=== PATIENT | female | born 1995 | race Hispanic/Latino ===

== ENCOUNTER 2019-02-11 21:27 | Emergency (ER) | payer MEDICARE, OTHER ==
[~2019-02-11] VITALS: Ht 160 cm; Wt 89.8 kg
--- OUTSIDE RECORDS SUMMARY | 2019-02-11 21:29 | XMS REPORT | Clinical Summary ---
Author Author [facility] Address Unknown Phone Unavailable Care Team Providers Care Piece Maker Name Role Phone Asked, No Pcp PCP Unavailable Allergies No Known Allergies Medications Not on file Active Problems Not on file Social History Date Tobacco Use Types Packs/Day Years Used Current Every Day Smoker Drinks/Week oz/Week Comments Alcohol Use No Sex Assigned at Date Recorded Not on file Industry Job Start Date Occupation Not on file Not on file Not on file Travel End Travel History Travel Start No recent travel history available. 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
--- OUTSIDE RECORDS SUMMARY | 2019-02-11 21:30 | XMS REPORT | Clinical Summary ---
Author Author [facility] Address Unknown Phone Unavailable Care Team Providers Care Photographer Aerial Name Role Phone PCP Unavailable Allergies No Known Allergies Medications End Date Status Medication Sig Dispensed Refills Start Date Active hydrALAZINE (APRESOLINE) Take 25 mg by 0 25 MG tablet mouth 3 (three) times daily. Active zolpidem (AMBIEN) 5 MG Take 5 mg by 0 tablet mouth every night as needed for Insomnia. Active ARIPiprazole (ABILIFY) 2 Take 2 mg by 0 MG tablet mouth daily. Active sertraline (ZOLOFT) 100 Take 100 mg 0 MG tablet by mouth daily. 07/27/2018 traMADol (ULTRAM) 50 mg Take 1 tablet 30 tablet 0 tablet (50 mg total) 9 by mouth every 6 (six) hours as needed for Pain for up to 10 days. Max Daily Amount: 200 mg Active Problems Not on file Encounters Care Team Description Date Type Specialty Gypsy Rios MD 07/17/2018 Anesthesia Event Stanislav Nava MD LAPAROSCOPY,CHOLECYSTECTOMY 07/17/2018 Surgery Stanislav Nava MD Gallstones (Primary Dx) 07/17/2018 Hospital Encounter after 02/10/2018 Social History Date Tobacco Use Types Packs/Day Years Used Never Smoker Smokeless Tobacco: Never Used Alcohol Use Drinks/Week oz/Week Comments No Alcohol Habits Answer Date Recorded How often do you have a drink containing alcohol? Never 07/08/2018 How many drinks containing alcohol do you have on Not asked a typical day when you are drinking? How often do you have six or more drinks on one Not asked occasion? Sex Assigned at Date Recorded Not on file Industry Job Start Date Occupation Not on file Not on file Not on file Travel End Travel History Travel Start No recent travel history available. Last Filed Vital Signs Time Taken Vital Sign Reading 07/17/2018 11:08 AM PRIVATE DUTY NURSE Blood Pressure 97/52 07/17/2018 11:08 AM PRIVATE DUTY NURSE Pulse 67 07/17/2018 11:08 AM PRIVATE DUTY NURSE Temperature 37 C (98.6 F) 07/17/2018 11:08 AM PRIVATE DUTY NURSE Respiratory Rate 25 07/17/2018 11:08 AM PRIVATE DUTY NURSE Oxygen Saturation 93% - Inhaled Oxygen - Concentration 07/17/2018 7:55 AM PRIVATE DUTY NURSE Weight 84.4 kg (186 lb) 07/17/2018 7:55 AM PRIVATE DUTY NURSE Height 160 cm (5' 3") 07/17/2018 7:55 AM PRIVATE DUTY NURSE Body Mass Index 32.95 Plan of Treatment Not on file Procedures Comments Procedure Name Priority Date/Time Associated Diagnosis TISSUE EXAM AP Routine 07/17/2018 10:15 AM PRIVATE DUTY NURSE LAPAROSCOPY,CHOLECYSTECTO 07/17/2018 Calculus of gallbladder MY 9:00 AM PRIVATE DUTY NURSE without cholecystitis without obstruction Special Needs DR. NAVA PA TO ASST CBC W/PLT COUNT & AUTO Routine 07/17/2018 DIFFERENTIAL 8:02 AM PRIVATE DUTY NURSE CBC W/PLT COUNT & AUTO Routine 07/17/2018 DIFFERENTIAL 8:02 AM PRIVATE DUTY NURSE SCREEN, URINE Routine 07/17/2018 7:43 AM PRIVATE DUTY NURSE after 02/10/2018 Results * Tissue Exam (07/17/2018 10:15 AM PRIVATE DUTY NURSE) Case Report Surgical Pathology [facility] LABORATORY Case: [id number] Authorizing Provider:Stanislav Nava,Collected: 07/17/2018 1015 Ordering Location: [facility] Received: 07/17/2018 1037 SERVICES Pathologist: Azeb Goodrich MD Specimen:Gallbladder, gallbladder DIAGNOSIS GALLBLADDER, CHOLECYSTECTOMY: [facility]RON[facility] LAB[facility]ATORY CHOLECYSTITIS WITH FOCAL INTESTINAL METAPLASIA - NO DYSPLASIA OR MALIGNANCY IS IDENTIFIED - CHOLELITHIASIS - ONE REACTIVE LYMPH NODE MG/pl Signing Pathologist Direct Phone Line: [phone] CPT Code(s) 20088 [place] [facility] CLINICAL HISTORY Cholelithiasis [facility] SPECIMEN SOURCE Gallbladder [facility] GROSS DESCRIPTION The specimen is received in [place] fixative and designated as LABORATORY "gallbladder" and consists of a pink-waggoner cholecystectomy specimen (7.0 x 3.5 x 3.0 cm). The gallbladder is filled with green viscous fluid and contains multiple yellow gallstones ranging in size from 0.5 to 0.7 cm in greatest dimension. The gallbladder mucosa is waggoner and velvety with no discrete lesions identified. Wire Bender sections of the gallbladder mucosa and cystic duct are submitted into A1. MG/pl MICROSCOPIC DESCRIPTION Performed [facility] Gross assessment was . [place] [facility] performed at [facility], Department of LABORATORY Pathology, [address] [place] [id number], Technical component was [facility] performed at [facility] Department of LABORATORY Pathology, [address] [place] [id number], Professional component . [place] [facility] was performed at [facility] Department of LABORATORY Pathology, [address] [place] [address], Specimen Tissue Narrative Performed At Performing Organization Address City/State/Zipcode Phone Number [facility] [address] [place] [phone] * CBC with platelet count + automated diff (07/17/2018 8:02 AM PRIVATE DUTY NURSE) WBC 9.4 4.0 - 10.0 K/L [facility] RBC 4.83 4.00 - 5.00 M/L [facility] Hemoglobin 14.2 12.0 - 15.5 GM/DL [facility] Hematocrit 43.4 36.0 - 46.0 % [facility] MCV 89.9 82.0 - 99.0 fL [facility] MCH 29.4 27.0 - 33.0 pg [facility] MCHC 32.7 32.0 - 36.0 GM/DL [facility] RDW 12.7 12.0 - 15.0 % [facility] Platelets 307 150 - 430 K/CU MM [facility] MPV 10.3 6.0 - 11.5 fL [facility] nRBC 0 0 - 0 /100 WBC [facility] % Neutros 61 % [facility] % Lymphs 31 % [facility] % Monos 6 % [facility] % Eos 2 % [facility] % Baso 0 % [facility] # Neutros 5.69 1.80 - 8.00 K/L [facility] # Lymphs 2.95 1.48 - 4.50 K/L [facility] # Monos 0.53 0.00 - 1.30 K/L [facility] # Eos 0.17 0.00 - 0.50 K/L [facility] # Baso 0.03 0.00 - 0.20 K/L [facility] Immature 1 (H) 0 - 0 % [facility] Granulocytes-Relative [facility]ORATORY Specimen Blood Performing Organization Address City/[facility]/Zipcode Phone Number [facility] [address], [place] [phone] * Screen, urine (07/17/2018 7:43 AM PRIVATE DUTY NURSE) Preg Test, Ur Negative [facility] Specimen Urine Performing Organization Address City/[facility] Phone Number [facility] [address] [place] [address] after 02/10/2018 Insurance Payer Benefit Subscriber ID Type Phone Address Plan / Group MEDICAID - MEDICAID [facility] xxxxxxxxx Medicaid CARE COMM STAR Contracted PLAN [id number] [place] [address] (Home) [place] [address]
--- OUTSIDE RECORDS SUMMARY | 2019-02-11 21:30 | XMS REPORT | Continuity of Care Document ---
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 Name Role Phone [employer] Information [employer] Unavailable Unavailable Problems Problem Status Onset Date Classification Date Reported Comments Source N/A Active 02/06/2019 [facility] G47.33 Active 01/01/2019 [facility] Discharge Diagnosis: Acute vaginitis 02/25/2016 02/28/2016 [facility] Discharge Diagnosis: Acute cervicitis 02/25/2016 02/28/2016 [facility] VAGINAL DISCHARGE Active 02/25/2016 [facility] Discharge Diagnosis: Headache 06/09/2015 06/12/2015 [facility] Discharge Diagnosis: Dizziness 06/09/2015 06/12/2015 [facility] DIZZYNESS/NAUSEA Active 06/08/2015 [facility] Discharge Diagnosis: Acute UTI 10/01/2014 10/04/2014 [facility] Discharge Diagnosis: Candidal vaginitis 10/01/2014 10/04/2014 [facility] VAGINAL ISSUES Active 09/30/2014 [facility] OBSTRUCTIVE SLEEP APNEA (ADULT) (PEDIATR Active [facility] Medications Medication Details Route Status Patient Instructions Ordering Provider Order Date Source Azithromycin 1,000 mg, Route: PO, Drug form: TAB, ONCE, Dosing Weight 63.807, kg, Start date: 02/25/16 22:04:00 CDT, Stop date: 02/25/16 22:04:00 CDT Inactive 02/26/2016 [facility] fluconazole 150 mg oral tablet 150 mg=1 tab, PO, ONCE, # 1 tab, 0 Refill(s) Active 02/26/2016 [facility] Metronidazole 500 MG Oral Tablet [Flagyl] 500 mg=1 tab, PO, Q8H, X 7 day, # 21 tab, 0 Refill(s) Active 02/26/2016 [facility] Azithromycin 1,000 mg, 1 pkt, Route: PO, Drug form: PCKT, ONCE, Dosing Weight 63.807, kg, Start date: 02/25/16 20:52:00 CDT, Stop date: 02/25/16 20:52:00 CDTNotes: (Same As: Zithromax) Take 1 hour before or 2 hours after meal Inactive 02/26/2016 Khadra Butcher Rocephin 250 mg, Route: IM, Drug form: PDR/INJ, ONCE, Dosing Weight 63.807, kg, Priority: STAT, Start date: 02/25/16 20:52:00 CDT, Stop date: 02/25/16 20:52:00 CDTNotes: (Same As: Rocephin) Inactive 02/26/2016 [facility] meclizine 25 mg oral tablet 25 mg=1 tab, PO, TID, PRN for dizziness, X 7 day, # 21 tab, 0 Refill(s) Active 06/09/2015 [facility] Benadryl 12.5 mg, Route: IVP, ONCE, Dosing Weight 55.773, kg, Priority: STAT, Start date: 06/09/15 0:13:00, Stop date: 06/09/15 0:13:00 Inactive 06/09/2015 [facility] Reglan 10 mg, Route: IVP, Drug form: INJ, ONCE, Dosing Weight 55.773, kg, Priority: STAT, Start date: 06/09/15 0:12:00, Stop date: 06/09/15 0:12:00 Inactive 06/09/2015 [facility] Meclizine 25 mg, Route: PO, Drug form: TAB, ONCE, Dosing Weight 55.773, kg, Priority: STAT, Start date: 06/09/15 0:12:00, Stop date: 06/09/15 0:12:00 Inactive 06/09/2015 [facility] Sodium Chloride 0.154 MEQ/ML Injectable Solution 1,000 mL, 1,000 ml/hr, Infuse Over: 1 hr, Route: IV, ONCE, Priority: STAT, Dosing Weight 55.773 kg, Start date: 06/09/15 0:12:00, Duration: 1 doses or times, Stop date: 06/09/15 0:12:00 Inactive 06/09/2015 [facility] Miconazole Nitrate 200 MG Vaginal Suppository [Monistat] 200 mg=1 supp, VAG, Bedtime, X 3 day, # 3 ea, 0 Refill(s), Pharmacy: [facility] [id number] Active 10/01/2014 [facility] Nitrofurantoin 100 MG Oral Capsule [Macrobid] 100 mg=1 cap, PO, BID, X 7 day, # 14 cap, 0 Refill(s), Pharmacy: [facility] [id number] Active 10/01/2014 [facility] Allergies, Adverse Reactions, Alerts Substance Category Reaction Severity Reaction type Status Date Reported Comments Source No Known Medication Allergies Assertion Drug allergy [facility] Immunizations No Data Provided for This Section Results Order Name Results Value Reference Range Date Interpretation Comments Source URINE AND STOOL UA Ketones Negative mg/dL Negative mg/dL 02/26/2016 [facility] URINE AND STOOL UA Glucose Negative mg/dL Negative mg/dL 02/26/2016 [facility] URINE AND STOOL UA pH 5.0 5.0 - 8.0 02/26/2016 [facility] URINE AND STOOL UA Protein Negative mg/dL Negative mg/dL 02/26/2016 [facility] URINE AND STOOL UA Bili Negative *NA* (02/25/16 8:40 PM) Negative 02/26/2016 [facility] URINE AND STOOL UA Blood Negative (02/25/16 8:40 PM) Negative 02/26/2016 [facility] URINE AND STOOL UA Color Yellow *NA* (02/25/16 8:40 PM) Yellow 02/26/2016 [facility] URINE AND STOOL UA Turbidity Slight *ABN* (02/25/16 8:40 PM) Clear 02/26/2016 [facility] URINE AND STOOL UA Spec Grav 1.027 <=1.030 02/26/2016 [facility] URINE AND STOOL UA Leuk Est Small *ABN* (02/25/16 8:40 PM) Negative 02/26/2016 [facility] URINE AND STOOL UA Sq Epi Many /LPF Few /LPF 02/26/2016 [facility] URINE AND STOOL UA Mucus Many /LPF None Seen /LPF 02/26/2016 [facility] URINE AND STOOL UA RBC 1 0 - 2 02/26/2016 [facility] URINE AND STOOL UA Bacteria Occasional /HPF None Seen /HPF 02/26/2016 [facility] URINE AND STOOL UA WBC 6 0 - 5 02/26/2016 [facility] URINE AND STOOL UA Urobilinogen 2.0 0.1 - 1.0 02/26/2016 [facility] URINE AND STOOL UA Nitrite Negative (02/25/16 8:40 PM) Negative 02/26/2016 [facility] URINE CHEM U Preg Negative (02/25/16 8:40 PM) Negative 02/26/2016 [facility] MOLECULAR DIAGNOSTIC N gonorrhea by Amp Det (APTIMA) Negative *NA* (06/09/15 12:37 AM) Negative 06/09/2015 [facility] MOLECULAR DIAGNOSTIC C trachomatis by Amp Det (APTIMA) Negative *NA* (06/09/15 12:37 AM) Negative 06/09/2015 [facility] MOLECULAR DIAGNOSTIC Source APTIMA Urine *NA* (06/09/15 12:37 AM) 06/09/2015 [facility] CHEM PANEL eGFR 127 06/09/2015 Result Comment: The eGFR is calculated using the CKD-EPI formula. In most young, healthy individuals the eGFR will be >90 mL/min/1.73m2. The eGFR declines with age. An eGFR of 60-89 may be normal in some populations, particularly the elderly, for whom the CKD-EPI formula has not been extensively validated. Use of the eGFR is not recommended in the following populations:

Individuals with unstable creatinine concentrations, including patients and those with serious co-morbid conditions.

Patients with extremes in muscle mass or diet.

The data above are obtained from the National Kidney Disease Education Program (NKDEP) which additionally recommends that when the eGFR is used in patients with extremes of body mass index for purposes of drug dosing, the eGFR should be multiplied by the estimated BMI. [facility] CHEM PANEL Bili Total 0.5 0.2 - 1.3 06/09/2015 [facility] CHEM PANEL AST 26 0 - 37 06/09/2015 [facility] CHEM PANEL Alk Phos 83 39 - 136 06/09/2015 [facility] CHEM PANEL Creatinine Lvl 0.66 0.50 - 1.40 06/09/2015 [facility] CHEM PANEL Sodium Lvl 141 135 - 145 06/09/2015 [facility] CHEM PANEL Glucose Lvl 87 70 - 99 06/09/2015 [facility] CHEM PANEL BUN 13 7 - 22 06/09/2015 [facility] CHEM PANEL Albumin Lvl 3.8 3.5 - 5.0 06/09/2015 [facility] CHEM PANEL Total Protein 7.3 6.4 - 8.4 06/09/2015 [facility] CHEM PANEL ALT 38 0 - 65 06/09/2015 [facility] CHEM PANEL Chloride Lvl 107 95 - 109 06/09/2015 [facility] CHEM PANEL CO2 26 24 - 32 06/09/2015 [facility] CHEM PANEL Calcium Lvl 8.6 8.5 - 10.5 06/09/2015 [facility] CHEM PANEL Potassium Lvl 3.5 3.5 - 5.1 06/09/2015 [facility] CHEM PANEL Globulin 3.5 2.0 - 4.0 06/09/2015 [facility] CHEM PANEL A/G Ratio 1.1 0.7 - 1.6 06/09/2015 [facility] CHEM PANEL AGAP 11.5 10.0 - 20.0 06/09/2015 [facility] CHEM PANEL B/C Ratio 20 6 - 25 06/09/2015 [facility] ENDOCRINOLOGY S Preg Negative *NA* (06/09/15 12:23 AM) Negative 06/09/2015 [facility] HEMATOLOGY Monocytes # 0.5 0.0 - 0.8 06/09/2015 [facility] HEMATOLOGY Eosinophils # 0.1 0.0 - 0.5 06/09/2015 [facility] HEMATOLOGY Basophils # 0.0 0.0 - 0.2 06/09/2015 [facility] HEMATOLOGY Segs 50.1 45.0 - 75.0 06/09/2015 [facility] HEMATOLOGY Lymphocytes 40.2 20.0 - 40.0 06/09/2015 [facility] HEMATOLOGY Monocytes 7.6 2.0 - 12.0 06/09/2015 [facility] HEMATOLOGY Eosinophils 1.6 0.0 - 4.0 06/09/2015 [facility] HEMATOLOGY Basophils 0.5 0.0 - 1.0 06/09/2015 [facility] HEMATOLOGY Segs-Bands # 3.4 1.5 - 8.1 06/09/2015 [facility] HEMATOLOGY Lymphocytes # 2.7 1.0 - 5.5 06/09/2015 [facility] HEMATOLOGY WBC 6.7 3.7 - 10.4 06/09/2015 [facility] HEMATOLOGY RBC 4.08 4.20 - 5.40 06/09/2015 [facility] HEMATOLOGY Hct 36.7 36.0 - 48.0 06/09/2015 [facility] HEMATOLOGY Hgb 12.6 12.0 - 16.0 06/09/2015 [facility] HEMATOLOGY MCV 89.9 80.0 - 98.0 06/09/2015 [facility] HEMATOLOGY MCHC 34.3 32.0 - 36.0 06/09/2015 [facility] HEMATOLOGY MCH 30.8 27.0 - 31.0 06/09/2015 [facility] HEMATOLOGY Platelet 251 133 - 450 06/09/2015 [facility] HEMATOLOGY RDW 12.7 11.5 - 14.5 06/09/2015 [facility] HEMATOLOGY MPV 9.0 7.4 - 10.4 06/09/2015 [facility] URINE AND STOOL UA Mucus Few /LPF None Seen /LPF 06/09/2015 [facility] URINE AND STOOL UA RBC 0-2 /HPF 0 - 2 06/09/2015 [facility] URINE AND STOOL UA Bacteria Few /HPF None Seen /HPF 06/09/2015 [facility] URINE AND STOOL UA Leuk Est Negative (06/09/15 12:23 AM) Negative 06/09/2015 [facility] URINE AND STOOL UA Sq Epi Moderate /LPF Few /LPF 06/09/2015 [facility] URINE AND STOOL UA WBC 3-5 /HPF None Seen /HPF 06/09/2015 [facility] URINE AND STOOL UA Glucose Negative (06/09/15 12:23 AM) Negative 06/09/2015 [facility] URINE AND STOOL UA pH 6.5 5.0 - 8.0 06/09/2015 [facility] URINE AND STOOL UA Protein Negative (06/09/15 12:23 AM) Negative 06/09/2015 [facility] URINE AND STOOL UA Ketones Negative *NA* (06/09/15 12:23 AM) Negative 06/09/2015 [facility] URINE AND STOOL UA Bili Negative *NA* (06/09/15 12:23 AM) Negative 06/09/2015 [facility] URINE AND STOOL UA Blood Small *ABN* (06/09/15 12:23 AM) Negative 06/09/2015 [facility] URINE AND STOOL UA Urobilinogen 1.0 0.1 - 1.0 06/09/2015 [facility] URINE AND STOOL UA Nitrite Negative (06/09/15 12:23 AM) Negative 06/09/2015 [facility] URINE AND STOOL UA Color Yellow *NA* (06/09/15 12:23 AM) Yellow 06/09/2015 [facility] URINE AND STOOL UA Turbidity Slight Cloudy (06/09/15 12:23 AM) Clear 06/09/2015 [facility] URINE AND STOOL UA Spec Grav 1.025 <=1.030 06/09/2015 [facility] IMMUNOLOGY [facility] HIV 4th GEN Negative (10/01/14 12:34 AM) Negative 10/01/2014 [facility] MOLECULAR DIAGNOSTIC N gonorrhea by Amp Det (APTIMA) Negative 1 *NA* (10/01/14 12:34 AM) Negative 10/01/2014 <sup>1</sup>Interpretive Data: The APTIMA assay is a target amplification nucleic acid probe test utilizing target capture for the qualitative detection and differentiation of ribosomal RNA from Neisseria gonorrhoeae to aid in the diagnosis of disease from symptomatic and asymptomatic individuals using the PANTHER System.
This assay utilizes FDA cleared IVD reagents. Performance characteristics have been verified by the [facility] within [facility]. The Molecular Diagnostic Laboratory is authorized under the Clinical Laboratory Improvement Amendments of 1988 (CLIA-88) to perform high complexity testing. [facility] MOLECULAR DIAGNOSTIC Source APTIMA Endocervix *NA* (10/01/14 12:34 AM) 10/01/2014 [facility] MOLECULAR DIAGNOSTIC C trachomatis by Amp Det (APTIMA) Positive 2, 3, 4 *ABN* (10/01/14 12:34 AM) Negative 10/01/2014 <sup>2</sup>Interpretive Data: The APTIMA assay is a target amplification nucleic acid probe test utilizing target capture for the qualitative detection and differentiation of ribosomal RNA from Chlamydia trachomatis to aid in the diagnosis of disease from symptomatic and asymptomatic individuals using the PANTHER System.
This assay utilizes FDA cleared IVD reagents. Performance characteristics have been verified by the [facility] within [facility]. The Molecular Diagnostic Laboratory is authorized under the Clinical Laboratory Improvement Amendments of 1988 (CLIA-88) to perform high complexity testing.
<sup>3</sup>Result Comment: "Significant Findings called to CHRIS_at _10/02/2014 10:59__by CYTHOMAS___.Read Back OK.&quot ;
<sup>4</sup>Interpretive Data: The APTIMA assay is a target amplification nucleic acid probe test utilizing target capture for the qualitative detection and differentiation of ribosomal RNA from Chlamydia trachomatis to aid in the diagnosis of disease from symptomatic and asymptomatic individuals using the [employer] System.
This assay utilizes FDA cleared IVD reagents. Performance characteristics have been verified by the [facility] within [facility]. The Molecular Diagnostic Laboratory is authorized under the Clinical Laboratory Improvement Amendments of 1988 (CLIA-88) to perform high complexity testing. [facility] URINE AND STOOL UA Spec Grav 1.020 <=1.030 10/01/2014 [facility] URINE AND STOOL UA Turbidity Cloudy *ABN* (10/01/14 12:34 AM) Clear 10/01/2014 [facility] URINE AND STOOL UA pH 7.0 5.0 - 8.0 10/01/2014 [facility] URINE AND STOOL UA Protein Negative (10/01/14 12:34 AM) Negative 10/01/2014 [facility] URINE AND STOOL UA Ketones Negative *NA* (10/01/14 12:34 AM) Negative 10/01/2014 [facility] URINE AND STOOL UA Glucose Negative (10/01/14 12:34 AM) Negative 10/01/2014 [facility] URINE AND STOOL UA Bacteria Few /HPF None Seen /HPF 10/01/2014 [facility] URINE AND STOOL UA Nitrite Negative (10/01/14 12:34 AM) Negative 10/01/2014 [facility] URINE AND STOOL UA WBC 11-20 /HPF None Seen /HPF 10/01/2014 [facility] URINE AND STOOL UA Leuk Est Small *ABN* (10/01/14 12:34 AM) Negative 10/01/2014 [facility] URINE AND STOOL UA Sq Epi Moderate /LPF Few /LPF 10/01/2014 [facility] URINE AND STOOL UA RBC 0-2 /HPF 0 - 2 10/01/2014 [facility] URINE AND STOOL UA Color Yellow *NA* (10/01/14 12:34 AM) Yellow 10/01/2014 [facility] URINE AND STOOL UA Urobilinogen 1.0 0.1 - 1.0 10/01/2014 [facility] URINE AND STOOL UA Blood Negative (10/01/14 12:34 AM) Negative 10/01/2014 [facility] URINE AND STOOL UA Bili Negative *NA* (10/01/14 12:34 AM) Negative 10/01/2014 [facility] URINE CHEM U Preg Negative (10/01/14 12:34 AM) Negative 10/01/2014 [facility] Pathology Reports No Data Provided for This Section Diagnostic Reports No Data Provided for This Section Consultation Notes No Data Provided for This Section Discharge Summaries No Data Provided for This Section History and Physicals No Data Provided for This Section Vital Signs Vital Sign Value Date Comments Source Systolic (mm Hg) 116 02/26/2016 [facility] Diastolic (mm Hg) 64 02/26/2016 [facility] Respitory Rate 16 02/26/2016 [facility] Heart Rate 71 02/26/2016 [facility] Temperature Oral (F) 98 F 02/26/2016 [facility] Respitory Rate 16 02/26/2016 [facility] Heart Rate 73 02/26/2016 [facility] Systolic (mm Hg) 116 02/26/2016 [facility] Diastolic (mm Hg) 72 02/26/2016 [facility] Temperature Oral (F) 98.6 F 02/26/2016 [facility] Weight 63.807 02/26/2016 [facility] Systolic (mm Hg) 100 06/09/2015 [facility] Diastolic (mm Hg) 66 06/09/2015 [facility] Heart Rate 75 06/09/2015 [facility] Respitory Rate 19 06/09/2015 [facility] Temperature Oral (F) 98.2 F 06/09/2015 [facility] Weight 55.773 06/09/2015 [facility] Heart Rate 70 06/09/2015 [facility] Systolic (mm Hg) 128 06/09/2015 [facility] Diastolic (mm Hg) 80 06/09/2015 [facility] Respitory Rate 18 06/09/2015 [facility] Temperature Oral (F) 97.8 F 06/09/2015 [facility] Systolic (mm Hg) 110 10/01/2014 [facility] Diastolic (mm Hg) 84 10/01/2014 [facility] Heart Rate 79 10/01/2014 [facility] Respitory Rate 18 10/01/2014 [facility] Temperature Oral (F) 98.2 F 10/01/2014 [facility] Weight 57.5 10/01/2014 [facility] Respitory Rate 18 10/01/2014 [facility] Heart Rate 87 10/01/2014 [facility] Temperature Oral (F) 98.5 F 10/01/2014 [facility] Systolic (mm Hg) 125 10/01/2014 [facility] Diastolic (mm Hg) 80 10/01/2014 [facility] Encounters Location Location Details Encounter Type Encounter Number Reason For Visit Attending Provider ADM Date DC Date Status Source [facility] [id number] Sabino Ruiz 10/01/2014 10/01/2014 [facility] [id number] Eric Weaver 06/09/2015 06/09/2015 [facility] [id number] Cricket Grubbs 02/26/2016 02/26/2016 [facility] [id number] Kelle Johanny 01/13/2019 01/13/2019 [facility] Procedures No Data Provided for This Section Assessment and Plan No Data Provided for This Section Plan of Care No Data Provided for This Section Social History Social History Date Source Social History TypeResponse Smoking Status Never smoker; Type: Cigarettes; Previous treatment: None; Ready to change: No; Concerns about tobacco use in household: No; Exposure to Tobacco Smoke None; Cigarette Smoking Last 365 Days No; Reg Smoking Cessation Counseling No 02/26/2016 [facility] Social History TypeResponse Smoking Status Never smoker; Type: Cigarettes; Previous treatment: None; Ready to change: No; Concerns about tobacco use in household: No; Exposure to Tobacco Smoke None; Cigarette Smoking Last 365 Days No; Reg Smoking Cessation Counseling No entered on: 02/25/16 02/26/2016 [facility] Family History No Data Provided for This Section Advance Directives No Data Provided for This Section Functional Status No Data Provided for This Section
--- OUTSIDE RECORDS SUMMARY | 2019-02-11 21:31 | XMS REPORT | Summary of Care ---
Author Organization Unknown Address Unknown Phone Unavailable Encounter EFRAÍN Murillo([facility]) [id number] Date(s): 09/30/14 - 10/01/14 [facility] [address] [place] [address]- Discharge Diagnosis: Acute UTI Discharge Diagnosis: Candidal vaginitis Discharge Disposition: Home Physician Attending: Sabino Ruiz DO Vital Signs Most recent to 1 2 oldest [Reference Range]: Temperature Oral 98.2 DegF 98.5 DegF [96.4-99.1 DegF] (10/01/14 1:08 AM) (09/30/14 11:51 PM) Blood Pressure 110/84 mmHg 125/80 mmHg [90-140/60-90 mmHg] (10/01/14 1:08 AM) (09/30/14 11:51 PM) Respiratory Rate 18 BRMIN 18 BRMIN [14-20 BRMIN] (10/01/14 1:08 AM) (09/30/14 11:51 PM) Peripheral Pulse 79 bpm 87 bpm Rate [60-100 bpm] (10/01/14 1:08 AM) (09/30/14 11:51 PM) Weight 57.5 kg (09/30/14 11:51 PM) Problem List No data available for this section Allergies, Adverse Reactions, Alerts Substance Reaction Severity Status NKDA Active Medications Macrobid 100 mg oral capsule 100 mg=1 cap, PO, BID, X 7 day, # 14 cap, 0 Refill(s), Pharmacy: [facility] [id number] Start Date: 10/01/14 Stop Date: 10/08/14 Status: Ordered Monistat 3 vaginal suppository 200 mg=1 supp, VAG, Bedtime, X 3 day, # 3 ea, 0 Refill(s), Pharmacy: [facility] [id number] Start Date: 10/01/14 Stop Date: 10/04/14 Status: Ordered Results URINE CHEM Most recent to 1 oldest [Reference Range]: U Preg [Negative] Negative (10/01/14 12:34 AM) URINE AND STOOL Most recent to 1 oldest [Reference Range]: UA Turbidity [Clear] Cloudy *ABN* (10/01/14 12:34 AM) UA Color [Yellow] Yellow *NA* (10/01/14 12:34 AM) UA pH [5.0-8.0] 7.0 (10/01/14 12:34 AM) UA Spec Grav 1.020 [<=1.030] (10/01/14 12:34 AM) UA Glucose Negative [Negative] (10/01/14 12:34 AM) UA Blood [Negative] Negative (10/01/14 12:34 AM) UA Ketones Negative [Negative] *NA* (10/01/14 12:34 AM) UA Protein Negative [Negative] (10/01/14 12:34 AM) UA Urobilinogen 1.0 EU/dL [0.1-1.0 EU/dL] (10/01/14 12:34 AM) UA Bili [Negative] Negative *NA* (10/01/14 12:34 AM) UA Leuk Est Small [Negative] *ABN* (10/01/14 12:34 AM) UA Nitrite Negative [Negative] (10/01/14 12:34 AM) UA WBC [None Seen 11-20 /HPF /HPF] *ABN* (10/01/14 12:34 AM) UA RBC [0-2 /HPF] 0-2 /HPF (10/01/14 12:34 AM) UA Bacteria [None Few /HPF Seen /HPF] (10/01/14 12:34 AM) UA Sq Epi [Few /LPF] Moderate /LPF *ABN* (10/01/14 12:34 AM) IMMUNOLOGY Most recent to 1 oldest [Reference Range]: CDC HIV 4th GEN Negative [Negative] (10/01/14 12:34 AM) MOLECULAR DIAGNOSTIC Most recent to 1 oldest [Reference Range]: Source APTIMA Endocervix *NA* (10/01/14 12:34 AM) N gonorrhea by Amp Negative 1 Det (APTIMA) *NA* [Negative] (10/01/14 12:34 AM) C trachomatis by Amp Positive 2, 3, 4 Det (APTIMA) *ABN* [Negative] (10/01/14 12:34 AM) 1Interpretive Data: The APTIMA assay is a target amplification nucleic acid probe test utilizing target capture for the qualitative detection and differentiation of ribosomal RNA from Neisseria gonorrhoeae to aid in the diagnosis of disease from symptomatic and asymptomatic individuals using the PANTHER System. This assay utilizes FDA cleared IVD reagents. Performance characteristics have b een verified by the [facility] within [facility]. The Molecular Diagnostic Laboratory is authorized under the Clinical Laboratory Imp rovement Amendments of 1988 (CLIA-88) to perform high complexity testing. 2Interpretive Data: The APTIMA assay is a target amplification nucleic acid probe test utilizing target capture for the qualitative detection and differentiation of ribosomal RNA from Chlamydia trachomatis to aid in the diagnosis of disease from symptomatic and asymptomatic individuals using the PANTHER System. This assay utilizes FDA cleared IVD reagents. Performance characteristics have b een verified by the [facility] within [facility]. The Molecular Diagnostic Laboratory is authorized under the Clinical Laboratory Imp rovement Amendments of 1988 (CLIA-88) to perform high complexity testing. 3Result Comment: "Significant Findings called to CHRIS_at _10/02/2014 10:59__by CYTHARRISON___.Read Back OK." 4Interpretive Data: The APTIMA assay is a target amplification nucleic acid probe test utilizing target capture for the qualitative detection and differentiation of ribosomal RNA from Chlamydia trachomatis to aid in the diagnosis of disease from symptomatic and asymptomatic individuals using the PANTHER System. This assay utilizes FDA cleared IVD reagents. Performance characteristics have b een verified by the [facility] within [facility]. The Molecular Diagnostic Laboratory is authorized under the Clinical Laboratory Imp rovement Amendments of 1988 (CLIA-88) to perform high complexity testing. Immunizations No data available for this section Procedures No data available for this section Social History Social History Type Response Smoking Status Never smoker; Exposure to Tobacco Smoke None; Cigarette Smoking Last 365 Days No; Reg Smoking Cessation Counseling No Assessment and Plan No data available for this section
--- OUTSIDE RECORDS SUMMARY | 2019-02-11 21:31 | XMS REPORT | Summary of Care ---
Author Author [facility] Organization [facility] Address Unknown Phone Unavailable Encounter EFRAÍN Murillo([facility]) [id number] Date(s): 06/08/15 - 06/09/15 [facility] [address] [place] [address]- Discharge Diagnosis: Headache Discharge Diagnosis: Dizziness Discharge Disposition: Home Attending Physician: Eric Weaver MD Vital Signs Most recent to 1 2 oldest [Reference Range]: Temperature Oral 98.2 DegF 97.8 DegF [96.4-99.1 DegF] (06/09/15 2:38 AM) (06/08/15 11:18 PM) Blood Pressure 100/66 mmHg 128/80 mmHg [90-140/60-90 mmHg] (06/09/15 2:38 AM) (06/08/15 11:18 PM) Respiratory Rate 19 BRMIN 18 BRMIN [14-20 BRMIN] (06/09/15 2:38 AM) (06/08/15 11:18 PM) Peripheral Pulse 75 bpm 70 bpm Rate [60-100 bpm] (06/09/15 2:38 AM) (06/08/15 11:18 PM) Weight 55.773 kg (06/08/15 11:18 PM) Problem List No data available for this section Allergies, Adverse Reactions, Alerts Substance Reaction Severity Status NKDA Active Medications Benadryl 12.5 mg, Route: IVP, ONCE, Dosing Weight 55.773, kg, Priority: STAT, Start date: 06/09/15 0:13:00, Stop date: 06/09/15 0:13:00 Start Date: 06/09/15 Stop Date: 06/09/15 Status: Completed meclizine 25 mg, Route: PO, Drug form: TAB, ONCE, Dosing Weight 55.773, kg, Priority: STAT , Start date: 06/09/15 0:12:00, Stop date: 06/09/15 0:12:00 Start Date: 06/09/15 Stop Date: 06/09/15 Status: Completed meclizine 25 mg oral tablet 25 mg=1 tab, PO, TID, PRN for dizziness, X 7 day, # 21 tab, 0 Refill(s) Start Date: 06/09/15 Stop Date: 06/16/15 Status: Ordered NS (Bolus) IV 1,000 mL, 1,000 ml/hr, Infuse Over: 1 hr, Route: IV, ONCE, Priority: STAT, Dosin g Weight 55.773 kg, Start date: 06/09/15 0:12:00, Duration: 1 doses or times, St op date: 06/09/15 0:12:00 Start Date: 06/09/15 Stop Date: 06/09/15 Status: Completed Reglan 10 mg, Route: IVP, Drug form: INJ, ONCE, Dosing Weight 55.773, kg, Priority: STA T, Start date: 06/09/15 0:12:00, Stop date: 06/09/15 0:12:00 Start Date: 06/09/15 Stop Date: 06/09/15 Status: Completed Results ELECTROLYTES Most recent to 1 oldest [Reference Range]: Sodium Lvl [135-145 141 mEq/L mEq/L] (06/09/15 12:23 AM) Potassium Lvl 3.5 mEq/L [3.5-5.1 mEq/L] (06/09/15 12:23 AM) Chloride Lvl [95-109 107 mEq/L mEq/L] (06/09/15 12:23 AM) CO2 [24-32 mEq/L] 26 mEq/L (06/09/15 12:23 AM) AGAP [10.0-20.0 11.5 mEq/L mEq/L] (06/09/15 12:23 AM) CHEM PANEL Most recent to 1 oldest [Reference Range]: Creatinine Lvl 0.66 mg/dL [0.50-1.40 mg/dL] (06/09/15 12:23 AM) eGFR 127 mL/min/1.73m2 1 *NA* (06/09/15 12:23 AM) BUN [7-22 mg/dL] 13 mg/dL (06/09/15 12:23 AM) B/C Ratio [6-25] 20 (06/09/15 12:23 AM) Glucose Lvl [70-99 87 mg/dL mg/dL] (06/09/15 12:23 AM) Total Protein 7.3 g/dL [6.4-8.4 g/dL] (06/09/15 12:23 AM) Albumin Lvl [3.5-5.0 3.8 g/dL g/dL] (06/09/15 12:23 AM) Globulin [2.0-4.0 3.5 g/dL g/dL] (06/09/15 12:23 AM) A/G Ratio [0.7-1.6] 1.1 (06/09/15 12:23 AM) Calcium Lvl 8.6 mg/dL [8.5-10.5 mg/dL] (06/09/15 12:23 AM) ALT [0-65 unit/L] 38 unit/L (06/09/15 12:23 AM) AST [0-37 unit/L] 26 unit/L (06/09/15 12:23 AM) Alk Phos [39-136 83 unit/L unit/L] (06/09/15 12:23 AM) Bili Total [0.2-1.3 0.5 mg/dL mg/dL] (06/09/15 12:23 AM) 1Result Comment: The eGFR is calculated using the [...] from the National Kid[employer] Disease Education Program ( NKDEP) which additionally recommends that when the eGFR is used in patients with extremes of body mass index for purposes of drug dosing, the eGFR should be mul tiplied by the estimated BMI. ENDOCRINOLOGY Most recent to 1 oldest [Reference Range]: S Preg [Negative] Negative *NA* (06/09/15 12:23 AM) URINE AND STOOL Most recent to 1 oldest [Reference Range]: UA Turbidity [Clear] Slight Cloudy (06/09/15 12:23 AM) UA Color [Yellow] Yellow *NA* (06/09/15 12:23 AM) UA pH [5.0-8.0] 6.5 (06/09/15 12:23 AM) UA Spec Grav 1.025 [<=1.030] (06/09/15 12:23 AM) UA Glucose Negative [Negative] (06/09/15 12:23 AM) UA Blood [Negative] Small *ABN* (06/09/15 12:23 AM) UA Ketones Negative [Negative] *NA* (06/09/15 12:23 AM) UA Protein Negative [Negative] (06/09/15 12:23 AM) UA Urobilinogen 1.0 EU/dL [0.1-1.0 EU/dL] (06/09/15 12:23 AM) UA Bili [Negative] Negative *NA* (06/09/15 12:23 AM) UA Leuk Est Negative [Negative] (06/09/15 12:23 AM) UA Nitrite Negative [Negative] (06/09/15 12:23 AM) UA WBC [None Seen 3-5 /HPF /HPF] (06/09/15 12:23 AM) UA RBC [0-2 /HPF] 0-2 /HPF (06/09/15 12:23 AM) UA Bacteria [None Few /HPF Seen /HPF] (06/09/15 12:23 AM) UA Sq Epi [Few /LPF] Moderate /LPF *ABN* (06/09/15 12:23 AM) UA Mucus [None Seen Few /LPF /LPF] (06/09/15 12:23 AM) HEMATOLOGY Most recent to 1 oldest [Reference Range]: WBC [3.7-10.4 K/CMM] 6.7 K/CMM (06/09/15 12:23 AM) RBC [4.20-5.40 4.08 M/CMM M/CMM] *LOW* (06/09/15 12:23 AM) Hgb [12.0-16.0 g/dL] 12.6 g/dL (06/09/15 12:23 AM) Hct [36.0-48.0 %] 36.7 % (06/09/15 AM) MCV [80.0-98.0 fL] 89.9 fL (06/09/15:23 AM) MCH [27.0-31.0 pg] 30.8 pg (06/09/15 AM) MCHC [32.0-36.0 34.3 g/dL g/dL] (06/09/15:23 AM) RDW [11.5-14.5 %] 12.7 % (06/09/15:23 AM) Platelet [133-450 251 K/CMM K/CMM] (06/09/15:23 AM) MPV [7.4-10.4 fL] 9.0 fL (06/09/15:23 AM) Segs [45.0-75.0 %] 50.1 % (06/09/15:23 AM) Lymphocytes 40.2 % [20.0-40.0 %] *HI* (06/09/15:23 AM) Monocytes [2.0-12.0 7.6 % %] (06/09/15 12:23 AM) Eosinophils [0.0-4.0 1.6 % %] (06/09/15 12:23 AM) Basophils [0.0-1.0 0.5 % %] (06/09/15 12:23 AM) Segs-Bands # 3.4 K/CMM [1.5-8.1 K/CMM] (06/09/15 12:23 AM) Lymphocytes # 2.7 K/CMM [1.0-5.5 K/CMM] (06/09/15 12:23 AM) Monocytes # [0.0-0.8 0.5 K/CMM K/CMM] (06/09/15 12:23 AM) Eosinophils # 0.1 K/CMM [0.0-0.5 K/CMM] (06/09/15 12:23 AM) Basophils # [0.0-0.2 0.0 K/CMM K/CMM] (06/09/15 12:23 AM) MOLECULAR DIAGNOSTIC Most recent to 1 oldest [Reference Range]: Source APTIMA Urine *NA* (06/09/15 12:37 AM) N gonorrhea by Amp Negative Det (APTIMA) *NA* [Negative] (06/09/15 12:37 AM) C trachomatis by Amp Negative Det (APTIMA) *NA* [Negative] (06/09/15 12:37 AM) Immunizations No data available for this section Procedures No data available for this section Social History Social History Type Response Smoking Status Never smoker; Exposure to Tobacco Smoke None; Cigarette Smoking Last 365 Days No; Reg Smoking Cessation Counseling No Assessment and Plan No data available for this section
--- OUTSIDE RECORDS SUMMARY | 2019-02-11 21:31 | XMS REPORT | Summary of Care ---
Author Author [facility] Organization [facility] Address Unknown Phone Unavailable Encounter [facility] Catherine_murali([facility]) [id number] Date(s): 01/12/19 - 01/12/[address] [address]- Discharge Disposition: Home or Self Care Attending Physician: Kelle Orlando MD Referring Physician: Kelle Orlando MD Vital Signs No data available for this section Problem List No data available for this section Allergies, Adverse Reactions, Alerts No Known Medication Allergies Medications No data available for this section Results No data available for this section Immunizations No data available for this section Procedures No data available for this section Social History Social History Type Response Smoking Status Never smoker; Type: Cigarettes; Previous treatment: None; Ready to change: No; Concerns about tobacco use in household: No; Exposure to Tobacco Smoke None; Cigarette Smoking Last 365 Days No; Reg Smoking Cessation Counseling No entered on: 02/25/16 Assessment and Plan No data available for this section
--- OUTSIDE RECORDS SUMMARY | 2019-02-11 21:31 | XMS REPORT | Summary of Care ---
Author Author [facility] Organization [facility] Address Unknown Phone Unavailable Encounter EFRAÍN Murillo([facility]) [id number] Date(s): 02/25/16 - 02/25/16 [facility] [address] [place] [address]- Discharge Diagnosis: Acute vaginitis Discharge Diagnosis: Acute cervicitis Discharge Disposition: Home or Self Care Attending Physician: Cricket Grubbs MD Vital Signs Most recent to 1 2 oldest [Reference Range]: Temperature Oral 98 DegF 98.6 DegF [96.4-99.1 DegF] (02/25/16 9:38 PM) (02/25/16 8:09 PM) Blood Pressure 116/64 mmHg 116/72 mmHg [90-140/60-90 mmHg] (02/25/16 9:38 PM) (02/25/16 8:09 PM) Respiratory Rate 16 BRMIN 16 BRMIN [14-20 BRMIN] (02/25/16 9:38 PM) (02/25/16 8:09 PM) Peripheral Pulse 71 bpm 73 bpm Rate [60-100 bpm] (02/25/16 9:38 PM) (02/25/16 8:09 PM) Weight 63.807 kg (02/25/16 8:09 PM) Problem List No data available for this section Allergies, Adverse Reactions, Alerts Substance Reaction Severity Status NKDA Active Medications azithromycin 1,000 mg, Route: PO, Drug form: TAB, ONCE, Dosing Weight 63.807, kg, Start date: 02/25/16 22:04:00 CDT, Stop date: 02/25/16 22:04:00 CDT Start Date: 02/25/16 Stop Date: 02/25/16 Status: Completed azithromycin 1,000 mg, 1 pkt, Route: PO, Drug form: PCKT, ONCE, Dosing Weight 63.807, kg, Sta rt date: 02/25/16 20:52:00 CDT, Stop date: 02/25/16 20:52:00 CDT Notes: (Same As: Zithromax) Take 1 hour before or 2 hours after meal Start Date: 02/25/16 Stop Date: 02/25/16 Status: Completed Flagyl 500 mg oral tablet 500 mg=1 tab, PO, Q8H, X 7 day, # 21 tab, 0 Refill(s) Start Date: 02/25/16 Stop Date: 03/03/16 Status: Ordered fluconazole 150 mg oral tablet 150 mg=1 tab, PO, ONCE, # 1 tab, 0 Refill(s) Start Date: 02/25/16 Status: Ordered Rocephin 250 mg, Route: IM, Drug form: PDR/INJ, ONCE, Dosing Weight 63.807, kg, Priority: STAT, Start date: 02/25/16 20:52:00 CDT, Stop date: 02/25/16 20:52:00 CDT Notes: (Same As: Rocephin) Start Date: 02/25/16 Stop Date: 02/25/16 Status: Completed Results URINE CHEM Most recent to 1 oldest [Reference Range]: U Preg [Negative] Negative (02/25/16 8:40 PM) URINE AND STOOL Most recent to 1 oldest [Reference Range]: UA Turbidity [Clear] Slight *ABN* (02/25/16 8:40 PM) UA Color [Yellow] Yellow *NA* (02/25/16 8:40 PM) UA pH [5.0-8.0] 5.0 (02/25/16 8:40 PM) UA Spec Grav 1.027 [<=1.030] (02/25/16 8:40 PM) UA Glucose [Negative Negative mg/dL mg/dL] *NA* (02/25/16 8:40 PM) UA Blood [Negative] Negative (02/25/16 8:40 PM) UA Ketones [Negative Negative mg/dL mg/dL] *NA* (02/25/16 8:40 PM) UA Protein [Negative Negative mg/dL mg/dL] (02/25/16 8:40 PM) UA Urobilinogen 2.0 mg/dL [0.1-1.0 mg/dL] *HI* (02/25/16 8:40 PM) UA Bili [Negative] Negative *NA* (02/25/16 8:40 PM) UA Leuk Est Small [Negative] *ABN* (02/25/16 8:40 PM) UA Nitrite Negative [Negative] (02/25/16 8:40 PM) UA WBC [0-5 /HPF] 6 /HPF *HI* (02/25/16 8:40 PM) UA RBC [0-2 /HPF] 1 /HPF (02/25/16 8:40 PM) UA Bacteria [None Occasional /HPF Seen /HPF] *NA* (02/25/16 8:40 PM) UA Sq Epi [Few /LPF] Many /LPF *ABN* (02/25/16 8:40 PM) UA Mucus [None Seen Many /LPF /LPF] *ABN* (02/25/16 8:40 PM) Immunizations No data available for this section [...]
--- OUTSIDE RECORDS SUMMARY | 2019-02-11 21:32 | XMS REPORT ---
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 Name Role Phone LOLY, DR Sandra FOLEY Unavailable Unavailable ALDEN, DR TIFFANI LAGOS Unavailable Unavailable SINGER, DR SEE Unavailable Unavailable FRANCO, DR SONG Unavailable Unavailable BRANDY, LEONA FLANAGAN Unavailable Unavailable ROLLO, DR DAVIS Unavailable Unavailable SCHEMIDT, DR ERIC Unavailable Unavailable RINCON, DR CABRAL Unavailable Unavailable ESCALANTE, DR ROSA Unavailable Unavailable BA, DR ACOSTA Unavailable Unavailable SEBASTIAN, DR MCCRARY Unavailable Unavailable Loretta HARRIS Unavailable Unavailable CHINTAN, DR SORTO Unavailable Unavailable Aden GRIMES Unavailable Unavailable Hernandez GERMAN Unavailable Unavailable Payers Payer Name Policy Type Policy Number Effective Date Expiration Date Problems This patient has no known problems. Allergies, Adverse Reactions, Alerts Allergy Name Allergy Type Status Severity Reaction(s) Onset Date Inactive Date Treating Clinician Comments No Known Allergies DA Active U 2019-01-17 00:00:00 Medications This patient has no known medications. Encounters Start Date/Time End Date/Time Encounter Type Admission Type Attending Clinicians Care Facility Care Department Encounter ID 2019-02-11 11:13:56 Outpatient [facility] [id number] 2018-06-20 09:00:00 Inpatient OG SHEA [facility] [id number] 2019-01-12 19:30:00 2019-01-12 19:30:00 Outpatient [facility] [id number] 2018-11-15 22:52:00 2018-11-16 01:52:00 Emergency TIFFANI MORENO [facility] [id number] 2018-11-08 15:01:00 2018-11-08 23:59:00 Outpatient OG SHEA [facility] [id number] 2018-10-21 02:00:00 2018-10-21 02:30:00 Emergency E ESA SINGER [facility] E[facility] [id number] 2018-10-03 15:56:00 2018-10-03 17:22:00 Emergency E DUNCAN FRANCO [facility] [id number] 2018-06-30 17:20:00 2018-06-30 17:45:00 Emergency E SUSAN MICHAEL [facility] [id number] 2018-06-04 08:08:00 2018-06-04 23:59:00 Outpatient OG SHEA [facility] [id number] 2018-06-01 12:48:00 2018-06-01 13:30:00 Emergency E HERNESTO ARCHULETA [facility] [id number] 2018-05-03 14:41:00 2018-05-04 04:33:00 Emergency E SHEIKH WASLEONORA [facility] [id number] 2018-02-16 10:00:00 2018-02-16 10:40:00 Emergency E MISHA RINCON [facility] [id number] 2018-01-25 12:44:00 2018-01-25 13:35:00 Emergency E SHEIKH WASLEONORA [facility] [id number] 2017-12-14 11:36:00 2017-12-14 12:00:00 Emergency E SHEIKH WASLEONORA [facility] [id number] 2017-09-29 23:40:00 2017-09-30 04:51:00 Emergency E MOE ESCALANTE [facility] [id number] 2017-08-19 20:24:00 2017-08-19 21:50:00 Emergency E DAVE ROPER [facility] [id number] 2017-07-05 19:18:00 2017-07-05 21:00:00 Emergency E DUNCAN FRANCO [facility] [id number] 2017-06-17 10:18:00 2017-06-17 11:18:00 Emergency E HERMANN CORTES [facility] [id number] 2017-06-07 18:29:00 2017-06-07 20:06:00 Emergency E ESA SINGER [facility] [id number] 2017-04-22 16:31:00 2017-04-23 12:00:00 Emergency E VITALIY HARRIS [facility] [id number] 2017-01-26 22:01:00 2017-01-28 10:45:00 Outpatient E NOREEN WOODSON [facility] [id number] 2016-10-29 23:40:00 2016-10-30 19:02:00 Emergency E JOHN GRIMES [facility] [id number] 2016-09-20 20:42:00 2016-09-20 22:26:00 Emergency E ESA SINGER [facility] [id number] 2016-04-18 22:40:00 2016-04-19 00:41:00 Emergency E MOE ESCALANTE [facility] [id number] Results Test Description Test Time Test Comments Text Results Atomic Results Result Comments STREPTOCOCCUS PCR SCREEN 2019-01-18 15:42:00 STREPTOCOCCUS DYSGALACTIAE (test code=STREPGC) NEGATIVE FOR G/C NEGATIVE STREPA MOLECULAR (test code=STREPAMOL) NEGATIVE FOR GRP A NEGATIVE - CT NECK W/[id number] 01:59:00 Name: BECKIE TEJADA [facility] : 1995 Age/S: 23 / F [address] [facility] Unit #: [id number] Loc: [place] [address] Phys: Kvng Gold MD Acct: [id number] Dis Date: Status: REG ER PHONE #: [phone] Exam Date: 01/18/2019 0140 FAX #: [phone] Reason: difficulty breathing, throat pain EXAMS: CPT CODE: [id number] CT NECK W/CONTRAST [id number] Location: T 18 CT neck, 01/18/19 TECHNIQUE: CT examination of the neck was performed with intravenous contrast. Patient given 75 mL of isovue 300 for contrast. 2D Reformatted images acquired sagittally and coronally on the PAC system using MPR software by interpreting radiologist. Scanning conducted in the axial plane contiguously from skull base through thoracic inlet. The examination was performed on a updated helical CT scanner utilizing low- dose radiation technique. Automatic exposure control was utilized to reduce radiation dose CLINICAL HISTORY: Difficulty breathing, throat pain, sore throat x2 days. Emergency room presentation COMPARISON EXAM : None of the soft tissues of the neck FINDINGS: Do not see an abscess in this patient. There is mild adenoidal prominence along the tonsillar pillars without significant com promise of the airway. There is presence of what appears to be a Thornwald t cyst in the nasopharyngeal region. This is consistent retention cyst. No significant compromise of the airway.. No abnormal masses are seen or pathological nodes. No mucosal abnormality of concern identified in the nasopharynx, oropharynx, hypopharynx or larynx. No salivary gland mass is seen. Assessment of the skull base unremarkable. Thyroid gland is unrema rkable. Upper lung zones seen are unremarkable. IMPRESSION: Mild adenoidal prominence of the tonsillar region suggestive tonsillitis without significant compromise of the airway or abscess. 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 CC: Kvng Gold MD Technologist: RT GUERA CTDI: DLP: Trnscb Date/Time: 01/18 (0159) [email or web address] Orig Print D/T: S: 01/18/2019 (020 3) PAGE 2 Signed Report B-TYPE NATRIURETIC [id number] 01:04:00* Test Item Value Reference Range Comments B-TYPE NATRIURETIC PEPTIDE (test code=BNP) 27.57 pgram/mL 0-100 MONO [id number] 00:58:00* Test Item Value Reference Range Comments MONO SCREEN (test code=MONO) POSITIVE NEGATIVE BASIC METABOLIC [id number] 00:36:00* Test Item Value Reference Range Comments SODIUM (test code=NA) 141 mmol/L 136-145 POTASSIUM (test code=K) 3.6 mmol/L 3.5-5.1 CHLORIDE (test code=CL) 108.0 mmol/L 98-107 CARBON DIOXIDE (test code=CO2) 25.0 mmol/L 21-32 ANION GAP (test code=GAP) 11.6 10-20 GLUCOSE (test code=GLU) 95 mg/dL 74-106 BLOOD UREA NITROGEN (test code=BUN) 8 mg/dL 7-18 GLOMERULAR FILTRATION RATE (test code=GFR) > 60 mL/min >=60 Estimated GFR by using Modified MDRD formula.Chronic kidney disease is defined as either kidney damageor GFR <60 mL/min/1.73 m2 for >3 months. CREATININE (test code=CREAT) 0.70 mg/dL 0.55-1.02 Note change in reference range due to change in reagent. BUN/CREATININE RATIO (test code=BUN/CREA) 10.8 10-20 CALCIUM (test code=CA) 9.3 mg/dL 8.5-10.1 HCG SERUM [id number] 00:36:00* Test Item Value Reference Range Comments HCG SERUM QUAL (test code=HCGQL) NEGATIVE NEGATIVE This HCGQL test is NOT applicable for MALE patients.Check with nurse about probable order error.If Tumor Marker Test needed, nurse should order test "HCGTU"(Test #550.97470) [id number] 00:36:00* Test Item Value Reference Range Comments TROPONIN-I (test code=TROPI) <0.015 ng/mL 0-0.045 [id number] 00:35:00* Test Item Value Reference Range Comments D-DIMER (test code=DDIMER) 84.00 ng/mLFEU 0-500 Clinical Cut-off value for D- Dimer is 500 ng/mL FEU. Comment: The [employer] D-Dimer assay is intended for use asan aid in the diagnosis of venous thromboembolism (VTE)[deep vein thrombosis (DVT) or pulmonary embolism (PE)].The measurement of D-Dimer should not be used as an aid inthe diagnosis of VTE, in patient with: -Therapeutic dose anticoagulant therapy for >24 hours -Fibrinolytic therapy within previous 7 days -Trauma or surgery within previous 4 weeks -Disseminated malignancies - Aortic aneurysm -Sepsis, severe infections, pneumonia, severe skin infections -Liver cirrhosis - BASIC METABOLIC [id number] 00:33:00* Test Item Value Reference Range Comments SODIUM (test code=NA) 141 mmol/L 136-145 POTASSIUM (test code=K) 3.6 mmol/L 3.5-5.1 CHLORIDE (test code=CL) 108.0 mmol/L 98-107 CARBON DIOXIDE (test code=CO2) mmol/L 21-32 ANION GAP (test code=GAP) 10-20 GLUCOSE (test code=GLU) mg/dL 74-106 BLOOD UREA NITROGEN (test code=BUN) mg/dL 7-18 GLOMERULAR FILTRATION RATE (test code=GFR) mL/min >=60 CREATININE (test code=CREAT) mg/dL 0.55-1.02 BUN/CREATININE RATIO (test code=BUN/CREA) 10-20 CALCIUM (test code=CA) mg/dL 8.5-10.1 HCG SERUM [id number] 00:33:00* Test Item Value Reference Range Comments HCG SERUM QUAL (test code=HCGQL) NEGATIVE NEGATIVE This HCGQL test is NOT applicable for MALE patients.Check with nurse about probable order error.If Tumor Marker Test needed, nurse should order test "HCGTU"(Test #550.05763) [id number] 00:33:00* Test Item Value Reference Range Comments TROPONIN-I (test code=TROPI) ng/mL 0-0.045 BASIC METABOLIC [id number] 00:29:00* Test Item Value Reference Range Comments SODIUM (test code=NA) 141 mmol/L 136-145 POTASSIUM (test code=K) 3.6 mmol/L 3.5-5.1 CHLORIDE (test code=CL) 108.0 mmol/L 98-107 CARBON DIOXIDE (test code=CO2) mmol/L 21-32 ANION GAP (test code=GAP) 10-20 GLUCOSE (test code=GLU) mg/dL 74-106 BLOOD UREA NITROGEN (test code=BUN) mg/dL 7-18 GLOMERULAR FILTRATION RATE (test code=GFR) mL/min >=60 CREATININE (test code=CREAT) mg/dL 0.55-1.02 BUN/CREATININE RATIO (test code=BUN/CREA) 10-20 CALCIUM (test code=CA) mg/dL 8.5-10.1 HCG SERUM [id number] 00:29:00* Test Item Value Reference Range Comments HCG SERUM QUAL (test code=HCGQL) NEGATIVE [id number] 00:29:00* Test Item Value Reference Range Comments TROPONIN-I (test code=TROPI) ng/mL 0-0.045 CBC W/O [id number] 00:18:00* Test Item Value Reference Range Comments WHITE BLOOD CELL (test code=WBC) 9.1 K/mm3 4.5-12.5 RED BLOOD CELL (test code=RBC) 4.49 mill/mm3 3.7-5.2 HEMOGLOBIN (test code=HGB) 13.5 gram/dL 11.5-15.5 HEMATOCRIT (test code=HCT) 40.3 % 36.0-46.0 MEAN CELL VOLUME (test code=MCV) 89.8 fL 80-98 MEAN CELL HGB (test code=MCH) 30.1 picogram 27.0-33.0 MEAN CELL HGB CONCETRATION (test code=MCHC) 33.5 gram/dL 33.0-36.0 RED CELL DISTRIBUTION WIDTH (test code=RDW) 12.2 % 11.6-16.2 PLATELET COUNT (test code=PLT) 289 K/mm3 150-450 MEAN PLATELET VOLUME (test code=MPV) 10.4 fL 6.7-11.0 - XR CHEST 1 [id number] 23:26:00 FAX: Kvng Gold MD [phone] [place]: B St: PRE Name: BECKIE ABDALLA [facility] : [birth year] Age/S: 23/F [address] Unit #: [id number] Loc: [place] [address] Phys: Kvng Gold MD Acct: [id number] Dis Date: Status: PRE ER PHONE #: [phone] Exam Date: 01/17/20192311 FAX #: [phone] Reason: Shortness of Breath EXAMS: CPT CODE: [id number] XR CHEST 1 V 41351 EXAM: - XR CHEST 1 V HISTORY: Shortness of breath. COMPARISON: None available time of interpretation. FINDINGS: Single AP view of the [facility] st is provided. Heart size and vascularity are within normal limits. The lungs are clear of focal consolidation. No effusion, pneumothorax, or acute osseous abnormality. IMPRESSION: No rad iographic evidence of acute cardiopulmonary process. at 0236 Repor mirlande and signed by: Bobby Barber MD CC: Kvng Gold MD Technologist: Sean Brennan RT(R) Trnscrd Date/Time/By: 01/17/2019 (5822) : By: Avtar .[email or web address] Orig Print D/T: S: 01/17/2019 (5168) PAGE [address] ABDOMEN AND PELVIS W/O [id number] 00:30:26CT abdomen and pelvis without contrastLocation Code: [id number] HISTORY: [id number]: Right flank painCOMPARISON: NoneTechnique: Helical CT of the abdomen and pelvis was performed without IV ororal contrast. Thin section axial, sagittal and coronal images were obtained.Automatic exposure control was utilized. FINDIN GS:The lung bases are clear. The limited noncontrast appearance of the liver, ad renal glands, kidneys,pancreas, and spleen is unremarkable.The gallbladder is zapata rgically absentThe unopacified loops of bowel demonstrate no evidence of obstruc tion. Theappendix is visualized and is normal. Further evaluation of bowel is l imitedsecondary to absence of IV and oral contrast.A IUD is seen asymmetrically within the uterus with questionable penetration ofthe left lower uterine segment myometrium, recommend correlation withoutpatient/nonemergent sonography/gynecol ogy consultationThere is no free peritoneal air or fluid. No aggressive osseous lesions are seen. IMPRESSION:Findings are very limited in the absence of oral an d IV contrastNo definite evidence of an etiology for patient's acute symptomatol ogyAn IUD is seen asymmetrically within the uterus with questionable penetration of the left lower uterine segment myometrium, recommend correlation withoutpatie nt/nonemergent sonography/gynecology consultationAdditional findings detailed ab oveCOMPREHENSIVE METABOLIC [id number] 00:02:00* Test Item Value Reference Range Comments GLUCOSE (test code=06D) 86 mg/dL 75-100 SODIUM (test code=01A) 141 mmol/L 136-145 POTASSIUM (test code=01B) 3.5 mmol/L 3.6-5.1 CHLORIDE (test code=04A) 109 mmol/L 98-107 CO2 (test code=02A) 25 mmol/L 22-32 ANION GAP (test code=ANG) 10.5 mmol/L BUN (test code=05D) 8 mg/dL 7-18 CREATININE (test code=03E) 0.8 mg/dL 0.4-1.1 BUN/CREA (test code=BCR) 10 12-20 CALCIUM (test code=09D) 9.0 mg/dL 8.3-9.5 BILI TOTAL (test code=11A) 0.5 mg/dL 0.2-1.0 PROTEIN (test code=07D) 7.9 g/dL 6.4-8.2 ALBUMIN (test code=08D) 4.1 g/dL 3.5-4.8 GLOBULIN (test code=GLB) 3.8 g/dL 1.5-3.8 ALB/GLOB (test code=AGRR) 1.1 1.0-2.6 ALK PHOS (test code=35A) 103 IU/L 42-121 AST (test code=30A) 61 IU/L <=42 ALT (test code=31A) 111 IU/L <=78 [id number] 00:02:00* Test Item Value Reference Range Comments AMYLASE (test code=10A) 51 U/L 28-100 URINALYSIS WITH [id number] 23:58:00* Test Item Value Reference Range Comments COLOR (test code=COLU) YELLOW YELLOW CLARITY (test code=CLA) HAZY CLEAR GLUCOSE UR (test code=UA GLUCOSE) NEGATIVE NEGATIVE BILI UR (test code=BILE) NEGATIVE NEGATIVE KETONES UR (test code=MILLIE) NEGATIVE NEGATIVE SP GRAVITY (test code=SPGR) 1.024 1.005-1.030 PH UR (test code=PH) 6.0 4.5-8.0 PROTEIN UR (test code=PU) TRACE NEGATIVE UROBIL UR (test code=UROQ) 0.2 EU/dL 0.2-1.0 NITRITE UR (test code=NITRITE) NEGATIVE NEGATIVE BLOOD UR (test code=UA BLOOD) TRACE NEGATIVE LEUK ES UR (test code=LEUK) 1+ NEGATIVE WBC UR (test code=UWBC) 5 /HPF 0-5 RBC UR (test code=URBC) 2 /HPF 0-2 EPITH UR (test code=UEPC) FEW /LPF FEW BACTERIA UR (test code=UBACT) FEW /HPF NONE CAST UR (test code=CAST) /LPF NONE CRYSTAL UR (test code=CRYU) CALCIUM OXALATE MANY / LPF NONE MUCUS UR (test code=MUC) / HPF NONE AMORPH UR (test code=JAGJIT) / HPF NONE TRICH UR (test code=UTRICH) /HPF NONE YEAST UR (test code=UY) /HPF NONE SPERM UR (test code=USPERM) /HPF NONE LIPASE [id number] 23:56:00* Test Item Value Reference Range Comments LIPASE (test code=60A) 210 IU/L 73-393 URINE [id number] 23:50:00* Test Item Value Reference Range Comments PREG UR (test code=PGU) NEGATIVE NEGATIVE CBC (INCLUDES AUTOMATED DIFFERENTIAL)2018-11-15 23:47:00* Test Item Value Reference Range Comments WBC (test code=WBC) 9.6 10\\S\\3/uL 4.5-11.0 RBC (test code=RBC) 4.33 10\\S\\6/uL 4.30-5.70 HGB (test code=HBG) 13.3 g/dL 12.0-15.5 HCT (test code=HCT) 38.3 % 35.0-44.0 MCV (test code=MCV) 88.5 fL 81.0-99.0 MCH (test code=MCH) 30.7 pg 27.0-31.0 MCHC (test code=MCHC) 34.7 g/dL 32.0-36.0 RDW (test code=RDW) 12.4 % 11.5-14.5 PLT (test code=PLT) 301 10\\S\\3/uL 130-400 MPV (test code=MPV) 10.4 fL 9.4-12.4 NEUTROP # (test code=NE#) 5.6 10\\S\\3/uL 1.6-8.0 LYMPH # (test code=LY#) 3.1 10\\S\\3/uL 1.1-3.5 MONOCYTE # (test code=MO#) 0.6 10\\S\\3/uL 0.0-1.1 EOSINOPH # (test code=EO#) 0.1 10\\S\\3/uL 0.0-0.7 BASOPHIL # (test code=BA#) 0.0 10\\S\\3/uL 0.0-0.3 IG # (test code=IG#) 0.06 10\\S\\3/uL 0.00-0.06 NRBC # (test code=NRBC#) 0.00 10\\S\\3/uL 0.00-0.01 NEUTROPH % (test code=NE%) 58.5 % 35.0-73.0 LYMPH % (test code=LY%) 32.8 % 20.0-55.0 MONO % (test code=MO%) 6.3 % 2.5-10.0 EOSINOPH % (test code=EO%) 1.4 % 0.0-5.0 BASOPHIL % (test code=BA%) 0.4 % 0.0-2.0 IG % (test code=IG%) 0.6 % 0.0-0.8 NRBC% (test code=NRBC%) 0.0 % 0.0-0.2 MANDIFF (test code=MDIFF) NO NO RBC MORPH (test code=RBCMOR) NORMAL XR SPINE LUMBAR AP & [id number] 15:25:00Dictation location D4 Lumbar Spine 3 viewsHISTORY: Low back painCOMMENT: There are 5 nonrib-bearing lumbar vertebral bodies. There isnormal lumbar lordosis with preservation of normal vertebral body alignment,vertebral body height, and intervertebral disc space distance. Nospondylolysis, or spondylolisthesis is visualized. There is no evidence offracture or dislocation. IMPRESSION: Normal lumbar spine.CT STONE PROTOCOL STUDY*GP*2018-10-03 17:01:46Exam: Stone protocol CT abdomen and pelvis.Location: D4.History: [id number]: Right lower quadrant painTechnique: Unenhanced spiral slices were taken from the domes of the diaphragm,through the pubic symphysis utilizing a stone protocol. Coronal reformationswere performed. One or more of the following radiation dose reductiontechniques was used: automated exposure control, adjustment of mA and/or KVaccording to patient size, and/or utilization of iterative reconstructiontechnique.Findings:No calcifications are found in either kidney, along the course of either ureteror the bladder. The kidneys are unremarkable. No perinephric fluid collectionsor hydronephrosis is seen.The liver is diffusely of decreased attenuation consistent with fattyinfiltration. No mass is seen. The intra-and extrahepatic biliary tree isnormal. The gallbladder has been removed.The pancreas is normal. The pancreatic duct is normal in caliber. The spleenand adrenal glands are nor mal in size and shape.The large and small intestine are normal in caliber. The appendix is normal. No inflammatory change is seen.No lymphadenopathy or free fl uid is found in the abdomen or the pelvis.The pelvic structures are unremarkable . An IUD is in place.The lung bases are clear.No incidental abdominal findings a re seen.Impression:1. No acute abdominal findings.2. Fatty liver.3. Status post cholecystectomy.4. Otherwise unremarkable exam. URINE MONOCLONALGP 2018-10-03 16:57:00* Test Item Value Reference Range Comments PREG UR (test code=PGU) NEGATIVE NEGATIVE COMPREHENSIVE METABOLIC LITTLE *GP* [id number] 16:48:00* Test Item Value Reference Range Comments ALBUMIN (test code=GALB) 3.7 g/dL 3.5-5.5 ALK PHOS (test code=GALP) 81 U/L 42-141 ALT (test code=GALT) 87 U/L 10-47 AST (test code=JAQUI) 73 U/L 11-38 BUN (test code=GBUN) 9 mg/dL 7-22 CALCIUM (test code=GCL+) 9.2 mg/dL 8.0-10.3 CHLORIDE (test code=GCL-) 106 mmol/L 98-108 CREATININE (test code=GCRE) 0.5 mg/dL 0.6-1.2 GLUCOSE (test code=GGUL) 112 mg/dL 73-118 POTASSIUM (test code=GK+) 3.9 mmol/L 3.6-5.1 SODIUM (test code=GNA+) 136 mmol/L 128-145 BILI TOTAL (test code=GTBIL) 0.8 mg/dL 0.2-1.6 TCO2 (test code=GTC02) 28 mmol/L 18-33 PROTEIN (test code=GTP) 7.4 g/dL 6.4-8.1 URINALYSIS W/O [id number] 16:21:00* Test Item Value Reference Range Comments COLOR (test code=COLU) DK YELLOW YELLOW CLARITY (test code=CLA) CLOUDY CLEAR GLUCOSE UR (test code=UA GLUCOSE) Negative NEGATIVE BILI UR (test code=BILE) Negative NEGATIVE KETONES UR (test code=MILLIE) Trace NEGATIVE SP GRAVITY (test code=SPGR) >=1.030 1.005-1.030 PH UR (test code=PH) 6.0 4.5-8.0 PROTEIN UR (test code=PU) Negative NEGATIVE NITRITE UR (test code=NITRITE) Negative NEGATIVE UROBIL UR (test code=GUROQ) 0.2 E.U./dL UROBIL UR (test code=GUROQC) UROBILINOGEN REFERENCE RANGE 0.2 - 1.0 EU/dL BLOOD UR (test code=UA BLOOD) Trace-lysed NEGATIVE LEUK ES UR (test code=LEUK) Negative NEGATIVE CBC (INCLUDES AUTOMATED DIFFERENTIAL) *2018-10-03 16:20:00* Test Item Value Reference Range Comments WBC (test code=WBC) 8.2 10\\S\\3/uL 4.5-11.0 RBC (test code=RBC) 4.59 10\\S\\6/uL 4.30-5.70 HGB (test code=HBG) 13.7 g/dL 12.0-15.5 HCT (test code=HCT) 39.2 % 35.0-44.0 MCV (test code=MCV) 85.4 fL 81.0-99.0 MCH (test code=GMCH) 29.8 pg 27.0-31.0 MCHC (test code=MCHC) 34.8 g/dL 32.0-36.0 RDW (test code=RDW) 12.7 % 11.5-14.5 PLT (test code=PLT) 254 10\\S\\3/uL 130-400 NEUTROP # (test code=NE#) 5.5 10\\S\\3/uL 1.6-8.0 LYMPH # (test code=LY#) 2.2 10\\S\\3/uL 1.1-3.5 MID # (test code=GMID#) 0.5 10\\S\\3/uL 0.0-1.1 GRA % (test code=GRA%) 66.4 % 35.0-73.0 LYMPH % (test code=GLY%) 26.7 % 20.0-55.0 MID % (test code=GMID%) 6.9 % 0.0-10.0 TISSUE [id number] 16:33:00Surgical Pathology Report Case: [id number] Authorizing Provider: Stanislav Zarate, Collected: 07/17/2018 1015 Ordering Location: [facility] Received: 07/17/2018 1037 SERVICES Pathologist: Azeb Goodrich MD Specimen: Gallbladder, gallbladder GALLBLADDER, CHOLECYSTECTOMY: - MILD CHRONIC CHOLECYSTITIS WITH FOCAL INTESTINAL METAPLASIA - NO DYSPLASIA OR MALIGNANCY IS IDENTIFIED - CHOLELITHIASIS - ONE REACTIVE LYMPH NODEMG/pl Signing Pathologist Direct Phone Line: [phone] signed by Azeb Goodrich MD on 07/18/2018 at 4:33 [id number] Gallbladder The specimen is received in fixative and designated as "gallbladder" and consists of a pink-waggoner cholecystectomy specimen (7.0 x 3.5 x 3.0 cm). The gallbladder is filled with green viscous fluid and contains multiple yellow gallstones ranging in size from 0.5 to 0.7 cm in greatest dimension. The gallbladder mucosa is waggoner and velvety with no discrete lesions identified. Supervisor [employer] sections of the gallbladder mucosa and cystic duct are submitted into A1. MG/pl Performed [facility], Department of Pathology, [address] [place] [id number], [facility], Department of Pathology, [address] [place] [id number], [facility], [address] [place] [id number], WUB W/PLT COUNT & AUTO [id number] 08:16:00* Test Item Value Reference Range Comments WHITE BLOOD CELL COUNT (BEAKER) (test qels=771) 9.4 K/ L 4.0-10.0 RED BLOOD CELL COUNT (BEAKER) (test uumg=374) 4.83 M/ L 4.00-5.00 HEMOGLOBIN (BEAKER) (test sxhn=937) 14.2 GM/DL 12.0-15.5 HEMATOCRIT (BEAKER) (test hxch=400) 43.4 % 36.0-46.0 MEAN CORPUSCULAR VOLUME (BEAKER) (test kkmy=066) 89.9 fL 82.0-99.0 MEAN CORPUSCULAR HEMOGLOBIN (BEAKER) (test cbjw=687) 29.4 pg 27.0-33.0 MEAN CORPUSCULAR HEMOGLOBIN CONC (BEAKER) (test gjhh=109) 32.7 GM/DL 32.0-36.0 RED CELL DISTRIBUTION WIDTH (BEAKER) (test ocwb=748) 12.7 % 12.0-15.0 PLATELET COUNT (BEAKER) (test khju=679) 307 K/CU MM 150-430 MEAN PLATELET VOLUME (BEAKER) (test ajmq=517) 10.3 fL 6.0-11.5 NUCLEATED RED BLOOD CELLS (BEAKER) (test omms=843) 0 /100 WBC 0-0 NEUTROPHILS RELATIVE PERCENT (BEAKER) (test cxpp=574) 61 % LYMPHOCYTES RELATIVE PERCENT (BEAKER) (test mdct=750) 31 % MONOCYTES RELATIVE PERCENT (BEAKER) (test cgxf=778) 6 % EOSINOPHILS RELATIVE PERCENT (BEAKER) (test vtom=533) 2 % BASOPHILS RELATIVE PERCENT (BEAKER) (test vucs=287) 0 % NEUTROPHILS ABSOLUTE COUNT (BEAKER) (test qjlv=971) 5.69 K/ L 1.80-8.00 LYMPHOCYTES ABSOLUTE COUNT (BEAKER) (test lxyb=702) 2.95 K/ L 1.48-4.50 MONOCYTES ABSOLUTE COUNT (BEAKER) (test rzng=236) 0.53 K/ L 0.00-1.30 EOSINOPHILS ABSOLUTE COUNT (BEAKER) (test mhyy=144) 0.17 K/ L 0.00-0.50 BASOPHILS ABSOLUTE COUNT (BEAKER) (test dpbk=333) 0.03 K/ L 0.00-0.20 IMMATURE GRANULOCYTES-RELATIVE PERCENT (BEAKER) (test wsek=6132) 1 % 0-0 SCREEN, [id number] 07:57:00* Test Item Value Reference Range Comments TEST URINE (BEAKER) (test oply=253) Negative U/S [id number] 09:26:05EXAMINATION: U/S ABDOMEN.LOCATION: S17.HISTORY: Disease of liver, K76.89.COMPARISON: CT abdomen 07/05/17.TECHNIQUE: Examination of the liver, spleen, kidneys, pancreas, gallbladder,bile ducts, aorta and inferior vena cava was performed.FINDINGS:The visualized liver parenchyma demonstrates diffusely increased echogenicity.The main portal vein is patent. There is no intra or extrahepatic biliaryductal dilatation. The common duct measures 3 mm. The contracted appearinggallbladder demonstrates calculi. Nonvisualization of pancreas due to overlyingbowel gas. Spleen is unremarkable in size.The right and left kidney measure 10.1 cm and 10.8 cm respectively. There is nohydronephrosis.The visualized portions of abdominal aorta and IVC appear unremarkable.IMPRESSION:Cholelithiasis within contracted gallbladder.Hepatic steatosis.COMPREHENSIVE METABOLIC LITTLE *GP* [id number] 13:18:00* Test Item Value Reference Range Comments ALBUMIN (test code=GALB) 3.5 g/dL 3.5-5.5 ALK PHOS (test code=GALP) 99 U/L 42-141 ALT (test code=GALT) 80 U/L 10-47 AST (test code=JAQUI) 45 U/L 11-38 BUN (test code=GBUN) 8 mg/dL 7-22 CALCIUM (test code=GCL+) 9.1 mg/dL 8.0-10.3 CHLORIDE (test code=GCL-) 107 mmol/L 98-108 CREATININE (test code=GCRE) 0.8 mg/dL 0.6-1.2 GLUCOSE (test code=GGUL) 111 mg/dL 73-118 POTASSIUM (test code=GK+) 3.7 mmol/L 3.6-5.1 SODIUM (test code=GNA+) 141 mmol/L 128-145 BILI TOTAL (test code=GTBIL) 0.8 mg/dL 0.2-1.6 TCO2 (test code=GTC02) 25 mmol/L 18-33 PROTEIN (test code=GTP) 7.1 g/dL 6.4-8.1 URINALYSIS W/O MICROSCOPICGP2018-06-01 13:12:00* Test Item Value Reference Range Comments COLOR (test code=COLU) Armida YELLOW CLARITY (test code=CLA) SLT HAZY CLEAR GLUCOSE UR (test code=UA GLUCOSE) Negative NEGATIVE BILI UR (test code=BILE) 1+ NEGATIVE KETONES UR (test code=MILLIE) Negative NEGATIVE SP GRAVITY (test code=SPGR) >=1.030 1.005-1.030 PH UR (test code=PH) 6.0 4.5-8.0 PROTEIN UR (test code=PU) 1+ NEGATIVE NITRITE UR (test code=NITRITE) Negative NEGATIVE UROBIL UR (test code=GUROQ) 0.2 E.U./dL UROBIL UR (test code=GUROQC) UROBILINOGEN REFERENCE RANGE 0.2 - 1.0 EU/dL BLOOD UR (test code=UA BLOOD) 3+ NEGATIVE LEUK ES UR (test code=LEUK) Negative NEGATIVE URINE MONOCLONALGP2018-06-01 13:12:00* Test Item Value Reference Range Comments PREG UR (test code=PGU) NEGATIVE NEGATIVE CBC (INCLUDES AUTOMATED DIFFERENTIAL) *2018-06-01 13:11:00* Test Item Value Reference Range Comments WBC (test code=WBC) 8.6 10\\S\\3/uL 4.5-11.0 RBC (test code=RBC) 4.68 10\\S\\6/uL 4.30-5.70 HGB (test code=HBG) 13.9 g/dL 12.0-15.5 HCT (test code=HCT) 39.5 % 35.0-44.0 MCV (test code=MCV) 84.4 fL 81.0-99.0 MCH (test code=GMCH) 29.8 pg 27.0-31.0 MCHC (test code=MCHC) 35.3 g/dL 32.0-36.0 RDW (test code=RDW) 12.5 % 11.5-14.5 PLT (test code=PLT) 257 10\\S\\3/uL 130-400 NEUTROP # (test code=NE#) 5.7 10\\S\\3/uL 1.6-8.0 LYMPH # (test code=LY#) 2.3 10\\S\\3/uL 1.1-3.5 MID # (test code=GMID#) 0.6 10\\S\\3/uL 0.0-1.1 GRA % (test code=GRA%) 65.9 % 35.0-73.0 LYMPH % (test code=GLY%) 27.6 % 20.0-55.0 MID % (test code=GMID%) 6.5 % 0.0-10.0 [id number] 17:38:00* Test Item Value Reference Range Comments ACETAMINPH (test code=94M) <2.0 ug/mL 10.0-30.0 ALCOHOL BLOOD (ETOH)2018-05-03 17:29:00* Test Item Value Reference Range Comments ETOH (test code=HALC) ETHANOL The result is to be used only for medical purposes ALCOHOL (test code=56A) <10 mg/dL <=10 [id number] 17:27:00* Test Item Value Reference Range Comments SALICYLATE (test code=94B) <1.7 mg/dL 2.8-20.0 DRUGS OF ABUSE*GP*2018-05-03 17:09:00* Test Item Value Reference Range Comments DRUG SCRN (test code=HDOA) URINE DRUG SCREEN This is an unconfirmed screening result and should not be used for non-medical purposes AMPHETAMIN (test code=GAMP) Negative NEGATIVE BARBITURAT (test code=GBAR) Negative NEGATIVE BENZODIAZE (test code=GBZO) Negative NEGATIVE COCAINE (test code=GCOC) Negative NEGATIVE OPIATES (test code=PATTI) Negative NEGATIVE PHENCYCLID (test code=GPCP) Negative NEGATIVE THC (test code=GTHC) Negative NEGATIVE TCA (test code=GTCA) Negative NEGATIVE DOAH (test code=DOAH) URINE DRUG SCREEN CUT OFF VALUES Amphetamines 1000 ng/mL Barbituates 300 ng/mL Benzodiazepines 300 ng/mL Cocaine 300 ng/mL Opiates 300 ng/mL Phencyclidine 25 ng/mL THC 50 ng/mL Tricyclic Antidepressants 1000 ng/mL CARDIAC PANEL TRIAGE GP2018-05-03 16:20:00* Test Item Value Reference Range Comments TROPONIN I (test code=GTPI) <0.05 ng/mL <=0.05 LIVER PROFILE GP [id number] 16:14:00* Test Item Value Reference Range Comments ALBUMIN (test code=GALB) 3.7 g/dL 3.5-5.5 ALK PHOS (test code=GALP) 95 U/L 42-141 ALT (test code=GALT) 91 U/L 10-47 AMYLASE (test code=GAMY) 43 U/L 14-97 AST (test code=JAQUI) 72 U/L 11-38 GGT (test code=GGGT) 87 U/L 5-65 BILI TOTAL (test code=GTBIL) 0.9 mg/dL 0.2-1.6 PROTEIN (test code=GTP) 7.8 g/dL 6.4-8.1 MetyLy[employer] 8 Panel *GP* [id number] 16:13:00* Test Item Value Reference Range Comments BUN (test code=GBUN) 9 mg/dL 7-22 CK TOTAL (test code=GCK) 113 U/L 30-190 CHLORIDE (test code=GCL-) 105 mmol/L 98-108 CREATININE (test code=GCRE) 0.9 mg/dL 0.6-1.2 GLUCOSE (test code=GGUL) 113 mg/dL 73-118 POTASSIUM (test code=GK+) 3.5 mmol/L 3.6-5.1 SODIUM (test code=GNA+) 137 mmol/L 128-145 TCO2 (test code=GTC02) 24 mmol/L 18-33 URINALYSIS W/O MICROSCOPICGP2018-05-03 16:12:00* Test Item Value Reference Range Comments COLOR (test code=COLU) Yellow YELLOW CLARITY (test code=CLA) Clear CLEAR GLUCOSE UR (test code=UA GLUCOSE) Negative NEGATIVE BILI UR (test code=BILE) Negative NEGATIVE KETONES UR (test code=MILLIE) Negative NEGATIVE SP GRAVITY (test code=SPGR) 1.025 1.005-1.030 PH UR (test code=PH) 6.5 4.5-8.0 PROTEIN UR (test code=PU) Negative NEGATIVE NITRITE UR (test code=NITRITE) Negative NEGATIVE UROBIL UR (test code=GUROQ) 0.2 E.U./dL UROBIL UR (test code=GUROQC) UROBILINOGEN REFERENCE RANGE 0.2 - 1.0 EU/dL BLOOD UR (test code=UA BLOOD) 2+ NEGATIVE LEUK ES UR (test code=LEUK) Trace NEGATIVE URINE MONOCLONALGP2018-05-03 16:10:00* Test Item Value Reference Range Comments PREG UR (test code=PGU) NEGATIVE NEGATIVE CBC (INCLUDES AUTOMATED DIFFERENTIAL) *2018-05-03 16:03:00* Test Item Value Reference Range Comments WBC (test code=WBC) 9.6 10\\S\\3/uL 4.5-11.0 RBC (test code=RBC) 4.75 10\\S\\6/uL 4.30-5.70 HGB (test code=HBG) 14.3 g/dL 12.0-15.5 HCT (test code=HCT) 40.9 % 35.0-44.0 MCV (test code=MCV) 86.1 fL 81.0-99.0 MCH (test code=GMCH) 30.0 pg 27.0-31.0 MCHC (test code=MCHC) 34.8 g/dL 32.0-36.0 RDW (test code=RDW) 12.6 % 11.5-14.5 PLT (test code=PLT) 324 10\\S\\3/uL 130-400 NEUTROP # (test code=NE#) 6.0 10\\S\\3/uL 1.6-8.0 LYMPH # (test code=LY#) 2.9 10\\S\\3/uL 1.1-3.5 MID # (test code=GMID#) 0.7 10\\S\\3/uL 0.0-1.1 GRA % (test code=GRA%) 62.8 % 35.0-73.0 LYMPH % (test code=GLY%) 30.4 % 20.0-55.0 MID % (test code=GMID%) 6.8 % 0.0-10.0 DIRECT STREP GROUP AGP2018-02-16 10:57:00* Test Item Value Reference Range Comments STREP A AG (test code=STREP) POSITIVE NEGATIVE CT HEAD W/O CONTRAST*GP*2018-01-25 13:11:09CT brain without contrast.Location code: [id number] HISTORY: R51: HEADACHE COMPARISON: 06/07/2017TECHNIQUE: Routine unenhanced axial imaging of the brain was performed. Coronal and sagittal reformatted images were obtained, as well. Automaticexposure control was utilized. Total DLP: 890.97 mGycmFINDINGS: There is no acute intracranial hemorrhage or extra-axial collection.There is no hydrocephalus, midline shift, or space occupying mass. Saenz-whitematter differentiation is well preserved with no definite CT evidence of anacute infarct. The cranial vault and skull base are intact. The paranasal sinuses and mastoidair cells are pneumatized and well aerated. IMPRESSION: No acute intracranial abnormality.COMPREHENSIVE METABOLIC [id number] 02:01:00* Test Item Value Reference Range Comments GLUCOSE (test code=06D) 112 mg/dL 75-100 SODIUM (test code=01A) 136 mmol/L 136-145 POTASSIUM (test code=01B) 3.8 mmol/L 3.6-5.1 CHLORIDE (test code=04A) 105 mmol/L 98-107 CO2 (test code=02A) 22 mmol/L 22-32 ANION GAP (test code=ANG) 12.8 mmol/L BUN (test code=05D) 8 mg/dL 7-18 CREATININE (test code=03E) 0.9 mg/dL 0.4-1.1 BUN/CREA (test code=BCR) 9 12-20 CALCIUM (test code=09D) 9.0 mg/dL 8.3-9.5 BILI TOTAL (test code=11A) 0.8 mg/dL 0.2-1.0 PROTEIN (test code=07D) 8.0 g/dL 6.4-8.2 ALBUMIN (test code=08D) 4.0 g/dL 3.5-4.8 GLOBULIN (test code=GLB) 4.0 g/dL 1.5-3.8 ALB/GLOB (test code=AGRR) 1.0 1.0-2.6 ALK PHOS (test code=35A) 88 IU/L 42-121 AST (test code=30A) 72 IU/L <=42 ALT (test code=31A) 118 IU/L <=78 [id number] 02:00:00* Test Item Value Reference Range Comments ACETAMINPH (test code=94M) <2.0 ug/mL 10.0-30.0 ALCOHOL BLOOD (ETOH)2017-09-30 01:53:00* Test Item Value Reference Range Comments ETOH (test code=HALC) ETHANOL The result is to be used only for medical purposes ALCOHOL (test code=56A) <10 mg/dL <=10 [id number] 01:51:00* Test Item Value Reference Range Comments SALICYLATE (test code=94B) <1.7 mg/dL 2.8-20.0 URINALYSIS WITH [id number] 01:25:00* Test Item Value Reference Range Comments COLOR (test code=COLU) DK YELLOW YELLOW CLARITY (test code=CLA) CLOUDY CLEAR GLUCOSE UR (test code=UA GLUCOSE) NEGATIVE NEGATIVE BILI UR (test code=BILE) NEGATIVE NEGATIVE KETONES UR (test code=MILLIE) TRACE NEGATIVE SP GRAVITY (test code=SPGR) 1.025 1.005-1.030 PH UR (test code=PH) 6.0 4.5-8.0 PROTEIN UR (test code=PU) TRACE NEGATIVE UROBIL UR (test code=UROQ) 0.2 EU/dL 0.2-1.0 NITRITE UR (test code=NITRITE) NEGATIVE NEGATIVE BLOOD UR (test code=UA BLOOD) TRACE NEGATIVE LEUK ES UR (test code=LEUK) 1+ NEGATIVE WBC UR (test code=UWBC) 3 /HPF 0-5 RBC UR (test code=URBC) 4 /HPF 0-2 EPITH UR (test code=UEPC) FEW /LPF FEW BACTERIA UR (test code=UBACT) NONE /HPF NONE CAST UR (test code=CAST) /LPF NONE CRYSTAL UR (test code=CRYU) / LPF NONE MUCUS UR (test code=MUC) FEW / HPF NONE AMORPH UR (test code=JAGJIT) FEW / HPF NONE TRICH UR (test code=UTRICH) /HPF NONE YEAST UR (test code=UY) /HPF NONE SPERM UR (test code=USPERM) /HPF NONE DRUGS OF [id number] 01:18:00* Test Item Value Reference Range Comments DRUG SCRN (test code=HDOA) URINE DRUG SCREEN This is an unconfirmed screening result and should not be used for non-medical purposes CANNABINOD (test code=88C) Negative NEGATIVE AMPHETAMINE (test code=84A) Negative NEGATIVE BENZODIAZP (test code=86A) Negative NEGATIVE BARBITURAT (test code=85A) Negative NEGATIVE OPIATES (test code=92B) Negative NEGATIVE COCAINE (test code=87A) Negative NEGATIVE PHENCYCLID (test code=66A) Negative NEGATIVE METHADONE (test code=64A) Negative NEGATIVE DOAH (test code=DOAH) URINE DRUG SCREEN Cut-off values are as follows: Cannabinoids 50 ng/mL Cocaine 300 ng/mL Amphetamines 1000 ng/mL Phencyclidine 25 ng/mL Benzodiazepines 200 ng.mL Methadone 300 ng/mL Barbiturates 200 ng/mL Opiates 2000 ng/mL URINE [id number] 01:11:00* Test Item Value Reference Range Comments PREG UR (test code=PGU) NEGATIVE NEGATIVE CBC (INCLUDES AUTOMATED DIFFERENTIAL)2017-09-30 01:10:00* Test Item Value Reference Range Comments WBC (test code=WBC) 8.3 10\\S\\3/uL 4.5-11.0 RBC (test code=RBC) 4.61 10\\S\\6/uL 4.30-5.70 HGB (test code=HBG) 13.4 g/dL 12.0-15.5 HCT (test code=HCT) 39.6 % 35.0-44.0 MCV (test code=MCV) 85.9 fL 81.0-99.0 MCH (test code=MCH) 29.1 pg 27.0-31.0 MCHC (test code=MCHC) 33.8 g/dL 32.0-36.0 RDW (test code=RDW) 12.6 % 11.5-14.5 PLT (test code=PLT) 342 10\\S\\3/uL 130-400 MPV (test code=MPV) 10.9 fL 9.4-12.4 NEUTROP # (test code=NE#) 6.1 10\\S\\3/uL 1.6-8.0 LYMPH # (test code=LY#) 1.6 10\\S\\3/uL 1.1-3.5 MONOCYTE # (test code=MO#) 0.5 10\\S\\3/uL 0.0-1.1 EOSINOPH # (test code=EO#) 0.1 10\\S\\3/uL 0.0-0.7 BASOPHIL # (test code=BA#) 0.0 10\\S\\3/uL 0.0-0.3 IG # (test code=IG#) 0.04 10\\S\\3/uL 0.00-0.06 NRBC # (test code=NRBC#) 0.00 10\\S\\3/uL 0.00-0.01 NEUTROPH % (test code=NE%) 72.7 % 35.0-73.0 LYMPH % (test code=LY%) 19.2 % 20.0-55.0 MONO % (test code=MO%) 6.5 % 2.5-10.0 EOSINOPH % (test code=EO%) 0.6 % 0.0-5.0 BASOPHIL % (test code=BA%) 0.5 % 0.0-2.0 IG % (test code=IG%) 0.5 % 0.0-0.8 NRBC% (test code=NRBC%) 0.0 % 0.0-0.2 MANDIFF (test code=MDIFF) NO NO RBC MORPH (test code=RBCMOR) NORMAL URINE MONOCLONALGP2017-08-19 23:06:00* Test Item Value Reference Range Comments PREG UR (test code=PGU) NEGATIVE NEGATIVE COMPREHENSIVE METABOLIC LITTLE *GP* [id number] 23:04:00* Test Item Value Reference Range Comments ALBUMIN (test code=GALB) 3.7 g/dL 3.5-5.5 ALK PHOS (test code=GALP) 90 U/L 42-141 ALT (test code=GALT) 79 U/L 10-47 AST (test code=JAQUI) 68 U/L 11-38 BUN (test code=GBUN) 8 mg/dL 7-22 CALCIUM (test code=GCL+) 9.3 mg/dL 8.0-10.3 CHLORIDE (test code=GCL-) 105 mmol/L 98-108 CREATININE (test code=GCRE) 0.6 mg/dL 0.6-1.2 GLUCOSE (test code=GGUL) 94 mg/dL 73-118 POTASSIUM (test code=GK+) 3.8 mmol/L 3.6-5.1 SODIUM (test code=GNA+) 140 mmol/L 128-145 BILI TOTAL (test code=GTBIL) 0.7 mg/dL 0.2-1.6 TCO2 (test code=GTC02) 25 mmol/L 18-33 PROTEIN (test code=GTP) 7.4 g/dL 6.4-8.1 URINALYSIS W/O MICROSCOPICGP2017-08-19 22:57:00* Test Item Value Reference Range Comments COLOR (test code=COLU) Armida YELLOW CLARITY (test code=CLA) CLEAR CLEAR GLUCOSE UR (test code=UA GLUCOSE) Negative NEGATIVE BILI UR (test code=BILE) 1+ NEGATIVE KETONES UR (test code=MILLIE) Negative NEGATIVE SP GRAVITY (test code=SPGR) >=1.030 1.005-1.030 PH UR (test code=PH) 6.0 4.5-8.0 PROTEIN UR (test code=PU) 2+ NEGATIVE NITRITE UR (test code=NITRITE) Negative NEGATIVE UROBIL UR (test code=GUROQ) 0.2 E.U./dL UROBIL UR (test code=GUROQC) UROBILINOGEN REFERENCE RANGE 0.2 - 1.0 EU/dL BLOOD UR (test code=UA BLOOD) 3+ NEGATIVE LEUK ES UR (test code=LEUK) Trace NEGATIVE CBC (INCLUDES AUTOMATED DIFFERENTIAL) *2017-08-19 22:54:00* Test Item Value Reference Range Comments WBC (test code=WBC) 7.3 10\\S\\3/uL 4.5-11.0 RBC (test code=RBC) 4.38 10\\S\\6/uL 4.30-5.70 HGB (test code=HBG) 12.6 g/dL 12.0-15.5 HCT (test code=HCT) 37.3 % 35.0-44.0 MCV (test code=MCV) 85.2 fL 81.0-99.0 MCH (test code=GMCH) 28.9 pg 27.0-31.0 MCHC (test code=MCHC) 33.9 g/dL 32.0-36.0 RDW (test code=RDW) 13.0 % 11.5-14.5 PLT (test code=PLT) 259 10\\S\\3/uL 130-400 NEUTROP # (test code=NE#) 4.3 10\\S\\3/uL 1.6-8.0 LYMPH # (test code=LY#) 2.5 10\\S\\3/uL 1.1-3.5 MID # (test code=GMID#) 0.5 10\\S\\3/uL 0.0-1.1 GRA % (test code=GRA%) 58.8 % 35.0-73.0 LYMPH % (test code=GLY%) 34.1 % 20.0-55.0 MID % (test code=GMID%) 7.1 % 0.0-10.0 URINE MONOCLONALGP2017-07-05 21:37:00* Test Item Value Reference Range Comments PREG UR (test code=PGU) NEGATIVE NEGATIVE CBC (INCLUDES AUTOMATED DIFFERENTIAL) *2017-07-05 20:50:00* Test Item Value Reference Range Comments WBC (test code=WBC) 6.7 10\\S\\3/uL 4.5-11.0 RBC (test code=RBC) 4.41 10\\S\\6/uL 4.30-5.70 HGB (test code=HBG) 12.5 g/dL 12.0-15.5 HCT (test code=HCT) 37.4 % 35.0-44.0 MCV (test code=MCV) 84.7 fL 81.0-99.0 MCH (test code=GMCH) 28.4 pg 27.0-31.0 MCHC (test code=MCHC) 33.5 g/dL 32.0-36.0 RDW (test code=RDW) 13.5 % 11.5-14.5 PLT (test code=PLT) 216 10\\S\\3/uL 130-400 NEUTROP # (test code=NE#) 3.7 10\\S\\3/uL 1.6-8.0 LYMPH # (test code=LY#) 2.4 10\\S\\3/uL 1.1-3.5 MID # (test code=GMID#) 0.6 10\\S\\3/uL 0.0-1.1 GRA % (test code=GRA%) 55.5 % 35.0-73.0 LYMPH % (test code=GLY%) 36.7 % 20.0-55.0 MID % (test code=GMID%) 7.8 % 0.0-10.0 URINALYSIS W/O MICROSCOPICGP2017-07-05 20:49:00* Test Item Value Reference Range Comments COLOR (test code=COLU) YELLOW YELLOW CLARITY (test code=CLA) SLT HAZY CLEAR GLUCOSE UR (test code=UA GLUCOSE) Negative NEGATIVE BILI UR (test code=BILE) Negative NEGATIVE KETONES UR (test code=MILLIE) Negative NEGATIVE SP GRAVITY (test code=SPGR) >=1.030 1.005-1.030 PH UR (test code=PH) 6.0 4.5-8.0 PROTEIN UR (test code=PU) Negative NEGATIVE NITRITE UR (test code=NITRITE) Negative NEGATIVE UROBIL UR (test code=GUROQ) 0.2 E.U./dL UROBIL UR (test code=GUROQC) 0.2 - 1.0 EU/dL BLOOD UR (test code=UA BLOOD) 2+ NEGATIVE LEUK ES UR (test code=LEUK) Negative NEGATIVE COMPREHENSIVE METABOLIC LITTLE *GP* [id number] 20:48:00* Test Item Value Reference Range Comments ALBUMIN (test code=GALB) 3.7 g/dL 3.5-5.5 ALK PHOS (test code=GALP) 107 U/L 42-141 ALT (test code=GALT) 90 U/L 10-47 AST (test code=JAQUI) 73 U/L 11-38 BUN (test code=GBUN) 8 mg/dL 7-22 CALCIUM (test code=GCL+) 9.0 mg/dL 8.0-10.3 CHLORIDE (test code=GCL-) 108 mmol/L 98-108 CREATININE (test code=GCRE) 0.8 mg/dL 0.6-1.2 GLUCOSE (test code=GGUL) 98 mg/dL 73-118 POTASSIUM (test code=GK+) 4.1 mmol/L 3.6-5.1 SODIUM (test code=GNA+) 138 mmol/L 128-145 BILI TOTAL (test code=GTBIL) 0.7 mg/dL 0.2-1.6 TCO2 (test code=GTC02) 25 mmol/L 18-33 PROTEIN (test code=GTP) 7.5 g/dL 6.4-8.1 CT STONE PROTOCOL STUDY*GP*2017-07-05 20:40:35CT abdomen/pelvis without contrast:HISTORY: Abdominal pain.TECHNIQUE: A noncontrast CT scan of the abdomen and pelvis was performed fromthe domes of the diaphragm to the symphysis pubis. Coronal reformations wereperformed.One or more of the following dose reduction techniques were used: Automatedexposure control, adjustment of the mA and/or kV according to patient size,and/or utilization of iterative reconstruction technique. Total DLP: 837.45mGy-cm.Comparison is made with 01/26/17 CT examination.SITE: [id number]:No renal/ureteral stones are identified. No evidence of hydronephrosis.The lung bases are clear.There is diffusely decreased attenuation of the liver consistent with fattyinfiltration. The gallbladder is contracted, limiting evaluation, however thereis a 2 mm radiopaque density at the gallbladder fundus. The noncontrastappearance of the visualized spleen, ad renal glands, and pancreas areunremarkable.No bowel obstruction, free fluid, or free air. The appendix is normal.No abdominal/pelvic lymphadenopathy is identifi ed.The urinary bladder is under distended, limiting evaluation. There is aT-shap ed intrauterine contraceptive device. No aggressive osseous lesions are seen.IMP RESSION:1. No renal/ureteral calculus or hydronephrosis, bilaterally.2. Cholel ithiasis.3. Hepatic steatosis.DIRECT STREP GROUP [id number] 11:38:00* Test Item Value Reference Range Comments Culture Observations (test code=COB1) NO BETA HEMOLYTIC STREPTOCOCCUS ISOLATED Direct Exam (test code=DE3) NEGATIVE FOR STREP A ANTIGEN XR CHEST 2 [id number] 19:34:48EXAM: Chest x-ray, 2 viewsLocation: R16 COMPARISON: Chest x-ray on 12/3/2017INDICATION: cough, feverDISCUSSION:No consolidation or pleural effusion is seen. The cardiomediastinal silhouetteis within normal limits. No acute bony abnormalities are identified.IMPRESSION: No evidence of acute abnormality. URINE [id number] 19:29:00* Test Item Value Reference Range Comments PREG UR (test code=PGU) NEGATIVE NEGATIVE CT HEAD W/O [id number] 19:25:52EXAM: CT head without contrastLocation: [id number]: CT head without contrast on 04/18/2016INDICATION: Cough, fever, headacheTECHNIQUE: Axial images of the brain were performed with 5 mm slices. Imageswere reviewed in brain and bone windows.DISCUSSION:No intracranial mass, hemorrhage, hydrocephalus, midline shift, or herniationis seen. No abnormal attenuation is seen. No calvarial fracture or scalpcontusion is identified. Included portions of the orbits are unremarkable. The visualized paranasal sinuses are unremarkable.IMPRESSION:No acute intracranial abnormalities.One or more of the following dose reduction techniques were used: Automatedexposure control, adjustment of the mA and/or kV according to patient size,and/or utilization of iterative reconstruction technique.DLP: 821 mGy-cm CTDI 46 mGy GLUCOMETER GLUCOSE- LAB USE [id number] 10:06:00* Test Item Value Reference Range Comments GLUCOMETER (test code=GMG) 96 mg/dL 70-100 Meter ID: [id number]: [id number] [place] SALICYLATES WW2017-04-22 17:44:00* Test Item Value Reference Range Comments SALICYLATE (test code=94B) <1.7 mg/dL 2.8-20.0 ACETAMINOPHEN *WW*2017-04-22 17:37:00* Test Item Value Reference Range Comments ACETAMINPH (test code=94M) <2.0 ug/mL 10.0-30.0 GLUCOMETER GLUCOSE- LAB USE [id number] 17:34:00* Test Item Value Reference Range Comments GLUCOMETER (test code=GMG) 91 mg/dL 70-100 Meter ID: [id number]: [id number] MONOCLONAL *WW*2017-04-22 17:34:00* Test Item Value Reference Range Comments PREG SRM (test code=PGS) NEGATIVE NEGATIVE ALCOHOL BLOOD (ETOH) 2017-04-22 17:34:00* Test Item Value Reference Range Comments ETOH (test code=HALC) ETHANOL The result is to be used only for medical purposes ALCOHOL (test code=56A) <10 mg/dL <=10 COMPREHENSIVE METABOLIC LITTLE 2017-04-22 17:33:00* Test Item Value Reference Range Comments GLUCOSE (test code=06D) 83 mg/dL 75-100 SODIUM (test code=01A) 142 mmol/L 136-145 POTASSIUM (test code=01B) 3.3 mmol/L 3.6-5.1 CHLORIDE (test code=04A) 111 mmol/L 98-107 CO2 (test code=02A) 22 mmol/L 22-32 ANION GAP (test code=ANG) 12.3 mmol/L BUN (test code=05D) 8 mg/dL 7-18 CREATININE (test code=03E) 0.6 mg/dL 0.4-1.1 BUN/CREA (test code=BCR) 13 12-20 CALCIUM (test code=09D) 7.9 mg/dL 8.3-9.5 BILI TOTAL (test code=11A) 0.5 mg/dL 0.2-1.0 PROTEIN (test code=07D) 6.6 g/dL 6.4-8.2 ALBUMIN (test code=08D) 3.2 g/dL 3.5-4.8 GLOBULIN (test code=GLB) 3.4 g/dL 1.5-3.8 ALB/GLOB (test code=AGRR) 0.9 1.0-2.6 ALK PHOS (test code=35A) 89 IU/L 42-121 AST (test code=30A) 63 IU/L <=42 ALT (test code=31A) 90 IU/L <=78 CARDIAC PROFILE 2017-04-22 17:31:00* Test Item Value Reference Range Comments TROPONIN I (test code=A84) <0.015 ng/mL 0.000-0.045 CKMB (test code=A49) <1.0 ng/mL <=3.6 CPK (test code=32A) 106 IU/L 26-192 XR CHEST 1 VIEW PORTABLE 2017-04-22 17:29:13LOCATION CODE: A1.HISTORY: psychCOMPARISON: 06/08/13FINDINGS: The cardiomediastinal silhouette and pulmonary vasculature are normal. No evidence of consolidation, effusion, or pneumothorax is present.Osseous structures are unremarkable.IMPRESSION: 1. No active cardiopulmonary disease. DRUGS OF ABUSE 2017-04-22 17:27:00* Test Item Value Reference Range Comments DRUG SCRN (test code=HDOA) URINE DRUG SCREEN This is an unconfirmed screening result and should not be used for non-medical purposes CANNABINOD (test code=88C) Negative NEGATIVE AMPHETAMINE (test code=84A) Negative NEGATIVE BENZODIAZP (test code=86A) Negative NEGATIVE BARBITURAT (test code=85A) Negative NEGATIVE OPIATES (test code=92B) Negative NEGATIVE COCAINE (test code=87A) Negative NEGATIVE PHENCYCLID (test code=66A) Negative NEGATIVE METHADONE (test code=64A) Negative NEGATIVE DOAH (test code=DOAH) URINE DRUG SCREEN Cut-off values are as follows: Cannabinoids 50 ng/mL Cocaine 300 ng/mL Amphetamines 1000 ng/mL Phencyclidine 25 ng/mL Benzodiazepines 200 ng.mL Methadone 300 ng/mL Barbiturates 200 ng/mL Opiates 2000 ng/mL URINALYSIS WITH MICRO *WW*2017-04-22 17:22:00* Test Item Value Reference Range Comments COLOR (test code=COLU) YELLOW YELLOW CLARITY (test code=CLA) CLEAR CLEAR GLUCOSE UR (test code=UA GLUCOSE) NEGATIVE NEGATIVE BILI UR (test code=BILE) NEGATIVE NEGATIVE KETONES UR (test code=MILLIE) NEGATIVE NEGATIVE SP GRAVITY (test code=SPGR) 1.025 1.005-1.030 PH UR (test code=PH) 6.0 4.5-8.0 PROTEIN UR (test code=PU) NEGATIVE NEGATIVE UROBIL UR (test code=UROQ) 0.2 EU/dL 0.2-1.0 NITRITE UR (test code=NITRITE) NEGATIVE NEGATIVE BLOOD UR (test code=UA BLOOD) NEGATIVE NEGATIVE LEUK ES UR (test code=LEUK) TRACE NEGATIVE WBC UR (test code=UWBC) 3 /HPF 0-5 RBC UR (test code=URBC) 0 /HPF 0-2 EPITH UR (test code=UEPC) FEW /LPF FEW BACTERIA UR (test code=UBACT) MODERATE /HPF NONE CAST UR (test code=CAST) /LPF NONE CRYSTAL UR (test code=CRYU) / LPF NONE MUCUS UR (test code=MUC) / HPF NONE AMORPH UR (test code=JAGJIT) / HPF NONE TRICH UR (test code=UTRICH) /HPF NONE YEAST UR (test code=UY) /HPF NONE SPERM UR (test code=USPERM) /HPF NONE CBC (INCLUDES AUTOMATED DIFFERENTIAL)*[id number] 17:19:00* Test Item Value Reference Range Comments WBC (test code=WBC) 5.9 10\\S\\3/uL 4.5-11.0 RBC (test code=RBC) 4.15 10\\S\\6/uL 4.30-5.70 HGB (test code=HBG) 11.8 g/dL 12.0-15.5 HCT (test code=HCT) 35.7 % 35.0-44.0 MCV (test code=MCV) 86.0 fL 81.0-99.0 MCH (test code=MCH) 28.4 pg 27.0-31.0 MCHC (test code=MCHC) 33.1 g/dL 32.0-36.0 RDW (test code=RDW) 13.2 % 11.5-14.5 PLT (test code=PLT) 265 10\\S\\3/uL 130-400 MPV (test code=MPV) 10.6 fL 9.4-12.4 NEUTROP # (test code=NE#) 3.7 10\\S\\3/uL 1.6-8.0 LYMPH # (test code=LY#) 1.6 10\\S\\3/uL 1.1-3.5 MONOCYTE # (test code=MO#) 0.5 10\\S\\3/uL 0.0-1.1 EOSINOPH # (test code=EO#) 0.1 10\\S\\3/uL 0.0-0.7 BASOPHIL # (test code=BA#) 0.0 10\\S\\3/uL 0.0-0.3 IG # (test code=IG#) 0.02 10\\S\\3/uL 0.00-0.06 NRBC # (test code=NRBC#) 0.00 10\\S\\3/uL 0.00-0.01 NEUTROPH % (test code=NE%) 62.2 % 35.0-73.0 LYMPH % (test code=LY%) 26.8 % 20.0-55.0 MONO % (test code=MO%) 8.8 % 2.5-10.0 EOSINOPH % (test code=EO%) 1.4 % 0.0-5.0 BASOPHIL % (test code=BA%) 0.5 % 0.0-2.0 IG % (test code=IG%) 0.3 % 0.0-0.8 NRBC% (test code=NRBC%) 0.0 % 0.0-0.2 MANDIFF (test code=WMDIFF) NO NO RBC MORPH (test code=WRBCMOR) NORMAL LIVER [id number] 06:10:00* Test Item Value Reference Range Comments BILI TOTAL (test code=11A) 0.4 mg/dL 0.2-1.0 BILI DIRCT (test code=12A) 0.1 mg/dL 0.0-0.2 BILI INDIR (test code=BILII) 0.3 mg/dL <=0.8 PROTEIN (test code=07D) 6.5 g/dL 6.4-8.2 ALBUMIN (test code=08D) 3.2 g/dL 3.5-4.8 GLOBULIN (test code=GLB) 3.3 g/dL 1.5-3.8 ALB/GLOB (test code=AGRR) 1.0 1.0-2.6 ALK PHOS (test code=35A) 152 IU/L 42-121 AST (test code=30A) 99 IU/L <=42 ALT (test code=31A) 190 IU/L <=78 XR ABDOMEN 1 VIEW [id number] 16:18:43EXAM: ABDOMEN ONE VIEWINDICATION: IleusCOMPARISON: CT dated January 26, 2017TECHNIQUE: AP view of the abdomen.FINDINGS: The bowel gas pattern is normal. No pneumoperitoneum is identified. No abnormalcalcifications.The osseous structures are unremarkable.IMPRESSION: Normal bowel gas pattern.Location: R16C (INCLUDES AUTOMATED DIFFERENTIAL)2017-01-27 06:22:00* Test Item Value Reference Range Comments WBC (test code=WBC) 6.5 10\\S\\3/uL 4.5-11.0 RBC (test code=RBC) 4.08 10\\S\\6/uL 4.30-5.70 HGB (test code=HBG) 11.9 g/dL 12.0-15.5 HCT (test code=HCT) 35.1 % 35.0-44.0 MCV (test code=MCV) 86.0 fL 81.0-99.0 MCH (test code=MCH) 29.2 pg 27.0-31.0 MCHC (test code=MCHC) 33.9 g/dL 32.0-36.0 RDW (test code=RDW) 12.7 % 11.5-14.5 PLT (test code=PLT) 259 10\\S\\3/uL 130-400 MPV (test code=MPV) 10.3 fL 9.4-12.4 NEUTROP # (test code=NE#) 4.7 10\\S\\3/uL 1.6-8.0 LYMPH # (test code=LY#) 1.2 10\\S\\3/uL 1.1-3.5 MONOCYTE # (test code=MO#) 0.5 10\\S\\3/uL 0.0-1.1 EOSINOPH # (test code=EO#) 0.1 10\\S\\3/uL 0.0-0.7 BASOPHIL # (test code=BA#) 0.0 10\\S\\3/uL 0.0-0.3 IG # (test code=IG#) 0.04 10\\S\\3/uL 0.00-0.06 NRBC # (test code=NRBC#) 0.00 10\\S\\3/uL 0.00-0.01 NEUTROPH % (test code=NE%) 71.3 % 35.0-73.0 LYMPH % (test code=LY%) 18.7 % 20.0-55.0 MONO % (test code=MO%) 7.4 % 2.5-10.0 EOSINOPH % (test code=EO%) 1.5 % 0.0-5.0 BASOPHIL % (test code=BA%) 0.5 % 0.0-2.0 IG % (test code=IG%) 0.6 % 0.0-0.8 NRBC% (test code=NRBC%) 0.0 % 0.0-0.2 MANDIFF (test code=MDIFF) NO NO RBC MORPH (test code=RBCMOR) NORMAL BASIC METABOLIC [id number] 06:10:00* Test Item Value Reference Range Comments GLUCOSE (test code=06D) 101 mg/dL 75-100 SODIUM (test code=01A) 139 mmol/L 136-145 POTASSIUM (test code=01B) 3.9 mmol/L 3.6-5.1 CHLORIDE (test code=04A) 107 mmol/L 98-107 CO2 (test code=02A) 26 mmol/L 22-32 ANION GAP (test code=ANG) 9.9 mmol/L BUN (test code=05D) 12 mg/dL 7-18 CREATININE (test code=03E) 0.8 mg/dL 0.4-1.1 BUN/CREA (test code=BCR) 16 12-20 CALCIUM (test code=09D) 8.0 mg/dL 8.3-9.5 CT ABDOMEN AND PELVIS WITH [id number] 20:43:51LOCATION CODE: A1.HISTORY: Midepigastric pain, nausea and vomitingCOMPARISON: 07/03/16TECHNIQUE: Serial axial scans of the abdomen and pelvis were obtained fromabove the diaphragm to the inferior pubic rami after the administration of oralcontrast; pre- and post- intravenous contrast.100 cc of Omnipaque 300 were injected via right antecubital fossa catheter.FINDINGS: The cardiac silhouette and visualized portions of the pulmonaryparenchyma are normal.Visualized portions of the spleen, pancreas, kidneys and adrenals are normal insize, shape, and electron density without evidence of focal mass lesion.Fatty infiltration of the liver is present.No evidence of retroperitoneal adenopathy or free intra-abdominal fluid ispresent.Gallbladder and biliary tree are normal.Visualized osseous structures, surrounding soft tissues, and great vessels areunremarkable.Distended fluid-f illed loops of bowel in the upper abdomen are present inkeeping with a focal ile us. Pancreas shows no definite evidence of inflammatorychanges.Visualized loops of large bowel appear within normal limits without evidence ofbowel wall thicken ing or inflammatory changes. No evidence of acute appendicitis is identified. Th e appendix is not wellidentified.Visualized portions of the pelvis show osseous structures and bowel gas patternunremarkable.Visualized portions of the bladder and rectum are unremarkable.No evidence of pelvic mass lesion, adenopathy or genevieve e intra-abdominal fluid ispresent..IMPRESSION:1. Fatty infiltration liver.2. Pro minent fluid-filled loops of proximal small bowel suggestive of focalileus of un certain etiology.3. No evidence of acute intra-abdominal or pelvic pathology. URINALYSIS WITH [id number] 19:32:00* Test Item Value Reference Range Comments COLOR (test code=COLU) DK YELLOW YELLOW CLARITY (test code=CLA) HAZY CLEAR GLUCOSE UR (test code=UA GLUCOSE) NEGATIVE NEGATIVE BILI UR (test code=BILE) 1+ NEGATIVE KETONES UR (test code=MILLIE) NEGATIVE NEGATIVE SP GRAVITY (test code=SPGR) 1.019 1.005-1.030 PH UR (test code=PH) 7.0 4.5-8.0 PROTEIN UR (test code=PU) NEGATIVE NEGATIVE UROBIL UR (test code=UROQ) 0.2 EU/dL 0.2-1.0 NITRITE UR (test code=NITRITE) NEGATIVE NEGATIVE BLOOD UR (test code=UA BLOOD) NEGATIVE NEGATIVE LEUK ES UR (test code=LEUK) 1+ NEGATIVE WBC UR (test code=UWBC) 6 /HPF 0-5 RBC UR (test code=URBC) 1 /HPF 0-2 EPITH UR (test code=UEPC) MODERATE /LPF FEW BACTERIA UR (test code=UBACT) FEW /HPF NONE CAST UR (test code=CAST) /LPF NONE CRYSTAL UR (test code=CRYU) / LPF NONE MUCUS UR (test code=MUC) / HPF NONE AMORPH UR (test code=JAGJIT) MANY / HPF NONE TRICH UR (test code=UTRICH) /HPF NONE YEAST UR (test code=UY) /HPF NONE SPERM UR (test code=USPERM) /HPF NONE CBC (INCLUDES AUTOMATED DIFFERENTIAL)2017-01-26 19:24:00* Test Item Value Reference Range Comments WBC (test code=WBC) 4.9 10\\S\\3/uL 4.5-11.0 RBC (test code=RBC) 4.18 10\\S\\6/uL 4.30-5.70 HGB (test code=HBG) 12.0 g/dL 12.0-15.5 HCT (test code=HCT) 35.1 % 35.0-44.0 MCV (test code=MCV) 84.0 fL 81.0-99.0 MCH (test code=MCH) 28.7 pg 27.0-31.0 MCHC (test code=MCHC) 34.2 g/dL 32.0-36.0 RDW (test code=RDW) 12.7 % 11.5-14.5 PLT (test code=PLT) 282 10\\S\\3/uL 130-400 MPV (test code=MPV) 10.5 fL 9.4-12.4 NEUTROP # (test code=NE#) 3.1 10\\S\\3/uL 1.6-8.0 LYMPH # (test code=LY#) 1.4 10\\S\\3/uL 1.1-3.5 MONOCYTE # (test code=MO#) 0.4 10\\S\\3/uL 0.0-1.1 EOSINOPH # (test code=EO#) 0.1 10\\S\\3/uL 0.0-0.7 BASOPHIL # (test code=BA#) 0.0 10\\S\\3/uL 0.0-0.3 IG # (test code=IG#) 0.02 10\\S\\3/uL 0.00-0.06 NRBC # (test code=NRBC#) 0.00 10\\S\\3/uL 0.00-0.01 NEUTROPH % (test code=NE%) 62.4 % 35.0-73.0 LYMPH % (test code=LY%) 27.9 % 20.0-55.0 MONO % (test code=MO%) 7.9 % 2.5-10.0 EOSINOPH % (test code=EO%) 1.0 % 0.0-5.0 BASOPHIL % (test code=BA%) 0.4 % 0.0-2.0 IG % (test code=IG%) 0.4 % 0.0-0.8 NRBC% (test code=NRBC%) 0.0 % 0.0-0.2 MANDIFF (test code=MDIFF) NO NO RBC MORPH (test code=RBCMOR) NORMAL URINE [id number] 19:22:00* Test Item Value Reference Range Comments PREG UR (test code=PGU) NEGATIVE NEGATIVE [id number] 19:17:00* Test Item Value Reference Range Comments AMYLASE (test code=10A) 61 U/L 28-100 COMPREHENSIVE METABOLIC [id number] 19:17:00* Test Item Value Reference Range Comments GLUCOSE (test code=06D) 116 mg/dL 75-100 SODIUM (test code=01A) 136 mmol/L 136-145 POTASSIUM (test code=01B) 3.9 mmol/L 3.6-5.1 CHLORIDE (test code=04A) 104 mmol/L 98-107 CO2 (test code=02A) 25 mmol/L 22-32 ANION GAP (test code=ANG) 10.9 mmol/L BUN (test code=05D) 12 mg/dL 7-18 CREATININE (test code=03E) 0.7 mg/dL 0.4-1.1 BUN/CREA (test code=BCR) 16 12-20 CALCIUM (test code=09D) 8.7 mg/dL 8.3-9.5 BILI TOTAL (test code=11A) 1.4 mg/dL 0.2-1.0 PROTEIN (test code=07D) 7.4 g/dL 6.4-8.2 ALBUMIN (test code=08D) 3.6 g/dL 3.5-4.8 GLOBULIN (test code=GLB) 3.8 g/dL 1.5-3.8 ALB/GLOB (test code=AGRR) 0.9 1.0-2.6 ALK PHOS (test code=35A) 168 IU/L 42-121 AST (test code=30A) 351 IU/L <=42 ALT (test code=31A) 316 IU/L <=78 LIPASE [id number] 19:12:00* Test Item Value Reference Range Comments LIPASE (test code=60A) 201 IU/L 73-393 CT ABDOMEN AND PELVIS WITH [id number] 04:31:53Examination: Abdomen and pelvic CT with contrast After hours service provided on 10/30/2016 4:27 AM.Location code: [id number]: Abdomen and pelvic CT 07/03/16Technique:Axial postcontrast contiguous images were obtained through the abdomen andpelvis followed by coronal and sagittal reformations. One or more of thefollowing dose reduction techniques were used: Automated exposure control,adjustment of the mA and or KV according to patient size, and/or utilization ofiterative rec onstruction technique.Reading 0.9, 100 cc Omnipaque 300 administeredDiscussion:C linical history is remarkable for lower abdominal pain. Lung bases are clear.The heart is normal in size.Within the abdomen and pelvis, the liver is remarkable for a 1.7 cm right lobehypodensity which becomes isodense with delayed imaging. This can becharacterized with follow-up MRI. The gallbladder and spleen are norm al.Pancreas and adrenal glands are within normal limits. Kidneys demonstrateunif orm enhancement.Stomach is moderately distended with residual food. Caliber of t he bowel iswithin normal limits. Appendix is visualized and it is normal.Minimal free fluid is present within the pelvis. Bladder is unremarkable.Uterus demonst rates a subseptate appearance.No lytic or blastic lesions are present within the osseous structures.Impression:1. Nonspecific 1.7 cm right hepatic hypodensity, consider follow-up MRI.2. No acute intra-abdominal inflammation. The appendix is normal.3. Minimal physiologic free fluid in the pelvis.COMPREHENSIVE METABOLIC [id number] 00:38:00* Test Item Value Reference Range Comments GLUCOSE (test code=06D) 90 mg/dL 75-100 SODIUM (test code=01A) 138 mmol/L 136-145 POTASSIUM (test code=01B) 3.8 mmol/L 3.6-5.1 CHLORIDE (test code=04A) 106 mmol/L 98-107 CO2 (test code=02A) 24 mmol/L 22-32 ANION GAP (test code=ANG) 11.8 mmol/L BUN (test code=05D) 14 mg/dL 7-18 CREATININE (test code=03E) 0.9 mg/dL 0.4-1.1 BUN/CREA R (test code=BCR) 15 12-20 CALCIUM (test code=09D) 8.8 mg/dL 8.3-9.5 BILI TOTAL (test code=11A) 0.4 mg/dL 0.2-1.0 PROTEIN (test code=07D) 7.9 g/dL 6.4-8.2 ALBUMIN (test code=08D) 4.1 g/dL 3.5-4.8 GLOBULIN (test code=GLB) 3.8 g/dL 1.5-3.8 ALB/GLOB (test code=AGRR) 1.1 1.0-2.6 ALK PHOS (test code=35A) 101 IU/L 42-121 AST (test code=30A) 37 IU/L <=42 ALT (test code=31A) 47 IU/L <=78 LIVER [id number] 00:38:00* Test Item Value Reference Range Comments BILI TOTAL (test code=11A) 0.4 mg/dL 0.2-1.0 BILI DIRCT (test code=12A) 0.1 mg/dL 0.0-0.2 BILI INDIR (test code=BILII) 0.3 mg/dL <=0.8 PROTEIN (test code=07D) 7.9 g/dL 6.4-8.2 ALBUMIN (test code=08D) 4.1 g/dL 3.5-4.8 GLOBULIN (test code=GLB) 3.8 g/dL 1.5-3.8 ALB/GLOB (test code=AGRR) 1.1 1.0-2.6 ALK PHOS (test code=35A) 101 IU/L 42-121 AST (test code=30A) 37 IU/L <=42 ALT (test code=31A) 47 IU/L <=78 [id number] 00:38:00* Test Item Value Reference Range Comments ACETAMINPH (test code=94M) <2.0 ug/mL 10.0-30.0 ALCOHOL BLOOD (ETOH)2016-10-30 00:36:00* Test Item Value Reference Range Comments ALCOHOL (test code=56A) <10 mg/dL <=10 Ref Range Change (test code=REF RANGE) Please note the change in reference range [id number] 00:33:00* Test Item Value Reference Range Comments COLOR (test code=COLU) YELLOW YELLOW CLARITY (test code=CLA) CLEAR CLEAR GLUCOSE UR (test code=UA GLUCOSE) NEGATIVE NEGATIVE BILI UR (test code=BILE) NEGATIVE NEGATIVE KETONES UR (test code=MILLIE) NEGATIVE NEGATIVE SP GRAVITY (test code=SPGR) 1.026 1.005-1.030 PH UR (test code=PH) 6.5 4.5-8.0 PROTEIN UR (test code=PU) NEGATIVE NEGATIVE UROBIL UR (test code=UROQ) 1.0 EU/dL 0.2-1.0 NITRITE UR (test code=NITRITE) NEGATIVE NEGATIVE BLOOD UR (test code=UA BLOOD) NEGATIVE NEGATIVE LEUK ES UR (test code=LEUK) NEGATIVE NEGATIVE [id number] 00:31:00* Test Item Value Reference Range Comments SALICYLATE (test code=94B) <1.7 mg/dL 2.8-20.0 AMMONIA [id number] 00:29:00* Test Item Value Reference Range Comments AMMONIA (test code=54A) 40 umol/L 11-32 DRUGS OF [id number] 00:29:00* Test Item Value Reference Range Comments DRUG SCRN (test code=HDOA) URINE DRUG SCREEN This is an unconfirmed screening result and should not be used for non-medical purposes CANNABINOD (test code=88C) Negative NEGATIVE AMPHETHETM (test code=84A) Negative NEGATIVE BENZODIAZP (test code=86A) Negative NEGATIVE BARBITURAT (test code=85A) Negative NEGATIVE OPIATES (test code=92B) Negative NEGATIVE COCAINE (test code=87A) Negative NEGATIVE PHENCYCLID (test code=66A) Negative NEGATIVE METHADONE (test code=64A) Negative NEGATIVE DOAH (test code=DOAH) URINE DRUG SCREEN Cut-off values are as follows: Cannabinoids 50 ng/mL Cocaine 300 ng/mL Amphetamines 1000 ng/mL Phencyclidine 25 ng/mL Benzodiazepines 200 ng.mL Methadone 300 ng/mL Barbiturates 200 ng/mL Opiates 2000 ng/mL PRO TIME AND [id number] 00:27:00* Test Item Value Reference Range Comments PT (test code=TT) 10.8 s 9.8-13.6 INR (test code=INR) 1.0 INRH (test code=INRH) SUGGESTED THERAPEUTIC RANGE FOR INR: 2.5 - 3.5 For Patients with Prosthetic Valves or Patients with recurrent Thromboembolic Events 2.0 - 3.0 For Most Other Applications PTT (test code=PTT) 29.4 s 20.2-38.0 PTTH (test code=PTTH) To monitor the effectiveness of heparin, we offer the Anti-Xa (Heparin Assay). It can be used for either unfractinated or LMW Heparin. Order Code is ANTI-XA SERUM [id number] 00:20:00* Test Item Value Reference Range Comments PREG SRM (test code=PGS) NEGATIVE NEGATIVE CBC (INCLUDES AUTOMATED DIFFERENTIAL)2016-10-30 00:19:00* Test Item Value Reference Range Comments WBC (test code=WBC) 8.9 10\\S\\3/uL 4.5-11.0 RBC (test code=RBC) 4.30 10\\S\\6/uL 4.30-5.70 HGB (test code=HBG) 12.6 g/dL 12.0-15.5 HCT (test code=HCT) 36.6 % 35.0-44.0 MCV (test code=MCV) 85.1 fL 81.0-99.0 MCH (test code=MCH) 29.3 pg 27.0-31.0 MCHC (test code=MCHC) 34.4 g/dL 32.0-36.0 RDW (test code=RDW) 12.9 % 11.5-14.5 PLT (test code=PLT) 281 10\\S\\3/uL 130-400 MPV (test code=MPV) 10.7 fL 9.4-12.4 NEUTROP # (test code=NE#) 5.8 10\\S\\3/uL 1.6-8.0 LYMPH # (test code=LY#) 2.2 10\\S\\3/uL 1.1-3.5 MONOCYTE # (test code=MO#) 0.8 10\\S\\3/uL 0.0-1.1 EOSINOPH # (test code=EO#) 0.1 10\\S\\3/uL 0.0-0.7 BASOPHIL # (test code=BA#) 0.0 10\\S\\3/uL 0.0-0.3 IG # (test code=IG#) 0.03 10\\S\\3/uL 0.00-0.06 NRBC # (test code=NRBC#) 0.00 10\\S\\3/uL 0.00-0.01 NEUTROPH % (test code=NE%) 65.3 % 35.0-73.0 LYMPH % (test code=LY%) 24.5 % 20.0-55.0 MONO % (test code=MO%) 8.9 % 2.5-10.0 EOSINOPH % (test code=EO%) 0.8 % 0.0-5.0 BASOPHIL % (test code=BA%) 0.2 % 0.0-2.0 IG % (test code=IG%) 0.3 % 0.0-0.8 NRBC% (test code=NRBC%) 0.0 % 0.0-0.2 MANDIFF (test code=MDIFF) NO NO RBC MORPH (test code=RBCMOR) NORMAL XR FINGER LEFT COMPLET 3 [id number] 21:44:15X-ray left first digit 3 views.INDICATION: Pain, laceration.FINDINGS: No priors. No evidence of an acute fracture or dislocation. Bones are well-mineralized andjoint spaces well- maintained. Mild soft tissue swelling about the first digit,without radiopaque foreign body.IMPRESSION:1. No acute osseous abnormality. Mild soft tissue swelling about the firstdigit, without radiopaque foreign body.URINE CULTURE 2016-08-24 10:53:00* Test Item Value Reference Range Comments Culture Observations (test code=COB1) THREE OR MORE SPECIES OF BACTERIA ISOLATED. PROBABLE CONTAMINATION. Culture Observations (test code=COB17) IDENTIFICATION AND SUSCEPTIBILITY NOT INDICATED. RECOLLECTION RECOMMENDED AMYLASE AND [id number] 14:07:00* Test Item Value Reference Range Comments AMYLASE (test code=10A) 52 U/L 28-100 LIPASE (test code=60A) 115 IU/L 73-393 ALCOHOL BLOOD (ETOH)2016-08-22 13:54:00* Test Item Value Reference Range Comments ALCOHOL (test code=56A) <10 mg/dL <=10 Ref Range Change (test code=REF RANGE) Please note the change in reference range COMPREHENSIVE METABOLIC [id number] 13:47:00* Test Item Value Reference Range Comments GLUCOSE (test code=06D) 87 mg/dL 75-100 SODIUM (test code=01A) 137 mmol/L 136-145 POTASSIUM (test code=01B) 3.7 mmol/L 3.6-5.1 CHLORIDE (test code=04A) 105 mmol/L 98-107 CO2 (test code=02A) 26 mmol/L 22-32 ANION GAP (test code=ANG) 9.7 mmol/L BUN (test code=05D) 14 mg/dL 7-18 CREATININE (test code=03E) 0.8 mg/dL 0.4-1.1 BUN/CREA R (test code=BCR) 18 12-20 CALCIUM (test code=09D) 8.8 mg/dL 8.3-9.5 BILI TOTAL (test code=11A) 0.8 mg/dL 0.2-1.0 PROTEIN (test code=07D) 7.6 g/dL 6.4-8.2 ALBUMIN (test code=08D) 3.9 g/dL 3.5-4.8 GLOBULIN (test code=GLB) 3.7 g/dL 1.5-3.8 ALB/GLOB (test code=AGRR) 1.1 1.0-2.6 ALK PHOS (test code=35A) 102 IU/L 42-121 AST (test code=30A) 31 IU/L <=42 ALT (test code=31A) 47 IU/L <=78 [id number] 13:43:00* Test Item Value Reference Range Comments ACETAMINPH (test code=94M) <2.0 ug/mL 10.0-30.0 [id number] 13:37:00* Test Item Value Reference Range Comments SALICYLATE (test code=94B) <1.7 mg/dL 2.8-20.0 SERUM [id number] 13:26:00* Test Item Value Reference Range Comments PREG SRM (test code=PGS) NEGATIVE NEGATIVE DRUGS OF [id number] 13:26:00* Test Item Value Reference Range Comments DRUG SCRN (test code=HDOA) URINE DRUG SCREEN This is an unconfirmed screening result and should not be used for non-medical purposes CANNABINOD (test code=88C) Negative NEGATIVE AMPHETHETM (test code=84A) Negative NEGATIVE BENZODIAZP (test code=86A) Negative NEGATIVE BARBITURAT (test code=85A) Negative NEGATIVE OPIATES (test code=92B) Negative NEGATIVE COCAINE (test code=87A) Negative NEGATIVE PHENCYCLID (test code=66A) Negative NEGATIVE METHADONE (test code=64A) Negative NEGATIVE DOAH (test code=DOAH) URINE DRUG SCREEN Cut-off values are as follows: Cannabinoids 50 ng/mL Cocaine 300 ng/mL Amphetamines 1000 ng/mL Phencyclidine 25 ng/mL Benzodiazepines 200 ng.mL Methadone 300 ng/mL Barbiturates 200 ng/mL Opiates 2000 ng/mL URINALYSIS WITH [id number] 13:25:00* Test Item Value Reference Range Comments COLOR (test code=COLU) YELLOW YELLOW CLARITY (test code=CLA) CLOUDY CLEAR GLUCOSE UR (test code=UA GLUCOSE) NEGATIVE NEGATIVE BILI UR (test code=BILE) NEGATIVE NEGATIVE KETONES UR (test code=MILLIE) NEGATIVE NEGATIVE SP GRAVITY (test code=SPGR) 1.022 1.005-1.030 PH UR (test code=PH) 6.0 4.5-8.0 PROTEIN UR (test code=PU) NEGATIVE NEGATIVE UROBIL UR (test code=UROQ) 1.0 EU/dL 0.2-1.0 NITRITE UR (test code=NITRITE) NEGATIVE NEGATIVE BLOOD UR (test code=UA BLOOD) NEGATIVE NEGATIVE LEUK ES UR (test code=LEUK) 1+ NEGATIVE WBC UR (test code=UWBC) 10 /HPF 0-5 RBC UR (test code=URBC) 3 /HPF 0-2 EPITH UR (test code=UEPC) FEW /LPF FEW BACTERIA UR (test code=UBACT) MANY /HPF NONE CAST UR (test code=CAST) /LPF NONE CRYSTAL UR (test code=CRYU) / LPF NONE MUCUS UR (test code=MUC) MANY / HPF NONE AMORPH UR (test code=JAGJIT) / HPF NONE TRICH UR (test code=UTRICH) /HPF NONE YEAST UR (test code=UY) /HPF NONE SPERM UR (test code=USPERM) /HPF NONE CBC (INCLUDES AUTOMATED DIFFERENTIAL)2016-08-22 13:15:00* Test Item Value Reference Range Comments WBC (test code=WBC) 6.1 10\\S\\3/uL 4.5-11.0 RBC (test code=RBC) 4.07 10\\S\\6/uL 4.30-5.70 HGB (test code=HBG) 11.8 g/dL 12.0-15.5 HCT (test code=HCT) 35.3 % 35.0-44.0 MCV (test code=MCV) 86.7 fL 81.0-99.0 MCH (test code=MCH) 29.0 pg 27.0-31.0 MCHC (test code=MCHC) 33.4 g/dL 32.0-36.0 RDW (test code=RDW) 12.4 % 11.5-14.5 PLT (test code=PLT) 252 10\\S\\3/uL 130-400 MPV (test code=MPV) 10.4 fL 9.4-12.4 NEUTROP # (test code=NE#) 4.0 10\\S\\3/uL 1.6-8.0 LYMPH # (test code=LY#) 1.6 10\\S\\3/uL 1.1-3.5 MONOCYTE # (test code=MO#) 0.4 10\\S\\3/uL 0.0-1.1 EOSINOPH # (test code=EO#) 0.1 10\\S\\3/uL 0.0-0.7 BASOPHIL # (test code=BA#) 0.0 10\\S\\3/uL 0.0-0.3 IG # (test code=IG#) 0.02 10\\S\\3/uL 0.00-0.06 NRBC # (test code=NRBC#) 0.00 10\\S\\3/uL 0.00-0.01 NEUTROPH % (test code=NE%) 65.1 % 35.0-73.0 LYMPH % (test code=LY%) 26.1 % 20.0-55.0 MONO % (test code=MO%) 7.2 % 2.5-10.0 EOSINOPH % (test code=EO%) 0.8 % 0.0-5.0 BASOPHIL % (test code=BA%) 0.5 % 0.0-2.0 IG % (test code=IG%) 0.3 % 0.0-0.8 NRBC% (test code=NRBC%) 0.0 % 0.0-0.2 MANDIFF (test code=MDIFF) NO NO RBC MORPH (test code=RBCMOR) NORMAL DIRECT CHLAMYDIA [id number] 08:34:00* Test Item Value Reference Range Comments CHLAMYDIA TRACHOMATIS (test qofy=54786064) NOT DETECTED NOT DETECTED NEISSERIA GONORRHOEAE (test nnmc=[id number]) NOT DETECTED NOT DETECTED Endnote (test cuan=[id number]) This test was performed using the APTIMA COMBO2 Assay([employer]The analytical performance characteristics of thisassay, when used to test [employer] specimens havebeen determined by [employer] .TEST PERFORMED AT:[facility] [address] [id number] EASTON M.D. WET [id number] 22:16:00* Test Item Value Reference Range Comments Direct Exam (test code=DE1) MODERATE WHITE BLOOD CELLS SEEN Direct Exam (test code=DE2) MODERATE BACTERIA SEEN Direct Exam (test code=DE3) NO FUNGAL ELEMENTS SEEN ON DIRECT EXAM Direct Exam (test code=DE4) NO CLUE CELLS SEEN Direct Exam (test code=DE5) NO TRICHOMONAS SEEN CT ABDOMEN AND PELVIS WITH [id number] 21:23:02LOCATION: [id number]: 21-year-old female who presents with abdominal pain.COMMENT: Field 3Axial CT imaging of this patient's abdomen and pelvis was obtained during andafter IV contrast injection. Coronal and sagittal soft tissue reconstructionswere included. An older examination of 06/08/13 is available for comparison.One or more of the following dose reduction techniques are used: Automatedexposure control, adjustment of the mA and/or kV according the patient size,and/or uti lization of iterative reconstruction technique.DLP: 1288 mGy-cmCONTRAST: 100 mL of Omnipaque 300 nonionic contrast was injected into the rightantecubital vein. The serum creatinine level was 0.7.FINDINGS:The lung bases are clear and the car diac silhouette is unremarkable.The liver, spleen, pancreas, adrenal glands, kid neys, and gallbladder areunremarkable. Bilateral renal function is demonstrated on the delayed study.The upper intestinal tract, small intestine, appendix, and colon areunremarkable.There is no evidence of ascites or adenopathy in the abdom en.In the pelvis a trace amount of free fluid is seen. The urinary bladder,uteru s, and ovaries are unremarkable.Pelvic ultrasound imaging might be of benefit to evaluate the free fluid ingreater detail.The vascular anatomy is unremarkable.T he musculoskeletal anatomy is unremarkable.IMPRESSION:Small amount of free fluid is seen in the pelvic cul-de-sac. Pelvic ultrasoundcorrelation might be of bene fit.Otherwise, the appearance of this patient's abdomen and pelvis on this CT st udyis unremarkable.BASIC METABOLIC [id number] 20:58:00* Test Item Value Reference Range Comments GLUCOSE (test code=06D) 102 mg/dL 75-100 SODIUM (test code=01A) 140 mmol/L 136-145 POTASSIUM (test code=01B) 3.8 mmol/L 3.6-5.1 CHLORIDE (test code=04A) 109 mmol/L 98-107 CO2 (test code=02A) 23 mmol/L 22-32 ANION GAP (test code=ANG) 11.8 mmol/L BUN (test code=05D) 8 mg/dL 7-18 CREATININE (test code=03E) 0.7 mg/dL 0.4-1.1 BUN/CREA R (test code=BCR) 11 12-20 CALCIUM (test code=09D) 8.7 mg/dL 8.3-9.5 CBC (INCLUDES AUTOMATED DIFFERENTIAL)2016-07-03 20:54:00* Test Item Value Reference Range Comments WBC (test code=WBC) 8.2 10\\S\\3/uL 4.5-11.0 RBC (test code=RBC) 4.15 10\\S\\6/uL 4.30-5.70 HGB (test code=HBG) 12.4 g/dL 12.0-15.5 HCT (test code=HCT) 36.2 % 35.0-44.0 MCV (test code=MCV) 87.2 fL 81.0-99.0 MCH (test code=MCH) 29.9 pg 27.0-31.0 MCHC (test code=MCHC) 34.3 g/dL 32.0-36.0 RDW (test code=RDW) 12.7 % 11.5-14.5 PLT (test code=PLT) 301 10\\S\\3/uL 130-400 MPV (test code=MPV) 10.7 fL 9.4-12.4 NEUTROP # (test code=NE#) 5.3 10\\S\\3/uL 1.6-8.0 LYMPH # (test code=LY#) 2.3 10\\S\\3/uL 1.1-3.5 MONOCYTE # (test code=MO#) 0.6 10\\S\\3/uL 0.0-1.1 EOSINOPH # (test code=EO#) 0.1 10\\S\\3/uL 0.0-0.7 BASOPHIL # (test code=BA#) 0.0 10\\S\\3/uL 0.0-0.3 IG # (test code=IG#) 0.02 10\\S\\3/uL 0.00-0.06 NRBC # (test code=NRBC#) 0.00 10\\S\\3/uL 0.00-0.01 NEUTROPH % (test code=NE%) 63.9 % 35.0-73.0 LYMPH % (test code=LY%) 27.3 % 20.0-55.0 MONO % (test code=MO%) 6.9 % 2.5-10.0 EOSINOPH % (test code=EO%) 1.2 % 0.0-5.0 BASOPHIL % (test code=BA%) 0.5 % 0.0-2.0 IG % (test code=IG%) 0.2 % 0.0-0.8 NRBC% (test code=NRBC%) 0.0 % 0.0-0.2 MANDIFF (test code=MDIFF) NO NO RBC MORPH (test code=RBCMOR) NORMAL URINE [id number] 20:50:00* Test Item Value Reference Range Comments PREG UR (test code=PGU) NEGATIVE NEGATIVE URINALYSIS WITH [id number] 20:47:00* Test Item Value Reference Range Comments COLOR (test code=COLU) YELLOW YELLOW CLARITY (test code=CLA) HAZY CLEAR GLUCOSE UR (test code=UA GLUCOSE) NEGATIVE NEGATIVE BILI UR (test code=BILE) NEGATIVE NEGATIVE KETONES UR (test code=MILLIE) NEGATIVE NEGATIVE SP GRAVITY (test code=SPGR) 1.024 1.005-1.030 PH UR (test code=PH) 6.5 4.5-8.0 PROTEIN UR (test code=PU) NEGATIVE NEGATIVE UROBIL UR (test code=UROQ) 1.0 EU/dL 0.2-1.0 NITRITE UR (test code=NITRITE) NEGATIVE NEGATIVE BLOOD UR (test code=UA BLOOD) NEGATIVE NEGATIVE LEUK ES UR (test code=LEUK) 1+ NEGATIVE WBC UR (test code=UWBC) 6 /HPF 0-5 RBC UR (test code=URBC) 1 /HPF 0-2 EPITH UR (test code=UEPC) MANY /LPF FEW BACTERIA UR (test code=UBACT) MANY /HPF NONE CAST UR (test code=CAST) /LPF NONE CRYSTAL UR (test code=CRYU) / LPF NONE MUCUS UR (test code=MUC) / HPF NONE AMORPH UR (test code=JAGJIT) / HPF NONE TRICH UR (test code=UTRICH) /HPF NONE YEAST UR (test code=UY) /HPF NONE SPERM UR (test code=USPERM) /HPF NONE
[2019-02-11 21:53] LABS: BASOPHILS % 0.5 % (0.0-1.0); EOSINOPHILS # (AUTO) 0.1 (0.0-0.4); EOSINOPHILS % 1.2 % (0.0-6.0); HEMATOCRIT 37.7 % (34.2-44.1); HEMOGLOBIN 13.2 g/dL (12.0-16.0); LYMPHOCYTES # (AUTO) 2.9 (1.0-3.2); LYMPHOCYTES % 33.2 % (18.0-39.1); MEAN CORPUSCULAR HEMOGLOBIN 30.7 pg (28-32); MEAN CORPUSCULAR VOLUME 87.7 fL (81-99); MONOCYTES # (AUTO) 0.5 (0.2-0.8); MONOCYTES % 5.9 % (4.4-11.3); NEUTROPHILS # (AUTO) 5.2 (2.1-6.9); NEUTROPHILS % 58.9 % (38.7-80.0); PLATELET COUNT 276 x10e3/uL (140-360); RED CELL DISTRIBUTION WIDTH 12.2 % (11.7-14.4)
[2019-02-11 22:14] LABS: ALANINE AMINOTRANSFERASE 92 IU/L (0-55); ALBUMIN 3.9 g/dL (3.5-5.0); ALBUMIN/GLOBULIN RATIO 1.1 (0.8-2.0); ALKALINE PHOSPHATASE 95 IU/L (40-150); ANION GAP 13.4 mmol/L (8-16); BLOOD UREA NITROGEN 9 mg/dL (7-26); BUN/CREATININE RATIO 11 (6-25); CALCIUM 9.8 mg/dL (8.4-10.2); CARBON DIOXIDE 24 mmol/L (22-29); CHLORIDE 104 mmol/L (98-107); CREATININE, SERUM 0.85 mg/dL (0.57-1.11); EST GLOMERULAR FILTRATION RATE > 60 ML/MIN (60-); GLUCOSE 108 mg/dL (74-118); POTASSIUM 3.4 mmol/L (3.5-5.1); SODIUM 138 mmol/L (136-145)
[2019-02-11 22:15] LABS: AMYLASE 49 U/L (25-125); LIPASE 40 U/L (8-78)
[2019-02-11] MEDS: SODIUM CHLORIDE 0.9% 1000ML 1,000 ML IV ONE (22:15)
[2019-02-11] MEDS: ONDANSETRON HCL INJ 2MG/ML 2ML 2 MG/ML VIAL IV STA (22:15)
[2019-02-11] MEDS: MORPHINE SULFATE 2 MG/ML SYR 1ML IV STA (22:15)
[2019-02-11] MEDS ORDERED: SODIUM CHLORIDE 0.9% 50ML 50 ML ONE (22:47)
[2019-02-11] MEDS ORDERED: IOPAMIDOL 370 MG/ML 200 ML INFUS..BTL INJ ONE (22:47)
[2019-02-11 23:11] LABS: BILIRUBIN,URINE NEGATIVE (NEGATIVE); CLARITY,URINE SL CLOUDY (CLEAR); COLOR,URINE YELLOW (YELLOW); KETONES,URINE NEGATIVE (NEGATIVE); LEUKOCYTE ESTERASE ,URINE NEGATIVE (NEGATIVE); NITRITE,URINE NEGATIVE (NEGATIVE); PROTEIN,URINE DIPSTICK NEGATIVE (NEGATIVE); URINE UROBILINOGEN 0.2 mg/dL (0.2 - 1)
--- NOTE | 2019-02-11 23:20 | Diagnostic Imaging Report ---
EXAM: CT Abdomen and Pelvis WITH contrast INDICATION: ^abd pain/ diarrhea, sigficant tenderness, to luq, llq,rlq ^[id number] ^2231 ^Y COMPARISON: None. TECHNIQUE: Abdomen and pelvis were scanned utilizing a multidetector helical scanner from the lung base to the pubic symphysis after administration of IV contrast. Coronal and sagittal reformations were obtained. Dose modulation, iterative reconstruction, and/or weight based adjustment of the mA/kV was utilized to reduce the radiation dose to as low as reasonably achievable. Routine protocol was performed. Scan was performed when during portal venous phase. IV CONTRAST: 100 mL of Isovue-370 ORAL CONTRAST: None COMPLICATIONS: None RADIATION DOSE: Total DLP: 750.18 mGy*cm Estimated effective dose: (DLP x 0.015 x size factor) mSv CTDIvol has been reviewed. It is below the limits set by the Radiation Protocol Committee (RPC). FINDINGS: LINES and TUBES: None. LOWER THORAX: Unremarkable HEPATOBILIARY: Hepatic steatosis. Ill-defined hyperdensity in right hepatic lobe, measuring approximately 1.4 cm (series 2, image 20), could represent vascular shunting or focal fatty sparing. No biliary ductal dilation. GALLBLADDER: Surgically absent. SPLEEN: Borderline splenomegaly. PANCREAS: No focal masses or ductal dilatation. ADRENALS: No adrenal nodules KIDNEYS/URETERS: Kidneys enhance symmetrically. No hydronephrosis. No cystic or solid mass lesions. No stones. GI TRACT: No abnormal distention, wall thickening, or evidence of bowel obstruction. Focal pericolonic fat stranding in left upper quadrant (series 2, image 42) with questionable fat density peripherally enhancing lesion. Appendix is normal. PELVIC ORGANS/BLADDER: IUD in place which is in the mid to lower uterine segment. Bladder is collapsed. LYMPH NODES: No lymphadenopathy. VESSELS: Unremarkable. PERITONEUM / RETROPERITONEUM: No free air or fluid. BONES: Unremarkable. SOFT TISSUES: Unremarkable. IMPRESSION: 1. Pericolonic fat stranding at splenic flexure, likely due to epiploic appendagitis. 2. Enlarged steatotic liver. Ill-defined hyperdensity in right hepatic lobe, could represent vascular shunting or focal fatty sparing. Nonurgent right upper quadrant ultrasound can be obtained for evaluation. 3. IUD in place which is in the mid to lower uterine segment. Signed by: Dr. Kali Carrion MD on 02/11/2019 11:17 PM
[2019-02-11 23:25] LABS: BACTERIA,URINE MODERATE /HPF; EPITHELIAL CELLS,URINE MANY /LPF; MUCUS,URINE FEW (RARE)
[2019-02-12 00:02] VITALS: BP 99/63
== END 2019-02-12 00:16 | disposition home or self-care (01) ==
LOC: ER 21:27
DX: K52.9 Noninfective gastroenteritis and colitis, unspecified (principal); N30.91 Cystitis, unspecified with hematuria
CPT/HCPCS: 36415; 74177; 80053; 81001; 82150; 83690; 84702; 85025; 96374; 96375; 99284; J2270; J2405; J7030; Q9967

== ENCOUNTER 2019-02-15 00:47 | Emergency (ER) | payer MEDICARE, OTHER ==
[~2019-02-15] VITALS: Ht 160 cm; Wt 89.8 kg
--- OUTSIDE RECORDS SUMMARY | 2019-02-15 00:50 | XMS REPORT | Clinical Summary ---
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
--- OUTSIDE RECORDS SUMMARY | 2019-02-15 00:50 | XMS REPORT | Clinical Summary ---
Author Author [facility] Address Unknown Phone Unavailable Care Team Providers Care Tanker Service Attendant Name Role Phone PCP Unavailable Allergies No [...] Gallstones (Primary Dx) 07/17/2018 Hospital Encounter after 02/14/2018 Social History Date Tobacco Use Types Packs/Day [...] Taken Vital Sign Reading 07/17/2018 11:08 AM FORGING DIE FINISHER Blood Pressure 97/52 07/17/2018 11:08 AM FORGING DIE FINISHER Pulse 67 07/17/2018 11:08 AM FORGING DIE FINISHER Temperature 37 C (98.6 F) 07/17/2018 11:08 AM FORGING DIE FINISHER Respiratory Rate 25 07/17/2018 11:08 AM FORGING DIE FINISHER Oxygen Saturation 93% - Inhaled Oxygen - Concentration 07/17/2018 7:55 AM FORGING DIE FINISHER Weight 84.4 kg (186 lb) 07/17/2018 7:55 AM FORGING DIE FINISHER Height 160 cm (5' 3") 07/17/2018 7:55 AM FORGING DIE FINISHER Body Mass Index 32.95 Plan of Treatment Not on file Procedures Comments Procedure Name Priority Date/Time Associated Diagnosis TISSUE EXAM AP Routine 07/17/2018 10:15 AM FORGING DIE FINISHER LAPAROSCOPY,CHOLECYSTECTO 07/17/2018 Calculus of gallbladder MY 9:00 AM FORGING DIE FINISHER without cholecystitis without obstruction Special Needs DR. NAVA PA TO ASST CBC W/PLT COUNT & AUTO Routine 07/17/2018 DIFFERENTIAL 8:02 AM FORGING DIE FINISHER CBC W/PLT COUNT & AUTO Routine 07/17/2018 DIFFERENTIAL 8:02 AM FORGING DIE FINISHER SCREEN, URINE Routine 07/17/2018 7:43 AM FORGING DIE FINISHER after 02/14/2018 Results * Tissue Exam (07/17/2018 10:15 AM FORGING DIE FINISHER) Case Report Surgical Pathology [facility] LABORAT[facility] Case: [id number] Authorizing Provider:Stanislav Nava,Collected: 07/17/2018 1015 Ordering Location: [facility] Received: 07/17/2018 1037 SERVICES Pathologist: Azeb Goodrich MD Specimen:Gallbladder, gallbladder DIAGNOSIS GALLBLADDER, CHOLECYSTECTOMY: [facility]RON[facility] LABORATORY CHOLECYSTITIS WITH FOCAL INTESTINAL METAPLASIA - NO DYSPLASIA OR MALIGNANCY IS IDENTIFIED - CHOLELITHIASIS - ONE REACTIVE LYMPH NODE MG/pl Signing Pathologist Direct Phone Line: [phone] CPT Code(s) 29034 [facility] LABORATORY CLINICAL HISTORY Cholelithiasis [facility] SPECIMEN SOURCE Gallbladder [facility] GROSS DESCRIPTION The specimen is received in [facility] fixative and designated as LABORATORY "gallbladder" and consists of a pink-waggoner cholecystectomy specimen (7.0 x 3.5 x 3.0 cm). The gallbladder is filled with green viscous fluid and contains multiple yellow gallstones ranging in size from 0.5 to 0.7 cm in greatest dimension. The gallbladder mucosa is waggoner and velvety with no discrete lesions identified. Supervisor Kennel sections of the gallbladder mucosa and cystic duct are submitted into A1. MG/pl MICROSCOPIC DESCRIPTION Performed [facility] Gross assessment was . [place] [facility] performed at [facility], Department of LABORATORY Pathology, [address] [place] [address], Technical component was [facility] performed at [facility] Department of LABORATORY Pathology, [address] [place] [address], Professional component . [place] [facility] was performed at [facility] Department of LABORATORY Pathology, [address] [place] [address], Specimen Tissue Narrative Performed At Performing Organization Address City/State/Zipcode Phone Number [facility] [address] [place] [phone] * CBC with platelet count + automated diff (07/17/2018 8:02 AM FORGING DIE FINISHER) WBC 9.4 4.0 - 10.0 K/L [facility] RBC 4.83 4.00 - 5.00 M/L [facility] Hemoglobin 14.2 12.0 - 15.5 GM/DL [facility] Hematocrit 43.4 36.0 - 46.0 % [facility] MCV 89.9 82.0 - 99.0 fL [facility] MCH 29.4 27.0 - 33.0 pg [facility] MCHC 32.7 32.0 - 36.0 GM/DL [facility] RDW 12.7 12.0 - 15.0 % [facility] Platelets 307 150 - 430 K/CU MM [facility] MPV 10.3 6.0 - 11.5 fL [facility] nRBC 0 0 - 0 /100 WBC [facility] % Neutros 61 % [facility] % Lymphs 31 % [facility] % Monos 6 % [facility] % Eos 2 % [facility] % Baso 0 % [facility] # Neutros 5.69 1.80 - 8.00 [...] Granulocytes-Relative LABORATORY Specimen Blood Performing Organization Address City/[facility]/Zipcode Phone Number [facility] [address] [place], [place] [phone] * Screen, urine (07/17/2018 7:43 AM FORGING DIE FINISHER) Preg Test, Ur Negative [facility] Specimen Urine Performing Organization Address City/[facility] Phone Number [facility] [address] [place] [address] after 02/14/2018 Insurance Payer Benefit Subscriber ID Type Phone Address Plan / Group MEDICAID - MEDICAID [facility] xxxxxxxxx Medicaid CARE COMM STAR Contracted PLAN [id number] [place] [address] (Home) [place] [address]
--- OUTSIDE RECORDS SUMMARY | 2019-02-15 00:51 | XMS REPORT | Continuity of Care Document ---
Author Author [employer] Organization [employer] Address Unknown Phone Unavailable Care Team Providers Care Noodle Press Operator Name Role Phone [employer] Information [employer] Unavailable Unavailable Problems Problem Status Onset Date Classification Date Reported Comments Source N/A Active 02/06/2019 [facility] G47.33 Active 01/01/2019 [facility] Discharge Diagnosis: Acute vaginitis 02/25/2016 02/28/2016 [place] Discharge Diagnosis: Acute cervicitis 02/25/2016 02/28/2016 [place] VAGINAL DISCHARGE Active 02/25/2016 [place] Discharge Diagnosis: Headache 06/09/2015 06/12/2015 [place] Discharge Diagnosis: Dizziness 06/09/2015 06/12/2015 [place] DIZZYNESS/NAUSEA Active 06/08/2015 [place] Discharge Diagnosis: Acute UTI 10/01/2014 10/04/2014 [place] Discharge Diagnosis: Candidal vaginitis 10/01/2014 10/04/2014 [place] VAGINAL ISSUES Active 09/30/2014 [facility] OBSTRUCTIVE SLEEP APNEA (ADULT) (PEDIATR Active [facility] Medications Medication Details Route Status Patient Instructions Ordering Provider Order Date Source Azithromycin 1,000 mg, Route: PO, Drug form: TAB, ONCE, Dosing Weight 63.807, kg, Start date: 02/25/16 22:04:00 CDT, Stop date: 02/25/16 22:04:00 CDT Inactive 02/26/2016 [place] fluconazole 150 mg oral tablet 150 mg=1 tab, PO, ONCE, # 1 tab, 0 Refill(s) Active 02/26/2016 [place] Metronidazole 500 MG Oral Tablet [Flagyl] 500 mg=1 tab, PO, Q8H, X 7 day, # 21 tab, 0 Refill(s) Active 02/26/2016 [facility] Azithromycin 1,000 mg, 1 pkt, Route: [...] 20:52:00 CDTNotes: (Same As: Rocephin) Inactive 02/26/2016 [place] meclizine 25 mg oral tablet 25 mg=1 tab, PO, TID, PRN for dizziness, X 7 day, # 21 tab, 0 Refill(s) Active 06/09/2015 [place] Benadryl 12.5 mg, Route: IVP, ONCE, Dosing Weight 55.773, kg, Priority: STAT, Start date: 06/09/15 0:13:00, Stop date: 06/09/15 0:13:00 Inactive 06/09/2015 [place] Reglan 10 mg, Route: IVP, Drug form: INJ, ONCE, Dosing Weight 55.773, kg, Priority: STAT, Start date: 06/09/15 0:12:00, Stop date: 06/09/15 0:12:00 Inactive 06/09/2015 [place] Meclizine 25 mg, Route: PO, Drug form: TAB, ONCE, Dosing Weight 55.773, kg, Priority: STAT, Start date: 06/09/15 0:12:00, Stop date: 06/09/15 0:12:00 Inactive 06/09/2015 [place] Sodium Chloride 0.154 MEQ/ML Injectable Solution 1,000 mL, 1,000 ml/hr, Infuse Over: 1 hr, Route: IV, ONCE, Priority: STAT, Dosing Weight 55.773 kg, Start date: 06/09/15 0:12:00, Duration: 1 doses or times, Stop date: 06/09/15 0:12:00 Inactive 06/09/2015 [place] Miconazole Nitrate 200 MG Vaginal Suppository [Monistat] 200 mg=1 supp, VAG, Bedtime, X 3 day, # 3 ea, 0 Refill(s), Pharmacy: [id number] Active 10/01/2014 [place] Nitrofurantoin 100 MG Oral Capsule [Macrobid] 100 mg=1 cap, PO, BID, X 7 day, # 14 cap, 0 Refill(s), Pharmacy: [facility] [id number] Active 10/01/2014 [place] Allergies, Adverse Reactions, Alerts Substance Category Reaction Severity Reaction type Status Date Reported Comments Source No Known Medication Allergies Assertion Drug allergy [facility] Immunizations No Data Provided for This Section Results Order Name Results Value Reference Range Date Interpretation Comments Source URINE AND STOOL UA Ketones Negative mg/dL Negative mg/dL 02/26/2016 [place] URINE AND STOOL UA Glucose Negative mg/dL Negative mg/dL 02/26/2016 [place] URINE AND STOOL UA pH 5.0 5.0 - 8.0 02/26/2016 [place] URINE AND STOOL UA Protein Negative mg/dL Negative mg/dL 02/26/2016 [place] URINE AND STOOL UA Bili Negative *NA* (02/25/16 8:40 PM) Negative 02/26/2016 [place] URINE AND STOOL UA Blood Negative (02/25/16 8:40 PM) Negative 02/26/2016 [place] URINE AND STOOL UA Color Yellow *NA* (02/25/16 8:40 PM) Yellow 02/26/2016 [place] URINE AND STOOL UA Turbidity Slight *ABN* (02/25/16 8:40 PM) Clear 02/26/2016 [place] URINE AND STOOL UA Spec Grav 1.027 <=1.030 02/26/2016 [place] URINE AND STOOL UA Leuk Est Small *ABN* (02/25/16 8:40 PM) Negative 02/26/2016 [place] URINE AND STOOL UA Sq Epi Many /LPF Few /LPF 02/26/2016 [place] URINE AND STOOL UA Mucus Many /LPF None Seen /LPF 02/26/2016 [place] URINE AND STOOL UA RBC 1 0 - 2 02/26/2016 [place] URINE AND STOOL UA Bacteria Occasional /HPF None Seen /HPF 02/26/2016 [place] URINE AND STOOL UA WBC 6 0 - 5 02/26/2016 [place] URINE AND STOOL UA Urobilinogen 2.0 0.1 - 1.0 02/26/2016 [place] URINE AND STOOL UA Nitrite Negative (02/25/16 8:40 PM) Negative 02/26/2016 [place] URINE CHEM U Preg Negative (02/25/16 8:40 PM) Negative 02/26/2016 [place] MOLECULAR DIAGNOSTIC N gonorrhea by Amp Det (APTIMA) Negative *NA* (06/09/15 12:37 AM) Negative 06/09/2015 [place] MOLECULAR DIAGNOSTIC C trachomatis by Amp Det (APTIMA) Negative *NA* (06/09/15 12:37 AM) Negative 06/09/2015 [place] MOLECULAR DIAGNOSTIC Source APTIMA Urine *NA* (06/09/15 12:37 AM) 06/09/2015 [place] CHEM PANEL eGFR 127 06/09/2015 Result Comment: [...] should be multiplied by the estimated BMI. [place] CHEM PANEL Bili Total 0.5 0.2 - 1.3 06/09/2015 [place] CHEM PANEL AST 26 0 - 37 06/09/2015 [place] CHEM PANEL Alk Phos 83 39 - 136 06/09/2015 [place] CHEM PANEL Creatinine Lvl 0.66 0.50 - 1.40 06/09/2015 [place] CHEM PANEL Sodium Lvl 141 135 - 145 06/09/2015 [place] CHEM PANEL Glucose Lvl 87 70 - 99 06/09/2015 [place] CHEM PANEL BUN 13 7 - 22 06/09/2015 [place] CHEM PANEL Albumin Lvl 3.8 3.5 - 5.0 06/09/2015 [place] CHEM PANEL Total Protein 7.3 6.4 - 8.4 06/09/2015 [place] CHEM PANEL ALT 38 0 - 65 06/09/2015 [place] CHEM PANEL Chloride Lvl 107 95 - 109 06/09/2015 [place] CHEM PANEL CO2 26 24 - 32 06/09/2015 [place] CHEM PANEL Calcium Lvl 8.6 8.5 - 10.5 06/09/2015 [place] CHEM PANEL Potassium Lvl 3.5 3.5 - 5.1 06/09/2015 [place] CHEM PANEL Globulin 3.5 2.0 - 4.0 06/09/2015 [place] CHEM PANEL A/G Ratio 1.1 0.7 - 1.6 06/09/2015 [place] CHEM PANEL AGAP 11.5 10.0 - 20.0 06/09/2015 [place] CHEM PANEL B/C Ratio 20 6 - 25 06/09/2015 [place] ENDOCRINOLOGY S Preg Negative *NA* (06/09/15 12:23 AM) Negative 06/09/2015 [place] HEMATOLOGY Monocytes # 0.5 0.0 - 0.8 06/09/2015 [place] HEMATOLOGY Eosinophils # 0.1 0.0 - 0.5 06/09/2015 [place] HEMATOLOGY Basophils # 0.0 0.0 - 0.2 06/09/2015 [place] HEMATOLOGY Segs 50.1 45.0 - 75.0 06/09/2015 [place] HEMATOLOGY Lymphocytes 40.2 20.0 - 40.0 06/09/2015 [place] HEMATOLOGY Monocytes 7.6 2.0 - 12.0 06/09/2015 [place] HEMATOLOGY Eosinophils 1.6 0.0 - 4.0 06/09/2015 [place] HEMATOLOGY Basophils 0.5 0.0 - 1.0 06/09/2015 [place] HEMATOLOGY Segs-Bands # 3.4 1.5 - 8.1 06/09/2015 [place] HEMATOLOGY Lymphocytes # 2.7 1.0 - 5.5 06/09/2015 [place] HEMATOLOGY WBC 6.7 3.7 - 10.4 06/09/2015 [place] HEMATOLOGY RBC 4.08 4.20 - 5.40 06/09/2015 [place] HEMATOLOGY Hct 36.7 36.0 - 48.0 06/09/2015 [place] HEMATOLOGY Hgb 12.6 12.0 - 16.0 06/09/2015 [place] HEMATOLOGY MCV 89.9 80.0 - 98.0 06/09/2015 [place] HEMATOLOGY MCHC 34.3 32.0 - 36.0 06/09/2015 [place] HEMATOLOGY MCH 30.8 27.0 - 31.0 06/09/2015 [place] HEMATOLOGY Platelet 251 133 - 450 06/09/2015 [place] HEMATOLOGY RDW 12.7 11.5 - 14.5 06/09/2015 [place] HEMATOLOGY MPV 9.0 7.4 - 10.4 06/09/2015 [place] URINE AND STOOL UA Mucus Few /LPF None Seen /LPF 06/09/2015 [place] URINE AND STOOL UA RBC 0-2 /HPF 0 - 2 06/09/2015 [place] URINE AND STOOL UA Bacteria Few /HPF None Seen /HPF 06/09/2015 [place] URINE AND STOOL UA Leuk Est Negative (06/09/15 12:23 AM) Negative 06/09/2015 [place] URINE AND STOOL UA Sq Epi Moderate /LPF Few /LPF 06/09/2015 [place] URINE AND STOOL UA WBC 3-5 /HPF None Seen /HPF 06/09/2015 [place] URINE AND STOOL UA Glucose Negative (06/09/15 12:23 AM) Negative 06/09/2015 [place] URINE AND STOOL UA pH 6.5 5.0 - 8.0 06/09/2015 [place] URINE AND STOOL UA Protein Negative (06/09/15 12:23 AM) Negative 06/09/2015 [place] URINE AND STOOL UA Ketones Negative *NA* (06/09/15 12:23 AM) Negative 06/09/2015 [place] URINE AND STOOL UA Bili Negative *NA* (06/09/15 12:23 AM) Negative 06/09/2015 [place] URINE AND STOOL UA Blood Small *ABN* (06/09/15 12:23 AM) Negative 06/09/2015 [place] URINE AND STOOL UA Urobilinogen 1.0 0.1 - 1.0 06/09/2015 [place] URINE AND STOOL UA Nitrite Negative (06/09/15 12:23 AM) Negative 06/09/2015 [place] URINE AND STOOL UA Color Yellow *NA* (06/09/15 12:23 AM) Yellow 06/09/2015 [facility] URINE AND STOOL UA Turbidity Slight Cloudy (06/09/15 12:23 AM) Clear 06/09/2015 [facility] URINE AND STOOL UA Spec Grav 1.025 <=1.030 06/09/2015 [facility] IMMUNOLOGY [facility] HIV 4th GEN Negative (10/01/14 12:34 AM) Negative 10/01/2014 [facility] MOLECULAR DIAGNOSTIC N gonorrhea by Amp [...] verified by the Molecular Diagnostic Laboratory within [facility]. The Molecular Diagnostic Laboratory is authorized under the Clinical Laboratory Improvement Amendments of 1988 (CLIA-88) to perform high complexity testing. [facility] MOLECULAR DIAGNOSTIC Source APTIMA Endocervix *NA* (10/01/14 12:34 AM) 10/01/2014 [facility] MOLECULAR DIAGNOSTIC C trachomatis by Amp [...] verified by the Molecular Diagnostic Laboratory within [facility]. The Molecular Diagnostic Laboratory is authorized under [...] from symptomatic and asymptomatic individuals using the [email or web address] System.
This assay utilizes FDA cleared IVD reagents. Performance characteristics have been verified by the Molecular Diagnostic Laboratory within [facility]. The Molecular Diagnostic Laboratory is authorized under the Clinical Laboratory Improvement Amendments of 1988 (CLIA-88) to perform high complexity testing. [place] URINE AND STOOL UA Spec Grav 1.020 <=1.030 10/01/2014 [place] URINE AND STOOL UA Turbidity Cloudy *ABN* (10/01/14 12:34 AM) Clear 10/01/2014 [place] URINE AND STOOL UA pH 7.0 5.0 - 8.0 10/01/2014 [place] URINE AND STOOL UA Protein Negative (10/01/14 12:34 AM) Negative 10/01/2014 [place] URINE AND STOOL UA Ketones Negative *NA* (10/01/14 12:34 AM) Negative 10/01/2014 [place] URINE AND STOOL UA Glucose Negative (10/01/14 12:34 AM) Negative 10/01/2014 [place] URINE AND STOOL UA Bacteria Few /HPF None Seen /HPF 10/01/2014 [place] URINE AND STOOL UA Nitrite Negative (10/01/14 12:34 AM) Negative 10/01/2014 [place] URINE AND STOOL UA WBC 11-20 /HPF None Seen /HPF 10/01/2014 [place] URINE AND STOOL UA Leuk Est Small *ABN* (10/01/14 12:34 AM) Negative 10/01/2014 [place] URINE AND STOOL UA Sq Epi Moderate /LPF Few /LPF 10/01/2014 [place] URINE AND STOOL UA RBC 0-2 /HPF 0 - 2 10/01/2014 [place] URINE AND STOOL UA Color Yellow *NA* (10/01/14 12:34 AM) Yellow 10/01/2014 [place] URINE AND STOOL UA Urobilinogen 1.0 0.1 - 1.0 10/01/2014 [place] URINE AND STOOL UA Blood Negative (10/01/14 12:34 AM) Negative 10/01/2014 [place] URINE AND STOOL UA Bili Negative *NA* (10/01/14 12:34 AM) Negative 10/01/2014 [place] URINE CHEM U Preg Negative (10/01/14 12:34 AM) Negative 10/01/2014 [place] Pathology Reports No Data Provided for This Section Diagnostic Reports No Data Provided for This Section Consultation Notes No Data Provided for This Section Discharge Summaries No Data Provided for This Section History and Physicals No Data Provided for This Section Vital Signs Vital Sign Value Date Comments Source Systolic (mm Hg) 116 02/26/2016 [facility] [place] Diastolic (mm Hg) 64 02/26/2016 [place] Respitory Rate 16 02/26/2016 [place] Heart Rate 71 02/26/2016 [place] Temperature Oral (F) 98 F 02/26/2016 [place] Respitory Rate 16 02/26/2016 [place] Heart Rate 73 02/26/2016 [place] Systolic (mm Hg) 116 02/26/2016 [place] Diastolic (mm Hg) 72 02/26/2016 [place] Temperature Oral (F) 98.6 F 02/26/2016 [place] Weight 63.807 02/26/2016 [place] Systolic (mm Hg) 100 06/09/2015 [place] Diastolic (mm Hg) 66 06/09/2015 [place] Heart Rate 75 06/09/2015 [place] Respitory Rate 19 06/09/2015 [place] Temperature Oral (F) 98.2 F 06/09/2015 [place] Weight 55.773 06/09/2015 [place] Heart Rate 70 06/09/2015 [place] Systolic (mm Hg) 128 06/09/2015 [place] Diastolic (mm Hg) 80 06/09/2015 [place] Respitory Rate 18 06/09/2015 [place] Temperature Oral (F) 97.8 F 06/09/2015 [place] Systolic (mm Hg) 110 10/01/2014 [facility] [place] Diastolic (mm Hg) 84 10/01/2014 [place] Heart Rate 79 10/01/2014 [place] Respitory Rate 18 10/01/2014 [place] Temperature Oral (F) 98.2 F 10/01/2014 [place] Weight 57.5 10/01/2014 [place] Respitory Rate 18 10/01/2014 [place] Heart Rate 87 10/01/2014 [place] Temperature Oral (F) 98.5 F 10/01/2014 [place] Systolic (mm Hg) 125 10/01/2014 [facility] Diastolic (mm Hg) 80 10/01/2014 [facility] Encounters Location Location Details Encounter Type Encounter Number Reason For Visit Attending Provider ADM Date DC Date Status Source [facility] [id number] Sabino Ruiz 10/01/2014 10/01/2014 [facility] [id number] Eric Weaver 06/09/2015 06/09/2015 [facility] Emergency [id number] Cricket Grubbs 02/26/2016 02/26/2016 [facility] [id number] Kelle Johanny 01/13/2019 01/13/2019 [facility] Procedures No Data Provided for This Section [...] No; Reg Smoking Cessation Counseling No 02/26/2016 [facility] Social History TypeResponse Smoking Status Never smoker; Type: Cigarettes; Previous treatment: None; Ready to change: No; Concerns about tobacco use in household: No; Exposure to Tobacco Smoke None; Cigarette Smoking Last 365 Days No; Reg Smoking Cessation Counseling No entered on: 02/25/16 02/26/2016 [facility] Family History No Data Provided for This Section Advance Directives No Data Provided for This Section Functional Status No Data Provided for This Section
[2019-02-15] MEDS ORDERED: SODIUM CHLORIDE 0.9% 1000ML 1,000 ML IV STA (02:06)
[2019-02-15] MEDS ORDERED: METOCLOPRAMIDE HCL 10 MG/2ML VIAL IV ONE (02:15)
[2019-02-15] MEDS ORDERED: DIPHENHYDRAMINE HCL INJ 50 MG/ML VIAL IV ONE (02:15)
[2019-02-15 02:37] LABS: BASOPHILS % 0.3 % (0.0-1.0); EOSINOPHILS # (AUTO) 0.1 (0.0-0.4); EOSINOPHILS % 1.3 % (0.0-6.0); HEMATOCRIT 40.7 % (34.2-44.1); HEMOGLOBIN 13.9 g/dL (12.0-16.0); LYMPHOCYTES # (AUTO) 2.6 (1.0-3.2); LYMPHOCYTES % 29.8 % (18.0-39.1); MEAN CORPUSCULAR HEMOGLOBIN 30.4 pg (28-32); MEAN CORPUSCULAR HGB CONC 34.2 g/dL (31-35); MEAN CORPUSCULAR VOLUME 89.1 fL (81-99); MONOCYTES # (AUTO) 0.5 (0.2-0.8); MONOCYTES % 5.4 % (4.4-11.3); NEUTROPHILS # (AUTO) 5.5 (2.1-6.9); NEUTROPHILS % 62.9 % (38.7-80.0); PLATELET COUNT 292 x10e3/uL (140-360); RED BLOOD COUNT 4.57 x10e6/uL (3.6-5.1); RED CELL DISTRIBUTION WIDTH 12.2 % (11.7-14.4)
[2019-02-15 02:39] LABS: BILIRUBIN,URINE NEGATIVE (NEGATIVE); CLARITY,URINE CLEAR (CLEAR); COLOR,URINE YELLOW (YELLOW); KETONES,URINE NEGATIVE (NEGATIVE); LEUKOCYTE ESTERASE ,URINE TRACE (NEGATIVE); NITRITE,URINE NEGATIVE (NEGATIVE); PROTEIN,URINE DIPSTICK TRACE (NEGATIVE); URINE UROBILINOGEN 0.2 mg/dL (0.2 - 1)
[2019-02-15 02:49] LABS: ALANINE AMINOTRANSFERASE 89 IU/L (0-55); ALBUMIN 4.2 g/dL (3.5-5.0); ALBUMIN/GLOBULIN RATIO 1.1 (0.8-2.0); ALKALINE PHOSPHATASE 94 IU/L (40-150); ANION GAP 14.6 mmol/L (8-16); BLOOD UREA NITROGEN 10 mg/dL (7-26); BUN/CREATININE RATIO 11 (6-25); CALCIUM 9.9 mg/dL (8.4-10.2); CARBON DIOXIDE 26 mmol/L (22-29); CHLORIDE 105 mmol/L (98-107); CREATININE, SERUM 0.87 mg/dL (0.57-1.11); EST GLOMERULAR FILTRATION RATE > 60 ML/MIN (60-); GLUCOSE 95 mg/dL (74-118); POTASSIUM 3.6 mmol/L (3.5-5.1); SODIUM 142 mmol/L (136-145)
[2019-02-15 02:54] LABS: BACTERIA,URINE MANY /HPF; EPITHELIAL CELLS,URINE MANY /LPF; RBC,URINE 0-5 /HPF (0-5)
[2019-02-15 02:56] LABS: PREGNANCY TEST, URINE NEGATIVE (NEGATIVE)
[2019-02-15] MEDS ORDERED: MACROBID 100 M100 MG PO (03:17)
[2019-02-15] MEDS ORDERED: REGLAN10 MG PO (03:17)
== END 2019-02-15 03:47 | disposition home or self-care (01) ==
LOC: ER 00:47
DX: R11.2 Nausea with vomiting, unspecified (principal); N30.91 Cystitis, unspecified with hematuria
CPT/HCPCS: 36415; 80053; 81001; 81025; 85025; 87086; 96374; 96375; 99283; J1200; J2765; J7030

== ENCOUNTER 2019-07-06 19:01 | Emergency (ER) | payer MEDICARE, OTHER ==
[~2019-07-06] VITALS: Ht 160 cm; Wt 89.8 kg
[~2019-07-06 19:01] MED LIST: MACROBID 100 M100 MG PO; REGLAN10 MG PO
== END 2019-07-06 19:38 | disposition home or self-care (01) ==
LOC: ER 19:01
DX: L03.811 Cellulitis of head [any part, except face] (principal); T49.4X1A Poisoning by keratolytics, keratoplastics, and other hair treatment drugs and preparations, accidental (unintentional), initial encounter; F41.9 Anxiety disorder, unspecified; E78.5 Hyperlipidemia, unspecified
CPT/HCPCS: 99282

== ENCOUNTER 2019-08-28 23:09 | Emergency (ER) | payer MEDICARE, OTHER ==
[~2019-08-28] VITALS: Ht 160 cm; Wt 89.8 kg
[2019-08-28 23:57] LABS: INFLUENZAE A&B ANTIGEN (RAPID) NEGATIVE (NEGATIVE); STREPTOCOCCUS GRP A ANTIGEN NEGATIVE (NEGATIVE)
--- NOTE | 2019-08-29 01:01 | Diagnostic Imaging Report ---
EXAMINATION: CHEST 2 VIEWS INDICATION: Dyspnea. COMPARISON: None FINDINGS: TUBES and LINES: None. LUNGS: Lungs are well inflated. There is no evidence of pneumonia or pulmonary edema. PLEURA: No pleural effusion or pneumothorax. HEART AND MEDIASTINUM: The cardiomediastinal silhouette is unremarkable. BONES AND SOFT TISSUES: No acute osseous lesion. Soft tissues are unremarkable. UPPER ABDOMEN: No free air under the diaphragm. IMPRESSION: No acute thoracic abnormality. Signed by: Dr. Linda Daniels MD on 08/29/2019 12:57 AM
[2019-08-29 01:07] VITALS: BP 153/97
== END 2019-08-29 01:16 | disposition home or self-care (01) ==
LOC: ER 23:09
DX: R06.00 Dyspnea, unspecified (principal); J04.10 Acute tracheitis without obstruction; J06.9 Acute upper respiratory infection, unspecified; F41.9 Anxiety disorder, unspecified
CPT/HCPCS: 71046; 83518; 87070; 87400; 93005; 99283

== ENCOUNTER 2020-01-02 13:47 | Emergency (ER) | payer MEDICARE, OTHER ==
[~2020-01-02] VITALS: Ht 160 cm; Wt 89.8 kg
[2020-01-02] MEDS ORDERED: LIDOCAINE HCL 2% JELLY 5 ML TUBE ONE (14:27)
[2020-01-02] MEDS ORDERED: SOD PHOSPHATE/SOD BIPHOSPHATE ENEMA 132 ML BTL PR ONE (14:45)
--- NOTE | 2020-01-02 16:03 | Emergency Department Note ---
History of Present Illnes History of Present Illness Chief Complaint: General Medicine Complaints History of Present Illness This is a 24 year old female . Chief Complaint Comment 24 y/o female presents with rectal pain and c/o constipation. Pt reports lower abdominal pain. Pt reports waves of cramping. No external hemorrhoids noted. Noted distention to abd. BS hypoactive x 4. Pt denies flatus Historian: Patient Arrival Mode: Car Onset (how long ago): day(s) Onset quality: gradual Duration (how long): day(s) Timing of current episode: constant Progression: unchanged Chronicity: new Past Medical/Family History Physician Review I have reviewed the patient's past medical and family history. Any updates have been documented here. Past Medical History Recent Fever: No Clinical Suspicion of Infectio: No New/Unexplained Change in Ment: No Past Medical History: UTI's, Anxiety, Depression, Hyperlipedemia Other Medical History: INSOMNIA SLEEP APNEA Past Surgical History: Cholecysctectomy Social History Physically hurt or threatened: No Other Last Tetanus: UTD Review of Systems Review of Systems Constitutional: Reports no symptoms EENTM: Reports no symptoms Cardiovascular: Reports no symptoms Respiratory: Reports no symptoms Gastrointestinal: Reports as per HPI, Reports abdominal pain, Reports constipation Genitourinary: Reports no symptoms Musculoskeletal: Reports no symptoms Integumentary: Reports no symptoms Neurological: Reports no symptoms Psychological: Reports no symptoms Endocrine: Reports no symptoms Hematological/Lymphatic: Reports no symptoms Physical Exam Related Data Allergies: Coded Allergies: No Known Allergies (Unverified , 02/11/19) Triage Vital Signs Vital Signs Date Time Temp Pulse Resp B/P (MAP) Pulse Ox O2 Delivery O2 Flow Rate FiO2 01/02/20 14:10 81 18 114/78 99 Room Air 01/02/20 14:34 96.8 Vital signs reviewed: Yes Physical Exam CONSTITUTIONAL Constitutional: Present well-developed, Present well-nourished HENT HENT: Present normocephalic, Present atraumatic, Present oropharynx clear/moist, Present nose normal HENT L/R: Present left ext ear normal, Present right ext ear normal EYES Eyes: Reports PERRL, Reports conjunctivae normal NECK Neck: Present ROM normal PULMONARY Pulmonary: Present effort normal, Present breath sounds normal CARDIOVASCULAR Cardiovascular: Present regular rhythm, Present heart sounds normal, Present capillary refill normal, Present normal rate GASTROINTESTINAL Abdominal: Present soft, Present nontender, Present bowel sounds normal GENITOURINARY Genitourinary: Present exam deferred SKIN Skin: Present warm, Present dry MUSCULOSKELETAL Musculoskeletal: Present ROM normal NEUROLOGICAL Neurological: Present alert, Present oriented x 3, Present no gross motor or sensory deficits PSYCHOLOGICAL Psychological: Present mood/affect normal, Present judgement normal Results Laboratory Laboratory Laboratory Tests Test 01/02/20 14:53 Urine Test Negative (NEGATIVE) Imaging Imaging results reviewed: Yes Assessment & Plan Medical Decision Making MDM 24-year-old female brought to the ED with complaints of constipation. Complete enema given the ER with instant resolution of abdominal pain and distention. Patient also given magnesium citrate. Patient's abdominal exam is benign. There is no tenderness over right upper right lower quadrant and there is no concerns of acute surgical abdomen at time of discharge. Patient reported feeling well and was thankful for having moved her bowels. Patient stable for discharge. Abdominal KUB reviewed, was shot after her bowel movement with no free air present. Assessment & Plan Final Impression: (1) Constipation Depart Disposition: HOME, SELF-CARE Last Vital Signs Date Time Temp Pulse Resp B/P (MAP) Pulse Ox O2 Delivery O2 Flow Rate FiO2 01/02/20 14:34 96.8 01/02/20 14:10 81 18 99 Room Air Home Meds Active Scripts Docusate Sodium (COLACE) 100 Mg Cap, 100 MG PO DAILY, #30 CAP Prov:NELSON MENDEZ DO 01/02/20 Metoclopramide Hcl (REGLAN) 10 Mg Tablet, 10 MG PO Q8HR PRN for NAUSEA AND VOMITING, #12 Prov:NELSON MENDEZ DO 02/15/19 Nitrofurantoin Monohyd/M-Cryst (MACROBID 100 MG CAPSULE) 100 Mg Capsule, 100 MG PO BID for 10 Days, #20 Prov:NELSON MENDEZ DO 02/15/19 Medications in the ED Lidocaine HCl 5 ml STK-MED ONCE .ROUTE ; Start 01/02/20 at 14:27; Stop 01/02/20 at 14:21; Status DC Sodium Biphosphate/ Sodium Phosphate 132 ml ONCE ONCE [place] ; Start 01/02/20 at 14:45; Stop 01/02/20 at 14:46; Status DC NELSON MENDEZ, Jan 02, 2020 16:03
[2020-01-02] MEDS ORDERED: CITRATE OF MAGNESIA 300ML BOTTLE PO ONE (16:15)
[2020-01-02] MEDS ORDERED: LACTULOSE SYRUP 20 GM/30 ML UDC PO ONE (16:15)
--- OUTSIDE RECORDS SUMMARY | 2020-01-02 16:16 | XMS REPORT | Continuity of Care Document ---
Author Author [facility] ClariticsBECKIE [facility] [employer] [place] Information Exchange Address Unknown Phone Unavailable Care Team Providers Care Crocheter Name Role Phone [facility] Unavailable Un available Problems Problem Status Onset Date Classification Date Reported Comments Source Nausea with vomiting, unspecified 11/27/2019 12/01/2019 [facility] Cough 11/2612/01/2019 [facility] Fever, unspecified 11/27/2019 12/01/2019 [facility] Unspecified abdominal pain 11/27/2019 12/01/2019 [facility] VOMITING Active 11/26/2019 [facility] N/A Active 0 02/06/2019 [facility] G47.33 Active 01/01/2019 [facility] Discharge Diagnosis: Acute vaginitis 02/25/2016 02/28/2016 [facility] Discharge Diagnosis: Acute cervicitis 02/25/2016 02/28/2016 [facility] VAGINAL DISCHARGE Active 02/25/2016 [facility] Discharge Diagnosis: Headache 06/09/2015 06/12/2015 [facility] Discharge Diagnosis: Dizziness 06/09/2015 06/12/2015 [facility] DIZZYNESS/NAUSEA Active 06/08/2015 [facility] Discharge Diagnosis: Acute UTI 10/01/2014 10/04/2014 [facility] Discharge Diagnosis: Candidal vaginitis 10/01/2014 10/04/2014 [facility] VAGINAL ISSUES Active 09/30/2014 [facility] 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 Prob patricia 12/01/2019 [facility] OBSTRUCTIVE SLEEP APNEA (ADULT) (PEDIATR Active [facility] Medications Medication Details Route Status Patient Instructions Ordering Provider Order Date Source Ondansetron 4 MG Disintegrating Tablet [Zofran] 4 mg = 1 tab, PO, TID, PRN Nausea and Vomiting, Dissolve tab under tongue, # 15 tab, 0 Refill(s) Active 11/27/2019 [facility] benzonatate 100 MG Oral Capsule [Tessalon Perles] 100 mg = 1 cap, PO, Q8H, PRN cough, do not crush or chew, X 10 day, # 30 cap, 0 Refill(s) Active 11/27/2019 [facility] Omnipaque 300 injectable solution 45 mL/min, Start date: 11/27/19 1:00:00 CDT, Duration: 1 doses or times Inactive 11/27/2019 [facility] Saline Flush 0.9% Notes: (Same as: BD Posiflush) No Longer Active 11/27/2019 [facility] Sodium Chloride 0.9% (Bolus) IV 1,000 mL, Infuse Over: 1 hr, Route: IV, ONCE, Priority: STAT, Dosing Weight 90.909 kg, Start date: 11/26/19 23:29:00 CDT, Stop date: 11/26/19 23:29:00 CDT Inactive 11/27/2019 [facility] Ondansetron 4 mg, Route: IVP, ONCE, Dosing Weight 90.909, kg, Priority: STAT, Start date: 11/26/19 23:29:00 CDT, Stop date: 11/26/19 23:29:00 CDT Inactive 11/27/2019 [facility] Tylenol 650 mg, Route: PO, Sebas g form: TAB, ONCE, Dosing Weight 90.909, kg, Priority: STAT, Start date: 11/26/19 23:29:00 CDT, Stop date: 11/26/19 23:29:00 CDT Inactive 11/27/2019 [facility] Oxycodone Hydrochloride 1 MG/ML Oral Solution Notes: (Same as: 'Roxicodone) Inactiv e 02/25/2019 [facility] Hydralazine Notes: (Same as: A presoline) Push over 5 minutes Inactive 02/25/2019 [facility] Labetalol Notes: (Same as: Nor modyne, Trandate) Push over 2 minutes Give bolus over 2-3 minutes. Inactive 02/25/2019 [facility] Ketorolac 4 days MEDICA TION WASTE Product Size: 30 mg Product Wasted: ___ mg Inactive 02/25/2019 [facility] Morphine Notes: (Same as:MORPh ine Sulfate) Inactive 02/25/2019 [facility] Fentanyl Notes: (Same as: Subl imaze) Preservative free. Inactive 02/25/2019 [facility] Flumazenil Notes: (Same as: Ro mazicon) Inactive 02/25/2019 [facility] Naloxone Notes: Same as Narcan Inactive 02/25/2019 [facility] Meperidine Notes: (Same as: Coughlin) "Use Precaution in Elderly, Seizure disorders, and Renal impairment" Inactive 02/25/2019 [facility] Ondansetron Notes: (Same as: Satya grullon) MEDICATION WASTE Product Size: 4 mg Product Wasted: ___ mg Inactive 02/25/2019 [facility] Dexamethasone Notes: Concentra tion: 4mg/ml Inactive 02/25/2019 [facility] Promethazine 6.25 mg, Route: I VPB, ONCE, Dosing Weight 90.455, kg, PRN Nausea & Vomiting, Start date: 02/25/19 10:52:00 CDT Inactive 02/25/2019 [facility] Insulin Lispro Notes: (Same as : Humalog) Roll in palms of hands gently; Do not shake vigorously. WASTE: F/P - Black; E - Municipal Trash Bin Stable for 28 days at room temperature. Expires in days from Date Inactive 02/25/2019 [facility] glycopyrrolate (ANES) Route: I V, Drug form: INJ, ONCE, Stop date: 02/25/19 10:40:00 CDT Inactive 02/25/2019 [facility] neostigmine (ANES) Route: IV, Drug form: INJ, ONCE, Stop date: 02/25/19 10:40:00 CDT Inactive 02/25/2019 [facility] lidocaine (ANES) Route: IV, Dr ug form: INJ, ONCE, Stop date: 02/25/19 10:23:00 CDT Inactive 02/25/2019 [facility] dexamethasone (ANES) Route: IV , Drug form: INJ, ONCE, Stop date: 02/25/19 10:23:00 CDT Inactive 02/25/2019 [facility] propofol (ANES) Route: IV, Sebas g form: INJ, ONCE, Stop date: 02/25/19 10:18:00 CDT Inactive 02/25/2019 [facility] rocuronium (ANES) Route: IV, D rug form: INJ, ONCE, Stop date: 02/25/19 10:18:00 CDT Inactive 02/25/2019 [facility] ondansetron (ANES) Route: IV, Drug form: INJ, ONCE, Stop date: 02/25/19 10:13:00 CDT Inactive 02/25/2019 [facility] midazolam (ANES) Route: IV, Dr ug form: SOLN, ONCE, Stop date: 02/25/19 10:08:00 CDT Inactive 02/25/2019 [facility] fentaNYL (ANES) Route: IV, Sebas g form: INJ, ONCE, Stop date: 02/25/19 10:08:00 CDT Inactive 02/25/2019 [facility] Lactated Ringers Injection IV (ANES) 1000 mL Route: IV, Total Volume: 1,000, Start date: 02/25/19 9:30:00 CDT, Stop date: 02/25/19 10:30:00 CDT Inactive 02/25/2019 [facility] trazodone 150 mg oral tablet 1 50 mg = 1 tab, PO, Bedtime Active 02/11/2019 [facility] simvastatin 20 mg oral tablet 20 mg = 1 tab, PO, Bedtime Active 02/11/2019 [facility] ARIPiprazole 5 mg, PO, Daily Active 02/11/2019 [facility] sertraline 100 mg oral tablet 100 mg = 1 tab, PO, Daily Active 02/11/2019 [facility] Azithromycin 1,000 mg, Route: PO, Drug form: TAB, ONCE, Dosing Weight 63.807, kg, Start date: 02/25/16 22:04:00 CDT, Stop date: 02/25/16 22:04:00 CDT Inactive 02/26/2016 [facility] fluconazole 150 mg oral tablet 150 mg = 1 tab, PO, ONCE, # 1 tab, 0 Refill(s) Active 02/26/2016 [facility] Metronidazole 500 MG Oral Tablet [Flagyl] 500 mg = 1 tab, PO, Q8H, X 7 day, # 21 tab, 0 Refill(s) Active 02/26/2016 [facility] Azithromycin Notes: (Same As: Zithromax) Take 1 hour before or 2 hours after meal Inactive 02/26/2016 [facility] Rocephin Notes: (Same As: Roce phin) Inactive 02/26/2016 [facility] meclizine 25 mg oral tablet 25 mg = 1 tab, PO, TID, PRN for dizziness, X 7 day, # 21 tab, 0 Refill(s) Active 06/09/2015 [facility] Benadryl 12.5 mg, Route: IVP, ONCE, Dosing Weight 55.773, kg, Priority: STAT, Start date: 06/09/15 0:13:00, Stop date: 06/09/15 0:13:00 Inactive 06/09/2015 [facility] Reglan 10 mg, Route: IVP, Drug form: INJ, ONCE, Dosing Weight 55.773, kg, Priority: STAT, Start date: 06/09/15 0:12:00, Stop date: 06/09/15 0:12:00 Inactive 06/09/2015 [facility] Meclizine 25 mg, Route: PO, Dr ug form: TAB, ONCE, Dosing Weight 55.773, kg, Priority: STAT, Start date: 06/09/15 0:12:00, Stop date: 06/09/15 0:12:00 Inactive 06/09/2015 [facility] Sodium Chloride 0.154 MEQ/ML Injectable Solution 1,000 mL, 1,000 ml/hr, Infuse Over: 1 hr, Route: IV, ONCE, Priority: STAT, Dosing Weight 55.773 kg, Start date: 06/09/15 0:12:00, Duration: 1 doses or times, Stop date: 06/09/15 0:12:00 Inactive 06/09/2015 [facility] Miconazole Nitrate 200 MG Vaginal Suppos itory [Monistat] 200 mg = 1 supp, VAG, Bedtime, X 3 day, # 3 ea, 0 Refill(s), Pharmacy: [facility] [id number] Active 10/01/2014 [facility] Nitrofurantoin 100 MG Oral Capsule [Macrobid] 100 mg = 1 cap, PO, BID, X 7 day, # 14 cap, 0 Refill(s), Pharmacy: [id number] Active 10/01/2014 [facility] Allergies, Adverse Reactions, Alerts Substance Category Reaction Severity Reaction type Status Date Reported Comments Source No Known Medication Allergies Assertion Drug aller gy [facility] Immunizations No Data Provided for This Section Results Order Name Results Value Reference Range Date Interpretation Comments Source URINE AND STOOL UA Color Yellow *NA* (11/27/19 2:04 AM) Yellow 11/27/2019 [facility] URINE AND STOOL UA Turbidity Clear (11/27/19 2:04 AM) Clear 11/27/2019 [facility] URINE AND STOOL UA Spec Grav 1.015 <=1.030 11/27/2019 [facility] URINE AND STOOL UA pH 5.0 5.0 - 8.0 11/27/2019 [facility] URINE AND STOOL UA Protein Negative mg/dL Negative mg/dL 11/27/2019 [facility] URINE AND STOOL UA Glucose Negative mg/dL Negative mg/dL 11/27/2019 [facility] URINE AND STOOL UA Ketones Negative mg/dL Negative mg/dL 11/27/2019 [facility] URINE AND STOOL UA Bili Negative *NA* (11/27/19 2:04 AM) Negative 11/27/2019 [facility] URINE AND STOOL UA Blood Negative (11/27/19 2:04 AM) Negative 11/27/2019 [facility] URINE AND STOOL UA Urobilinogen 0.2 0.1 - 1.0 11/27/2019 [facility] URINE AND STOOL UA Nitrite Negative (11/27/19 2:04 AM) Negative 11/27/2019 [facility] URINE AND STOOL UA Leuk Est Negative (11/27/19 2:04 AM) Negative 11/27/2019 [facility] URINE AND STOOL UA Sq Epi Moderate /LPF Few /LPF 11/27/2019 [facility] URINE AND STOOL UA WBC 2 0 - 5 11/27/2019 [facility] URINE AND STOOL UA RBC 21 0 - 2 11/27/2019 [facility] IMMUNOLOGY Coronavirus (COVID-19) NA A Not Detected *NA* (11/26/19 11:53 PM) Not Detected 11/27/2019 [facility] CHEM PANEL Glucose Lvl 91 70 - 99 11/27/2019 [facility] CHEM PANEL BUN 10 7 - 22 11/27/2019 [facility] CHEM PANEL Creatinine Lvl 0.71 0.50 - 1.40 11/27/2019 [facility] CHEM PANEL Sodium Lvl 140 135 - 145 11/27/2019 [facility] CHEM PANEL Potassium Lvl 3.4 3.5 - 5.1 11/27/2019 [facility] CHEM PANEL Chloride Lvl 107 95 - 109 11/27/2019 [facility] CHEM PANEL CO2 23 24 - 32 11/27/2019 [facility] CHEM PANEL Calcium Lvl 9.0 8.5 - 10.5 11/27/2019 [facility] CHEM PANEL Total Protein 7.9 6.4 - 8.4 11/27/2019 [facility] CHEM PANEL Albumin Lvl 3.9 3.5 - 5.0 11/27/2019 [facility] CHEM PANEL ALT 130 0 - 65 11/27/2019 [facility] CHEM PANEL AST 82 0 - 37 11/27/2019 [facility] CHEM PANEL Alk Phos 101 39 - 136 11/27/2019 [facility] CHEM PANEL Bili Total 0.8 0.2 - 1.3 11/27/2019 [facility] CHEM PANEL AGAP 13.4 10.0 - 20.0 11/27/2019 [facility] CHEM PANEL B/C Ratio 14 6 - 25 11/27/2019 [facility] CHEM PANEL Globulin 4.0 2.7 - 4.2 11/27/2019 [facility] CHEM PANEL A/G Ratio 1.0 0.7 - 1.6 11/27/2019 [facility] CHEM PANEL eGFR 120 11/27/2019 Result Comment: The eGFR is calculated using [...] should be multiplied by the estimated BMI. [facility] CHEM PANEL Lipase Lvl 179 73 - 393 11/27/2019 [facility] ENDOCRINOLOGY S Preg Ne gative *NA* (11/26/19 11:31 PM) Negative 11/27/2019 [facility] HEMATOLOGY WBC 10.1 3.7 - 10.4 11/27/2019 [facility] HEMATOLOGY RBC 4.59 4.20 - 5.40 11/27/2019 [facility] HEMATOLOGY Hgb 14.2 12.0 - 16.0 11/27/2019 [facility] HEMATOLOGY Hct 41.4 36.0 - 48.0 11/27/2019 [facility] HEMATOLOGY MCV 90.3 80.0 - 98.0 11/27/2019 [facility] HEMATOLOGY MCH 31.0 27.0 - 31.0 11/27/2019 [facility] HEMATOLOGY MCHC 34.4 32.0 - 36.0 11/27/2019 [facility] HEMATOLOGY RDW 13.0 11.5 - 14.5 11/27/2019 [facility] HEMATOLOGY Platelet 244 133 - 450 11/27/2019 [facility] HEMATOLOGY MPV 8.9 7.4 - 10.4 11/27/2019 [facility] HEMATOLOGY Segs 69.4 45.0 - 75.0 11/27/2019 [facility] HEMATOLOGY Lymphocytes 23.1 20.0 - 40.0 11/27/2019 [facility] HEMATOLOGY Monocytes 5.7 2.0 - 12.0 11/27/2019 [facility] HEMATOLOGY Eosinophils 1.2 0.0 - 4.0 11/27/2019 [facility] HEMATOLOGY Basophils 0.6 0.0 - 1.0 11/27/2019 [facility] HEMATOLOGY Neutrophils # 7.0 1.5 - 8.1 11/27/2019 [facility] HEMATOLOGY Lymphocytes # 2.3 1.0 - 5.5 11/27/2019 [facility] HEMATOLOGY Monocytes # 0.6 0.0 - 0.8 11/27/2019 [facility] HEMATOLOGY Eosinophils # 0.1 0.0 - 0.5 11/27/2019 [facility] HEMATOLOGY Basophils # 0.1 0.0 - 0.2 11/27/2019 [facility] URINE CHEM U Preg Negat teresa (02/25/19 8:33 AM) Negative 02/25/2019 [facility] CHEM PANEL Glucose Lvl 94 70 - 99 02/11/2019 [facility] CHEM PANEL BUN 8 7 - 22 02/11/2019 [facility] CHEM PANEL Creatinine Lvl 0.70 0.50 - 1.40 02/11/2019 [facility] CHEM PANEL Sodium Lvl 138 135 - 145 02/11/2019 [facility] CHEM PANEL Potassium Lvl 3.7 3.5 - 5.1 02/11/2019 [facility] CHEM PANEL Chloride Lvl 105 95 - 109 02/11/2019 [facility] CHEM PANEL CO2 24 24 - 32 02/11/2019 [facility] CHEM PANEL Calcium Lvl 9.0 8.5 - 10.5 02/11/2019 [facility] CHEM PANEL eGFR 123 02/11/2019 Result Comment: The eGFR is calculated using [...] should be multiplied by the estimated BMI. [facility] CHEM PANEL AGAP 12.7 10.0 - 20.0 02/11/2019 [facility] ENDOCRINOLOGY S Preg Ne gative *NA* (02/11/19 11:50 AM) Negative 02/11/2019 [facility] HEMATOLOGY WBC 7.3 3.7 - 10.4 02/11/2019 [facility] HEMATOLOGY RBC 4.50 4.20 - 5.40 02/11/2019 [facility] HEMATOLOGY Hgb 13.6 12.0 - 16.0 02/11/2019 [facility] HEMATOLOGY Hct 40.7 36.0 - 48.0 02/11/2019 [facility] HEMATOLOGY MCV 90.4 80.0 - 98.0 02/11/2019 [facility] HEMATOLOGY MCH 30.2 27.0 - 31.0 02/11/2019 [facility] MCHC 33.4 32.0 - 36.0 02/11/2019 [facility] HEMATOLOGY RDW 12.3 11.5 - 14.5 02/11/2019 [facility] Platelet 277 133 - 450 02/11/2019 [facility] MPV 8.7 7.4 - 10.4 02/11/2019 [facility] Segs 64.0 45.0 - 75.0 02/11/2019 [facility] HEMATOLOGY Lymphocytes 29.0 20.0 - 40.0 02/11/2019 [facility] HEMATOLOGY Monocytes 5.4 2.0 - 12.0 02/11/2019 [facility] HEMATOLOGY Eosinophils 1.6 0.0 - 4.0 02/11/2019 [facility] HEMATOLOGY Basophils 0.0 0.0 - 1.0 02/11/2019 [facility] HEMATOLOGY Neutrophils # 4.7 1.5 - 8.1 02/11/2019 [facility] HEMATOLOGY Lymphocytes # 2.1 1.0 - 5.5 02/11/2019 [facility] HEMATOLOGY Monocytes # 0.4 0.0 - 0.8 02/11/2019 [facility] HEMATOLOGY Eosinophils # 0.1 0.0 - 0.5 02/11/2019 [facility] Basophils # 0.0 0.0 - 0.2 02/11/2019 [facility] URINE AND STOOL UA Ketones Negative mg/dL Negative mg/dL 02/26/2016 [facility] URINE AND STOOL UA Glucose Negative mg/dL Negative mg/dL 02/26/2016 [facility] URINE AND STOOL UA pH 5.0 5.0 - 8.0 02/26/2016 [facility] URINE AND STOOL UA Protein Negative mg/dL Negative mg/dL 02/26/2016 [facility] URINE AND STOOL UA Bili Negative *NA* (02/25/16 8:40 PM) Negative 02/26/2016 [facility] URINE AND STOOL UA Blood Negative (02/25/16 8:40 PM) Negative 02/26/2016 [facility] URINE AND STOOL UA Color Yellow *NA* (02/25/16 8:40 PM) Yellow 02/26/2016 [facility] URINE AND STOOL UA Turbidity Slight *ABN* (02/25/16 8:40 PM) Clear 02/26/2016 [facility] URINE AND STOOL UA Spec Grav 1.027 <=1.030 02/26/2016 [facility] URINE AND STOOL UA Leuk Est Small *ABN* (02/25/16 8:40 PM) Negative 02/26/2016 [facility] URINE AND STOOL UA Sq Epi Many /LPF Few /LPF 02/26/2016 [facility] URINE AND STOOL UA Mucus Many /LPF None Seen /LPF 02/26/2016 [facility] URINE AND STOOL UA RBC 1 0 - 2 02/26/2016 [facility] URINE AND STOOL UA Bacteria Occasional /HPF None Seen /HPF 02/26/2016 [facility] URINE AND STOOL UA WBC 6 0 - 5 02/26/2016 [facility] URINE AND STOOL UA Urobilinogen 2.0 0.1 - 1.0 02/26/2016 [facility] URINE AND STOOL UA Nitrite Negative (02/25/16 8:40 PM) Negative 02/26/2016 [facility] URINE CHEM U Preg Negat teresa (02/25/16 8:40 PM) Negative 02/26/2016 [facility] MOLECULAR DIAGNOSTIC N gonorrhea by Amp Det (APTIMA) Negative *NA* (06/09/15 12:37 AM) Negative 06/09/2015 [facility] MOLECULAR DIAGNOSTIC C trachomatis b y Amp Det (APTIMA) Negative *NA* (06/09/15 12:37 AM) Negative 06/09/2015 [facility] MOLECULAR DIAGNOSTIC Source APTIMA Urine *NA* (06/09/15 12:37 AM) 06/09/2015 [facility] CHEM PANEL eGFR 127 06/09/2015 Result Comment: [...] should be multiplied by the estimated BMI. [facility] CHEM PANEL Bili Total 0.5 0.2 - 1.3 06/09/2015 [facility] CHEM PANEL AST 26 0 - 37 06/09/2015 [facility] CHEM PANEL Alk Phos 83 39 - 136 06/09/2015 [facility] CHEM PANEL Creatinine Lvl 0.66 0.50 - 1.40 06/09/2015 [facility] CHEM PANEL Sodium Lvl 141 135 - 145 06/09/2015 [facility] CHEM PANEL Glucose Lvl 87 70 - 99 06/09/2015 [facility] CHEM PANEL BUN 13 7 - 22 06/09/2015 [facility] CHEM PANEL Albumin Lvl 3.8 3.5 - 5.0 06/09/2015 [facility] CHEM PANEL Total Protein 7.3 6.4 - 8.4 06/09/2015 [facility] CHEM PANEL ALT 38 0 - 65 06/09/2015 [facility] CHEM PANEL Chloride Lvl 107 95 - 109 06/09/2015 [facility] CHEM PANEL CO2 26 24 - 32 06/09/2015 [facility] CHEM PANEL Calcium Lvl 8.6 8.5 - 10.5 06/09/2015 [facility] CHEM PANEL Potassium Lvl 3.5 3.5 - 5.1 06/09/2015 [facility] CHEM PANEL Globulin 3.5 2.0 - 4.0 06/09/2015 [facility] CHEM PANEL A/G Ratio 1.1 0.7 - 1.6 06/09/2015 [facility] CHEM PANEL AGAP 11.5 10.0 - 20.0 06/09/2015 [facility] CHEM PANEL B/C Ratio 20 6 - 25 06/09/2015 [facility] ENDOCRINOLOGY S Preg Ne gative *NA* (06/09/15 12:23 AM) Negative 06/09/2015 [facility] HEMATOLOGY Monocytes # 0.5 0.0 - 0.8 06/09/2015 [facility] HEMATOLOGY Eosinophils # 0.1 0.0 - 0.5 06/09/2015 [facility] HEMATOLOGY Basophils # 0.0 0.0 - 0.2 06/09/2015 [facility] HEMATOLOGY Segs 50.1 45.0 - 75.0 06/09/2015 [facility] HEMATOLOGY Lymphocytes 40.2 20.0 - 40.0 06/09/2015 [facility] HEMATOLOGY Monocytes 7.6 2.0 - 12.0 06/09/2015 [facility] HEMATOLOGY Eosinophils 1.6 0.0 - 4.0 06/09/2015 [facility] HEMATOLOGY Basophils 0.5 0.0 - 1.0 06/09/2015 [facility] HEMATOLOGY Segs-Bands # 3.4 1.5 - 8.1 06/09/2015 [facility] HEMATOLOGY Lymphocytes # 2.7 1.0 - 5.5 06/09/2015 [facility] HEMATOLOGY WBC 6.7 3.7 - 10.4 06/09/2015 [facility] HEMATOLOGY RBC 4.08 4.20 - 5.40 06/09/2015 [facility] HEMATOLOGY Hct 36.7 36.0 - 48.0 06/09/2015 [facility] HEMATOLOGY Hgb 12.6 12.0 - 16.0 06/09/2015 [facility] HEMATOLOGY MCV 89.9 80.0 - 98.0 06/09/2015 [facility] HEMATOLOGY MCHC 34.3 32.0 - 36.0 06/09/2015 [facility] HEMATOLOGY MCH 30.8 27.0 - 31.0 06/09/2015 [facility] HEMATOLOGY Platelet 251 133 - 450 06/09/2015 [facility] HEMATOLOGY RDW 12.7 11.5 - 14.5 06/09/2015 [facility] HEMATOLOGY MPV 9.0 7.4 - 10.4 06/09/2015 [facility] URINE AND STOOL UA Mucus Few /LPF None Seen /LPF 06/09/2015 [facility] URINE AND STOOL UA RBC 0-2 /HPF 0 - 2 06/09/2015 [facility] URINE AND STOOL UA Bacteria Few /HPF None Seen /HPF 06/09/2015 [facility] URINE AND STOOL UA Leuk Est Negative (06/09/15 12:23 AM) Negative 06/09/2015 [facility] URINE AND STOOL UA Sq Epi Moderate /LPF Few /LPF 06/09/2015 [facility] URINE AND STOOL UA WBC 3-5 /HPF None Seen /HPF 06/09/2015 [facility] URINE AND STOOL UA Glucose Negative (06/09/15 12:23 AM) Negative 06/09/2015 [facility] URINE AND STOOL UA pH 6.5 5.0 - 8.0 06/09/2015 [facility] URINE AND STOOL UA Protein Negative (06/09/15 12:23 AM) Negative 06/09/2015 [facility] URINE AND STOOL UA Ketones Negative *NA* (06/09/15 12:23 AM) Negative 06/09/2015 [facility] URINE AND STOOL UA Bili Negative *NA* (06/09/15 12:23 AM) Negative 06/09/2015 [facility] URINE AND STOOL UA Blood Small *ABN* (06/09/15 12:23 AM) Negative 06/09/2015 [facility] URINE AND STOOL UA Urobilinogen 1.0 0.1 - 1.0 06/09/2015 [facility] URINE AND STOOL UA Nitrite Negative (06/09/15 12:23 AM) Negative 06/09/2015 [facility] URINE AND STOOL UA Color Yellow *NA* (06/09/15 12:23 AM) Yellow 06/09/2015 [facility] URINE AND STOOL UA Turbidity Slight Cloudy (06/09/15 12:23 AM) Clear 06/09/2015 [facility] URINE AND STOOL UA Spec Grav 1.025 <=1.030 06/09/2015 [facility] IMMUNOLOGY [facility] HIV 4th GEN Negat teresa (10/01/14 12:34 AM) Negative 10/01/2014 [facility] MOLECULAR DIAGNOSTIC N gonorrhea by Amp Det [...] verified by the [facility] Diagnostic [facility] within [facility]. The Molecular Diagnostic Laboratory is authorized under the Clinical Laboratory Improvement Amendments of 1988 (CLIA-88) to perform high complexity testing. [facility] MOLECULAR DIAGNOSTIC Source APTIMA Endocervix *NA* (10/01/14 12:34 AM) 10/01/2014 [facility] MOLECULAR DIAGNOSTIC C trachomatis b y Amp Det (APTIMA) Positive 2, 3, 4 [...] verified by the [facility] within [facility]. The Molecular Diagnostic Laboratory is authorized under the Clinical Laboratory Improvement Amendments of 1988 (CLIA-88) to perform high complexity testing.
<sup>3</sup>Result Comment: "Significant Findings called to CHRIS_at _10/02/2014 10:59__by CYTREYNAAS___.Read Back OK.&quot ;
<sup>4</sup>Interpretive Data: The APTIMA assay is a target amplification nucleic acid probe test utilizing target capture for the qualitative detection and differentiation of ribosomal RNA from Chlamydia trachomatis to aid in the diagnosis of disease from symptomatic and asymptomatic individuals using the [employer] System.
This assay utilizes FDA cleared IVD reagents. Performance characteristics have been verified by the [facility] within [facility]. The Molecular Diagnostic Laboratory is authorized under the Clinical Laboratory Improvement Amendments of 1988 (CLIA-88) to perform high complexity testing. [facility] URINE AND STOOL UA Spec Grav 1.020 <=1.030 10/01/2014 [facility] URINE AND STOOL UA Turbidity Cloudy *ABN* (10/01/14 12:34 AM) Clear 10/01/2014 [facility] URINE AND STOOL UA pH 7.0 5.0 - 8.0 10/01/2014 [facility] URINE AND STOOL UA Protein Negative (10/01/14 12:34 AM) Negative 10/01/2014 [facility] URINE AND STOOL UA Ketones Negative *NA* (10/01/14 12:34 AM) Negative 10/01/2014 [facility] URINE AND STOOL UA Glucose Negative (10/01/14 12:34 AM) Negative 10/01/2014 [facility] URINE AND STOOL UA Bacteria Few /HPF None Seen /HPF 10/01/2014 [facility] URINE AND STOOL UA Nitrite Negative (10/01/14 12:34 AM) Negative 10/01/2014 [facility] URINE AND STOOL UA WBC 11-20 /HPF None Seen /HPF 10/01/2014 [facility] URINE AND STOOL UA Leuk Est Small *ABN* (10/01/14 12:34 AM) Negative 10/01/2014 [facility] URINE AND STOOL UA Sq Epi Moderate /LPF Few /LPF 10/01/2014 [facility] URINE AND STOOL UA RBC 0-2 /HPF 0 - 2 10/01/2014 [facility] URINE AND STOOL UA Color Yellow *NA* (10/01/14 12:34 AM) Yellow 10/01/2014 [facility] URINE AND STOOL UA Urobilinogen 1.0 0.1 - 1.0 10/01/2014 [facility] URINE AND STOOL UA Blood Negative (10/01/14 12:34 AM) Negative 10/01/2014 [facility] URINE AND STOOL UA Bili Negative *NA* (10/01/14 12:34 AM) Negative 10/01/2014 [facility] URINE CHEM U Preg Negat treesa (10/01/14 12:34 AM) Negative 10/01/2014 [facility] Pathology Reports No Data Provided for This Section Diagnostic Reports Report Value Date Source Chest 1view DX Clinical Histor y : , - cough, fever Exam : Portable AP view of the chest 11/27/2019 1:04 CDT Comparisons : none Findings : The lungs are clear without focal consolidation or pleural effusion. The heart is normal in size. The mediastinal contours are normal in appearance. The thoracic spine is age appropriate. The shoulders are unremarkable. Limited evaluation of the upper abdomen demonstrates no gross abnormalities. Impression: No acute cardiopulmonary disease 11/27/2019 [facility] ED Abdomen/Pelvis IV contrast only CT CLINICAL HISTORY: , - abd pain, n/v/d EXAM: CT abdomen and pelvis with contrast 11/26/2019 23:29 CDT COMPARISON: Portable supine AP abdomen 11/24/2005. TECHNIQUE: Following the administration of intravenous contrast, Volumetric CT acquisition was performed through the abdomen and pelvis. Images in the axial, coronal, and sagittal planes were presented for interpretation. Delayed excretory phase images were also obtained. This examination was performed according to our departmental dose optimization protocol, which includes automated exposure control, adjustment of the mA and/or kV according to the patient size and/or use of iterative reconstruction technique. Radiation dose/contrast: 85 ml omni 300 DLP: 1852.95 mGy-cm FINDINGS: The lung bases are clear. The visualized cardiomediastinal structures within normal limits. Within the upper abdomen, the liver and spleen are normal in size and morphology. There is diffuse fatty infiltration of the liver which is otherwise unremarkable. The gallbladder is surgically absent. There is no intra or extrahepatic biliary ductal dilation. The pancreas and adrenal glands are normal in appearance. The kidneys are normal in size bilaterally and the ureters are normal in course and caliber. There are no renal calculi, distal obstructing stones, or evidence of hydronephrosis/hydroureter. The stomach and small intestines are within normal limits without wall thickening or bowel dilation. The appendix is well-visualized and normal, best seen on axial image 66 medial to the right external iliac vessels. The colon is stool filled and otherwise unremarkable. Within the pelvis, the bladder and rectum are normal. The uterus and ovaries are age-appropriate. There is an intrauterine device low in the endocervical canal... There are no pathologically enlarged inguinal, retroperitoneal, portacaval, or mesenteric lymph nodes. The soft tissue structures of the abdominal wall are normal in appearance. The visualized osseous structures within normal limits for the patient's age. The abdominal aorta and its primary branches are normal in course and caliber. IMPRESSION: 1. No acute intra-abdominal process. 2. Fatty liver. 3. Status post cholecystectomy. 4. Intrauterine device positioned low in the endocervical canal, nonemergent follow-up for repositioning/replacement is suggested. 11/27/2019 [facility] Consultation Notes No Data Provided for This Section Discharge Summaries No Data Provided for This Section History and Physicals No Data Provided for This Section Vital Signs Vital Sign Value Date Comments Source Temperature Oral (F) 98 F 11/27/2019 [facility] Respitory Rate 16 11/27/2019 [facility] Systolic (mm Hg) 111 11/27/2019 [facility] Diastolic (mm Hg) 71 11/27/2019 [facility] Temperature Oral (F) 98.1 F 11/27/2019 [facility] Respitory Rate 16 11/27/2019 [facility] Systolic (mm Hg) 116 11/27/2019 [facility] Diastolic (mm Hg) 68 11/27/2019 [facility] Temperature Oral (F) 98.7 F 11/27/2019 [facility] Respitory Rate 16 11/27/2019 [facility] Systolic (mm Hg) 114 11/27/2019 [facility] Diastolic (mm Hg) 69 11/27/2019 [facility] Height 162.56 cm 11/27/2019 [facility] BMI Calculated 34.4 11/27/2019 [facility] Weight 90.909 11/27/2019 [facility] Heart Rate 85 11/27/2019 [facility] Respitory Rate 18 02/25/2019 [facility] Systolic (mm Hg) 125 02/25/2019 [facility] Diastolic (mm Hg) 71 02/25/2019 [facility] Respitory Rate 18 02/25/2019 [facility] Systolic (mm Hg) 107 02/25/2019 [facility] Diastolic (mm Hg) 60 02/25/2019 [facility] Respitory Rate 15 02/25/2019 [facility] Systolic (mm Hg) 105 02/25/2019 [facility] Diastolic (mm Hg) 68 02/25/2019 [facility] Temperature Oral (F) 97.6 F 02/11/2019 [facility] Heart Rate 84 02/11/2019 [facility] Height 160.02 cm 02/11/2019 [facility] Weight 90.455 02/11/2019 [facility] BMI Calculated 35.33 02/11/2019 [facility] Systolic (mm Hg) 116 02/26/2016 [facility] Diastolic (mm Hg) 64 02/26/2016 [facility] Respitory Rate 16 02/26/2016 [facility] Heart Rate 71 02/26/2016 [facility] Temperature Oral (F) 98 F 02/26/2016 [facility] Respitory Rate 16 02/26/2016 [facility] Heart Rate 73 02/26/2016 [facility] Systolic (mm Hg) 116 02/26/2016 [facility] Diastolic (mm Hg) 72 02/26/2016 [facility] Temperature Oral (F) 98.6 F 02/26/2016 [facility] Weight 63.807 02/26/2016 [facility] Systolic (mm Hg) 100 06/09/2015 [facility] Diastolic (mm Hg) 66 06/09/2015 [facility] Heart Rate 75 06/09/2015 [facility] Respitory Rate 19 06/09/2015 [facility] Temperature Oral (F) 98.2 F 06/09/2015 [facility] Weight 55.773 06/09/2015 [facility] Heart Rate 70 06/09/2015 [facility] Systolic (mm Hg) 128 06/09/2015 [facility] Diastolic (mm Hg) 80 06/09/2015 [facility] Respitory Rate 18 06/09/2015 [facility] Temperature Oral (F) 97.8 F 06/09/2015 [facility] Systolic (mm Hg) 110 10/01/2014 [facility] Diastolic (mm Hg) 84 10/01/2014 [facility] Heart Rate 79 10/01/2014 [facility] Respitory Rate 18 10/01/2014 [facility] Temperature Oral (F) 98.2 F 10/01/2014 [facility] Weight 57.5 10/01/2014 [facility] Respitory Rate 18 10/01/2014 [facility] Heart Rate 87 10/01/2014 [facility] Temperature Oral (F) 98.5 F 10/01/2014 [facility] Systolic (mm Hg) 125 10/01/2014 [facility] Diastolic (mm Hg) 80 10/01/2014 [facility] Encounters Location Location Details Encounter Type Encounter Number Reason For Visit Attending Provider ADM Date DC Date Status Source [facility] [id number] Sabino Ruiz 10/01/2014 10/01/2014 [facility] [id number] Eric Weaver 06/09/2015 06/09/2015 [facility] Emergency [id number] Cricket Grubbs 02/26/2016 02/26/2016 [facility] [id number] Kelle Orlando 01/13/2019 01/13/2019 [facility] Day [facility] [id number] Kelle Tampoloi 02/25/2019 02/25/2019 [facility] Emergency [id number] Familia Rooney III 11/27/1911/27/2019 [facility] Procedures Procedure Code Date Perfomer Comments Source Cholecystectomy [id number] [facility] Assessment and Plan No Data Provided for This Section Plan of Care No Data Provided for This Section Social History Social History Date Source Social History TypeResponse Alcohol Never Sexual Sexually active: Yes. Smoking Status Never smoker; Exposure to Tobacco Smoke None; Cigarette Smoking Last 365 Days No; Reg Smoking Cessation Counseling Yes entered on: 02/11/19 02/11/2019 [facility] Social History TypeResponse Alcohol Never Sexual Sexually active: Yes. Smoking Status Never smoker; Exposure to Tobacco Smoke None; Cigarette Smoking Last 365 Days No; Reg Smoking Cessation Counseling Yes entered on: 11/26/19 02/11/2019 [facility] Social History TypeResponse Smoking Status Never smoker; Type: Cigarettes; Previous treatment: None; Ready to change: No; Concerns about tobacco use in household: No; Exposure to Tobacco Smoke None; Cigarette Smoking Last 365 Days No; Reg Smoking Cessation Counseling No entered on: 02/25/16 02/26/2016 [facility] Family History No Data Provided for This Section Advance Directives No Data Provided for This Section Functional Status No Data Provided for This Section
--- OUTSIDE RECORDS SUMMARY | 2020-01-02 16:16 | XMS REPORT | Summary of Care ---
Author Author [facility] Organization [facility] Address Unknown Phone Unavailable Encounter [facility]) [id number] Date(s): 11/26/19 - 11/27/19 [facility] [address] [place] [address]- Encounter Diagnosis Nausea, vomiting and diarrhea (Discharge Diagnosis) - 11/27/19 Cough (Discharge Diagnosis) - 11/27/19 Fever (Discharge Diagnosis) - 11/27/19 Abdominal pain, acute (Discharge Diagnosis) - 11/27/19 Discharge Disposition: Home or Self Care Attending Physician: Familia Stewart MD Vital Signs 1 2 3 Most recent to oldest [Reference Range]: 162.56 cm (11/26/19 10:48 PM) Height 98 DegF (11/27/19 2:50 AM) 98.1 DegF (11/27/19 1:40 AM) 98.7 DegF (11/27/19 12:40 AM) Temperature Oral [96.4-99.1 DegF] 111/71 mmHg (11/27/19 2:50 AM) 116/68 mmHg (11/27/19 1:40 AM) 114/69 mmHg (11/27/19 12:40 AM) Blood Pressure [90-140/60-90 mmHg] 16 BRMIN (11/27/19 2:50 AM) 16 BRMIN (11/27/19 1:40 AM) 16 BRMIN (11/27/19 12:40 AM) Respiratory Rate [14-20 BRMIN] 85 bpm (11/26/19 10:48 PM) Peripheral Pulse Rate [60-100 bpm] 90.909 kg (11/26/19 10:48 PM) Weight 34.4 m2 (11/26/19 10:48 PM) Body Mass Index Problem List Condition Effective Dates Status Health Status Informan t Enlarged tonsils and Active adenoids(Confirmed) Allergies, Adverse Reactions, Alerts No Known Medication Allergies Medications Omnipaque 300 injectable solution 85 mL, Route: IVP, Dosing Weight 90.909, kg, ONCALL, GFR > 45 mL/min, Start date: 11/27/19 1:00:00 CDT, Duration: 1 doses or times Start Date: 11/27/19 Stop Date: 11/27/19 Status: Completed ondansetron 4 mg, Route: IVP, ONCE, Dosing Weight 90.909, kg, Priority: STAT, Start date: 23:29:00 CDT, Stop date: 11/26/19 23:29:00 CDT Start Date: 11/26/19 Stop Date: 11/26/19 Status: Completed Saline Flush 0.9% 10 mL, Route: IVP, Drug Form: INJ, Dosing Weight 90.909, kg, PRN, PRN Line Flush , Start date: 11/26/19 23:29:00 CDT, Duration: 30 day, Stop date: 12/26/19 23:28 :00 CDT, 0 Notes: (Same as: BD Posiflush) Start Date: 11/26/19 Stop Date: 11/27/19 Status: Discontinued Sodium Chloride 0.9% (Bolus) IV 1,000 mL, Infuse Over: 1 hr, Route: IV, ONCE, Priority: STAT, Dosing Weight 90.9 09 kg, Start date: 11/26/19 23:29:00 CDT, Stop date: 11/26/19 23:29:00 CDT Start Date: 11/26/19 Stop Date: 11/26/19 Status: Completed Tessalon Perles 100 mg oral capsule 100 mg = 1 cap, PO, Q8H, PRN cough, do not crush or chew, X 10 day, # 30 cap, 0 Refill(s) Start Date: 11/27/19 Stop Date: 12/07/19 Status: Ordered Tylenol 650 mg, Route: PO, Drug form: TAB, ONCE, Dosing Weight 90.909, kg, Priority: STA T, Start date: 11/26/19 23:29:00 CDT, Stop date: 11/26/19 23:29:00 CDT Start Date: 11/26/19 Stop Date: 11/26/19 Status: Completed Zofran ODT 4 mg oral tablet, disintegrating 4 mg = 1 tab, PO, TID, PRN Nausea and Vomiting, Dissolve tab under tongue, # 15 tab, 0 Refill(s) Start Date: 11/27/19 Stop Date: 12/02/19 Status: Ordered Results Most recent to 1 oldest [Reference Range]: Neutrophils # 7.0 K/CMM [1.5-8.1 K/CMM] (11/26/19 11:31 PM) Lymphocytes # 2.3 K/CMM [1.0-5.5 K/CMM] (11/26/19 11:31 PM) Monocytes # [0.0-0.8 0.6 K/CMM K/CMM] (11/26/19 11:31 PM) Eosinophils # 0.1 K/CMM [0.0-0.5 K/CMM] (11/26/19 11:31 PM) Basophils # [0.0-0.2 0.1 K/CMM K/CMM] (11/26/19 11:31 PM) eGFR 120 mL/min/1.73m2 1 *NA* (11/26/19 11:31 PM) A/G Ratio [0.7-1.6] 1.0 (11/26/19 11:31 PM) Albumin Lvl [3.5-5.0 3.9 g/dL g/dL] (11/26/19 11:31 PM) Alk Phos [39-136 101 unit/L unit/L] (11/26/19 11:31 PM) ALT [0-65 unit/L] 130 unit/L *HI* (11/26/19 11:31 PM) AGAP [10.0-20.0 13.4 mEq/L mEq/L] (11/26/19 11:31 PM) AST [0-37 unit/L] 82 unit/L *HI* (11/26/19 11:31 PM) B/C Ratio [6-25] 14 (11/26/19 11:31 PM) Basophils [0.0-1.0 0.6 % %] (11/26/19 11:31 PM) BUN [7-22 mg/dL] 10 mg/dL (11/26/19 PM) Calcium Lvl 9.0 mg/dL [8.5-10.5 mg/dL] (11/26/19 PM) Chloride Lvl [95-109 107 mEq/L mEq/L] (11/26/19 PM) CO2 [24-32 mEq/L] 23 mEq/L *LOW* (11/26/19 PM) Creatinine Lvl 0.71 mg/dL [0.50-1.40 mg/dL] (11/26/19 PM) Eosinophils [0.0-4.0 1.2 % %] (11/26/19 PM) Globulin [2.7-4.2 4.0 g/dL g/dL] (11/26/19 PM) Glucose Lvl [70-99 91 mg/dL mg/dL] (11/26/19 PM) Hct [36.0-48.0 %] 41.4 % (11/26/19 PM) Hgb [12.0-16.0 g/dL] 14.2 g/dL (11/26/19 PM) Potassium Lvl 3.4 mEq/L [3.5-5.1 mEq/L] *LOW* (11/26/19 PM) Lipase Lvl [73-393 179 unit/L unit/L] (11/26/19 PM) Lymphocytes 23.1 % [20.0-40.0 %] (11/26/19 PM) MCH [27.0-31.0 pg] 31.0 pg (11/26/19 PM) MCHC [32.0-36.0 34.4 g/dL g/dL] (11/26/19 PM) MCV [80.0-98.0 fL] 90.3 fL (11/26/19 PM) Monocytes [2.0-12.0 5.7 % %] (11/26/19 PM) MPV [7.4-10.4 fL] 8.9 fL (7/8/20 11:31 PM) Sodium Lvl [135-145 140 mEq/L mEq/L] (11/26/19 11:31 PM) Platelet [133-450 244 K/CMM K/CMM] (11/26/19 11:31 PM) Segs [45.0-75.0 %] 69.4 % (11/26/19 11:31 PM) Total Protein 7.9 g/dL [6.4-8.4 g/dL] (11/26/19 11:31 PM) Coronavirus Not Detected (COVID-19) DAHLIA [Not *NA* Detected] (11/26/19 11:53 PM) RBC [4.20-5.40 4.59 M/CMM M/CMM] (11/26/19 11:31 PM) RDW [11.5-14.5 %] 13.0 % (11/26/19 11:31 PM) S Preg [Negative] Negative *NA* (11/26/19 11:31 PM) Bili Total [0.2-1.3 0.8 mg/dL mg/dL] (11/26/19 11:31 PM) UA Bili [Negative] Negative *NA* (11/27/19 2:04 AM) UA Blood [Negative] Negative (11/27/19 2:04 AM) UA Color [Yellow] Yellow *NA* (11/27/19 2:04 AM) UA Glucose [Negative Negative mg/dL mg/dL] (11/27/19 2:04 AM) UA Ketones [Negative Negative mg/dL mg/dL] *NA* (11/27/19 2:04 AM) UA Leuk Est Negative [Negative] (11/27/19 2:04 AM) UA Nitrite Negative [Negative] (11/27/19 2:04 AM) UA pH [5.0-8.0] 5.0 (11/27/19 2:04 AM) UA Protein [Negative Negative mg/dL mg/dL] (11/27/19 2:04 AM) UA RBC [0-2 /HPF] 21 /HPF *HI* (11/27/19 2:04 AM) UA Spec Grav 1.015 [<=1.030] (11/27/19 2:04 AM) UA Sq Epi [Few /LPF] Moderate /LPF *ABN* (11/27/19 2:04 AM) UA Turbidity [Clear] Clear (11/27/19 2:04 AM) UA Urobilinogen 0.2 EU/dL [0.1-1.0 EU/dL] (11/27/19 2:04 AM) UA WBC [0-5 /HPF] 2 /HPF (11/27/19 2:04 AM) WBC [3.7-10.4 K/CMM] 10.1 K/CMM (11/26/19 11:31 PM) 1Result Comment: The eGFR is calculated using [...] be mul tiplied by the estimated BMI. Immunizations No data available for this section Procedures Procedure Date Related Diagnosis Body Site Status Cholecystectomy Completed Social History Social History Type Response Alcohol Never Sexual Sexually active: Yes. Smoking Status Never smoker; Exposure to T obacco Smoke None; Cigarette Smoking Last 365 Days No; Reg Smoking Cessation Counseli ng Yes entered on: 11/26/19 Assessment and Plan No data available for this section
--- OUTSIDE RECORDS SUMMARY | 2020-01-02 16:16 | XMS REPORT | Clinical Summary ---
Author Author [facility] Organization [facility] Address Unknown Phone Unavailable Care Team Providers Care L Tacker Name Role Phone Asked, No Pcp PCP [...] 2011 CERVICAL CANCER SCREENING 2016 INFLUENZA VACCINE 01/20/2020 Results Not on fileafter 01/01/2019 Insurance Type Payer Benefit Subscriber ID Effective Phone Address Plan / Dates Group Medicaid MEDICAID MEDICAID xxxxxxxxx [id number] ute [id number] Advance Directives For more information, please contact: [phone] Patient Business Process Representative Explanation Type Date Recorded Advance Directives, 01/16/2017 1:47 AM Living Will and Medical Power of Hog Handler
--- OUTSIDE RECORDS SUMMARY | 2020-01-02 16:16 | XMS REPORT | Clinical Summary ---
Author Author 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 Active Problems Not on file Social History Date Tobacco Use Types Packs/Day Years Used Never Smoker Smokeless Tobacco: Never Used Alcohol Use Drinks/Week oz/Week Comments No Alcohol Habits Answer Date Recorded How often do you have a drink containing alcohol? Never 07/08/2018 How many drinks containing alcohol do you have on No t asked a typical day when you are [...] Signs Not on file Plan of Treatment Not on file Results Not on fileafter 01/01/2019 Insurance Payer Benefit Subscriber ID Type Phone Address Plan / Group MEDICAID - MEDICAID [place] xxxxxxxxx Medica id CARE COMM STAR Contracted PLAN
--- OUTSIDE RECORDS SUMMARY | 2020-01-02 16:16 | XMS REPORT | Summary of Care ---
Author Author [facility] Organization [facility] Address Unknown Phone Unavailable Encounter [facility]) [id number] Date(s): 11/26/19 - 11/27/19 [facility] [address] [place] [address]- Encounter Diagnosis Nausea, vomiting and diarrhea (Discharge [...]
--- OUTSIDE RECORDS SUMMARY | 2020-01-02 16:17 | XMS REPORT | Summary of Care ---
Author Author [facility] Organization [facility] Address Unknown Phone Unavailable Encounter EFRAÍN Murillo(RUMA) [id number] Date(s): 02/25/19 - 02/25/[address] [facility] [place], [place] [address] [place] [address]- [phone] Discharge Disposition: Home or Self Care Attending Physician: Kelle Orlando MD Referring Physician: Kelle Orlando MD Vital Signs 1 2 3 Most recent to oldest [Reference Range]: 160.02 cm (02/11/19 11:46 AM) Height 97.6 DegF (02/11/19 1:35 PM) Temperature Oral [96.4-99.1 DegF] 125/71 mmHg (02/25/19 12:00 PM) 107/60 mmHg (02/25/19 11:30 AM) 105/68 mmHg (02/25/19 11:15 AM) Blood Pressure [90-140/60-90 mmHg] 18 BRMIN (02/25/19 12:00 PM) 18 BRMIN (02/25/19 11:30 AM) 15 BRMIN (02/25/19 11:15 AM) Respiratory Rate [14-20 BRMIN] 84 bpm (02/11/19 1:35 PM) Peripheral Pulse Rate [60-100 bpm] 90.455 kg (02/11/19 11:46 AM) Weight 35.33 m2 (02/11/19 11:46 AM) Body Mass Index Problem List Condition Effective Dates Status Health Status Informan t Enlarged tonsils and Active adenoids(Confirmed) Allergies, Adverse Reactions, Alerts No Known Medication Allergies Medications ANES dexamethasone 4 mg, 1 mL, Route: IVP, Drug form: INJ, ONCE, Dosing Weight 90.455, kg, PRN Naus ea & Vomiting, Start date: 02/25/19 10:52:00 CDT, 0 Notes: Concentration: 4mg/ml Start Date: 02/25/19 Stop Date: 02/25/19 Status: Discontinued ANES fentaNYL 50 microgram, 1 mL, Route: IVP, Drug form: INJ, Q5Min, Dosing Weight 90.455, kg, PRN Pain Score 7-10, Priority: Routine, Start date: 02/25/19 10:52:00 CDT, Dura tion: 2 doses or times, Stop date: Limited # of times, 0 Notes: (Same as: Sublimaze) Preservative free. Start Date: 02/25/19 Stop Date: 02/25/19 Status: Discontinued ANES flumazenil 0.2 mg, 2 mL, Route: IVP, Drug form: INJ, PRN, Dosing Weight 90.455, kg, PRN Alvino zodiazepine Reversal, Initial dose, Start date: 02/25/19 10:52:00 CDT, Duration: 30 day, Stop date: 03/27/19 9:51:00 [employer], 0 Notes: (Same as: Romazicon) Start Date: 02/25/19 Stop Date: 02/25/19 Status: Discontinued ANES hydrALAZINE 10 mg, 0.5 mL, Route: IVP, Drug form: INJ, Q20Min, Dosing Weight 90.455, kg, PRN Elevated BP, Start date: 02/25/19 10:52:00 CDT, Duration: 2 doses or times, Stop date: Limited # of times, 0 Notes: (Same as: Apresoline)Push over 5 minutes Start Date: 02/25/19 Stop Date: 02/25/19 Status: Discontinued ANES ketOROLAC 30 mg, 1 mL, Route: IVP, Drug form: INJ, ONCE, Dosing Weight 90.455, kg, Start d ate: 02/25/19 10:52:00 CDT, Stop date: 02/25/19 10:52:00 CDT, 0 Notes: (Same as:Toradol) IV bolus must be given >15 seconds. Give IM administration slowly and deeply into the muscle.Not for use > 4 days MEDICATION WASTE Product Size: 30 mgProduct Wasted: ___ mg Start Date: 02/25/19 Stop Date: 02/25/19 Status: Ordered ANES labetalol 10 mg, 2 mL, Route: IVP, Drug form: INJ, Q5Min, Dosing Weight 90.455, kg, PRN El evated BP, Start date: 02/25/19 10:52:00 CDT, Duration: 5 doses or times, Stop d ate: Limited # of times, 0 Notes: (Same as: Normodyne, Trandate)Push over 2 minutes Give bolus over 2-3 mi nutes. Start Date: 02/25/19 Stop Date: 02/25/19 Status: Discontinued ANES meperidine 12.5 mg, 0.25 mL, Route: IVP, Drug form: INJ, Q30Min, Dosing Weight 90.455, kg, PRN Other -See Comment, For shivering, Start date: 02/25/19 10:52:00 CDT, Durati on: 2 doses or times, Stop date: Limited # of times, 0 Notes: (Same as: Demerol) "Use Precaution in Elderly, Seizure disorders, and Re nal impairment" Start Date: 02/25/19 Stop Date: 02/25/19 Status: Discontinued ANES morphine Sulfate 2 mg, 0.5 mL, Route: IVP, Drug form: SOLN, Q5Min, Dosing Weight 90.455, kg, PRN Pain Score 4-6, Start date: 02/25/19 10:52:00 CDT, Duration: 5 doses or times, S top date: Limited # of times, 0 Notes: (Same as:MORPhine Sulfate) Start Date: 02/25/19 Stop Date: 02/25/19 Status: Discontinued ANES naloxone 0.4 mg, 1 mL, Route: IVP, Drug form: INJ, Q2MIN, Dosing Weight 90.455, kg, PRN N arcotic Reversal, Start date: 02/25/19 10:52:00 CDT, Duration: 8 doses or times, Stop date: Limited # of times, 0 Notes: Same as Narcan Start Date: 02/25/19 Stop Date: 02/25/19 Status: Discontinued ANES ondansetron 4 mg, 2 mL, Route: IVP, Drug form: INJ, ONCE, Dosing Weight 90.455, kg, PRN Naus ea & Vomiting, Start date: 02/25/19 10:52:00 CDT, 0 Notes: (Same as: Zofran) MEDICATION WASTE Product Size: 4 mgProduct Was mirlande: ___ mg Start Date: 02/25/19 Stop Date: 02/25/19 Status: Completed ANES promethazine 6.25 mg, Route: IVPB, ONCE, Dosing Weight 90.455, kg, PRN Nausea & Vomiting, Start date: 02/25/19 10:52:00 CDT Start Date: 02/25/19 Stop Date: 02/25/19 Status: Discontinued ARIPiprazole 5 mg, PO, Daily Start Date: 02/11/19 Status: Ordered dexamethasone (ANES) Route: IV, Drug form: INJ, ONCE, Stop date: 02/25/19 10:23:00 CDT Start Date: 02/25/19 Stop Date: 02/25/19 Status: Completed fentaNYL (ANES) Route: IV, Drug form: INJ, ONCE, Stop date: 02/25/19 10:08:00 CDT Start Date: 02/25/19 Stop Date: 02/25/19 Status: Completed glycopyrrolate (ANES) Route: IV, Drug form: INJ, ONCE, Stop date: 02/25/19 10:40:00 CDT Start Date: 02/25/19 Stop Date: 02/25/19 Status: Completed insulin lispro 2 unit, 0.02 mL, Route: SUB-Q, Drug form: SOLN, Sliding Scale, Dosing Weight 90. 455, kg, PRN Blood Glucose Results, Start date: 02/25/19 10:52:00 CDT, Duration: 30 day, Stop date: 03/27/19 9:51:00 [employer], 0 Notes: (Same as: Humalog) Roll in palms of hands gently; Do not shake vigorously . WASTE: F/P - Black; E - Municipal Trash BinStable for 28 days at room tempera ture.Expires in days from Date Start Date: 02/25/19 Stop Date: 02/25/19 Status: Discontinued insulin lispro 4 unit, 0.04 mL, Route: SUB-Q, Drug form: SOLN, Sliding Scale, Dosing Weight 90. 455, kg, PRN Blood Glucose Results, Start date: 02/25/19 10:52:00 CDT, Duration: 30 day, Stop date: 03/27/19 9:51:00 [employer]IVE, 0 Notes: (Same as: Humalog) Roll in palms of hands gently; Do not shake vigorously . WASTE: F/P - Black; E - Municipal Trash BinStable for 28 days at room [facility].Expires in days from Date Start Date: 02/25/19 Stop Date: 02/25/19 Status: Discontinued insulin lispro 6 unit, 0.06 mL, Route: SUB-Q, Drug form: SOLN, Sliding Scale, Dosing Weight 90. 455, kg, PRN Blood Glucose Results, Start date: 02/25/19 10:52:00 CDT, Duration: 30 day, Stop date: 03/27/19 9:51:00 [employer]IVE, 0 Notes: (Same as: Humalog) Roll in palms of hands gently; Do not shake vigorously . WASTE: F/P - Black; E - Municipal Trash BinStable for 28 days at room [facility].Expires in days from Date Start Date: 02/25/19 Stop Date: 02/25/19 Status: Discontinued insulin lispro 8 unit, 0.08 mL, Route: SUB-Q, Drug form: SOLN, Sliding Scale, Dosing Weight 90. 455, kg, PRN Blood Glucose Results, Start date: 02/25/19 10:52:00 CDT, Duration: 30 day, Stop date: 03/27/19 9:51:00 [employer]IVE, 0 Notes: (Same as: Humalog) Roll in palms of hands gently; Do not shake vigorously . WASTE: F/P - Black; E - Municipal Trash BinStable [facility].Expires in days from Date Start Date: 02/25/19 Stop Date: 02/25/19 Status: Discontinued insulin lispro 10 unit, 0.1 mL, Route: SUB-Q, Drug form: SOLN, Sliding Scale, Dosing Weight 90. 455, kg, PRN Blood Glucose Results, Start date: 02/25/19 10:52:00 CDT, Duration: 30 day, Stop date: 03/27/19 9:51:00 [employer]IVE, 0 Notes: (Same as: Humalog) Roll in palms of hands gently; Do not shake vigorously . WASTE: F/P - Black; E - Municipal Trash BinStable for 28 days at room tempera ture.Expires in days from Date Start Date: 02/25/19 Stop Date: 02/25/19 Status: Discontinued Lactated Ringers Injection IV (ANES) 1000 mL Route: IV, Total Volume: 1,000, Start date: 02/25/19 9:30:00 CDT, Stop date: 01/06 10:30:00 CDT Start Date: 02/25/19 Stop Date: 02/25/19 Status: Completed lidocaine (ANES) Route: IV, Drug form: INJ, ONCE, Stop date: 02/25/19 10:23:00 CDT Start Date: 02/25/19 Stop Date: 02/25/19 Status: Completed midazolam (ANES) Route: IV, Drug form: SOLN, ONCE, Stop date: 02/25/19 10:08:00 CDT Start Date: 02/25/19 Stop Date: 02/25/19 Status: Completed neostigmine (ANES) Route: IV, Drug form: INJ, ONCE, Stop date: 02/25/19 10:40:00 CDT Start Date: 02/25/19 Stop Date: 02/25/19 Status: Completed ondansetron (ANES) Route: IV, Drug form: INJ, ONCE, Stop date: 02/25/19 10:13:00 CDT Start Date: 02/25/19 Stop Date: 02/25/19 Status: Completed oxyCODONE 5 mg/5 mL oral solution 5 mg, 5 mL, Route: PO, Drug form: LIQ, ONCE, Dosing Weight 90.455, kg, Start amanda e: 02/25/19 10:53:00 CDT, Stop date: 02/25/19 10:53:00 CDT, 0 Notes: (Same as: 'Roxicodone) Start Date: 02/25/19 Stop Date: 02/25/19 Status: Completed propofol (ANES) Route: IV, Drug form: INJ, ONCE, Stop date: 02/25/19 10:18:00 CDT Start Date: 02/25/19 Stop Date: 02/25/19 Status: Completed rocuronium (ANES) Route: IV, Drug form: INJ, ONCE, Stop date: 02/25/19 10:18:00 CDT Start Date: 02/25/19 Stop Date: 02/25/19 Status: Completed sertraline 100 mg oral tablet 100 mg = 1 tab, PO, Daily Start Date: 02/11/19 Status: Ordered simvastatin 20 mg oral tablet 20 mg = 1 tab, PO, Bedtime Start Date: 02/11/19 Status: Ordered trazodone 150 mg oral tablet 150 mg = 1 tab, PO, Bedtime Start Date: 02/11/19 Status: Ordered Results Most recent to 1 oldest [Reference Range]: Neutrophils # 4.7 K/CMM [1.5-8.1 K/CMM] (02/11/19 11:50 AM) Lymphocytes # 2.1 K/CMM [1.0-5.5 K/CMM] (02/11/19 11:50 AM) Monocytes # [0.0-0.8 0.4 K/CMM K/CMM] (02/11/19 11:50 AM) Eosinophils # 0.1 K/CMM [0.0-0.5 K/CMM] (02/11/19 11:50 AM) Basophils # [0.0-0.2 0.0 K/CMM K/CMM] (02/11/19 11:50 AM) eGFR 123 mL/min/1.73m2 1 *NA* (02/11/19 11:50 AM) AGAP [10.0-20.0 12.7 mEq/L mEq/L] (02/11/19 11:50 AM) Basophils [0.0-1.0 0.0 % %] (02/11/19 11:50 AM) BUN [7-22 mg/dL] 8 mg/dL (02/11/19 11:50 AM) Calcium Lvl 9.0 mg/dL [8.5-10.5 mg/dL] (02/11/19 11:50 AM) Chloride Lvl [95-109 105 mEq/L mEq/L] (02/11/19 11:50 AM) CO2 [24-32 mEq/L] 24 mEq/L (02/11/19 11:50 AM) Creatinine Lvl 0.70 mg/dL [0.50-1.40 mg/dL] (02/11/1950 AM) Eosinophils [0.0-4.0 1.6 % %] (02/11/19 11:50 AM) Glucose Lvl [70-99 94 mg/dL mg/dL] (02/11/19 1150 AM) Hct [36.0-48.0 %] 40.7 % (02/11/19 1150 AM) Hgb [12.0-16.0 g/dL] 13.6 g/dL (02/11/1950 AM) Potassium Lvl 3.7 mEq/L [3.5-5.1 mEq/L] (02/11/19 1150 AM) Lymphocytes 29.0 % [20.0-40.0 %] (02/11/19 11:50 AM) MCH [27.0-31.0 pg] 30.2 pg (02/11/19 11:50 AM) MCHC [32.0-36.0 33.4 g/dL g/dL] (02/11/19 1150 AM) MCV [80.0-98.0 fL] 90.4 fL (02/11/19 1150 AM) Monocytes [2.0-12.0 5.4 % %] (02/11/19 11:50 AM) MPV [7.4-10.4 fL] 8.7 fL (02/11/19 11:50 AM) Sodium Lvl [135-145 138 mEq/L mEq/L] (02/11/19 11:50 AM) Platelet [133-450 277 K/CMM K/CMM] (02/11/19 11:50 AM) Segs [45.0-75.0 %] 64.0 % (02/11/19 11:50 AM) RBC [4.20-5.40 4.50 M/CMM M/CMM] (02/11/19 11:50 AM) RDW [11.5-14.5 %] 12.3 % (02/11/19 11:50 AM) S Preg [Negative] Negative *NA* (02/11/19 11:50 AM) U Preg [Negative] Negative (02/25/19 8:33 AM) WBC [3.7-10.4 K/CMM] 7.3 K/CMM (02/11/19 11:50 AM) 1Result Comment: The eGFR is calculated [...] Smoking Cessation Counseli ng Yes entered on: 02/11/19 Assessment and Plan No data available for this section
--- OUTSIDE RECORDS SUMMARY | 2020-01-02 16:18 | XMS REPORT | Continuity of Care Document ---
Author Author [facility] t Organization [facility] Address [address] [place] [address] Phone Unavailable Care Team Providers Care Crossband Layer Name Role Phone Morgan SALCIDO M.D. PCP DR Sandra SALCIDO Attphys Unavailable Linklater Sydni ABRAMS Attphys STANISLAV MOHR Attphys Unavailable , DR SONG Attphys Unavailable Kelle Orlando Attphys Anival WALL Attphys Unavailable ALDEN, DR TIFFANI LAGOS Attphys Unavailable SINGER, DR SEE Attphys Unavailable BRANDYLEONA Attphys Unavailable FERNANDA, DR DAVIS Attphys Unavailable YOLYT, DR ERIC Attphys Unavailable SERGEY, DR CABRAL Attphys Unavailable ESCALANTE, DR ROSA Attphys Unavailable BA, DR ACOSTA Attphys Unavailable SEBASTIAN, DR MCCRARY Attphys Unavailable Loretta HARRIS Attphys Unavailable CHINTAN, DR SORTO Attphys Unavailable Aden GRIMES Attphys Unavailable Hernandez GERMAN Attphys Unavailable Dwayne Grubbs Attphys Eric Weaver Attphys Sabino Ruiz Attphys DR Sandra SALCIDO Admphys Unavailable , DR DUNCAN Medinaphys Unavailable ALDEN, DR TIFFANI LAGOS Admphys Unavailable SINGER, DR SEE Admphys Unavailable BRANDY, LEONA FLANAGAN Admphys Unavailable ROLLO, DR DAVIS Admphys Unavailable SCHEMIDT, DR ERIC Admphys Unavailable RINCON, DR CABRAL Admphys Unavailable ESCALANTE, DR ROSA Admphys Unavailable BA, DR ACOSTA Admphys Unavailable SEBASTIAN, DR MCCRARY Admphys Unavailable HARRIS, H VITALIY Admphys Unavailable CHINTAN, DR SORTO Admphys Unavailable GRIMES, Aden LOPEZ Admphys Unavailable Hernandez GERMAN Admphys Unavailable Payers Payer Name Policy Type Policy Number Effective Date Expiration Date S kelsey [facility] [id number] 2019 00:00:00 [facility] [id number] 2019 00:00 :00 [facility] Problems Condition Name Condition Details Condition Category Status Onset Date Resolution Date Last Treatment Date Treating Clinician Comments Source VOMITING VOMI TING Active 11/26/2019 [place] Diagnosis Active 2019-11-26 00:00:00 2019-12-04 08:57:00 [facility] [place] N/A N/A Active 02/06/2019 [facility] Diagnosis Active 2019-02-06 00:00:00 2019-02-25 08:11:00 Sydni Vann G47.33 G47. 33 Active 01/01/[address] [facility] Diagnosis Active 2019-01-01 00:00:00 2019-01-14 18:30:00 [facility] VAGINAL DISCHARGE VAGI NAL DISCHARGE Active 02/25/2016 [place] Diagnosis Active 2016-02-25 00:00:00 2016-02-25 21:35:00 [facility] [place] DIZZYNESS/NAUSEA DIZZ YNESS/NAUSEA Active 06/08/2015 [place] Diagnosis Active 2015-06-08 00:00:00 2015-06-09 06:57:00 [facility] [place] VAGINAL ISSUES VAGI NAL ISSUES Active 09/30/2014 [place] Diagnosis Active 2014-09-30 00:00:00 2014-10-01 01:37:00 [facility] [place] 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 (d isorder) 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 (disorder) Active Problem 12/01/2019 [facility] [place] Problem Active 2019-12-01 08:45:52 [facility] OBSTRUCTIVE SLEEP APNEA (ADULT) (PEDIATR OBSTRUCTIVE SLEEP APNEA (ADULT) (PEDIATR Active [facility] Diagnosis Active 2019-01-14 18:30:00 [facility] Nausea with vomiting, unspecified Nausea with vomiting, unspecified 11/27/2019 12/01/2019 [place] Problem 2 17:00:00 2019-12-01 08:45:52 2019-12-01 08:45:52 [facility] Cough Coug h 11/27/2019 12/01/2019 [place] Problem 2019-11-27 17:00:00 2019-12-01 08:45:52 2019-12-01 08:45:52 [facility] Fever, unspecified Feve r, unspecified 11/27/2019 12/01/2019 [place] Problem 2019-11-27 17:00:00 2019-12-01 08:45:5 2 2019-12-01 08:45:52 [facility] Unspecified abdominal pain Uns pecified abdominal pain 11/27/2019 12/01/2019 [place] Problem 2019-11-27 17: 00:00 2019-12-01 08:45:52 2019-12-01 08:45:52 [facility] Discharge Diagnosis: Acute vaginitis Discharge Diagnosis: Acute vaginitis 02/25/2016 02/28/2016 [place] Problem 2016-02-25 05:00:00 2016-02-28 03:08:37 2016-02-28 03:08:37 [facility] Discharge Diagnosis: Acute cervicitis Discharge Diagnosis: Acute cervicitis 02/25/2016 02/28/2016 [place] Problem 2016-02-25 05:00:00 2016-02-28 03:08:37 2016-02-28 03:08:37 [facility] Discharge Diagnosis: Headache Discharge Diagnosis: Headache 06/09/2015 06/12/2015 [place] Problem 2015 06:00:00 2015-06-12 04:03:17 2015-06-12 04:03:17 [facility] Discharge Diagnosis: Dizziness Discharge Diagnosis: Dizziness 06/09/2015 06/12/2015 [place] Problem 201 10-20-19 06:00:00 2015-06-12 04:03:17 2015-06-12 04:03:17 [facility] [place] [place] Discharge Diagnosis: Acute UTI Discharge Diagnosis: Acute UTI 10/01/2014 10/04/2014 [place] Problem 201 09-22-13 05:00:00 2014-10-04 04:48:40 2014-10-04 04:48:40 [facility] Discharge Diagnosis: Candidal vaginitis Discharge Diagnosis: Candidal vaginitis 10/01/2014 10/04/2014 [facility] [place] Problem 2014-10-01 05:00:00 2014-10-04 04:48:40 2014-10-04 04:48:40 [facility] Allergies, Adverse Reactions, Alerts Allergy Name Allergy Type Status Severity Reaction(s) Onset Date Inacti ve Date Treating Clinician Comments Source No Known Allergies DA Active U 2019-01-17 00:00:00 [facility] No Known Medication Allergies No Known Medication Allergies Active [facility] Social History Social Habit Start Date Stop Date Quantity Comments Source History SDOH Alcohol Std Drinks [facility] History SDOH Alcohol Binge [facility] Sex Assigned At [facility] Social History 2019-02-11 16:41:31 2019-02-11 16:41:31 [facility] History SDOH Alcohol Frequency 2018-07-08 00:00:00 2018-07-08 00:00:0 0 1 [facility] Alcohol intake 2017-01-16 00:00:00 2017-01-16 00:00:00 Current non-drinker of alcohol (finding) Leonard Weston Smoking Status Start Date Stop Date Source Current every day smoker 2017-01-16 00:00:00 Marco Weston Social History [facility] Medications Ordered Medication Name Filled Medication Name Start Date Stop Da te Current Medication? Ordering Clinician Indication Dosage Frequency Signature (SIG) Comments Components Source Ondansetron 4 MG Disintegrating Tablet [Zofran] 2019-11-27 07:51 :00 Yes 4 mg = 1 tab, PO, TID, PRN N ausea and Vomiting, Dissolve tab under tongue, # 15 tab, 0 Refill(s) [facility] benzonatate 100 MG Oral Capsule [Tessalon Perles] 2019-11-27 07:51:00 Yes 100 mg = 1 cap, PO, Q8H, PRN cough, do not crush or chew, X 10 day, # 30 cap, 0 Refill(s) Pavan Vann Omnipaque 300 injectable solution 2019-11-27 06:00:00 No 45 mL/min, Start date: 11/27/19 1:00:00 CDT, Duration: 1 doses or times Pavan Vann Saline Flush 0.9% 2019-11-27 04:29:00 No Notes: (Same as: BD Posiflush) [facility] [place] Sodium Chloride 0.9% (Bolus) IV 2019-11-27 04:29:00 No 1,000 mL, Infuse Over: 1 hr, Route: IV, ONCE, Priority: STAT, Dosing Weight 90.909 kg, Start date: 11/26/19 23:29:00 CDT, Stop date: 11/26/19 23:29:00 CDT Pavan Vann Ondansetron 2019-11-27 04:29:00 No 4 mg, Route: IVP, ONCE, Dosing Weight 90.909, kg, Priority: STAT, Start date: 11/26/19 23:29:00 CDT, Stop date: 11/26/19 23:29:00 CDT Pavan Vann Tylenol 2019-11-27 04:29:00 No 650 mg, Route: PO, Drug form: TAB, ONCE, Dosing Weight 90.909, kg, Priority: STAT, Start date: 11/26/19 23:29:00 CDT, Stop date: 11/26/19 23:29:[address] [facility] Oxy[facility] Hydrochloride 1 MG/ML Oral Solution 2019-02-25 15:53:0 0 No Notes: (Same as: 'Roxicodone) [facility] Hydralazine 2019-02-25 15:52:00 No Notes: (Same as: Apresoline) Push over 5 minutes [facility] [place] Labetalol 2019-02-25 15:52:00 No Notes: (Same as: Normodyne, Trandate) Push over 2 minutes Give bolus over 2-3 minutes. [facility] [place] Ketorolac 2019-02-25 15:52:00 Yes 4 days MEDICATION WASTE Product Size: 30 mg Product Wasted: ___ mg [facility] Morphine 2019-02-25 15:52:00 No Not es: (Same as:MORPhine Sulfate) [facility] Fentanyl 2019-02-25 15:52:00 No Notes: (Same as: Sublimaze) Preservative free. [facility] Flumazenil 2019-02-25 15:52:00 No Notes: (S niko as: Romazicon) [facility] Naloxone 2019-02-25 15:52:00 No Notes: Same as Narcan [facility] Meperidine 2019-02-25 15:52:00 No Notes: (Same as: Demerol) "Use Precaution in Elderly, Seizure disorders, and Renal impairment" [facility] Ondansetron 2019-02-25 15:52:00 No Notes: (Same as: Zofran) MEDICATION WASTE Product Size: 4 mg Product Wasted: ___ mg [facility] Dexamethasone 2019-02-25 15:52:00 No Notes: Concentration: 4mg/ml [facility] Promethazine 2019-02-25 15:52:00 No 6.25 mg, Route: IVPB, ONCE, Dosing Weight 90.455, kg, PRN Nausea & Vomiting, Start date: 02/25/19 10:52:00 CDT [facility] Insulin Lispro 2019-02-25 15:52:00 No Notes: (Same as: Humalog) Roll in palms of hands gently; Do not shake vigorously. WASTE: F/P - Black; E - Municipal Trash Bin Stable for 28 days at room temperature. Expires in days from Date [facility] glycopyrrolate (ANES) 2019-02-25 15:40:00 No Route: IV, Drug form: INJ, ONCE, Stop date: 02/25/19 10:40:00 CDT [facility] neostigmine (ANES) 2019-02-25 15:40:00 No Route: IV, Drug form: INJ, ONCE, Stop date: 02/25/19 10:40:00 CDT tabitha [place] lidocaine (ANES) 2019-02-25 15:23:00 No Route: IV, Drug form: INJ, ONCE, Stop date: 02/25/19 10:23:00 [facility] ([facility] 2019-02-25 15:23:00 No Route: IV, Drug form: INJ, ONCE, Stop date: 02/25/19 10:23:00 CDT [facility] propofol (ANES) 2019-02-25 15:18:00 No Route: IV, Drug form: INJ, ONCE, Stop date: 02/25/19 10:18:00 [facility] rocur[facility] (ANES) 2019-02-25 15:18:00 No Route: IV, Drug form: INJ, ONCE, Stop date: 02/25/19 10:18:00 CD[facility] ([facility]) 2019-02-25 15:13:00 No Route: IV, Drug form: INJ, ONCE, Stop date: 02/25/19 10:13:00 [facility] ([facility]) 2019-02-25 15:08:00 No Route: IV, Drug form: SOLN, ONCE, Stop date: 02/25/19 10:08:00 CDT [facility] fentaNYL ([facility]) 2019-02-25 15:08:00 No Route: IV, Drug form: INJ, ONCE, Stop date: 02/25/19 10:08:00 CDT [facility] Lactated Ringers Injection IV (ANES) 1000 mL 2019-02-25 14:30:00 No Route: IV, Total Volume: 1,000, Start date: 02/25/19 9:30:00 CDT, Stop date: 02/25/19 10:30:00 CDT [facility] Metoclopramide Hcl (Reglan) 10 Mg Tablet Metoclopramid e Hcl (Reglan) 10 Mg Tablet 2019-02-15 00:00:00 Yes Della Renteria Do 10 Every 8 Hours as needed for Nausea And Vomiting [facility] Nitrofurantoin Monohyd/M-Cryst (Macrobid 100 Mg Capsul e) 100 Mg Capsule Nitrofurantoin Monohyd/M-Cryst (Macrobid 100 Mg Capsule) 100 Mg Capsule 2019-02-15 00:00:00 Yes Della Renteria Do 100 Twice A Day [facility] trazodone 150 mg oral tablet 2019-02-11 17:14:00 Yes 150 mg = 1 tab, PO, Bedtime [facility] simvastatin 20 mg oral tablet 2019-02-11 17:14:00 Yes 20 mg = 1 tab, PO, Bedtime [facility] ARIPiprazole 2019-02-11 17:12:00 Yes 5 mg, P O, Daily [facility] sertraline 100 mg oral tablet 2019-02-11 17:12:00 Yes 100 mg = 1 tab, PO, Daily [facility] ARIPiprazole (ABILIFY) 2 MG tablet 2018-07-08 13:32:22 Yes 2mg QD Take 2 mg by mouth daily. [facility] sertraline (ZOLOFT) 100 MG tablet 2018-07-08 13:32:22 Yes 100mg QD Take 100 mg by mouth daily. [facility] zolpidem (AMBIEN) 5 MG tablet 2018-07-08 13:32:21 Yes 5mg Take 5 mg by mouth every night as needed for Insomnia. [facility] hydrALAZINE (APRESOLINE) 25 MG tablet 2018-07-08 13:21:50 Yes 25mg [id number] Take 25 mg by mouth 3 (three) times daily. [facility] Azithromycin 2016-02-26 03:04:00 No 1,000 mg, Route: PO, Drug form: TAB, ONCE, Dosing Weight 63.807, kg, Start date: 02/25/16 22:04:00 CDT, Stop date: 02/25/16 22:04:00 CDT [facility] fluconazole 150 mg oral tablet 2016-02-26 02:52:00 Yes 150 mg = 1 tab, PO, ONCE, # 1 tab, 0 Refill(s) [facility] Vann Metronidazole 500 MG Oral Tablet [Flagyl] 2016-02-26 02:26:00 Yes 500 mg = 1 tab, PO, Q8H, X 7 day, # 21 tab, 0 Refill(s) [facility] Azithromycin 2016-02-26 01:52:00 No Notes: (Same As: Zithromax) Take 1 hour before or 2 hours after meal Pavan Vann Rocephin 2016-02-26 01:52:00 No Notes: (Mikey e As: Guevara) Pavan Vann meclizine 25 mg oral tablet 2015-06-09 08:16:00 Yes 25 mg = 1 tab, PO, TID, PRN for dizziness, X 7 day, # 21 tab, 0 Refill(s) Pavan Vann Benadryl 2015-06-09 06:13:00 No 12.5 mg, Route: IVP, ONCE, Dosing Weight 55.773, kg, Priority: STAT, Start date: 06/09/15 0:13:00, Stop date: 06/09/15 0:13:00 Pavan Vann Reglan 2015-06-09 06:12:00 No 10 mg, Route: IVP, Drug form: INJ, ONCE, Dosing Weight 55.773, kg, Priority: STAT, Start date: 06/09/15 0:12:00, Stop date: 06/09/15 0:12:00 Pavan knox Meclizine 2015-06-09 06:12:00 No 25 mg, Route: PO, Drug form: TAB, ONCE, Dosing Weight 55.773, kg, Priority: STAT, Start date: 06/09/15 0:12:00, Stop date: 06/09/15 0:12:00 Pavan knox Sodium Chloride 0.154 MEQ/ML Injectable Solution 2015-06-09 06:1 2:00 No 1,000 mL, 1,000 ml/hr, Infus e Over: 1 hr, Route: IV, ONCE, Priority: STAT, Dosing Weight 55.773 kg, Start date: 06/09/15 0:12:00, Duration: 1 doses or times, Stop date: 06/09/15 0:12:00 Lisbet Vann Miconazole Nitrate 200 MG Vaginal Suppository [Monistat] 2014-10-01 06:15:00 Yes 200 mg = 1 sup p, VAG, Bedtime, X 3 day, # 3 ea, 0 Refill(s), Pharmacy: [facility] [id number] Dwight Vann Nitrofurantoin 100 MG Oral Capsule [Macrobid] 2014-10-01 06:14:0 0 Yes 100 mg = 1 cap, PO, BID, X 7 day, # 14 c ap, 0 Refill(s), Pharmacy: [facility] [id number] [facility] Vital Signs Vital Name Observation Time Observation Value Comments Source Temperature Oral (F) 2019-11-27 07:50:00 98 F [facility] Respitory Rate 2019-11-27 07:50:00 [facility] [place] Systolic (mm Hg) 2019-11-27 07:50:00 [facility] [place] Diastolic (mm Hg) 2019-11-27 07:50:00 [facility] [place] Temperature Oral (F) 2019-11-27 06:40:00 98.1 F [facility] [place] Respitory Rate 2019-11-27 06:40:00 [facility] [place] Systolic (mm Hg) 2019-11-27 06:40:00 [facility] [place] Diastolic (mm Hg) 2019-11-27 06:40:00 [facility] [place] Temperature Oral (F) 2019-11-27 05:40:00 98.7 F [facility] [place] Respitory Rate 2019-11-27 05:40:00 [facility] [place] Systolic (mm Hg) 2019-11-27 05:40:00 [facility] [place] Diastolic (mm Hg) 2019-11-27 05:40:00 [facility] [place] Height 2019-11-27 03:48:00 162.56 cm [facility] BMI Calculated 2019-11-27 03:48:00 [facility] [place] Weight 2019-11-27 03:48:00 [facility] Heart Rate 2019-11-27 03:48:00 [facility] [place] Respitory Rate 2019-02-25 17:00:00 [facility] [place] Systolic (mm Hg) 2019-02-25 17:00:00 [facility] [place] Diastolic (mm Hg) 2019-02-25 17:00:00 [facility] [place] Respitory Rate 2019-02-25 16:30:00 [facility] [place] Systolic (mm Hg) 2019-02-25 16:30:00 [facility] [place] Diastolic (mm Hg) 2019-02-25 16:30:00 [facility] [place] Respitory Rate 2019-02-25 16:15:00 [facility] [place] Systolic (mm Hg) 2019-02-25 16:15:00 [facility] [place] Diastolic (mm Hg) 2019-02-25 16:15:00 [facility] [place] Temperature Oral (F) 2019-02-11 18:35:00 97.6 F [facility] Heart Rate 2019-02-11 18:35:00 [facility] [place] Height 2019-02-11 16:46:00 160.02 cm [facility] [place] Weight 2019-02-11 16:46:00 [facility] [place] BMI Calculated 2019-02-11 16:46:00 [facility] [place] Systolic (mm Hg) 2016-02-26 02:38:00 [facility] [place] Diastolic (mm Hg) 2016-02-26 02:38:00 [facility] [place] Respitory Rate 2016-02-26 02:38:00 [facility] [place] Heart Rate 2016-02-26 02:38:00 [facility] [place] Temperature Oral (F) 2016-02-26 02:38:00 98 F [facility] [place] Respitory Rate 2016-02-26 01:09:00 [facility] [place] Heart Rate 2016-02-26 01:09:00 [facility] [place] Systolic (mm Hg) 2016-02-26 01:09:00 [facility] [place] Diastolic (mm Hg) 2016-02-26 01:09:00 [facility] [place] Temperature Oral (F) 2016-02-26 01:09:00 98.6 F [facility] Weight 2016-02-26 01:09:00 [facility] [place] Systolic (mm Hg) 2015-06-09 08:38:00 [facility] [place] Diastolic (mm Hg) 2015-06-09 08:38:00 [facility] [place] Heart Rate 2015-06-09 08:38:00 [facility] [place] Respitory Rate 2015-06-09 08:38:00 [facility] [place] Temperature Oral (F) 2015-06-09 08:38:00 98.2 F [facility] Weight 2015-06-09 05:18:00 [facility] [place] Heart Rate 2015-06-09 05:18:00 [facility] [place] Systolic (mm Hg) 2015-06-09 05:18:00 [facility] [place] Diastolic (mm Hg) 2015-06-09 05:18:00 [facility] [place] Respitory Rate 2015-06-09 05:18:00 [facility] [place] Temperature Oral (F) 2015-06-09 05:18:00 97.8 F [facility] [place] Systolic (mm Hg) 2014-10-01 06:08:00 [facility] [place] Diastolic (mm Hg) 2014-10-01 06:08:00 [facility] [place] Heart Rate 2014-10-01 06:08:00 [facility] [place] Respitory Rate 2014-10-01 06:08:00 [facility] [place] Temperature Oral (F) 2014-10-01 06:08:00 98.2 F [facility] Weight 2014-10-01 04:51:00 [facility] [place] Respitory Rate 2014-10-01 04:51:00 [facility] [place] Heart Rate 2014-10-01 04:51:00 [facility] [place] Temperature Oral (F) 2014-10-01 04:51:00 98.5 F [facility] [place] Systolic (mm Hg) 2014-10-01 04:51:00 [facility] [place] Diastolic (mm Hg) 2014-10-01 04:51:00 [facility] [place] Procedures Procedure Date / Time Performed Performing Clinician [facility] e Computed tomography of abdomen and pelvis with contrast 2018 00:00:00 CLAUDIA WALL [facility] Cholecystectomy [facility] [place] Plan of Care Planned Activity Planned Date Details Comments Source Future Scheduled Test 2020-01-20 00:00:00 INFLUENZA VACCINE [code = INFLUENZA VACCINE] Leonard Weston Future Scheduled Test 2016 00:00:00 Screening for marlen gnant neoplasm of cervix (procedure) [code = 837486891] Leonard wheatley Future Scheduled Test 2011 00:00:00 CHLAMYDIA SCREENIN G [code = CHLAMYDIA SCREENING] Leonard Weston Encounters Start Date/Time End Date/Time Encounter Type Admission Type Attendi [facility] Care Department Encounter ID Source 2018-06-20 09:00:00 Inpatient OG SHEA [facility] [id number] [facility] 2019-11-26 22:40:41 2019-11-27 03:11:00 Outpatient Familia Rooney [facility] [id number] 2019-11-26 22:40:41 2019-11-27 03:11:00 Outpatient Familia Rooney [facility] [id number] 2019-11-26 22:40:00 2019-11-26 22:40:00 Emergency E MHFB [facility] [id number] [facility] 2019-07-06 19:01:00 2019-07-06 19:38:[address] [facility] [id number] [facility] 2019-06-08 10:12:00 2019-06-08 10:34:00 Emergency E SHEIKH DUNCAN [facility] [id number] [facility] 2019-02-25 08:11:00 2019-02-25 12:50:00 Outpatient Kelle Chen i [facility] [id number] 2019-02-25 08:11:00 2019-02-25 08:11:00 Outpatient [id number] [facility] 2019-02-15 00:47:00 2019-02-15 03:47:[address] [facility] [id number] [facility] 2019-02-11 21:27:00 2019-02-12 00:16:00 Departed Emergency Room [address] [facility] [id number] [facility] 2019-01-12 19:30:00 2019-01-12 23:59:00 Outpatient Kelle Chen i [facility] [id number] 2019-01-12 19:30:00 2019-01-12 19:30:00 Outpatient [id number] [facility] 2018-11-15 22:52:00 2018-11-16 01:52:00 Emergency E RUANO KIMBERLYN EDGARD LAGOS [facility] [id number] [facility] 2018-11-08 15:01:00 2018-11-08 23:59:00 Outpatient OG SHEA [facility] [id number] [facility] 2018-10-21 02:00:00 2018-10-21 02:30:00 Emergency E MENG [facility] [id number] [facility] 2018-10-03 15:56:00 2018-10-03 17:22:00 Emergency E SHEIKH DUNCAN [facility] [id number] [facility] 2018-06-30 17:20:00 2018-06-30 17:45:00 Emergency E SUSAN MICHAEL [facility] [id number] [facility] 2018-06-04 08:08:00 2018-06-04 23:59:00 Outpatient C OG SALCIDO [facility] [id number] [facility] 2018-06-01 12:48:00 2018-06-01 13:30:00 Emergency E KOREY ARCHULETA [facility] [id number] [facility] 2018-05-03 14:41:00 2018-05-04 04:33:00 Emergency E DUNCAN FRANCO [facility] [id number] [facility] 2018-02-16 10:00:00 2018-02-16 10:40:00 Emergency E WALT RINCON [facility] [id number] [facility] 2018-01-25 12:44:00 2018-01-25 13:35:00 Emergency E SHEIKH WASLEONORA [facility] [id number] [facility] 2017-12-14 11:36:00 2017-12-14 12:00:00 Emergency E DUNCAN FRANCO [facility] [id number] [facility] 2017-09-29 23:40:00 2017-09-30 04:51:00 Emergency E MOE ESCALANTE [facility] [id number] [facility] 2017-08-19 20:24:00 2017-08-19 21:50:00 Emergency E DAVE ROPER [facility] [id number] [facility] 2017-07-05 19:18:00 2017-07-05 21:00:00 Emergency E SHEIKH WASLEONORA [facility] [id number] [facility] 2017-06-17 10:18:00 2017-06-17 11:18:00 Emergency E HERMANN CORTES [facility] [id number] [facility] 2017-06-07 18:29:00 2017-06-07 20:06:00 Emergency E ESA SINGER [facility] [id number] [facility] 2017-04-22 16:31:00 2017-04-23 12:00:00 Emergency E ANA HARRIS [facility] [id number] [facility] 2017-01-26 22:01:00 2017-01-28 10:45:00 Outpatient E COLLETTE WOODSON [facility] [id number] [facility] 2016-10-29 23:40:00 2016-10-30 19:02:00 Emergency E TATIANNA GRIMES [facility] [id number] [facility] 2016-09-20 20:42:00 2016-09-20 22:26:00 Emergency E ESA SINGER [facility] [id number] [facility] [facility] 2016-04-18 22:40:00 2016-04-19 00:41:00 Emergency E MO[facility] [id number] [facility] 2016-02-25 20:04:00 2016-02-25 22:14:00 Outpatient Chloé Grubbs [facility] [id number] 2015-06-08 23:10:00 2015-06-09 02:41:00 Outpatient Eric Weaver [facility] [id number] 2014-09-30 23:49:00 2014-10-01 01:24:00 Outpatient Sabino Ruiz [facility] [id number] Results Test Description Test Time Test Comments Results Result Comments Source URINE AND STOOL 2019-11-27 07:04:00 Yellow *NA*(11/27/19 2:0 4 AM) [facility] 2019-11-27 07:04:00 Clear (11/27/19 2:04 AM) [facility] URINE AND STOOL 2019-11-27 07:04:00 Test Item UA Spec Grav (test code = UA Spec Grav) 1.015 1 [facility] KXGBI5119[facility]15[facility]53 07:04:00* Test Item Value Reference Range Interpretation Comments UA pH (test code = UA pH) 5.0 1 5.0-8.0 [facility] MLTBG1614-12-97 07:04:00Negative *NA*(11/27/19 2:04 AM) [facility] CSUXW0669-66-07 07:04:00Negative (11/27/19 2:04 AM) [facility] HRCWD0103-70-24 07:04:000.2[facility] NHIWK8836-13-80 07:04:00Negative (11/27/19 2:04 AM)[facility] 2019-11-27 07:04:00Negative (11/27/19 2:04 AM)[facility] 2019-11-27 07:04:002[facility] WTXYY9983-66-73 07:04:0021[facility] YizjcnoWTLRFFVASO8575-00-78 04:53:00Not Detected *NA*(11/26/19 11:53 PM)[facility] ZTIKS8619-98-06 04:31:0091[facility] MSUGJ5535-72-61 04:31:0010[facility]annCHE[facility] FSOOU5884-53-60 04:31:000.71[facility]annCHE[facility] BZCFY3535-04-65 04:31:38011Skcceowm HermannCHEM UYLLH3341-50-08 04:31:003.4 [facility] CDCZA9955-08-79 04:31:56368Yeipazkd HermannCHEM PANEL 2019-11-27 04:31:0023[facility]annCHE[facility] XLLDU8908-15-87 04:31:009.0[facility]ann[facility] AHVCO7179-22-58 04:31:007.9[facility] KBMYE3205-48-88 04:31:003.9[facility]annCHE[facility] LFMZA7225-44-54 04:31:84338Flgiznxv [facility] NPPMM4217-47-20 04:31:0082[facility] ZQSUZ7568-50-51 04:31:46712 [facility] ELPQC8281-18-50 04:31:000.8[facility]annCHE[facility] PANEL 2019-11-27 04:31:0013.4[facility]ann[facility] YEIPU4579-61-78 04:31:00* Test Item Value Reference Range Interpretation Comments B/C Ratio (test code = B/C Ratio) 14 1 6-25 [facility] GNHCX6799-63-82 04:31:004.0[facility]annCHE[facility] PANEL 2019-11-27 04:31:00* Test Item Value Reference Range Interpretation Comments A/G Ratio (test code = A/G Ratio) 1.0 1 0.7-1.6 [facility] KBTOO7456-76-21 04:31:54720Qarqutqr [facility] PANEL 2019-11-27 04:31:55881Mxowlmmf RhcubekIXJBEEYHOEPNN0693-92-41 04:31:00Negative *NA*(11/26/19 11:31 PM)[facility] VtuqxeiGGULTTSLUN8271-49-01 04:31:0010.1[facility] MzqmyndABNJECNQGB7237-35-37 04:31:004.59[facility] UunhqomHLAGBAODGM8991-38-18 04:31:0014.2[facility] GfskilwEUPCUVFICD4001-42-46 04:31:0041.4[facility] [place] MLKJYTZEOK1549-85-89 04:31:0090.3[facility] ObcysqtWIAJUSYEGP0882-03-84 04:31:00* Test Item Value Reference Range Interpretation Comments MCH (test code = MCH) 31.0 pg 27.0-31.0 [facility] OnsptshWRAGQWHQCF5499-29-86 04:31:0034.4[facility] HermannHEMATOLOGY 2019-11-27 04:31:0013.0[facility] MkglqgnBHFMPJCQBT0406-34-60 04:31:20569Xlwwdzwm DppybssQSEOFFKGIO2053-99-23 04:31:008.9[facility] KhhzdsxUWHXCDIRQW1020-76-55 04:31:0069.4[facility] CbjnzgaXEWHAQZWZZ5365-49-09 04:31:0023.1[facility] DLHZMWSXSB2530-53-74 04:31:005.7[facility] LlvzjinQYBVRFNOXB5051-24-04 04:31:001.2 [facility] UwmclonOJHCDUTMAL4624-49-08 04:31:000.6[facility]annHEMATOLOGY 2019-11-27 04:31:007.0[facility] MctlghdNINCINAPOA2224-99-76 04:31:002.3[facility] QaocqjjMLSKCQVSVN9063-84-84 04:31:000.6[facility] BmeyptkYXZRPKKFMT3661-68-28 04:31:000.1[facility] FahxrjkYHBBYJFZIV9297-88-56 04:31:000.1[facility]annCHEST 2 YLFMZ1919-20-67 00:54:00 [place] [address] Patient Name: BECKIE TEJADA MR #: [id number] : 1995 Age/Sex: 24/F Req #: [id number] Adm Physician: Ordered by: STANISLAV MOHR DO Report #: [id number] Location: ER Room/Bed: Procedure: [id number] DX/CHEST 2 VIEWS Exam Date: 08/28/19 Exam Time: 2359 REPORT STATUS: Signed EXAMINATI ON: CHEST 2 VIEWS INDICATION: Dyspnea. COMPARISON: None FINDINGS: TUBES and LINES: None. LUNGS: Lungs are well inflated. Th ere is no evidence of pneumonia or pulmonary edema. PLEURA: No pleural e ffusion or pneumothorax. HEART AND MEDIASTINUM: The cardiomediastinal sydnie houette is unremarkable. BONES AND SOFT TISSUES: No acute osseous lesi on. Soft tissues are unremarkable. UPPER ABDOMEN: No free air under the diaphragm. IMPRESSION: No acute thoracic abnormality. Signed by : Dr. Tripp Delgado MD on 08/29/2019 12:57 AM Dictated By: TRIPP DELGADO MD El ectronically Signed By: TRIPP DELGADO MD on 08/29/1956 Transcribed By: RACHELE on 08/29/1956 COPY TO: MOHR,STANISLAV DO URINALYSIS W/O MICROSCOPICGP2019-06-08 10:31:00* Test Item Value Reference Range Interpretation Comments COLOR (test code = COLU) DK YELLOW YELLOW A CLARITY (test code = CLA) CLEAR CLEAR GLUCOSE UR (test code = UA GLUCOSE) Negative NEGATIVE BILI UR (test code = BILE) 1+ NEGATIVE A KETONES UR (test code = MILLIE) Negative NEGATIVE SP GRAVITY (test code = SPGR) >=1.030 1.005-1.030 PH UR (test code = PH) 5.5 4.5-8.0 PROTEIN UR (test code = PU) Trace NEGATIVE NITRITE UR (test code = NITRITE) Negative NEGATIVE UROBIL UR (test code = GUROQ) 0.2 E.U./dL UROBIL UR (test code = GUROQC) UROBILINOGEN REFE RENCE RANGE 0.2 - 1.0 EU/dL BLOOD UR (test code = UA BLOOD) 2+ NEGATIVE A LEUK ES UR (test code = LEUK) Negative NEGATIVE URINE DSRI2089-83-03 13:33:00Negative (02/25/19 8:33 AM)[facility] Xtbvb6147-27-83 02:58:00* Test Item Value Reference Range Interpretation Comments Sodium Level (test code = 2951-2) 142 136-145 [facility] HospitalPotassium Xrerh5849-26-92 02:58:00* Test Item Value Reference Range Interpretation Comments Potassium Level (test code = 2823-3) 3.6 3.5-5.1 [facility] HospitalChloride Wetpd4769-61-25 02:58:00* Test Item Value Reference Range Interpretation Comments Chloride Level (test code = 2075-0) 105 98-107 [facility] HospitalCarbon Dioxide Qdikq8565-74-74 02:58:00* Test Item Value Reference Range Interpretation Comments Carbon Dioxide Level (test code = 2028-9) 26 22-29 [facility] HospitalAnion Qcb2600-10-61 02:58:00* Test Item Value Reference Range Interpretation Comments Anion Gap (test code = 78420-4) 14.6 8-16 [facility] HospitalBlood Urea Ukhlzivq6203-38-86 02:58:00* Test Item Value Reference Range Interpretation Comments Blood Urea Nitrogen (test code = 3094-0) 10 - [facility] HospitalCreatinine2019-09-28 02:58:00* Test Item Value Reference Range Interpretation Comments Creatinine (test code = 2160-0) 0.87 0.57-1.11 [facility] HospitalBUN/Creatinine Ufclb9093-63-32 02:58:00* Test Item Value Reference Range Interpretation Comments BUN/Creatinine Ratio (test code = 3097-3) 11 11-12 [facility] HospitalEstimat Glomerular Filtration Rate 2019-02-15 02:58:00* Test Item Value Reference Range Interpretation Comments Estimat Glomerular Filtration Rate (test code = 317954336) > 60 >60 Ranges were taken from the National Kidney Disease Education Program and the [facility] literature.Reference ranges:60 or greater: Dtyqjo25-79 ( for 3 consecutive months): Chronic kidney disease 15 or less: Kidney failureAudie L. Murphy Memorial VA HospitalGlucose Briex6333-81-32 02:58:00* Test Item Value Reference Range Interpretation Comments Glucose Level (test code = HAM5496) 95 74-118 [facility] HospitalCalcium Kgrhw2584-05-32 02:58:00* Test Item Value Reference Range Interpretation Comments Calcium Level (test code = 95455-3) 9.9 8.4-10.2 [facility] HospitalTotal Zcywdipjl8381-75-08 02:58:00* Test Item Value Reference Range Interpretation Comments Total Bilirubin (test code = 1975-2) 0.8 0.2-1.2 [facility] HospitalAspartate Amino Transf (AST/SGOT) 2019-02-15 02:58:00* Test Item Value Reference Range Interpretation Comments Aspartate Amino Transf (AST/SGOT) (test code = Aspartate Amino Transf (AST/SGOT)) 62 5-34 H [facility] HospitalAlanine Aminotransferase (ALT/SGPT) 2019-02-15 02:58:00* Test Item Value Reference Range Interpretation Comments Alanine Aminotransferase (ALT/SGPT) (test code = 1742-6) 89 0-55 H [facility] HospitalTotal Eeslegi2602-81-09 02:58:00* Test Item Value Reference Range Interpretation Comments Total Protein (test code = 2885-2) 7.9 6.5-8.1 [facility] HospitalAlbumin2019-09-28 02:58:00* Test Item Value Reference Range Interpretation Comments Albumin (test code = 1751-7) 4.2 3.5-5.0 [facility] HospitalGlobulin2019-09-28 02:58:00* Test Item Value Reference Range Interpretation Comments Globulin (test code = 81402-4) 3.7 2.3-3.5 H [facility] HospitalAlbumin/Globulin Qrqix0051-99-54 02:58:00 * Test Item Value Reference Range Interpretation Comments Albumin/Globulin Ratio (test code = 1759-0) 1.1 0.8-2.0 [facility] HospitalAlkaline Nzirprzygou8947-01-31 02:58:00* Test Item Value Reference Range Interpretation Comments Alkaline Phosphatase (test code = 6768-6) 94 40-150 [facility] Wtght7537-95-67 02:58:00* Test Item Value Reference Range Interpretation Comments Sodium Level (test code = 2951-2) 142 136-145 [facility] HospitalPotassium Ygkfd1174-36-42 02:58:00* Test Item Value Reference Range Interpretation Comments Potassium Level (test code = 2823-3) 3.6 3.5-5.1 [facility] HospitalChloride Jqafj7443-34-53 02:58:00* Test Item Value Reference Range Interpretation Comments Chloride Level (test code = 2075-0) 105 98-107 [facility] HospitalCarbon Dioxide Meerv9989-15-11 02:58:00* Test Item Value Reference Range Interpretation Comments Carbon Dioxide Level (test code = 2028-9) 26 22-29 [facility] HospitalAnion Zbu6827-89-27 02:58:00* Test Item Value Reference Range Interpretation Comments Anion Gap (test code = 36599-5) 14.6 8-16 [facility] HospitalBlood Urea Dbqoginr9593-06-24 02:58:00* Test Item Value Reference Range Interpretation Comments Blood Urea Nitrogen (test code = 3094-0) 10 12-13 [facility] HospitalCreatinine2019-09-28 02:58:00* Test Item Value Reference Range Interpretation Comments Creatinine (test code = 2160-0) 0.87 0.57-1.11 [facility] HospitalBUN/Creatinine Bgknn9691-80-38 02:58:00* Test Item Value Reference Range Interpretation Comments BUN/Creatinine Ratio (test code = 3097-3) 11 11-12 [facility] HospitalEstimat Glomerular Filtration Rate 2019-02-15 02:58:00* Test Item Value Reference Range Interpretation Comments Estimat Glomerular Filtration Rate (test code = 923905537) > 60 >60 Ranges were taken from the National Kidney Disease Education Program and the [facility] literature.Reference ranges:60 or greater: Vnusdi40-86 ( for 3 consecutive months): Chronic kidney disease 15 or less: Kidney failureAudie L. Murphy Memorial VA HospitalGlucose Oqmjj0513-80-00 02:58:00* Test Item Value Reference Range Interpretation Comments Glucose Level (test code = IRH6726) 95 74-118 [facility] HospitalCalcium Mubfg3443-00-28 02:58:00* Test Item Value Reference Range Interpretation Comments Calcium Level (test code = 56250-3) 9.9 8.4-10.2 [facility] HospitalTotal Slfoqwfty7021-75-12 02:58:00* Test Item Value Reference Range Interpretation Comments Total Bilirubin (test code = 1975-2) 0.8 0.2-1.2 [facility] HospitalAspartate Amino Transf (AST/SGOT) 2019-02-15 02:58:00* Test Item Value Reference Range Interpretation Comments Aspartate Amino Transf (AST/SGOT) (test code = Aspartate Amino Transf (AST/SGOT)) 62 5-34 H [facility] HospitalAlanine Aminotransferase (ALT/SGPT) 2019-02-15 02:58:00* Test Item Value Reference Range Interpretation Comments Alanine Aminotransferase (ALT/SGPT) (test code = 1742-6) 89 0-55 H [facility] HospitalTotal Lccgfzm8758-84-98 02:58:00* Test Item Value Reference Range Interpretation Comments Total Protein (test code = 2885-2) 7.9 6.5-8.1 [facility] HospitalAlbumin2019-09-28 02:58:00* Test Item Value Reference Range Interpretation Comments Albumin (test code = 1751-7) 4.2 3.5-5.0 [facility] HospitalGlobulin2019-09-28 02:58:00* Test Item Value Reference Range Interpretation Comments Globulin (test code = 57179-1) 3.7 2.3-3.5 H [facility] HospitalAlbumin/Globulin Higkf0848-06-06 02:58:00 * Test Item Value Reference Range Interpretation Comments Albumin/Globulin Ratio (test code = 1759-0) 1.1 0.8-2.0 [facility] HospitalAlkaline Qzqmrlpnbjc9941-32-73 02:58:00* Test Item Value Reference Range Interpretation Comments Alkaline Phosphatase (test code = 6768-6) 94 40-150 [facility] HospitalWhite Blood Pilpe9213-21-89 02:57:00* Test Item Value Reference Range Interpretation Comments White Blood Count (test code = 6690-2) 8.68 4.8-10.8 [facility] HospitalRed Blood Wxbvh0149-30-57 02:57:00* Test Item Value Reference Range Interpretation Comments Red Blood Count (test code = 789-8) 4.57 3.6-5.1 [facility] HospitalHemoglobin2019-09-28 02:57:00* Test Item Value Reference Range Interpretation Comments Hemoglobin (test code = 66945-4) 13.9 12.0-16.0 [facility] HospitalHematocrit2019-09-28 02:57:00* Test Item Value Reference Range Interpretation Comments Hematocrit (test code = 4544-3) 40.7 34.2-44.1 [facility] HospitalMean Corpuscular Dzdjfn1762-96-72 02:57:00* Test Item Value Reference Range Interpretation Comments Mean Corpuscular Volume (test code = 787-2) 89.1 81-99 [facility] HospitalMean Corpuscular Dswalkudak6864-82-03 02:57:00* Test Item Value Reference Range Interpretation Comments Mean Corpuscular Hemoglobin (test code = 785-6) 30.4 28-32 [facility] HospitalMean Corpuscular Hemoglobin Concent 2019-02-15 02:57:00* Test Item Value Reference Range Interpretation Comments Mean Corpuscular Hemoglobin Concent (test code = 786-4) 34.2 31-35 [facility] HospitalRed Cell Distribution Rtsvu4406-93-49 02:57:00* Test Item Value Reference Range Interpretation Comments Red Cell Distribution Width (test code = 63658-0) 12.2 11.7 -14.4 [facility] HospitalPlatelet Vgqaz9765-60-31 02:57:00* Test Item Value Reference Range Interpretation Comments Platelet Count (test code = 777-3) 292 140-360 [facility] HospitalNeutrophils (%) (Auto)2019-02-15 02:57:00 * Test Item Value Reference Range Interpretation Comments Neutrophils (%) (Auto) (test code = 23476-9) 62.9 38.7-80.0 [facility] HospitalLymphocytes (%) (Auto)2019-02-15 02:57:00 * Test Item Value Reference Range Interpretation Comments Lymphocytes (%) (Auto) (test code = 736-9) 29.8 18.0-39.1 [facility] HospitalMonocytes (%) (Auto)2019-02-15 02:57:00* Test Item Value Reference Range Interpretation Comments Monocytes (%) (Auto) (test code = 5905-5) 5.4 4.4-11.3 [facility] HospitalEosinophils (%) (Auto)2019-02-15 02:57:00 * Test Item Value Reference Range Interpretation Comments Eosinophils (%) (Auto) (test code = 713-8) 1.3 0.0-6.0 [facility] HospitalBasophils (%) (Auto)2019-02-15 02:57:00* Test Item Value Reference Range Interpretation Comments Basophils (%) (Auto) (test code = 706-2) 0.3 0.0-1.0 [facility] HospitalIM GRANULOCYTES %2019-02-15 02:57:00* Test Item Value Reference Range Interpretation Comments IM GRANULOCYTES % (test code = IM GRANULOCYTES %) 0.3 0.0- 1.0 [facility] HospitalNeutrophils # (Auto)2019-02-15 02:57:00* Test Item Value Reference Range Interpretation Comments Neutrophils # (Auto) (test code = 751-8) 5.5 2.1-6.9 [facility] HospitalLymphocytes # (Auto)2019-02-15 02:57:00* Test Item Value Reference Range Interpretation Comments Lymphocytes # (Auto) (test code = 91599-2) 2.6 1.0-3.2 [facility] HospitalMonocytes # (Auto)2019-02-15 02:57:00* Test Item Value Reference Range Interpretation Comments Monocytes # (Auto) (test code = 742-7) 0.5 0.2-0.8 [facility] HospitalEosinophils # (Auto)2019-02-15 02:57:00* Test Item Value Reference Range Interpretation Comments Eosinophils # (Auto) (test code = 711-2) 0.1 0.0-0.4 [facility] HospitalBasophils # (Auto)2019-02-15 02:57:00* Test Item Value Reference Range Interpretation Comments Basophils # (Auto) (test code = 704-7) 0.0 0.0-0.1 [facility] HospitalAbsolute Immature Granulocyte (auto 2019-02-15 02:57:00* Test Item Value Reference Range Interpretation Comments Absolute Immature Granulocyte (auto (sami t code = Absolute Immature Granulocyte (auto) 0.03 0-0.1 [facility] HospitalWhite Blood Gzulc8347-63-42 02:57:00* Test Item Value Reference Range Interpretation Comments White Blood Count (test code = 6690-2) 8.68 4.8-10.8 [facility] HospitalRed Blood Lbsbr7566-77-31 02:57:00* Test Item Value Reference Range Interpretation Comments Red Blood Count (test code = 789-8) 4.57 3.6-5.1 [facility] HospitalHemoglobin2019-09-28 02:57:00* Test Item Value Reference Range Interpretation Comments Hemoglobin (test code = 07309-4) 13.9 12.0-16.0 [facility] HospitalHematocrit2019-09-28 02:57:00* Test Item Value Reference Range Interpretation Comments Hematocrit (test code = 4544-3) 40.7 34.2-44.1 [facility] HospitalMean Corpuscular Qfozxn2477-76-22 02:57:00* Test Item Value Reference Range Interpretation Comments Mean Corpuscular Volume (test code = 787-2) 89.1 81-99 [facility] HospitalMean Corpuscular Zdlxtsiyym7548-32-55 02:57:00* Test Item Value Reference Range Interpretation Comments Mean Corpuscular Hemoglobin (test code = 785-6) 30.4 28-32 [facility] Hemoglobin Concent 2019-02-15 02:57:00* Test Item Value Reference Range Interpretation Comments Mean Corpuscular Hemoglobin Concent (test code = 786-4) 34.2 31-35 [facility] HospitalRed Cell Distribution Nyhvc9389-38-14 02:57:00* Test Item Value Reference Range Interpretation Comments Red Cell Distribution Width (test code = 16080-8) 12.2 11.7 -14.4 [facility] HospitalPlatelet Oblbi5915-62-63 02:57:00* Test Item Value Reference Range Interpretation Comments Platelet Count (test code = 777-3) 292 140-360 [facility] HospitalNeutrophils (%) (Auto)2019-02-15 02:57:00 * Test Item Value Reference Range Interpretation Comments Neutrophils (%) (Auto) (test code = 93219-6) 62.9 38.7-80.0 [facility] HospitalLymphocytes (%) (Auto)2019-02-15 02:57:00 * Test Item Value Reference Range Interpretation Comments Lymphocytes (%) (Auto) (test code = 736-9) 29.8 18.0-39.1 [facility] HospitalMonocytes (%) (Auto)2019-02-15 02:57:00* Test Item Value Reference Range Interpretation Comments Monocytes (%) (Auto) (test code = 5905-5) 5.4 4.4-11.3 [facility] HospitalEosinophils (%) (Auto)2019-02-15 02:57:00 * Test Item Value Reference Range Interpretation Comments Eosinophils (%) (Auto) (test code = 713-8) 1.3 0.0-6.0 [facility] HospitalBasophils (%) (Auto)2019-02-15 02:57:00* Test Item Value Reference Range Interpretation Comments Basophils (%) (Auto) (test code = 706-2) 0.3 0.0-1.0 [facility] HospitalIM GRANULOCYTES %2019-02-15 02:57:00* Test Item Value Reference Range Interpretation Comments IM GRANULOCYTES % (test code = IM GRANULOCYTES %) 0.3 0.0- 1.0 [facility] HospitalNeutrophils # (Auto)2019-02-15 02:57:00* Test Item Value Reference Range Interpretation Comments Neutrophils # (Auto) (test code = 751-8) 5.5 2.1-6.9 [facility] HospitalLymphocytes # (Auto)2019-02-15 02:57:00* Test Item Value Reference Range Interpretation Comments Lymphocytes # (Auto) (test code = 71509-4) 2.6 1.0-3.2 [facility] HospitalMonocytes # (Auto)2019-02-15 02:57:00* Test Item Value Reference Range Interpretation Comments Monocytes # (Auto) (test code = 742-7) 0.5 0.2-0.8 [facility] HospitalEosinophils # (Auto)2019-02-15 02:57:00* Test Item Value Reference Range Interpretation Comments Eosinophils # (Auto) (test code = 711-2) 0.1 0.0-0.4 [facility] HospitalBasophils # (Auto)2019-02-15 02:57:00* Test Item Value Reference Range Interpretation Comments Basophils # (Auto) (test code = 704-7) 0.0 0.0-0.1 [facility] HospitalAbsolute Immature Granulocyte (auto 2019-02-15 02:57:00* Test Item Value Reference Range Interpretation Comments Absolute Immature Granulocyte (auto (sami t code = Absolute Immature Granulocyte (auto) 0.03 0-0.1 [facility] HospitalUrine Mctg4915-18-49 02:56:00* Test Item Value Reference Range Interpretation Comments Urine Test (test code = 2106-3) NEGATIVE NEGATIVE [facility] HospitalUrine Gkhs9048-75-23 02:56:00* Test Item Value Reference Range Interpretation Comments Urine Test (test code = 2106-3) NEGATIVE NEGATIVE [facility] HospitalUrine MXQ2417-40-01 02:55:00* Test Item Value Reference Range Interpretation Comments Urine WBC (test code = 5821-4) 11-20 0-5 H [facility] HospitalUrine AHM3228-28-69 02:55:00* Test Item Value Reference Range Interpretation Comments Urine RBC (test code = 04462-2) 0-5 0-5 [facility] HospitalUrine Absgbkdv3807-47-21 02:55:00* Test Item Value Reference Range Interpretation Comments Urine Bacteria (test code = 76049-7) MANY NONE H [facility] HospitalUrine Epithelial Xpmsv0160-44-97 02:55:00 * Test Item Value Reference Range Interpretation Comments Urine Epithelial Cells (test code = 98184-1) MANY NONE [facility] HospitalUrine ZQM8129-88-11 02:55:00* Test Item Value Reference Range Interpretation Comments Urine WBC (test code = 5821-4) 11-20 0-5 H [facility] HospitalUrine LLQ5238-69-66 02:55:00* Test Item Value Reference Range Interpretation Comments Urine RBC (test code = 76653-9) 0-5 0-5 [facility] HospitalUrine Axidkbou0521-40-83 02:55:00* Test Item Value Reference Range Interpretation Comments Urine Bacteria (test code = 83863-2) MANY NONE H [facility] HospitalUrine Epithelial Uzzby3618-95-81 02:55:00 * Test Item Value Reference Range Interpretation Comments Urine Epithelial Cells (test code = 02263-8) MANY NONE [facility] HospitalUrine Zymzp6411-17-45 02:54:00* Test Item Value Reference Range Interpretation Comments Urine Color (test code = 5778-6) YELLOW YELLOW [facility] HospitalUrine Svwqqrt5308-17-70 02:54:00* Test Item Value Reference Range Interpretation Comments Urine Clarity (test code = 34432-0) CLEAR CLEAR [facility] HospitalUrine Specific Blibxzg8761-07-39 02:54:00 * Test Item Value Reference Range Interpretation Comments Urine Specific [place] (test code = 5811-5) >=1.030 1.010-1.02 5 [facility] HospitalUrine zZ9222-62-23 02:54:00* Test Item Value Reference Range Interpretation Comments Urine pH (test code = 88352-1) 6 5-7 [facility] HospitalUrine Leukocyte Ubabifpa1557-52-38 02:54:00* Test Item Value Reference Range Interpretation Comments Urine Leukocyte Esterase (test code = 32264-9) TRACE NEGATIV E H [facility] HospitalUrine Cgmehix8243-60-12 02:54:00* Test Item Value Reference Range Interpretation Comments Urine Nitrite (test code = 34447-0) NEGATIVE NEGATIVE [facility] Imiiajf9212-32-14 02:54:00* Test Item Value Reference Range Interpretation Comments Urine Protein (test code = 46052-5) TRACE NEGATIVE H [facility] Glucose (UA)2019-02-15 02:54:00* Test Item Value Reference Range Interpretation Comments Urine Glucose (UA) (test code = 19145-0) NEGATIVE NEGATIVE [facility] Pahwbjm7118-64-04 02:54:00* Test Item Value Reference Range Interpretation Comments Urine Ketones (test code = 31867-7) NEGATIVE NEGATIVE [facility] Cwufbkihqhgc1896-00-52 02:54:00* Test Item Value Reference Range Interpretation Comments Urine Urobilinogen (test code = 92564-9) 0.2 0.2-1 [facility] Xsdvtqmwp4616-51-52 02:54:00* Test Item Value Reference Range Interpretation Comments Urine Bilirubin (test code = 1977-8) NEGATIVE NEGATIVE [facility] Cdgth6076-58-69 02:54:00* Test Item Value Reference Range Interpretation Comments Urine Blood (test code = 04808-0) NEGATIVE NEGATIVE [facility] Xmbce9858-70-64 02:54:00* Test Item Value Reference Range Interpretation Comments Urine Color (test code = 5778-6) YELLOW YELLOW [facility] Xfugvxu0398-39-34 02:54:00* Test Item Value Reference Range Interpretation Comments Urine Clarity (test code = 45685-2) CLEAR CLEAR [facility] HospitalU[facility] Specific Vlzwpzw6724-83-75 02:54:00 * Test Item Value Reference Range Interpretation Comments Urine Specific [place] (test code = 5811-5) >=1.030 1.010-1.02 5 [facility] uG6810-49-83 02:54:00* Test Item Value Reference Range Interpretation Comments Urine pH (test code = 50389-3) 6 5-7 [facility] Leukocyte Mdjfgutu2818-77-46 02:54:00* Test Item Value Reference Range Interpretation Comments Urine Leukocyte Esterase (test code = 96333-1) TRACE NEGATIV E H [facility] Ubinioi7547-68-33 02:54:00* Test Item Value Reference Range Interpretation Comments Urine Nitrite (test code = 57658-7) NEGATIVE NEGATIVE [facility] Jqdgwrb5120-34-79 02:54:00* Test Item Value Reference Range Interpretation Comments Urine Protein (test code = 56422-9) TRACE NEGATIVE H [facility] Glucose (UA)2019-02-15 02:54:00* Test Item Value Reference Range Interpretation Comments Urine Glucose (UA) (test code = 01988-0) NEGATIVE NEGATIVE [facility] Zygpomz1579-76-20 02:54:00* Test Item Value Reference Range Interpretation Comments Urine Ketones (test code = 70827-6) NEGATIVE NEGATIVE [facility] Pvmwmkrpblzy6036-42-05 02:54:00* Test Item Value Reference Range Interpretation Comments Urine Urobilinogen (test code = 27549-9) 0.2 0.2-1 [facility] Itnersolv5535-44-61 02:54:00* Test Item Value Reference Range Interpretation Comments Urine Bilirubin (test code = 1977-8) NEGATIVE NEGATIVE [facility] Voxqr5912-87-02 02:54:00* Test Item Value Reference Range Interpretation Comments Urine Blood (test code = 49428-2) NEGATIVE NEGATIVE [facility] UPZ5292-01-54 23:25:00* Test Item Value Reference Range Interpretation Comments Urine WBC (test code = 5821-4) 11-20 0-5 H [facility] PPT9053-15-08 23:25:00* Test Item Value Reference Range Interpretation Comments Urine RBC (test code = 82096-2) 6-10 0-5 H [facility] Tgdygdwv3165-19-74 23:25:00* Test Item Value Reference Range Interpretation Comments Urine Bacteria (test code = 95856-9) MODERATE NONE H [facility] Epithelial Nnmun1134-47-72 23:25:00 * Test Item Value Reference Range Interpretation Comments Urine Epithelial Cells (test code = 58019-0) MANY NONE [facility] Urzcu2629-29-23 23:25:00* Test Item Value Reference Range Interpretation Comments Urine Mucus (test code = 8247-9) FEW RARE H [facility] Xctma8275-23-03 23:25:00* Test Item Value Reference Range Interpretation Comments Urine Mucus (test code = 8247-9) FEW RARE H [facility] Ikyut3487-80-44 23:25:00* Test Item Value Reference Range Interpretation Comments Urine Mucus (test code = 8247-9) FEW RARE H [facility] Dosiw6724-04-96 23:14:00* Test Item Value Reference Range Interpretation Comments Urine Color (test code = 5778-6) YELLOW YELLOW [facility] Dxckqch6877-06-38 23:14:00* Test Item Value Reference Range Interpretation Comments Urine Clarity (test code = 50593-8) SL CLOUDY CLEAR [facility] Specific Nypfmwp6248-15-07 23:14:00 * Test Item Value Reference Range Interpretation Comments Urine Specific [place] (test code = 5811-5) 1.010 1.010-1.02 5 [facility] xU9230-31-16 23:14:00* Test Item Value Reference Range Interpretation Comments Urine pH (test code = 70877-9) 6.5 5-7 [facility] Leukocyte Drinimbm5906-42-84 23:14:00* Test Item Value Reference Range Interpretation Comments Urine Leukocyte Esterase (test code = 92133-7) NEGATIVE NEGATIV E [facility] Mxwunbg4282-19-62 23:14:00* Test Item Value Reference Range Interpretation Comments Urine Nitrite (test code = 90622-8) NEGATIVE NEGATIVE [facility] Bapagls5768-15-59 23:14:00* Test Item Value Reference Range Interpretation Comments Urine Protein (test code = 10438-0) NEGATIVE NEGATIVE [facility] Glucose (UA)2019-02-11 23:14:00* Test Item Value Reference Range Interpretation Comments Urine Glucose (UA) (test code = 54797-7) NEGATIVE NEGATIVE [facility] Czrrpxv0794-52-70 23:14:00* Test Item Value Reference Range Interpretation Comments Urine Ketones (test code = 42382-1) NEGATIVE NEGATIVE [facility] Ofccyzfjqudq6224-25-01 23:14:00* Test Item Value Reference Range Interpretation Comments Urine Urobilinogen (test code = 15185-6) 0.2 0.2-1 [facility] Zvuslrjhs7907-74-96 23:14:00* Test Item Value Reference Range Interpretation Comments Urine Bilirubin (test code = 1977-8) NEGATIVE NEGATIVE [facility] Fbzqm6580-27-31 23:14:00* Test Item Value Reference Range Interpretation Comments Urine Blood (test code = 80783-3) TRACE NEGATIVE [facility] HospitalCT ABDOMEN/PELVIS L9666-20-25 23:07:00 [facility] [address] [address] Patient Name: BECKIE TEJADA MR #: [id number] : 1995 Age/Sex: 23/F Req #: [id number] Adm Physician: Ordered by: CLAUDIA WALL MD Report #: [id number] Location: ER Room/Bed: Procedure: 0924-[address]/CT ABDOMEN/PELVIS W Exam Date: 02/11/19 Exam Time: 2230 REPORT STATUS: Signed EXAM: CT Abdomen and Pelvis WITH contrast INDICATION: abd pain/ di arrhea, sigficant tenderness, to luq, llq,rlq [id number] Y COMPAR ANATOLY: None. TECHNIQUE: Abdomen and pelvis were scanned utilizing a multidetect or helical scanner from the lung base to the pubic symphysis after administrat ion of IV contrast. Coronal and sagittal reformations were obtained. Dose modu lation, iterative reconstruction, and/or weight based adjustment of the mA/kV was utilized to reduce the radiation dose to as low as reasonably achievable. Routine protocol was performed. Scan was performed when during portal venous phase. IV CONTRAST: 100 mL of Isovue-370 ORAL CONTRAST: None COMPLICATIONS: None RADIATION DOSE: Total DLP: 750.18 mGy*cm Estimated effective dose: (DLP x 0.015 x size factor) mSv CTDIvol has been reviewed. It is below the limits set by the Radiation Fatem[place] col Committee (RPC). FINDINGS: LINES and TUBES: None. LOWER THORA X: Unremarkable HEPATOBILIARY: Hepatic steatosis. Ill-defined hyperdensit y in right hepatic lobe, measuring approximately 1.4 cm (series 2, image 20), could represent vascular shunting or focal fatty sparing. No biliary ductal di lation. GALLBLADDER: Surgically absent. SPLEEN: Borderline splenomega ly. PANCREAS: No focal masses or ductal dilatation. ADRENALS: No ad renal nodules KIDNEYS/URETERS: Kidneys enhance symmetrically. No hydro nephrosis. No cystic or solid mass lesions. No stones. GI TRACT: No abno rmal distention, wall thickening, or evidence of bowel obstruction. Focal per icolonic fat stranding in left upper quadrant (series 2, image 42) with questi onable fat density peripherally enhancing lesion. Appendix is normal. PEL JOHANNY ORGANS/BLADDER: IUD in place which is in the mid to lower uterine segment. Bladder is collapsed. LYMPH NODES: No lymphadenopathy. VESSELS: Unrem arkable. PERITONEUM / RETROPERITONEUM: No free air or fluid. BONES: Un remarkable. SOFT TISSUES: Unremarkable. IMPRESSION: 1. Pericolonic fat stranding at splenic flexure, likely due to epiploic appendag itis. 2. Enlarged steatotic liver. Ill-defined hyperdensity in right hepati c lobe, could represent vascular shunting or focal fatty sparing. Nonurgent ri ght upper quadrant ultrasound can be obtained for evaluation. 3. IUD in mindi ce which is in the mid to lower uterine segment. Signed by: Dr. Dread lee MD on 02/11/2019 11:17 PM Dictated By: DREAD MELVIN MD Electronicall y Signed By: DREAD MELVIN MD on 02/11/192316 Transcribed By: RACHELE on 02/11 COPY TO: CLAUDIA WALL MD Amylase Level 2019-02-11 22:19:00* Test Item Value Reference Range Interpretation Comments Amylase Level (test code = 1798-8) 49 25-125 [facility] HospitalLipase2019-09-24 22:19:00* Test Item Value Reference Range Interpretation Comments Lipase (test code = 3040-3) 40 -78 [facility] HospitalAmylase Avtac8101-00-61 22:19:00* Test Item Value Reference Range Interpretation Comments Amylase Level (test code = 1798-8) 49 25-125 [facility] HospitalLipase2019-09-24 22:19:00* Test Item Value Reference Range Interpretation Comments Lipase (test code = 3040-3) 40 8-78 [facility] HospitalAmylase Rxzga0829-64-69 22:19:00* Test Item Value Reference Range Interpretation Comments Amylase Level (test code = 1798-8) 49 25-125 [facility] HospitalLipase2019-09-24 22:19:00* Test Item Value Reference Range Interpretation Comments Lipase (test code = 3040-3) 40 8-78 [facility] Gyfwo1368-60-23 22:18:00* Test Item Value Reference Range Interpretation Comments Sodium Level (test code = 2951-2) 138 136-145 [facility] HospitalPotassium Drdmi2812-71-45 22:18:00* Test Item Value Reference Range Interpretation Comments Potassium Level (test code = 2823-3) 3.4 3.5-5.1 L [facility] HospitalChloride Unaho4689-06-41 22:18:00* Test Item Value Reference Range Interpretation Comments Chloride Level (test code = 2075-0) 104 98-107 [facility] HospitalCarbon Dioxide Rnwzw5395-30-55 22:18:00* Test Item Value Reference Range Interpretation Comments Carbon Dioxide Level (test code = 2028-9) 24 22-29 [facility] HospitalAnion Dro1236-55-24 22:18:00* Test Item Value Reference Range Interpretation Comments Anion Gap (test code = 39841-5) 13.4 8-16 [facility] HospitalBlood Urea Kwojsxis7409-75-35 22:18:00* Test Item Value Reference Range Interpretation Comments Blood Urea Nitrogen (test code = 3094-0) 9 7-26 [facility] HospitalCreatinine2019-09-24 22:18:00* Test Item Value Reference Range Interpretation Comments Creatinine (test code = 2160-0) 0.85 0.57-1.11 [facility] HospitalBUN/Creatinine Umlzx7851-29-47 22:18:00* Test Item Value Reference Range Interpretation Comments BUN/Creatinine Ratio (test code = 3097-3) 11 6-25 [facility] HospitalEstimat Glomerular Filtration Rate 2019-02-11 22:18:00* Test Item Value Reference Range Interpretation Comments Estimat Glomerular Filtration Rate (test code = 222527637) > 60 >60 Ranges were taken from the National Kidney Disease Education Program and the [facility] Kidney Foundation literature.Reference ranges:60 or greater: Qrgmuu24-49 ( for 3 consecutive months): Chronic kidney disease 15 or less: Kidney failureAudie L. Murphy Memorial VA HospitalGlucose Ifqyo7119-45-61 22:18:00* Test Item Value Reference Range Interpretation Comments Glucose Level (test code = EAB7165) 108 74-118 [facility] HospitalCalcium Kqkde0603-06-03 22:18:00* Test Item Value Reference Range Interpretation Comments Calcium Level (test code = 78102-0) 9.8 8.4-10.2 [facility] HospitalTotal Sdzwsvzrm5914-02-37 22:18:00* Test Item Value Reference Range Interpretation Comments Total Bilirubin (test code = 1975-2) 1.0 0.2-1.2 [facility] HospitalAspartate Amino Transf (AST/SGOT) 2019-02-11 22:18:00* Test Item Value Reference Range Interpretation Comments Aspartate Amino Transf (AST/SGOT) (test code = Aspartate Amino Transf (AST/SGOT)) 60 5-34 H [facility] HospitalAlanine Aminotransferase (ALT/SGPT) 2019-02-11 22:18:00* Test Item Value Reference Range Interpretation Comments Alanine Aminotransferase (ALT/SGPT) (test code = 1742-6) 92 0-55 H [facility] HospitalTotal Wgdfkpq7980-87-42 22:18:00* Test Item Value Reference Range Interpretation Comments Total Protein (test code = 2885-2) 7.6 6.5-8.1 [facility] HospitalAlbumin2019-09-24 22:18:00* Test Item Value Reference Range Interpretation Comments Albumin (test code = 1751-7) 3.9 3.5-5.0 [facility] HospitalGlobulin2019-09-24 22:18:00* Test Item Value Reference Range Interpretation Comments Globulin (test code = 38967-8) 3.7 2.3-3.5 H [facility] HospitalAlbumin/Globulin Lonoh8001-92-28 22:18:00 * Test Item Value Reference Range Interpretation Comments Albumin/Globulin Ratio (test code = 1759-0) 1.1 0.8-2.0 [facility] HospitalAlkaline Imoklccgqpo5074-68-39 22:18:00* Test Item Value Reference Range Interpretation Comments Alkaline Phosphatase (test code = 6768-6) 95 40-150 [facility] HospitalHunew [place] Chorionic Gonadotropin, Qual 2019-02-11 22:11:00* Test Item Value Reference Range Interpretation Comments Human Chorionic Gonadotropin, Qual (test code = 2118-8) NEGATIVE NEGATIVE [facility] Chorionic Gonadotropin, Qual 2019-02-11 22:11:00* Test Item Value Reference Range Interpretation Comments Human Chorionic Gonadotropin, Qual (test code = 2118-8) NEGATIVE NEGATIVE [facility] Chorionic Gonadotropin, Qual 2019-02-11 22:11:00* Test Item Value Reference Range Interpretation Comments Human Chorionic Gonadotropin, Qual (test code = 2118-8) NEGATIVE NEGATIVE [facility] HospitalWhite Blood Huchw4699-05-38 21:53:00* Test Item Value Reference Range Interpretation Comments White Blood Count (test code = 6690-2) 8.83 4.8-10.8 [facility] HospitalRed Blood Bpvto6130-33-58 21:53:00* Test Item Value Reference Range Interpretation Comments Red Blood Count (test code = 789-8) 4.30 3.6-5.1 [facility] HospitalHemoglobin2019-09-24 21:53:00* Test Item Value Reference Range Interpretation Comments Hemoglobin (test code = 45175-3) 13.2 12.0-16.0 [facility] HospitalHematocrit2019-09-24 21:53:00* Test Item Value Reference Range Interpretation Comments Hematocrit (test code = 4544-3) 37.7 34.2-44.1 [facility] HospitalMean Corpuscular Cdrali9061-27-57 21:53:00* Test Item Value Reference Range Interpretation Comments Mean Corpuscular Volume (test code = 787-2) 87.7 81-99 [facility] HospitalMean Corpuscular Bsqamzvhts2350-56-88 21:53:00* Test Item Value Reference Range Interpretation Comments Mean Corpuscular Hemoglobin (test code = 785-6) 30.7 28-32 [facility] HospitalMean Corpuscular Hemoglobin Concent 2019-02-11 21:53:00* Test Item Value Reference Range Interpretation Comments Mean Corpuscular Hemoglobin Concent (test code = 786-4) 35.0 31-35 [facility] HospitalRed Cell Distribution Kxesb2247-59-78 21:53:00* Test Item Value Reference Range Interpretation Comments Red Cell Distribution Width (test code = 36428-6) 12.2 11.7 -14.4 [facility] HospitalPlatelet Bvflx0585-43-83 21:53:00* Test Item Value Reference Range Interpretation Comments Platelet Count (test code = 777-3) 276 140-360 [facility] HospitalNeutrophils (%) (Auto)2019-02-11 21:53:00 * Test Item Value Reference Range Interpretation Comments Neutrophils (%) (Auto) (test code = 12362-5) 58.9 38.7-80.0 [facility] HospitalLymphocytes (%) (Auto)2019-02-11 21:53:00 * Test Item Value Reference Range Interpretation Comments Lymphocytes (%) (Auto) (test code = 736-9) 33.2 18.0-39.1 [facility] HospitalMonocytes (%) (Auto)2019-02-11 21:53:00* Test Item Value Reference Range Interpretation Comments Monocytes (%) (Auto) (test code = 5905-5) 5.9 4.4-11.3 [facility] HospitalEosinophils (%) (Auto)2019-02-11 21:53:00 * Test Item Value Reference Range Interpretation Comments Eosinophils (%) (Auto) (test code = 713-8) 1.2 0.0-6.0 [facility] HospitalBasophils (%) (Auto)2019-02-11 21:53:00* Test Item Value Reference Range Interpretation Comments Basophils (%) (Auto) (test code = 706-2) 0.5 0.0-1.0 [facility] HospitalIM GRANULOCYTES %2019-02-11 21:53:00* Test Item Value Reference Range Interpretation Comments IM GRANULOCYTES % (test code = IM GRANULOCYTES %) 0.3 0.0- 1.0 [facility] HospitalNeutrophils # (Auto)2019-02-11 21:53:00* Test Item Value Reference Range Interpretation Comments Neutrophils # (Auto) (test code = 751-8) 5.2 2.1-6.9 [facility] HospitalLymphocytes # (Auto)2019-02-11 21:53:00* Test Item Value Reference Range Interpretation Comments Lymphocytes # (Auto) (test code = 01807-9) 2.9 1.0-3.2 [facility] HospitalMonocytes # (Auto)2019-02-11 21:53:00* Test Item Value Reference Range Interpretation Comments Monocytes # (Auto) (test code = 742-7) 0.5 0.2-0.8 [facility] HospitalEosinophils # (Auto)2019-02-11 21:53:00* Test Item Value Reference Range Interpretation Comments Eosinophils # (Auto) (test code = 711-2) 0.1 0.0-0.4 [facility] HospitalBasophils # (Auto)2019-02-11 21:53:00* Test Item Value Reference Range Interpretation Comments Basophils # (Auto) (test code = 704-7) 0.0 0.0-0.1 [facility] HospitalAbsolute Immature Granulocyte (auto 2019-02-11 21:53:00* Test Item Value Reference Range Interpretation Comments Absolute Immature Granulocyte (auto (sami t code = Absolute Immature Granulocyte (auto) 0.03 0-0.1 [facility] HospitalCHEM AMCLW9830-77-25 16:50:0094[facility] HermannCHEM GJRPG8560-22-05 16:50:008[facility] HermannCHEM GXTRG8885-49-80 16:50:000.70[facility] HermannCHEM KBJNF8791-59-27 16:50:82299Ghvuhlbm HermannCHEM GFTJZ9885-54-50 16:50:003.7[facility] HermannCHEM POZAE7979-48-33 16:50:00446 [facility]annCHEM RDFFE1174-39-81 16:50:0024Mem[facility] HermannCHEM PANEL 2019-02-11 16:50:009.0[facility] HermannCHEM YRZGC7077-64-45 16:50:32412Ghxrmwzl HermannCHEM THUPN0181-89-00 16:50:0012.7[facility] ShevnskFMYRMGWNQZFOA4085-15-80 16:50:00Negative *NA*(02/11/19 11:50 AM)[facility] DqaxcmsXOSMSPLUGP6260-40-98 16:50:007.3[facility] PlhvimhDREQKZDOFA2506-27-87 16:50:004.50[facility] [place] YLJXHOFGXL3797-51-82 16:50:0013.6[facility]orial DbbylhhOZXEQGSFCM6030-91-77 16:50:00 40.7Memorial YawhcgjZYPUJWTMPA9676-74-55 16:50:0090.4[facility] HermannHEMATOLOGY 2019-02-11 16:50:00* Test Item Value Reference Range Interpretation Comments MCH (test code = MCH) 30.2 pg 27.0-31.0 Memorial MabkbnrDCSHPMMXNG8475-27-83 16:50:0033.4[facility] HermannHEMATOLOGY 2019-02-11 16:50:0012.3[facility] CrrozlmDUUOQUFOSD5237-31-39 16:50:13940Hdnbbwac FxdqjqpOKTWRHETEN1400-67-06 16:50:008.7[facility] AghkmhmMRAOSSMEGY6761-29-86 16:50:0064.0[facility] OxhlbwnDUJUZBGIFR9429-62-64 16:50:0029.0[facility] TLUYSCDKFS5729-60-39 16:50:005.4[facility] PpbqnzzUBGBRRCYER5739-43-91 16:50:001.6 Memorial OohotezOAJAHGMYXX6407-88-72 16:50:000.0[facility] HermannHEMATOLOGY 2019-02-11 16:50:004.7[facility] GajnduvTLEJTCDWKY1379-02-77 16:50:002.1[facility] NujstpfUNXDBHTGNL0009-36-26 16:50:000.4[facility] PgzogveWLPZRDKTEP0826-83-67 16:50:000.1[facility]orial YynegzmWDQBHOEIQC7605-67-79 16:50:000.0[facility] STREPTOCOCCUS PCR DYYLGV7741-65-72 15:42:00* Test Item Value Reference Range Interpretation Comments STREPTOCOCCUS DYSGALACTIAE (test code = STREPGC) NEGATIVE FOR G/C N EGATIVE STREPA MOLECULAR (test code = STREPAMOL) NEGATIVE FOR GRP A NEGATIV E - CT NECK W/FPCSGIEC6416-93-73 01:59:00 Name: BECKIE TEJADA [facility] : 1995 Age/S: 23 / F [address] [facility] Unit #: [id number] Loc: [place] [address] Phys: Kvng Gold MD Acct: [id number] Dis Date: Status: REG ER PHONE #: [phone] Exam Date: 01/18/2019 0140 FAX #: [phone] Reason: difficulty breathing, throat pain EXAMS: CPT CODE: [id number] CT NECK W/CONTRAST 74081 Location: T 18 CT neck, 01/18/19 TECHNIQUE: [...] 1 Signed Report (CONTINUED) Name: BECKIE TEJADA [facility] : 1995 Age/S: 23 / F [address] [facility] Unit #: [id number] Loc: [place] [address] Phys: Kvng Gold MD Acct: [id number] Dis Date: Status: REG ER PHONE #: [phone] Exam Date: 01/18/2019 0140 FAX #: [phone] Reason: difficulty breathing, throat pain EXAMS: CPT CODE: [id number] NECK W/CONTRAST 37381 <Continued> at 0159 Re ported and signed by: Ashly Bedolla M.D. CC: Kvng Gold MD Technologist: RT GUERA CTDI: DLP: Trnscb Date/Time: 01/18 (0159) [email or web address] Orig Print D/T: S: 01/18/2019 (020 3) PAGE 2 Signed Report B-TYPE NATRIURETIC KFZLIQK7475-87-19 01:04:00* Test Item Value Reference Range Interpretation Comments B-TYPE NATRIURETIC PEPTIDE (test code = BNP) 27.57 pgram/mL 0-100 N MONO KYTCFH8859-30-84 00:58:00* Test Item Value Reference Range Interpretation Comments MONO SCREEN (test code = MONO) POSITIVE NEGATIVE A BASIC METABOLIC CBHOS8636-69-64 00:36:00* Test Item Value Reference Range Interpretation Comments SODIUM (test code = NA) 141 mmol/L 136-145 N POTASSIUM (test code = K) 3.6 mmol/L 3.5-5.1 N CHLORIDE (test code = CL) 108.0 mmol/L 98-107 H CARBON DIOXIDE (test code = CO2) 25.0 mmol/L 21-32 N ANION GAP (test code = GAP) 11.6 10-20 N GLUCOSE (test code = GLU) 95 mg/dL 74-106 N BLOOD UREA NITROGEN (test code = BUN) 8 mg/dL 7-18 N GLOMERULAR FILTRATION RATE (test code = GFR) > 60 mL/min >=60 Estimated GFR by using Modified MDRD formula.Chronic kidney disease is defined as either kidney damageor GFR <60 mL/min/1.73 m2 for >3 months. CREATININE (test code = CREAT) 0.70 mg/dL 0.55-1.02 N Note change in reference range due to change in reagent. BUN/CREATININE RATIO (test code = BUN/CREA) 10.8 10-20 N CALCIUM (test code = CA) 9.3 mg/dL 8.5-10.1 N HCG SERUM IDAR5122-63-33 00:36:00* Test Item Value Reference Range Interpretation Comments HCG SERUM QUAL (test code = HCGQL) NEGATIVE NEGATIVE This HCGQL test is NOT applicable for MALE patients.Check with nurse about probable order error.If Tumor Marker Test needed, nurse should order test "HCGTU"(Test #550.94801) QXSINDOY-[id number] 00:36:00* Test Item Value Reference Range Interpretation Comments TROPONIN-I (test code = TROPI) <0.015 ng/mL 0-0.045 N D-FLBIA3835-50DEGPX3177-75-19 00:35:00* Test Item Value Reference Range Interpretation Comments D-DIMER (test code = DDIMER) 84.00 ng/mLFEU 0-500 N Clinical Cut-off value for D-Dimer is 500 ng/mL FEU. Comment: The [employer] D-Dimer assay is intended for use asan aid in the diagnosis of venous thromboembolism (VTE)[deep vein thrombosis (DVT) or pulmonary embolism (PE)].The measurement of D-Dimer should not be used as an aid inthe diagnosis of VTE, in patient with: -Therapeutic dose anticoagulant therapy for >24 hours -Fibrinolytic therapy within previous 7 days -Trauma or surgery within previous 4 weeks -Disseminated malignancies -Aortic aneurysm -Sepsis, severe infections, pneumonia, severe skin infections -Liver cirrhosis - BASIC METABOLIC [id number] 00:33:00* Test Item Value Reference Range Interpretation Comments SODIUM (test code = NA) 141 mmol/L 136-145 N POTASSIUM (test code = K) 3.6 mmol/L 3.5-5.1 N CHLORIDE (test code = CL) 108.0 mmol/L 98-107 H CARBON DIOXIDE (test code = CO2) mmol/L 21-32 ANION GAP (test code = GAP) 10-20 GLUCOSE (test code = GLU) mg/dL 74-106 BLOOD UREA NITROGEN (test code = BUN) mg/dL 7-18 GLOMERULAR FILTRATION RATE (test code = GFR) mL/min >=60 CREATININE (test code = CREAT) mg/dL 0.55-1.02 BUN/CREATININE RATIO (test code = BUN/CREA) 10-20 CALCIUM (test code = CA) mg/dL 8.5-10.1 HCG SERUM [id number] 00:33:00* Test Item Value Reference Range Interpretation Comments HCG SERUM QUAL (test code = HCGQL) NEGATIVE NEGATIVE This HCGQL test is NOT applicable for MALE patients.Check with nurse about probable order error.If Tumor Marker Test needed, nurse should order test "HCGTU"(Test #550.96157) [id number] 00:33:00* Test Item Value Reference Range Interpretation Comments TROPONIN-I (test code = TROPI) ng/mL 0-0.045 BASIC METABOLIC [id number] 00:29:00* Test Item Value Reference Range Interpretation Comments SODIUM (test code = NA) 141 mmol/L 136-145 N POTASSIUM (test code = K) 3.6 mmol/L 3.5-5.1 N CHLORIDE (test code = CL) 108.0 mmol/L 98-107 H CARBON DIOXIDE (test code = CO2) mmol/L 21-32 ANION GAP (test code = GAP) 10-20 GLUCOSE (test code = GLU) mg/dL 74-106 BLOOD UREA NITROGEN (test code = BUN) mg/dL 7-18 GLOMERULAR FILTRATION RATE (test code = GFR) mL/min >=60 CREATININE (test code = CREAT) mg/dL 0.55-1.02 BUN/CREATININE RATIO (test code = BUN/CREA) 10-20 CALCIUM (test code = CA) mg/dL 8.5-10.1 HCG SERUM [id number] 00:29:00* Test Item Value Reference Range Interpretation Comments HCG SERUM QUAL (test code = HCGQL) NEGATIVE [id number] 00:29:00* Test Item Value Reference Range Interpretation Comments TROPONIN-I (test code = TROPI) ng/mL 0-0.045 CBC W/O [id number] 00:18:00* Test Item Value Reference Range Interpretation Comments WHITE BLOOD CELL (test code = WBC) 9.1 K/mm3 4.5-12.5 N RED BLOOD CELL (test code = RBC) 4.49 mill/mm3 3.7-5.2 N HEMOGLOBIN (test code = HGB) 13.5 gram/dL 11.5-15.5 N HEMATOCRIT (test code = HCT) 40.3 % 36.0-46.0 N MEAN CELL VOLUME (test code = MCV) 89.8 fL 80-98 N MEAN CELL HGB (test code = MCH) 30.1 picogram 27.0-33.0 N MEAN CELL HGB CONCETRATION (test code = MCHC) 33.5 gram/dL 33.0-36. 0 N RED CELL DISTRIBUTION WIDTH (test code = RDW) 12.2 % 11.6-16. 2 N PLATELET COUNT (test code = PLT) 289 K/mm3 150-450 N MEAN PLATELET VOLUME (test code = MPV) 10.4 fL 6.7-11.0 N - XR CHEST 1 [id number] 23:26:00 FAX: Kvng Gold MD [phone] [place]: St: PRE Name: BECKIE ABDALLA [facility] : [birth year] Age/S: 23/F [address] [facility] Unit #: [id number] Loc: PERICO Fuchs [address] Phys: Kvng Gold MD Acct: [id number] Dis Date: Status: PRE ER PHONE #: [phone] Exam Date: 01/17/2019 2312 FAX #: [phone] Reason: Shortness of Breath EXAMS: CPT CODE: [id number] XR CHEST 1 V 61724 EXAM: - XR CHEST 1 V HISTORY: Shortness of breath. COMPARISON: None available time of interpretation. FINDINGS: Single AP view of the [place]yan[place] [facility] is provided. Heart size and vascularity are within normal limits. The lungs are clear of focal consolidation. No effusion, pneumothorax, or acute osseous abnormality. IMPRESSION: No rad iographic evidence of acute cardiopulmonary process. at 4547 Repor mirlande and signed by: Bobby Barber MD CC: Kvng Gold MD Technologist: Sean Brennan RT(R) Trnscrd Date/Time/By: 01/17/2019 (8890) : By: Avtar [email or web address] Orig Print D/T: S: 01/17/2019 (6639) PAGE [address] ABDOMEN AND PELVIS W/O [id number] 00:30:26CT abdomen and pelvis without contrastLocation Code: [id number] HISTORY: [id number]: Right flank painCOMPARISON: NoneTechnique: Helical CT of [...] sonography/gynecology consultationAdditional findings detailed ab oveCOMPREHENSIVE METABOLIC [id number] 00:02:00* Test Item Value Reference Range Interpretation Comments GLUCOSE (test code = 06D) 86 mg/dL 75-100 SODIUM (test code = 01A) 141 mmol/L 136-145 POTASSIUM (test code = 01B) 3.5 mmol/L 3.6-5.1 L CHLORIDE (test code = 04A) 109 mmol/L 98-107 H CO2 (test code = 02A) 25 mmol/L 22-32 ANION GAP (test code = ANG) 10.5 mmol/L BUN (test code = 05D) 8 mg/dL 7-18 CREATININE (test code = 03E) 0.8 mg/dL 0.4-1.1 BUN/CREA (test code = BCR) 10 12-20 L CALCIUM (test code = 09D) 9.0 mg/dL 8.3-9.5 BILI TOTAL (test code = 11A) 0.5 mg/dL 0.2-1.0 PROTEIN (test code = 07D) 7.9 g/dL 6.4-8.2 ALBUMIN (test code = 08D) 4.1 g/dL 3.5-4.8 GLOBULIN (test code = GLB) 3.8 g/dL 1.5-3.8 ALB/GLOB (test code = AGRR) 1.1 1.0-2.6 ALK PHOS (test code = 35A) 103 IU/L 42-121 AST (test code = 30A) 61 IU/L <=42 H ALT (test code = 31A) 111 IU/L <=78 H [id number] 00:02:00* Test Item Value Reference Range Interpretation Comments AMYLASE (test code = 10A) 51 U/L 28-100 URINALYSIS WITH [id number] 23:58:00* Test Item Value Reference Range Interpretation Comments COLOR (test code = COLU) YELLOW YELLOW CLARITY (test code = CLA) HAZY CLEAR A GLUCOSE UR (test code = UA GLUCOSE) NEGATIVE NEGATIVE BILI UR (test code = BILE) NEGATIVE NEGATIVE KETONES UR (test code = MILLIE) NEGATIVE NEGATIVE SP GRAVITY (test code = SPGR) 1.024 1.005-1.030 PH UR (test code = PH) 6.0 4.5-8.0 PROTEIN UR (test code = PU) TRACE NEGATIVE A UROBIL UR (test code = UROQ) 0.2 EU/dL 0.2-1.0 NITRITE UR (test code = NITRITE) NEGATIVE NEGATIVE BLOOD UR (test code = UA BLOOD) TRACE NEGATIVE A LEUK ES UR (test code = LEUK) 1+ NEGATIVE A WBC UR (test code = UWBC) 5 /HPF 0-5 RBC UR (test code = URBC) 2 /HPF 0-2 EPITH UR (test code = UEPC) FEW /LPF FEW BACTERIA UR (test code = UBACT) FEW /HPF NONE A CAST UR (test code = CAST) /LPF NONE CRYSTAL UR (test code = CRYU) CALCIUM OXALATE MANY / LPF NONE A MUCUS UR (test code = MUC) / HPF NONE AMORPH UR (test code = JAGJIT) / HPF NONE TRICH UR (test code = UTRICH) /HPF NONE YEAST UR (test code = UY) /HPF NONE SPERM UR (test code = USPERM) /HPF NONE LIPASE [id number] 23:56:00* Test Item Value Reference Range Interpretation Comments LIPASE (test code = 60A) 210 IU/L 73-393 URINE [id number] 23:50:00* Test Item Value Reference Range Interpretation Comments PREG UR (test code = PGU) NEGATIVE NEGATIVE CBC (INCLUDES AUTOMATED DIFFERENTIAL)2018-11-15 23:47:00* Test Item Value Reference Range Interpretation Comments WBC (test code = WBC) 9.6 10\\S\\3/uL 4.5-11.0 RBC (test code = RBC) 4.33 10\\S\\6/uL 4.30-5.70 HGB (test code = HBG) 13.3 g/dL 12.0-15.5 HCT (test code = HCT) 38.3 % 35.0-44.0 MCV (test code = MCV) 88.5 fL 81.0-99.0 MCH (test code = MCH) 30.7 pg 27.0-31.0 MCHC (test code = MCHC) 34.7 g/dL 32.0-36.0 RDW (test code = RDW) 12.4 % 11.5-14.5 PLT (test code = PLT) 301 10\\S\\3/uL 130-400 MPV (test code = MPV) 10.4 fL 9.4-12.4 NEUTROP # (test code = NE#) 5.6 10\\S\\3/uL 1.6-8.0 LYMPH # (test code = LY#) 3.1 10\\S\\3/uL 1.1-3.5 MONOCYTE # (test code = MO#) 0.6 10\\S\\3/uL 0.0-1.1 EOSINOPH # (test code = EO#) 0.1 10\\S\\3/uL 0.0-0.7 BASOPHIL # (test code = BA#) 0.0 10\\S\\3/uL 0.0-0.3 IG # (test code = IG#) 0.06 10\\S\\3/uL 0.00-0.06 NRBC # (test code = NRBC#) 0.00 10\\S\\3/uL 0.00-0.01 NEUTROPH % (test code = NE%) 58.5 % 35.0-73.0 LYMPH % (test code = LY%) 32.8 % 20.0-55.0 MONO % (test code = MO%) 6.3 % 2.5-10.0 EOSINOPH % (test code = EO%) 1.4 % 0.0-5.0 BASOPHIL % (test code = BA%) 0.4 % 0.0-2.0 IG % (test code = IG%) 0.6 % 0.0-0.8 NRBC% (test code = NRBC%) 0.0 % 0.0-0.2 MANDIFF (test code = MDIFF) NO NO RBC MORPH (test code = RBCMOR) NORMAL XR SPINE LUMBAR AP & [id number] 15:25:00Dictation location D4 Lumbar Spine 3 viewsHISTORY: Low back painCOMMENT: There are 5 nonrib-bearing lumbar vertebral bodies. There isnormal lumbar lordosis with preservation of normal vertebral body alignment,vertebral body height, and intervertebral disc space distance. Nospondylolysis, or spondylolisthesis is visualized. There is no evidence offracture or dislocation. IMPRESSION: Normal lumbar spine.CT STONE PROTOCOL STUDY*GP*2018-10-03 17:01:46Exam: Stone protocol CT abdomen and pelvis.Location: D4.History: [id number]: Right lower quadrant painTechnique: Unenhanced spiral slices [...] 2018-10-03 16:57:00* Test Item Value Reference Range Interpretation Comments PREG UR (test code = PGU) NEGATIVE NEGATIVE COMPREHENSIVE METABOLIC LITTLE *GP* [id number] 16:48:00* Test Item Value Reference [place] Interpretation Comments ALBUMIN (test code = GALB) 3.7 g/dL 3.5-5.5 ALK PHOS (test code = GALP) 81 U/L 42-141 ALT (test code = GALT) 87 U/L 10-47 H AST (test code = JAQUI) 73 U/L 11-38 H BUN (test code = GBUN) 9 mg/dL 7-22 CALCIUM (test code = GCL+) 9.2 mg/dL 8.0-10.3 CHLORIDE (test code = GCL-) 106 mmol/L 98-108 CREATININE (test code = GCRE) 0.5 mg/dL 0.6-1.2 L GLUCOSE (test code = GGUL) 112 mg/dL 73-118 POTASSIUM (test code = GK+) 3.9 mmol/L 3.6-5.1 SODIUM (test code = GNA+) 136 mmol/L 128-145 BILI TOTAL (test code = GTBIL) 0.8 mg/dL 0.2-1.6 TCO2 (test code = GTC02) 28 mmol/L 18-33 PROTEIN (test code = GTP) 7.4 g/dL 6.4-8.1 URINALYSIS W/O MICROSCOPICGP2018-10-03 16:21:00* Test Item Value Reference Range Interpretation Comments COLOR (test code = COLU) DK YELLOW YELLOW A CLARITY (test code = CLA) CLOUDY CLEAR A GLUCOSE UR (test code = UA GLUCOSE) Negative NEGATIVE BILI UR (test code = BILE) Negative NEGATIVE KETONES UR (test code = MILLIE) Trace NEGATIVE SP GRAVITY (test code = SPGR) >=1.030 1.005-1.030 PH UR (test code = PH) 6.0 4.5-8.0 PROTEIN UR (test code = PU) Negative NEGATIVE NITRITE UR (test code = NITRITE) Negative NEGATIVE UROBIL UR (test code = GUROQ) 0.2 E.U./dL UROBIL UR (test code = GUROQC) UROBILINOGEN REFE RENCE RANGE 0.2 - 1.0 EU/dL BLOOD UR (test code = UA BLOOD) Trace-lysed NEGATIVE LEUK ES UR (test code = LEUK) Negative NEGATIVE CBC (INCLUDES AUTOMATED DIFFERENTIAL) *2018-10-03 16:20:00* Test Item Value Reference Range Interpretation Comments WBC (test code = WBC) 8.2 10\\S\\3/uL 4.5-11.0 RBC (test code = RBC) 4.59 10\\S\\6/uL 4.30-5.70 HGB (test code = HBG) 13.7 g/dL 12.0-15.5 HCT (test code = HCT) 39.2 % 35.0-44.0 MCV (test code = MCV) 85.4 fL 81.0-99.0 MCH (test code = GMCH) 29.8 pg 27.0-31.0 MCHC (test code = MCHC) 34.8 g/dL 32.0-36.0 RDW (test code = RDW) 12.7 % 11.5-14.5 PLT (test code = PLT) 254 10\\S\\3/uL 130-400 NEUTROP # (test code = NE#) 5.5 10\\S\\3/uL 1.6-8.0 LYMPH # (test code = LY#) 2.2 10\\S\\3/uL 1.1-3.5 MID # (test code = GMID#) 0.5 10\\S\\3/uL 0.0-1.1 GRA % (test code = GRA%) 66.4 % 35.0-73.0 LYMPH % (test code = GLY%) 26.7 % 20.0-55.0 MID % (test code = GMID%) 6.9 % 0.0-10.0 TISSUE [id number] 16:33:00Surgical Pathology Report Case: [id number] Authorizing Provider: Stanislav Zarate, Collected: 07/17/2018 1015 Ordering Location: [facility] Received: 07/17/2018 1037 SERVICES Pathologist: Azeb Goodrich MD Specimen: Gallbladder, gallbladder GALLBLADDER, CHOLECYSTECTOMY: - MILD CHRONIC CHOLECYSTITIS WITH FOCAL INTESTINAL METAPLASIA - NO DYSPLASIA OR MALIGNANCY IS IDENTIFIED - CHOLELITHIASIS - ONE REACTIVE LYMPH NODEMG/pl Signing Pathologist Direct Phone Line: [phone] signed by Azeb Goodrich MD on 07/18/2018 at 4:33 [id number] Gallbladder The specimen is received in fixative and designated as "gallbladder" and consists of a pink-waggoner cholecystectomy specimen (7.0 x 3.5 x 3.0 cm). The gallbladder is filled with green viscous fluid and contains multiple yellow gallstones ranging in size from 0.5 to 0.7 cm in greatest dimension. The gallbladder mucosa is waggoner and velvety with no discrete lesions identified. Barber Shop Operator sections of the gallbladder mucosa and cystic duct are submitted into A1. MG/pl Performed [facility], Department of Pathology, [address] [place], [place] [address], [facility], Department of Pathology, [address] [place] [address], [facility], Department of [facility], [address] [place] [address], VRU W/PLT COUNT & AUTO [id number] 08:16:00* Test Item Value Reference [place] Interpretation Comments WHITE BLOOD CELL COUNT (BEAKER) (test code = 775) 9.4 K/ L 4.0- 10.0 RED BLOOD CELL COUNT (BEAKER) (test code = 761) 4.83 M/ L 4.00-5 .00 HEMOGLOBIN (BEAKER) (test code = 410) 14.2 GM/DL 12.0-15.5 HEMATOCRIT (BEAKER) (test code = 411) 43.4 % 36.0-46.0 MEAN CORPUSCULAR VOLUME (BEAKER) (test code = 753) 89.9 fL 82. 0-99.0 MEAN CORPUSCULAR HEMOGLOBIN (BEAKER) (test code = 751) 29.4 pg 27.0-33.0 MEAN CORPUSCULAR HEMOGLOBIN CONC (BEAKER) (test code = 752) 32.7 GM/DL 32.0-36.0 RED CELL DISTRIBUTION WIDTH (BEAKER) (test code = 412) 12.7 % 12.0-15.0 PLATELET COUNT (BEAKER) (test code = 756) 307 K/CU MM 150-430 MEAN PLATELET VOLUME (BEAKER) (test code = 754) 10.3 fL 6.0-11 .5 NUCLEATED RED BLOOD CELLS (BEAKER) (test code = 413) 0 /100 WBC 0 -0 NEUTROPHILS RELATIVE PERCENT (BEAKER) (test code = 429) 61 % LYMPHOCYTES RELATIVE PERCENT (BEAKER) (test code = 430) 31 % MONOCYTES RELATIVE PERCENT (BEAKER) (test code = 431) 6 % EOSINOPHILS RELATIVE PERCENT (BEAKER) (test code = 432) 2 % BASOPHILS RELATIVE PERCENT (BEAKER) (test code = 437) 0 % NEUTROPHILS ABSOLUTE COUNT (BEAKER) (test code = 670) 5.69 K/ L 1.80-8.00 LYMPHOCYTES ABSOLUTE COUNT (BEAKER) (test code = 414) 2.95 K/ L 1.48-4.50 MONOCYTES ABSOLUTE COUNT (BEAKER) (test code = 415) 0.53 K/ L 0. 00-1.30 EOSINOPHILS ABSOLUTE COUNT (BEAKER) (test code = 416) 0.17 K/ L 0.00-0.50 BASOPHILS ABSOLUTE COUNT (BEAKER) (test code = 417) 0.03 K/ L 0. 00-0.20 IMMATURE GRANULOCYTES-RELATIVE PERCENT (BEAKER) (test code = 2801) 1 % 0-0 H SCREEN, [id number] 07:57:00* Test Item Value Reference [place] Interpretation Comments TEST URINE (BEAKER) (test code = 583) Negative U/S [id number] 09:26:05EXAMINATION: U/S ABDOMEN.LOCATION: S17.HISTORY: Disease of liver, [...] within contracted gallbladder.Hepatic steatosis.COMPREHENSIVE METABOLIC LITTLE *GP* [id number] 13:18:00* Test Item Value Reference [place] Interpretation Comments ALBUMIN (test code = GALB) 3.5 g/dL 3.5-5.5 ALK PHOS (test code = GALP) 99 U/L 42-141 ALT (test code = GALT) 80 U/L 10-47 H AST (test code = JAQUI) 45 U/L 11-38 H BUN (test code = GBUN) 8 mg/dL 7-22 CALCIUM (test code = GCL+) 9.1 mg/dL 8.0-10.3 CHLORIDE (test code = GCL-) 107 mmol/L 98-108 CREATININE (test code = GCRE) 0.8 mg/dL 0.6-1.2 GLUCOSE (test code = GGUL) 111 mg/dL 73-118 POTASSIUM (test code = GK+) 3.7 mmol/L 3.6-5.1 SODIUM (test code = GNA+) 141 mmol/L 128-145 BILI TOTAL (test code = GTBIL) 0.8 mg/dL 0.2-1.6 TCO2 (test code = GTC02) 25 mmol/L 18-33 PROTEIN (test code = GTP) 7.1 g/dL 6.4-8.1 URINALYSIS W/O MICROSCOPICGP2018-06-01 13:12:00* Test Item Value Reference [place] Interpretation Comments COLOR (test code = COLU) Arm[place] YELLOW A CLARITY (test code = CLA) SLT HAZY CLEAR A GLUCOSE UR (test code = UA GLUCOSE) Negative NEGATIVE BILI UR (test code = BILE) 1+ NEGATIVE A KETONES UR (test code = MILLIE) Negative NEGATIVE SP GRAVITY (test code = SPGR) >=1.030 1.005-1.030 PH UR (test code = PH) 6.0 4.5-8.0 PROTEIN UR (test code = PU) 1+ NEGATIVE A NITRITE UR (test code = NITRITE) Negative NEGATIVE UROBIL UR (test code = GUROQ) 0.2 E.U./dL UROBIL UR (test code = GUROQC) UROBILINOGEN REFE RENCE RANGE 0.2 - 1.0 EU/dL BLOOD UR (test code = UA BLOOD) 3+ NEGATIVE A LEUK ES UR (test code = LEUK) Negative NEGATIVE URINE MONOCLONALGP2018-06-01 13:12:00* Test Item Value Reference [place] Interpretation Comments PREG UR (test code = PGU) NEGATIVE NEGATIVE CBC (INCLUDES AUTOMATED DIFFERENTIAL) *2018-06-01 13:11:00* Test Item Value Reference [place] Interpretation Comments WBC (test code = WBC) 8.6 10\\S\\3/uL 4.5-11.0 RBC (test code = RBC) 4.68 10\\S\\6/uL 4.30-5.70 HGB (test code = HBG) 13.9 g/dL 12.0-15.5 HCT (test code = HCT) 39.5 % 35.0-44.0 MCV (test code = MCV) 84.4 fL 81.0-99.0 MCH (test code = GMCH) 29.8 pg 27.0-31.0 MCHC (test code = MCHC) 35.3 g/dL 32.0-36.0 RDW (test code = RDW) 12.5 % 11.5-14.5 PLT (test code = PLT) 257 10\\S\\3/uL 130-400 NEUTROP # (test code = NE#) 5.7 10\\S\\3/uL 1.6-8.0 LYMPH # (test code = LY#) 2.3 10\\S\\3/uL 1.1-3.5 MID # (test code = GMID#) 0.6 10\\S\\3/uL 0.0-1.1 GRA % (test code = GRA%) 65.9 % 35.0-73.0 LYMPH % (test code = GLY%) 27.6 % 20.0-55.0 MID % (test code = GMID%) 6.5 % 0.0-10.0 [id number] 17:38:00* Test Item Value Reference [place] Interpretation Comments ACETAMINPH (test code = 94M) <2.0 ug/mL 10.0-30.0 L ALCOHOL BLOOD (ETOH)2018-05-03 17:29:00* Test Item Value Reference [place] Interpretation Comments ETOH (test code = HALC) ETHANOL The res ult is to be used only for medical purposes ALCOHOL (test code = 56A) <10 mg/dL <=10 [id number] 17:27:00* Test Item Value Reference [place] Interpretation Comments SALICYLATE (test code = 94B) <1.7 mg/dL 2.8-20.0 L DRUGS OF ABUSE*GP*2018-05-03 17:09:00* Test Item Value Reference [place] Interpretation Comments DRUG SCRN (test code = HDOA) URINE DRUG SCREEN This is an unconfirmed screening result and should not be used for non-medical purposes AMPHETAMIN (test code = GAMP) Negative NEGATIVE BARBITURAT (test code = GBAR) Negative NEGATIVE BENZODIAZE (test code = GBZO) Negative NEGATIVE COCAINE (test code = GCOC) Negative NEGATIVE OPIATES (test code = PATTI) Negative NEGATIVE PHENCYCLID (test code = GPCP) Negative NEGATIVE THC (test code = GTHC) Negative NEGATIVE TCA (test code = GTCA) Negative NEGATIVE DOAH (test code = DOAH) URINE DRUG SCR EEN CUT OFF VALUES Amphetamines 1000 ng/mL Barbituates 300 ng/mL Benzodiazepines 300 ng/mL Cocaine 300 ng/mL Opiates 300 ng/mL Phencyclidine 25 ng/mL THC 50 ng/mL Tricyclic Antidepressants 1000 ng/mL CARDIAC PANEL TRIAGE GP2018-05-03 16:20:00* Test Item Value Reference [place] Interpretation Comments TROPONIN I (test code = GTPI) <0.05 ng/mL <=0.05 LIVER PROFILE GP [id number] 16:14:00* Test Item Value Reference [place] Interpretation Comments ALBUMIN (test code = GALB) 3.7 g/dL 3.5-5.5 ALK PHOS (test code = GALP) 95 U/L 42-141 ALT (test code = GALT) 91 U/L 10-47 H AMYLASE (test code = GAMY) 43 U/L 14-97 AST (test code = JAQUI) 72 U/L 11-38 H GGT (test code = GGGT) 87 U/L 5-65 H BILI TOTAL (test code = GTBIL) 0.9 mg/dL 0.2-1.6 PROTEIN (test code = GTP) 7.8 g/dL 6.4-8.1 MetyLyte 8 Panel *GP* [id number] 16:13:00* Test Item Value Reference [place] Interpretation Comments BUN (test code = GBUN) 9 mg/dL 7-22 CK TOTAL (test code = GCK) 113 U/L 30-190 CHLORIDE (test code = GCL-) 105 mmol/L 98-108 CREATININE (test code = GCRE) 0.9 mg/dL 0.6-1.2 GLUCOSE (test code = GGUL) 113 mg/dL 73-118 POTASSIUM (test code = GK+) 3.5 mmol/L 3.6-5.1 L SODIUM (test code = GNA+) 137 mmol/L 128-145 TCO2 (test code = GTC02) 24 mmol/L 18-33 URINALYSIS W/O MICROSCOPICGP2018-05-03 16:12:00* Test Item Value Reference [place] Interpretation Comments COLOR (test code = COLU) Yellow YELLOW CLARITY (test code = CLA) Clear CLEAR GLUCOSE UR (test code = UA GLUCOSE) Negative NEGATIVE BILI UR (test code = BILE) Negative NEGATIVE KETONES UR (test code = MILLIE) Negative NEGATIVE SP GRAVITY (test code = SPGR) 1.025 1.005-1.030 PH UR (test code = PH) 6.5 4.5-8.0 PROTEIN UR (test code = PU) Negative NEGATIVE NITRITE UR (test code = NITRITE) Negative NEGATIVE UROBIL UR (test code = GUROQ) 0.2 E.U./dL UROBIL UR (test code = GUROQC) UROBILINOGEN REFE RENCE RANGE 0.2 - 1.0 EU/dL BLOOD UR (test code = UA BLOOD) 2+ NEGATIVE A LEUK ES UR (test code = LEUK) Trace NEGATIVE URINE MONOCLONALGP2018-05-03 16:10:00* Test Item Value Reference [place] Interpretation Comments PREG UR (test code = PGU) NEGATIVE NEGATIVE CBC (INCLUDES AUTOMATED DIFFERENTIAL) *2018-05-03 16:03:00* Test Item Value Reference [place] Interpretation Comments WBC (test code = WBC) 9.6 10\\S\\3/uL 4.5-11.0 RBC (test code = RBC) 4.75 10\\S\\6/uL 4.30-5.70 HGB (test code = HBG) 14.3 g/dL 12.0-15.5 HCT (test code = HCT) 40.9 % 35.0-44.0 MCV (test code = MCV) 86.1 fL 81.0-99.0 MCH (test code = GMCH) 30.0 pg 27.0-31.0 MCHC (test code = MCHC) 34.8 g/dL 32.0-36.0 RDW (test code = RDW) 12.6 % 11.5-14.5 PLT (test code = PLT) 324 10\\S\\3/uL 130-400 NEUTROP # (test code = NE#) 6.0 10\\S\\3/uL 1.6-8.0 LYMPH # (test code = LY#) 2.9 10\\S\\3/uL 1.1-3.5 MID # (test code = GMID#) 0.7 10\\S\\3/uL 0.0-1.1 GRA % (test code = GRA%) 62.8 % 35.0-73.0 LYMPH % (test code = GLY%) 30.4 % 20.0-55.0 MID % (test code = GMID%) 6.8 % 0.0-10.0 DIRECT STREP GROUP AGP2018-02-16 10:57:00* Test Item Value Reference Range Interpretation Comments STREP A AG (test code = STREP) POSITIVE NEGATIVE A CT HEAD W/O CONTRAST*GP*2018-01-25 13:11:09CT brain without contrast.Location code: [id number] HISTORY: R51: HEADACHE COMPARISON: 06/07/2017TECHNIQUE: Routine unenhanced [...] aerated. IMPRESSION: No acute intracranial abnormality.COMPREHENSIVE METABOLIC [id number] 02:01:00* Test Item Value Reference Range Interpretation Comments GLUCOSE (test code = 06D) 112 mg/dL 75-100 H SODIUM (test code = 01A) 136 mmol/L 136-145 POTASSIUM (test code = 01B) 3.8 mmol/L 3.6-5.1 CHLORIDE (test code = 04A) 105 mmol/L 98-107 CO2 (test code = 02A) 22 mmol/L 22-32 ANION GAP (test code = ANG) 12.8 mmol/L BUN (test code = 05D) 8 mg/dL 7-18 CREATININE (test code = 03E) 0.9 mg/dL 0.4-1.1 BUN/CREA (test code = BCR) 9 12-20 L CALCIUM (test code = 09D) 9.0 mg/dL 8.3-9.5 BILI TOTAL (test code = 11A) 0.8 mg/dL 0.2-1.0 PROTEIN (test code = 07D) 8.0 g/dL 6.4-8.2 ALBUMIN (test code = 08D) 4.0 g/dL 3.5-4.8 GLOBULIN (test code = GLB) 4.0 g/dL 1.5-3.8 H ALB/GLOB (test code = AGRR) 1.0 1.0-2.6 ALK PHOS (test code = 35A) 88 IU/L 42-121 AST (test code = 30A) 72 IU/L <=42 H ALT (test code = 31A) 118 IU/L <=78 H [id number] 02:00:00* Test Item Value Reference Range Interpretation Comments ACETAMINPH (test code = 94M) <2.0 ug/mL 10.0-30.0 L ALCOHOL BLOOD (ETOH)2017-09-30 01:53:00* Test Item Value Reference Range Interpretation Comments ETOH (test code = HALC) ETHANOL The res ult is to be used only for medical purposes ALCOHOL (test code = 56A) <10 mg/dL <=10 [id number] 01:51:00* Test Item Value Reference Range Interpretation Comments SALICYLATE (test code = 94B) <1.7 mg/dL 2.8-20.0 L URINALYSIS WITH [id number] 01:25:00* Test Item Value Reference Range Interpretation Comments COLOR (test code = COLU) DK YELLOW YELLOW A CLARITY (test code = CLA) CLOUDY CLEAR A GLUCOSE UR (test code = UA GLUCOSE) NEGATIVE NEGATIVE BILI UR (test code = BILE) NEGATIVE NEGATIVE KETONES UR (test code = MILLIE) TRACE NEGATIVE A SP GRAVITY (test code = SPGR) 1.025 1.005-1.030 PH UR (test code = PH) 6.0 4.5-8.0 PROTEIN UR (test code = PU) TRACE NEGATIVE A UROBIL UR (test code = UROQ) 0.2 EU/dL 0.2-1.0 NITRITE UR (test code = NITRITE) NEGATIVE NEGATIVE BLOOD UR (test code = UA BLOOD) TRACE NEGATIVE A LEUK ES UR (test code = LEUK) 1+ NEGATIVE A WBC UR (test code = UWBC) 3 /HPF 0-5 RBC UR (test code = URBC) 4 /HPF 0-2 H EPITH UR (test code = UEPC) FEW /LPF FEW BACTERIA UR (test code = UBACT) NONE /HPF NONE CAST UR (test code = CAST) /LPF NONE CRYSTAL UR (test code = CRYU) / LPF NONE MUCUS UR (test code = MUC) FEW / HPF NONE A AMORPH UR (test code = JAGJIT) FEW / HPF NONE A TRICH UR (test code = UTRICH) /HPF NONE YEAST UR (test code = UY) /HPF NONE SPERM UR (test code = USPERM) /HPF NONE DRUGS OF [id number] 01:18:00* Test Item Value Reference Range Interpretation Comments DRUG SCRN (test code = HDOA) URINE DRUG SCREEN This is an unconfirmed screening result and should not be used for non-medical purposes CANNABINOD (test code = 88C) Negative NEGATIVE AMPHETAMINE (test code = 84A) Negative NEGATIVE BENZODIAZP (test code = 86A) Negative NEGATIVE BARBITURAT (test code = 85A) Negative NEGATIVE OPIATES (test code = 92B) Negative NEGATIVE COCAINE (test code = 87A) Negative NEGATIVE PHENCYCLID (test code = 66A) Negative NEGATIVE METHADONE (test code = 64A) Negative NEGATIVE DOAH (test code = DOAH) URI NE DRUG SCREEN Cut-off values are as follows: Cannabinoids 50 ng/mL Cocaine 300 ng/mL Amphetamines 1000 ng/mL Phencyclidine 25 ng/mL Benzodiazepines 200 ng.mL Methadone 300 ng/mL Barbiturates 200 ng/mL Opiates 2000 ng/mL URINE [id number] 01:11:00* Test Item Value Reference Range Interpretation Comments PREG UR (test code = PGU) NEGATIVE NEGATIVE CBC (INCLUDES AUTOMATED DIFFERENTIAL)2017-09-30 01:10:00* Test Item Value Reference Range Interpretation Comments WBC (test code = WBC) 8.3 10\\S\\3/uL 4.5-11.0 RBC (test code = RBC) 4.61 10\\S\\6/uL 4.30-5.70 HGB (test code = HBG) 13.4 g/dL 12.0-15.5 HCT (test code = HCT) 39.6 % 35.0-44.0 MCV (test code = MCV) 85.9 fL 81.0-99.0 MCH (test code = MCH) 29.1 pg 27.0-31.0 MCHC (test code = MCHC) 33.8 g/dL 32.0-36.0 RDW (test code = RDW) 12.6 % 11.5-14.5 PLT (test code = PLT) 342 10\\S\\3/uL 130-400 MPV (test code = MPV) 10.9 fL 9.4-12.4 NEUTROP # (test code = NE#) 6.1 10\\S\\3/uL 1.6-8.0 LYMPH # (test code = LY#) 1.6 10\\S\\3/uL 1.1-3.5 MONOCYTE # (test code = MO#) 0.5 10\\S\\3/uL 0.0-1.1 EOSINOPH # (test code = EO#) 0.1 10\\S\\3/uL 0.0-0.7 BASOPHIL # (test code = BA#) 0.0 10\\S\\3/uL 0.0-0.3 IG # (test code = IG#) 0.04 10\\S\\3/uL 0.00-0.06 NRBC # (test code = NRBC#) 0.00 10\\S\\3/uL 0.00-0.01 NEUTROPH % (test code = NE%) 72.7 % 35.0-73.0 LYMPH % (test code = LY%) 19.2 % 20.0-55.0 L MONO % (test code = MO%) 6.5 % 2.5-10.0 EOSINOPH % (test code = EO%) 0.6 % 0.0-5.0 BASOPHIL % (test code = BA%) 0.5 % 0.0-2.0 IG % (test code = IG%) 0.5 % 0.0-0.8 NRBC% (test code = NRBC%) 0.0 % 0.0-0.2 MANDIFF (test code = MDIFF) NO NO RBC MORPH (test code = RBCMOR) NORMAL URINE MONOCLONALGP2017-08-19 23:06:00* Test Item Value Reference Range Interpretation Comments PREG UR (test code = PGU) NEGATIVE NEGATIVE COMPREHENSIVE METABOLIC LITTLE *GP* [id number] 23:04:00* Test Item Value Reference Range Interpretation Comments ALBUMIN (test code = GALB) 3.7 g/dL 3.5-5.5 ALK PHOS (test code = GALP) 90 U/L 42-141 ALT (test code = GALT) 79 U/L 10-47 H AST (test code = JAQUI) 68 U/L 11-38 H BUN (test code = GBUN) 8 mg/dL 7-22 CALCIUM (test code = GCL+) 9.3 mg/dL 8.0-10.3 CHLORIDE (test code = GCL-) 105 mmol/L 98-108 CREATININE (test code = GCRE) 0.6 mg/dL 0.6-1.2 GLUCOSE (test code = GGUL) 94 mg/dL 73-118 POTASSIUM (test code = GK+) 3.8 mmol/L 3.6-5.1 SODIUM (test code = GNA+) 140 mmol/L 128-145 BILI TOTAL (test code = GTBIL) 0.7 mg/dL 0.2-1.6 TCO2 (test code = GTC02) 25 mmol/L 18-33 PROTEIN (test code = GTP) 7.4 g/dL 6.4-8.1 URINALYSIS W/O MICROSCOPICGP2017-08-19 22:57:00* Test Item Value Reference Range Interpretation Comments COLOR (test code = COLU) Armida YELLOW A CLARITY (test code = CLA) CLEAR CLEAR GLUCOSE UR (test code = UA GLUCOSE) Negative NEGATIVE BILI UR (test code = BILE) 1+ NEGATIVE A KETONES UR (test code = MILLIE) Negative NEGATIVE SP GRAVITY (test code = SPGR) >=1.030 1.005-1.030 PH UR (test code = PH) 6.0 4.5-8.0 PROTEIN UR (test code = PU) 2+ NEGATIVE A NITRITE UR (test code = NITRITE) Negative NEGATIVE UROBIL UR (test code = GUROQ) 0.2 E.U./dL UROBIL UR (test code = GUROQC) UROBILINOGEN REFE RENCE RANGE 0.2 - 1.0 EU/dL BLOOD UR (test code = UA BLOOD) 3+ NEGATIVE A LEUK ES UR (test code = LEUK) Trace NEGATIVE CBC (INCLUDES AUTOMATED DIFFERENTIAL) *2017-08-19 22:54:00* Test Item Value Reference Range Interpretation Comments WBC (test code = WBC) 7.3 10\\S\\3/uL 4.5-11.0 RBC (test code = RBC) 4.38 10\\S\\6/uL 4.30-5.70 HGB (test code = HBG) 12.6 g/dL 12.0-15.5 HCT (test code = HCT) 37.3 % 35.0-44.0 MCV (test code = MCV) 85.2 fL 81.0-99.0 MCH (test code = GMCH) 28.9 pg 27.0-31.0 MCHC (test code = MCHC) 33.9 g/dL 32.0-36.0 RDW (test code = RDW) 13.0 % 11.5-14.5 PLT (test code = PLT) 259 10\\S\\3/uL 130-400 NEUTROP # (test code = NE#) 4.3 10\\S\\3/uL 1.6-8.0 LYMPH # (test code = LY#) 2.5 10\\S\\3/uL 1.1-3.5 MID # (test code = GMID#) 0.5 10\\S\\3/uL 0.0-1.1 GRA % (test code = GRA%) 58.8 % 35.0-73.0 LYMPH % (test code = GLY%) 34.1 % 20.0-55.0 MID % (test code = GMID%) 7.1 % 0.0-10.0 URINE MONOCLONALGP2017-07-05 21:37:00* Test Item Value Reference Range Interpretation Comments PREG UR (test code = PGU) NEGATIVE NEGATIVE CBC (INCLUDES AUTOMATED DIFFERENTIAL) *2017-07-05 20:50:00* Test Item Value Reference Range Interpretation Comments WBC (test code = WBC) 6.7 10\\S\\3/uL 4.5-11.0 RBC (test code = RBC) 4.41 10\\S\\6/uL 4.30-5.70 HGB (test code = HBG) 12.5 g/dL 12.0-15.5 HCT (test code = HCT) 37.4 % 35.0-44.0 MCV (test code = MCV) 84.7 fL 81.0-99.0 MCH (test code = GMCH) 28.4 pg 27.0-31.0 MCHC (test code = MCHC) 33.5 g/dL 32.0-36.0 RDW (test code = RDW) 13.5 % 11.5-14.5 PLT (test code = PLT) 216 10\\S\\3/uL 130-400 NEUTROP # (test code = NE#) 3.7 10\\S\\3/uL 1.6-8.0 LYMPH # (test code = LY#) 2.4 10\\S\\3/uL 1.1-3.5 MID # (test code = GMID#) 0.6 10\\S\\3/uL 0.0-1.1 GRA % (test code = GRA%) 55.5 % 35.0-73.0 LYMPH % (test code = GLY%) 36.7 % 20.0-55.0 MID % (test code = GMID%) 7.8 % 0.0-10.0 URINALYSIS W/O MICROSCOPICGP2017-07-05 20:49:00* Test Item Value Reference Range Interpretation Comments COLOR (test code = COLU) YELLOW YELLOW CLARITY (test code = CLA) SLT HAZY CLEAR A GLUCOSE UR (test code = UA GLUCOSE) Negative NEGATIVE BILI UR (test code = BILE) Negative NEGATIVE KETONES UR (test code = MILLIE) Negative NEGATIVE SP GRAVITY (test code = SPGR) >=1.030 1.005-1.030 PH UR (test code = PH) 6.0 4.5-8.0 PROTEIN UR (test code = PU) Negative NEGATIVE NITRITE UR (test code = NITRITE) Negative NEGATIVE UROBIL UR (test code = GUROQ) 0.2 E.U./dL UROBIL UR (test code = GUROQC) 0.2 - 1.0 EU/dL BLOOD UR (test code = UA BLOOD) 2+ NEGATIVE A LEUK ES UR (test code = LEUK) Negative NEGATIVE COMPREHENSIVE METABOLIC LITTLE *GP* [id number] 20:48:00* Test Item Value Reference Range Interpretation Comments ALBUMIN (test code = GALB) 3.7 g/dL 3.5-5.5 ALK PHOS (test code = GALP) 107 U/L 42-141 ALT (test code = GALT) 90 U/L 10-47 H AST (test code = JAQUI) 73 U/L 11-38 H BUN (test code = GBUN) 8 mg/dL 7-22 CALCIUM (test code = GCL+) 9.0 mg/dL 8.0-10.3 CHLORIDE (test code = GCL-) 108 mmol/L 98-108 CREATININE (test code = GCRE) 0.8 mg/dL 0.6-1.2 GLUCOSE (test code = GGUL) 98 mg/dL 73-118 POTASSIUM (test code = GK+) 4.1 mmol/L 3.6-5.1 SODIUM (test code = GNA+) 138 mmol/L 128-145 BILI TOTAL (test code = GTBIL) 0.7 mg/dL 0.2-1.6 TCO2 (test code = GTC02) 25 mmol/L 18-33 PROTEIN (test code = GTP) 7.5 g/dL 6.4-8.1 CT STONE PROTOCOL STUDY*GP*2017-07-05 [...] 837.45mGy-cm.Comparison is made with 01/26/17 CT examination.SITE: [id number]:No renal/ureteral stones are identified. No evidence of [...] bilaterally.2. Cholel ithiasis.3. Hepatic steatosis.DIRECT STREP GROUP [id number] 11:38:00* Test Item Value Reference Range Interpretation Comments Culture Observations (test code = COB1) NO BETA HEMOLY TIC STREPTOCOCCUS ISOLATED Direct Exam (test code = DE3) NEGATIVE FOR STREP A ANTIGEN XR CHEST 2 [id number] 19:34:48EXAM: Chest x-ray, 2 viewsLocation: R16 COMPARISON: Chest x-ray on 04/22/2017INDICATION: cough, feverDISCUSSION:No consolidation or pleural effusion is seen. The cardiomediastinal silhouetteis within normal limits. No acute bony abnormalities are identified.IMPRESSION: No evidence of acute abnormality. URINE [id number] 19:29:00* Test Item Value Reference Range Interpretation Comments PREG UR (test code = PGU) NEGATIVE NEGATIVE CT HEAD W/O [id number] 19:25:52EXAM: CT head without contrastLocation: [id number]: CT head without contrast on 04/18/2016INDICATION: Cough, [...] CTDI 46 mGy GLUCOMETER GLUCOSE- LAB USE [id number] 10:06:00* Test Item Value Reference Range Interpretation Comments GLUCOMETER (test code = GMG) 96 mg/dL 70-100 Meter ID: [id number]: [id number] Maureen Goncalves Castro SALICYLATES WW2017-04-22 17:44:00* Test Item Value Reference Range Interpretation Comments SALICYLATE (test code = 94B) <1.7 mg/dL 2.8-20.0 L ACETAMINOPHEN *WW*2017-04-22 17:37:00* Test Item Value Reference Range Interpretation Comments ACETAMINPH (test code = 94M) <2.0 ug/mL 10.0-30.0 L GLUCOMETER GLUCOSE- LAB USE [id number] 17:34:00* Test Item Value Reference Range Interpretation Comments GLUCOMETER (test code = GMG) 91 mg/dL 70-100 Meter ID: [id number]: [id number] TYRONE FOLEY SERUM MONOCLONAL *WW*2017-04-22 17:34:00* Test Item Value Reference Range Interpretation Comments PREG SRM (test code = PGS) NEGATIVE NEGATIVE ALCOHOL BLOOD (ETOH) *WW*2017-04-22 17:34:00* Test Item Value Reference Range Interpretation Comments ETOH (test code = HALC) ETHANOL The res ult is to be used only for medical purposes ALCOHOL (test code = 56A) <10 mg/dL <=10 COMPREHENSIVE METABOLIC LITTLE *WW*2017-04-22 17:33:00* Test Item Value Reference Range Interpretation Comments GLUCOSE (test code = 06D) 83 mg/dL 75-100 SODIUM (test code = 01A) 142 mmol/L 136-145 POTASSIUM (test code = 01B) 3.3 mmol/L 3.6-5.1 L CHLORIDE (test code = 04A) 111 mmol/L 98-107 H CO2 (test code = 02A) 22 mmol/L 22-32 ANION GAP (test code = ANG) 12.3 mmol/L BUN (test code = 05D) 8 mg/dL 7-18 CREATININE (test code = 03E) 0.6 mg/dL 0.4-1.1 BUN/CREA (test code = BCR) 13 12-20 CALCIUM (test code = 09D) 7.9 mg/dL 8.3-9.5 L BILI TOTAL (test code = 11A) 0.5 mg/dL 0.2-1.0 PROTEIN (test code = 07D) 6.6 g/dL 6.4-8.2 ALBUMIN (test code = 08D) 3.2 g/dL 3.5-4.8 L GLOBULIN (test code = GLB) 3.4 g/dL 1.5-3.8 ALB/GLOB (test code = AGRR) 0.9 1.0-2.6 L ALK PHOS (test code = 35A) 89 IU/L 42-121 AST (test code = 30A) 63 IU/L <=42 H ALT (test code = 31A) 90 IU/L <=78 H CARDIAC PROFILE 2017-04-22 17:31:00* Test Item Value Reference Range Interpretation Comments TROPONIN I (test code = A84) <0.015 ng/mL 0.000-0.045 CKMB (test code = A49) <1.0 ng/mL <=3.6 CPK (test code = 32A) 106 IU/L 26-192 XR CHEST 1 VIEW PORTABLE 2017-04-22 17:29:13LOCATION CODE: A1.HISTORY: psychCOMPARISON: 06/08/13FINDINGS: The cardiomediastinal silhouette and pulmonary vasculature are normal. No evidence of consolidation, effusion, or pneumothorax is present.Osseous structures are unremarkable.IMPRESSION: 1. No active cardiopulmonary disease. DRUGS OF ABUSE 2017-04-22 17:27:00* Test Item Value Reference Range Interpretation Comments DRUG SCRN (test code = HDOA) URINE DRUG SCREEN This is an unconfirmed screening result and should not be used for non-medical purposes CANNABINOD (test code = 88C) Negative NEGATIVE AMPHETAMINE (test code = 84A) Negative NEGATIVE BENZODIAZP (test code = 86A) Negative NEGATIVE BARBITURAT (test code = 85A) Negative NEGATIVE OPIATES (test code = 92B) Negative NEGATIVE COCAINE (test code = 87A) Negative NEGATIVE PHENCYCLID (test code = 66A) Negative NEGATIVE METHADONE (test code = 64A) Negative NEGATIVE DOAH (test code = DOAH) URI NE DRUG SCREEN Cut-off values are as follows: Cannabinoids 50 ng/mL Cocaine 300 ng/mL Amphetamines 1000 ng/mL Phencyclidine 25 ng/mL Benzodiazepines 200 ng.mL Methadone 300 ng/mL Barbiturates 200 ng/mL Opiates 2000 ng/mL URINALYSIS WITH MICRO *WW*2017-04-22 17:22:00* Test Item Value Reference Range Interpretation Comments COLOR (test code = COLU) YELLOW YELLOW CLARITY (test code = CLA) CLEAR CLEAR GLUCOSE UR (test code = UA GLUCOSE) NEGATIVE NEGATIVE BILI UR (test code = BILE) NEGATIVE NEGATIVE KETONES UR (test code = MILLIE) NEGATIVE NEGATIVE SP GRAVITY (test code = SPGR) 1.025 1.005-1.030 PH UR (test code = PH) 6.0 4.5-8.0 PROTEIN UR (test code = PU) NEGATIVE NEGATIVE UROBIL UR (test code = UROQ) 0.2 EU/dL 0.2-1.0 NITRITE UR (test code = NITRITE) NEGATIVE NEGATIVE BLOOD UR (test code = UA BLOOD) NEGATIVE NEGATIVE LEUK ES UR (test code = LEUK) TRACE NEGATIVE A WBC UR (test code = UWBC) 3 /HPF 0-5 RBC UR (test code = URBC) 0 /HPF 0-2 EPITH UR (test code = UEPC) FEW /LPF FEW BACTERIA UR (test code = UBACT) MODERATE /HPF NONE A CAST UR (test code = CAST) /LPF NONE CRYSTAL UR (test code = CRYU) / LPF NONE MUCUS UR (test code = MUC) / HPF NONE AMORPH UR (test code = JAGJIT) / HPF NONE TRICH UR (test code = UTRICH) /HPF NONE YEAST UR (test code = UY) /HPF NONE SPERM UR (test code = USPERM) /HPF NONE CBC (INCLUDES AUTOMATED DIFFERENTIAL)*[id number] 17:19:00* Test Item Value Reference Range Interpretation Comments WBC (test code = WBC) 5.9 10\\S\\3/uL 4.5-11.0 RBC (test code = RBC) 4.15 10\\S\\6/uL 4.30-5.70 L HGB (test code = HBG) 11.8 g/dL 12.0-15.5 L HCT (test code = HCT) 35.7 % 35.0-44.0 MCV (test code = MCV) 86.0 fL 81.0-99.0 MCH (test code = MCH) 28.4 pg 27.0-31.0 MCHC (test code = MCHC) 33.1 g/dL 32.0-36.0 RDW (test code = RDW) 13.2 % 11.5-14.5 PLT (test code = PLT) 265 10\\S\\3/uL 130-400 MPV (test code = MPV) 10.6 fL 9.4-12.4 NEUTROP # (test code = NE#) 3.7 10\\S\\3/uL 1.6-8.0 LYMPH # (test code = LY#) 1.6 10\\S\\3/uL 1.1-3.5 MONOCYTE # (test code = MO#) 0.5 10\\S\\3/uL 0.0-1.1 EOSINOPH # (test code = EO#) 0.1 10\\S\\3/uL 0.0-0.7 BASOPHIL # (test code = BA#) 0.0 10\\S\\3/uL 0.0-0.3 IG # (test code = IG#) 0.02 10\\S\\3/uL 0.00-0.06 NRBC # (test code = NRBC#) 0.00 10\\S\\3/uL 0.00-0.01 NEUTROPH % (test code = NE%) 62.2 % 35.0-73.0 LYMPH % (test code = LY%) 26.8 % 20.0-55.0 MONO % (test code = MO%) 8.8 % 2.5-10.0 EOSINOPH % (test code = EO%) 1.4 % 0.0-5.0 BASOPHIL % (test code = BA%) 0.5 % 0.0-2.0 IG % (test code = IG%) 0.3 % 0.0-0.8 NRBC% (test code = NRBC%) 0.0 % 0.0-0.2 MANDIFF (test code = WMDIFF) NO NO RBC MORPH (test code = WRBCMOR) NORMAL LIVER [id number] 06:10:00* Test Item Value Reference Range Interpretation Comments BILI TOTAL (test code = 11A) 0.4 mg/dL 0.2-1.0 BILI DIRCT (test code = 12A) 0.1 mg/dL 0.0-0.2 BILI INDIR (test code = BILII) 0.3 mg/dL <=0.8 PROTEIN (test code = 07D) 6.5 g/dL 6.4-8.2 ALBUMIN (test code = 08D) 3.2 g/dL 3.5-4.8 L GLOBULIN (test code = GLB) 3.3 g/dL 1.5-3.8 ALB/GLOB (test code = AGRR) 1.0 1.0-2.6 ALK PHOS (test code = 35A) 152 IU/L 42-121 H AST (test code = 30A) 99 IU/L <=42 H ALT (test code = 31A) 190 IU/L <=78 H XR ABDOMEN 1 VIEW [id number] 16:18:43EXAM: ABDOMEN ONE VIEWINDICATION: IleusCOMPARISON: CT dated January 26, 2017TECHNIQUE: AP view of the abdomen.FINDINGS: The bowel gas pattern is normal. No pneumoperitoneum is identified. No abnormalcalcifications.The osseous structures are unremarkable.IMPRESSION: Normal bowel gas pattern.[id number] (INCLUDES AUTOMATED DIFFERENTIAL)2017-01-27 06:22:00* Test Item Value Reference Range Interpretation Comments WBC (test code = WBC) 6.5 10\\S\\3/uL 4.5-11.0 RBC (test code = RBC) 4.08 10\\S\\6/uL 4.30-5.70 L HGB (test code = HBG) 11.9 g/dL 12.0-15.5 L HCT (test code = HCT) 35.1 % 35.0-44.0 MCV (test code = MCV) 86.0 fL 81.0-99.0 MCH (test code = MCH) 29.2 pg 27.0-31.0 MCHC (test code = MCHC) 33.9 g/dL 32.0-36.0 RDW (test code = RDW) 12.7 % 11.5-14.5 PLT (test code = PLT) 259 10\\S\\3/uL 130-400 MPV (test code = MPV) 10.3 fL 9.4-12.4 NEUTROP # (test code = NE#) 4.7 10\\S\\3/uL 1.6-8.0 LYMPH # (test code = LY#) 1.2 10\\S\\3/uL 1.1-3.5 MONOCYTE # (test code = MO#) 0.5 10\\S\\3/uL 0.0-1.1 EOSINOPH # (test code = EO#) 0.1 10\\S\\3/uL 0.0-0.7 BASOPHIL # (test code = BA#) 0.0 10\\S\\3/uL 0.0-0.3 IG # (test code = IG#) 0.04 10\\S\\3/uL 0.00-0.06 NRBC # (test code = NRBC#) 0.00 10\\S\\3/uL 0.00-0.01 NEUTROPH % (test code = NE%) 71.3 % 35.0-73.0 LYMPH % (test code = LY%) 18.7 % 20.0-55.0 L MONO % (test code = MO%) 7.4 % 2.5-10.0 EOSINOPH % (test code = EO%) 1.5 % 0.0-5.0 BASOPHIL % (test code = BA%) 0.5 % 0.0-2.0 IG % (test code = IG%) 0.6 % 0.0-0.8 NRBC% (test code = NRBC%) 0.0 % 0.0-0.2 MANDIFF (test code = MDIFF) NO NO RBC MORPH (test code = RBCMOR) NORMAL BASIC METABOLIC [id number] 06:10:00* Test Item Value Reference Range Interpretation Comments GLUCOSE (test code = 06D) 101 mg/dL 75-100 H SODIUM (test code = 01A) 139 mmol/L 136-145 POTASSIUM (test code = 01B) 3.9 mmol/L 3.6-5.1 CHLORIDE (test code = 04A) 107 mmol/L 98-107 CO2 (test code = 02A) 26 mmol/L 22-32 ANION GAP (test code = ANG) 9.9 mmol/L BUN (test code = 05D) 12 mg/dL 7-18 CREATININE (test code = 03E) 0.8 mg/dL 0.4-1.1 BUN/CREA (test code = BCR) 16 12-20 CALCIUM (test code = 09D) 8.0 mg/dL 8.3-9.[address] ABDOMEN AND PELVIS WITH [id number] 20:43:51LOCATION CODE: A1.HISTORY: Midepigastric pain, nausea and [...] acute intra-abdominal or pelvic pathology. URINALYSIS WITH [id number] 19:32:00* Test Item Value Reference Range Interpretation Comments COLOR (test code = COLU) DK YELLOW YELLOW A CLARITY (test code = CLA) HAZY CLEAR A GLUCOSE UR (test code = UA GLUCOSE) NEGATIVE NEGATIVE BILI UR (test code = BILE) 1+ NEGATIVE A KETONES UR (test code = MILILE) NEGATIVE NEGATIVE SP GRAVITY (test code = SPGR) 1.019 1.005-1.030 PH UR (test code = PH) 7.0 4.5-8.0 PROTEIN UR (test code = PU) NEGATIVE NEGATIVE UROBIL UR (test code = UROQ) 0.2 EU/dL 0.2-1.0 NITRITE UR (test code = NITRITE) NEGATIVE NEGATIVE BLOOD UR (test code = UA BLOOD) NEGATIVE NEGATIVE LEUK ES UR (test code = LEUK) 1+ NEGATIVE A WBC UR (test code = UWBC) 6 /HPF 0-5 H RBC UR (test code = URBC) 1 /HPF 0-2 EPITH UR (test code = UEPC) MODERATE /LPF FEW A BACTERIA UR (test code = UBACT) FEW /HPF NONE A CAST UR (test code = CAST) /LPF NONE CRYSTAL UR (test code = CRYU) / LPF NONE MUCUS UR (test code = MUC) / HPF NONE AMORPH UR (test code = JAGJIT) MANY / HPF NONE A TRICH UR (test code = UTRICH) /HPF NONE YEAST UR (test code = UY) /HPF NONE SPERM UR (test code = USPERM) /HPF NONE CBC (INCLUDES AUTOMATED DIFFERENTIAL)2017-01-26 19:24:00* Test Item Value Reference Range Interpretation Comments WBC (test code = WBC) 4.9 10\\S\\3/uL 4.5-11.0 RBC (test code = RBC) 4.18 10\\S\\6/uL 4.30-5.70 L HGB (test code = HBG) 12.0 g/dL 12.0-15.5 HCT (test code = HCT) 35.1 % 35.0-44.0 MCV (test code = MCV) 84.0 fL 81.0-99.0 MCH (test code = MCH) 28.7 pg 27.0-31.0 MCHC (test code = MCHC) 34.2 g/dL 32.0-36.0 RDW (test code = RDW) 12.7 % 11.5-14.5 PLT (test code = PLT) 282 10\\S\\3/uL 130-400 MPV (test code = MPV) 10.5 fL 9.4-12.4 NEUTROP # (test code = NE#) 3.1 10\\S\\3/uL 1.6-8.0 LYMPH # (test code = LY#) 1.4 10\\S\\3/uL 1.1-3.5 MONOCYTE # (test code = MO#) 0.4 10\\S\\3/uL 0.0-1.1 EOSINOPH # (test code = EO#) 0.1 10\\S\\3/uL 0.0-0.7 BASOPHIL # (test code = BA#) 0.0 10\\S\\3/uL 0.0-0.3 IG # (test code = IG#) 0.02 10\\S\\3/uL 0.00-0.06 NRBC # (test code = NRBC#) 0.00 10\\S\\3/uL 0.00-0.01 NEUTROPH % (test code = NE%) 62.4 % 35.0-73.0 LYMPH % (test code = LY%) 27.9 % 20.0-55.0 MONO % (test code = MO%) 7.9 % 2.5-10.0 EOSINOPH % (test code = EO%) 1.0 % 0.0-5.0 BASOPHIL % (test code = BA%) 0.4 % 0.0-2.0 IG % (test code = IG%) 0.4 % 0.0-0.8 NRBC% (test code = NRBC%) 0.0 % 0.0-0.2 MANDIFF (test code = MDIFF) NO NO RBC MORPH (test code = RBCMOR) NORMAL URINE [id number] 19:22:00* Test Item Value Reference Range Interpretation Comments PREG UR (test code = PGU) NEGATIVE NEGATIVE [id number] 19:17:00* Test Item Value Reference Range Interpretation Comments AMYLASE (test code = 10A) 61 U/L 28-100 COMPREHENSIVE METABOLIC [id number] 19:17:00* Test Item Value Reference Range Interpretation Comments GLUCOSE (test code = 06D) 116 mg/dL 75-100 H SODIUM (test code = 01A) 136 mmol/L 136-145 POTASSIUM (test code = 01B) 3.9 mmol/L 3.6-5.1 CHLORIDE (test code = 04A) 104 mmol/L 98-107 CO2 (test code = 02A) 25 mmol/L 22-32 ANION GAP (test code = ANG) 10.9 mmol/L BUN (test code = 05D) 12 mg/dL 7-18 CREATININE (test code = 03E) 0.7 mg/dL 0.4-1.1 BUN/CREA (test code = BCR) 16 12-20 CALCIUM (test code = 09D) 8.7 mg/dL 8.3-9.5 BILI TOTAL (test code = 11A) 1.4 mg/dL 0.2-1.0 H PROTEIN (test code = 07D) 7.4 g/dL 6.4-8.2 ALBUMIN (test code = 08D) 3.6 g/dL 3.5-4.8 GLOBULIN (test code = GLB) 3.8 g/dL 1.5-3.8 ALB/GLOB (test code = AGRR) 0.9 1.0-2.6 L ALK PHOS (test code = 35A) 168 IU/L 42-121 H AST (test code = 30A) 351 IU/L <=42 H ALT (test code = 31A) 316 IU/L <=78 H LIPASE [id number] 19:12:00* Test Item Value Reference Range Interpretation Comments LIPASE (test code = 60A) 201 IU/L 73-393 CT ABDOMEN AND PELVIS WITH [id number] 04:31:53Examination: Abdomen and pelvic CT with contrast After hours service provided on 10/30/2016 4:27 AM.Location code: [id number]: Abdomen and pelvic CT 07/03/16Technique:Axial postcontrast contiguous [...] physiologic free fluid in the pelvis.COMPREHENSIVE METABOLIC [id number] 00:38:00* Test Item Value Reference Range Interpretation Comments GLUCOSE (test code = 06D) 90 mg/dL 75-100 SODIUM (test code = 01A) 138 mmol/L 136-145 POTASSIUM (test code = 01B) 3.8 mmol/L 3.6-5.1 CHLORIDE (test code = 04A) 106 mmol/L 98-107 CO2 (test code = 02A) 24 mmol/L 22-32 ANION GAP (test code = ANG) 11.8 mmol/L BUN (test code = 05D) 14 mg/dL 7-18 CREATININE (test code = 03E) 0.9 mg/dL 0.4-1.1 BUN/CREA R (test code = BCR) 15 12-20 CALCIUM (test code = 09D) 8.8 mg/dL 8.3-9.5 BILI TOTAL (test code = 11A) 0.4 mg/dL 0.2-1.0 PROTEIN (test code = 07D) 7.9 g/dL 6.4-8.2 ALBUMIN (test code = 08D) 4.1 g/dL 3.5-4.8 GLOBULIN (test code = GLB) 3.8 g/dL 1.5-3.8 ALB/GLOB (test code = AGRR) 1.1 1.0-2.6 ALK PHOS (test code = 35A) 101 IU/L 42-121 AST (test code = 30A) 37 IU/L <=42 ALT (test code = 31A) 47 IU/L <=78 LIVER [id number] 00:38:00* Test Item Value Reference Range Interpretation Comments BILI TOTAL (test code = 11A) 0.4 mg/dL 0.2-1.0 BILI DIRCT (test code = 12A) 0.1 mg/dL 0.0-0.2 BILI INDIR (test code = BILII) 0.3 mg/dL <=0.8 PROTEIN (test code = 07D) 7.9 g/dL 6.4-8.2 ALBUMIN (test code = 08D) 4.1 g/dL 3.5-4.8 GLOBULIN (test code = GLB) 3.8 g/dL 1.5-3.8 ALB/GLOB (test code = AGRR) 1.1 1.0-2.6 ALK PHOS (test code = 35A) 101 IU/L 42-121 AST (test code = 30A) 37 IU/L <=42 ALT (test code = 31A) 47 IU/L <=78 [id number] 00:38:00* Test Item Value Reference Range Interpretation Comments ACETAMINPH (test code = 94M) <2.0 ug/mL 10.0-30.0 L ALCOHOL BLOOD (ETOH)2016-10-30 00:36:00* Test Item Value Reference Range Interpretation Comments ALCOHOL (test code = 56A) <10 mg/dL <=10 Ref Range Change (test code = REF RANGE) Please note the change in reference range [id number] 00:33:00* Test Item Value Reference Range Interpretation Comments COLOR (test code = COLU) YELLOW YELLOW CLARITY (test code = CLA) CLEAR CLEAR GLUCOSE UR (test code = UA GLUCOSE) NEGATIVE NEGATIVE BILI UR (test code = BILE) NEGATIVE NEGATIVE KETONES UR (test code = MILLIE) NEGATIVE NEGATIVE SP GRAVITY (test code = SPGR) 1.026 1.005-1.030 PH UR (test code = PH) 6.5 4.5-8.0 PROTEIN UR (test code = PU) NEGATIVE NEGATIVE UROBIL UR (test code = UROQ) 1.0 EU/dL 0.2-1.0 NITRITE UR (test code = NITRITE) NEGATIVE NEGATIVE BLOOD UR (test code = UA BLOOD) NEGATIVE NEGATIVE LEUK ES UR (test code = LEUK) NEGATIVE NEGATIVE [id number] 00:31:00* Test Item Value Reference Range Interpretation Comments SALICYLATE (test code = 94B) <1.7 mg/dL 2.8-20.0 L AMMONIA [id number] 00:29:00* Test Item Value Reference Range Interpretation Comments AMMONIA (test code = 54A) 40 umol/L 11-32 H DRUGS OF [id number] 00:29:00* Test Item Value Reference Range Interpretation Comments DRUG SCRN (test code = HDOA) URINE DRUG SCREEN This is an unconfirmed screening result and should not be used for non-medical purposes CANNABINOD (test code = 88C) Negative NEGATIVE AMPHETHETM (test code = 84A) Negative NEGATIVE BENZODIAZP (test code = 86A) Negative NEGATIVE BARBITURAT (test code = 85A) Negative NEGATIVE OPIATES (test code = 92B) Negative NEGATIVE COCAINE (test code = 87A) Negative NEGATIVE PHENCYCLID (test code = 66A) Negative NEGATIVE METHADONE (test code = 64A) Negative NEGATIVE DOAH (test code = DOAH) URI NE DRUG SCREEN Cut-off values are as follows: Cannabinoids 50 ng/mL Cocaine 300 ng/mL Amphetamines 1000 ng/mL Phencyclidine 25 ng/mL Benzodiazepines 200 ng.mL Methadone 300 ng/mL Barbiturates 200 ng/mL Opiates 2000 ng/mL PRO TIME AND [id number] 00:27:00* Test Item Value Reference Range Interpretation Comments PT (test code = TT) 10.8 s 9.8-13.6 INR (test code = INR) 1.0 INRH (test code = INRH) SUGGESTED THERAPEU TIC RANGE FOR INR: 2.5 - 3.5 For Patients with Prosthetic Valves or Patients with recurrent Thromboembolic Events 2.0 - 3.0 For Most Other Applications PTT (test code = PTT) 29.4 s 20.2-38.0 PTTH (test code = PTTH) To monitor the effectiv eness of heparin, we offer the Anti-Xa (Heparin Assay). It can be used for either unfractinated or LMW Heparin. Order Code is ANTI-XA SERUM [id number] 00:20:00* Test Item Value Reference Range Interpretation Comments PREG SRM (test code = PGS) NEGATIVE NEGATIVE CBC (INCLUDES AUTOMATED DIFFERENTIAL)2016-10-30 00:19:00* Test Item Value Reference Range Interpretation Comments WBC (test code = WBC) 8.9 10\\S\\3/uL 4.5-11.0 RBC (test code = RBC) 4.30 10\\S\\6/uL 4.30-5.70 HGB (test code = HBG) 12.6 g/dL 12.0-15.5 HCT (test code = HCT) 36.6 % 35.0-44.0 MCV (test code = MCV) 85.1 fL 81.0-99.0 MCH (test code = MCH) 29.3 pg 27.0-31.0 MCHC (test code = MCHC) 34.4 g/dL 32.0-36.0 RDW (test code = RDW) 12.9 % 11.5-14.5 PLT (test code = PLT) 281 10\\S\\3/uL 130-400 MPV (test code = MPV) 10.7 fL 9.4-12.4 NEUTROP # (test code = NE#) 5.8 10\\S\\3/uL 1.6-8.0 LYMPH # (test code = LY#) 2.2 10\\S\\3/uL 1.1-3.5 MONOCYTE # (test code = MO#) 0.8 10\\S\\3/uL 0.0-1.1 EOSINOPH # (test code = EO#) 0.1 10\\S\\3/uL 0.0-0.7 BASOPHIL # (test code = BA#) 0.0 10\\S\\3/uL 0.0-0.3 IG # (test code = IG#) 0.03 10\\S\\3/uL 0.00-0.06 NRBC # (test code = NRBC#) 0.00 10\\S\\3/uL 0.00-0.01 NEUTROPH % (test code = NE%) 65.3 % 35.0-73.0 LYMPH % (test code = LY%) 24.5 % 20.0-55.0 MONO % (test code = MO%) 8.9 % 2.5-10.0 EOSINOPH % (test code = EO%) 0.8 % 0.0-5.0 BASOPHIL % (test code = BA%) 0.2 % 0.0-2.0 IG % (test code = IG%) 0.3 % 0.0-0.8 NRBC% (test code = NRBC%) 0.0 % 0.0-0.2 MANDIFF (test code = MDIFF) NO NO RBC MORPH (test code = RBCMOR) NORMAL XR FINGER LEFT COMPLET 3 [id number] 21:44:15X-ray left first digit 3 views.INDICATION: Pain, laceration.FINDINGS: No priors. No evidence of an acute fracture or dislocation. Bones are well-mineralized andjoint spaces well- maintained. Mild soft tissue swelling about the first digit,without radiopaque foreign body.IMPRESSION:1. No acute osseous abnormality. Mild soft tissue swelling about the firstdigit, without radiopaque foreign body.URINE CULTURE 2016-08-24 10:53:00* Test Item Value Reference Range Interpretation Comments Culture Observations (test code = COB1) THREE OR MORE SPECIES OF BACTERIA ISOLATED. PROBABLE CONTAMINATION. Culture Observations (test code = COB17) IDENTIFICATIO N AND SUSCEPTIBILITY NOT INDICATED. RECOLLECTION RECOMMENDED AMYLASE AND [id number] 14:07:00* Test Item Value Reference Range Interpretation Comments AMYLASE (test code = 10A) 52 U/L 28-100 LIPASE (test code = 60A) 115 IU/L 73-393 ALCOHOL BLOOD (ETOH)2016-08-22 13:54:00* Test Item Value Reference Range Interpretation Comments ALCOHOL (test code = 56A) <10 mg/dL <=10 Ref Range Change (test code = REF RANGE) Please note the change in reference range COMPREHENSIVE METABOLIC [id number] 13:47:00* Test Item Value Reference Range Interpretation Comments GLUCOSE (test code = 06D) 87 mg/dL 75-100 SODIUM (test code = 01A) 137 mmol/L 136-145 POTASSIUM (test code = 01B) 3.7 mmol/L 3.6-5.1 CHLORIDE (test code = 04A) 105 mmol/L 98-107 CO2 (test code = 02A) 26 mmol/L 22-32 ANION GAP (test code = ANG) 9.7 mmol/L BUN (test code = 05D) 14 mg/dL 7-18 CREATININE (test code = 03E) 0.8 mg/dL 0.4-1.1 BUN/CREA R (test code = BCR) 18 12-20 CALCIUM (test code = 09D) 8.8 mg/dL 8.3-9.5 BILI TOTAL (test code = 11A) 0.8 mg/dL 0.2-1.0 PROTEIN (test code = 07D) 7.6 g/dL 6.4-8.2 ALBUMIN (test code = 08D) 3.9 g/dL 3.5-4.8 GLOBULIN (test code = GLB) 3.7 g/dL 1.5-3.8 ALB/GLOB (test code = AGRR) 1.1 1.0-2.6 ALK PHOS (test code = 35A) 102 IU/L 42-121 AST (test code = 30A) 31 IU/L <=42 ALT (test code = 31A) 47 IU/L <=78 [id number] 13:43:00* Test Item Value Reference Range Interpretation Comments ACETAMINPH (test code = 94M) <2.0 ug/mL 10.0-30.0 L [id number] 13:37:00* Test Item Value Reference Range Interpretation Comments SALICYLATE (test code = 94B) <1.7 mg/dL 2.8-20.0 L SERUM [id number] 13:26:00* Test Item Value Reference Range Interpretation Comments PREG SRM (test code = PGS) NEGATIVE NEGATIVE DRUGS OF [id number] 13:26:00* Test Item Value Reference Range Interpretation Comments DRUG SCRN (test code = HDOA) URINE DRUG SCREEN This is an unconfirmed screening result and should not be used for non-medical purposes CANNABINOD (test code = 88C) Negative NEGATIVE AMPHETHETM (test code = 84A) Negative NEGATIVE BENZODIAZP (test code = 86A) Negative NEGATIVE BARBITURAT (test code = 85A) Negative NEGATIVE OPIATES (test code = 92B) Negative NEGATIVE COCAINE (test code = 87A) Negative NEGATIVE PHENCYCLID (test code = 66A) Negative NEGATIVE METHADONE (test code = 64A) Negative NEGATIVE DOAH (test code = DOAH) URI NE DRUG SCREEN Cut-off values are as follows: Cannabinoids 50 ng/mL Cocaine 300 ng/mL Amphetamines 1000 ng/mL Phencyclidine 25 ng/mL Benzodiazepines 200 ng.mL Methadone 300 ng/mL Barbiturates 200 ng/mL Opiates 2000 ng/mL URINALYSIS WITH [id number] 13:25:00* Test Item Value Reference Range Interpretation Comments COLOR (test code = COLU) YELLOW YELLOW CLARITY (test code = CLA) CLOUDY CLEAR A GLUCOSE UR (test code = UA GLUCOSE) NEGATIVE NEGATIVE BILI UR (test code = BILE) NEGATIVE NEGATIVE KETONES UR (test code = MILLIE) NEGATIVE NEGATIVE SP GRAVITY (test code = SPGR) 1.022 1.005-1.030 PH UR (test code = PH) 6.0 4.5-8.0 PROTEIN UR (test code = PU) NEGATIVE NEGATIVE UROBIL UR (test code = UROQ) 1.0 EU/dL 0.2-1.0 NITRITE UR (test code = NITRITE) NEGATIVE NEGATIVE BLOOD UR (test code = UA BLOOD) NEGATIVE NEGATIVE LEUK ES UR (test code = LEUK) 1+ NEGATIVE A WBC UR (test code = UWBC) 10 /HPF 0-5 H RBC UR (test code = URBC) 3 /HPF 0-2 H EPITH UR (test code = UEPC) FEW /LPF FEW BACTERIA UR (test code = UBACT) MANY /HPF NONE A CAST UR (test code = CAST) /LPF NONE CRYSTAL UR (test code = CRYU) / LPF NONE MUCUS UR (test code = MUC) MANY / HPF NONE A AMORPH UR (test code = JAGJIT) / HPF NONE TRICH UR (test code = UTRICH) /HPF NONE YEAST UR (test code = UY) /HPF NONE SPERM UR (test code = USPERM) /HPF NONE CBC (INCLUDES AUTOMATED DIFFERENTIAL)2016-08-22 13:15:00* Test Item Value Reference Range Interpretation Comments WBC (test code = WBC) 6.1 10\\S\\3/uL 4.5-11.0 RBC (test code = RBC) 4.07 10\\S\\6/uL 4.30-5.70 L HGB (test code = HBG) 11.8 g/dL 12.0-15.5 L HCT (test code = HCT) 35.3 % 35.0-44.0 MCV (test code = MCV) 86.7 fL 81.0-99.0 MCH (test code = MCH) 29.0 pg 27.0-31.0 MCHC (test code = MCHC) 33.4 g/dL 32.0-36.0 RDW (test code = RDW) 12.4 % 11.5-14.5 PLT (test code = PLT) 252 10\\S\\3/uL 130-400 MPV (test code = MPV) 10.4 fL 9.4-12.4 NEUTROP # (test code = NE#) 4.0 10\\S\\3/uL 1.6-8.0 LYMPH # (test code = LY#) 1.6 10\\S\\3/uL 1.1-3.5 MONOCYTE # (test code = MO#) 0.4 10\\S\\3/uL 0.0-1.1 EOSINOPH # (test code = EO#) 0.1 10\\S\\3/uL 0.0-0.7 BASOPHIL # (test code = BA#) 0.0 10\\S\\3/uL 0.0-0.3 IG # (test code = IG#) 0.02 10\\S\\3/uL 0.00-0.06 NRBC # (test code = NRBC#) 0.00 10\\S\\3/uL 0.00-0.01 NEUTROPH % (test code = NE%) 65.1 % 35.0-73.0 LYMPH % (test code = LY%) 26.1 % 20.0-55.0 MONO % (test code = MO%) 7.2 % 2.5-10.0 EOSINOPH % (test code = EO%) 0.8 % 0.0-5.0 BASOPHIL % (test code = BA%) 0.5 % 0.0-2.0 IG % (test code = IG%) 0.3 % 0.0-0.8 NRBC% (test code = NRBC%) 0.0 % 0.0-0.2 MANDIFF (test code = MDIFF) NO NO RBC MORPH (test code = RBCMOR) NORMAL DIRECT CHLAMYDIA [id number] 08:34:00* Test Item Value Reference Range Interpretation Comments CHLAMYDIA TRACHOMATIS (test code = 21688424) NOT DETECTED NOT DETEC MIRLANDE NEISSERIA GONORRHOEAE (test code = 58818513) NOT DETECTED NOT DETEC MIRLANDE Endnote (test code = 39146911) This test was performed using the APTIMA COMBO2 Assay([employer]The analytical performance characteristics of thisassay, when used to test SurePath specimens havebeen determined by [employer].TEST PERFORMED AT:[employer] [id number] [place] [address]REXCPOLE EASTON M.D. WET [id number] 22:16:00* Test Item Value Reference Range Interpretation Comments Direct Exam (test code = DE1) MODERATE WHITE BLOOD CELLS SEEN Direct Exam (test code = DE2) MODERATE BACTERIA SEEN Direct Exam (test code = DE3) NO FUNGAL ELEMENTS SEEN ON DIRECT EXA M Direct Exam (test code = DE4) NO CLUE CELLS SEEN Direct Exam (test code = DE5) NO TRICHOMONAS SEEN CT ABDOMEN AND PELVIS WITH [id number] 21:23:02LOCATION: [id number]: 21-year-old female who presents with abdominal pain.COMMENT: [...] on this CT st udyis unremarkable.BASIC METABOLIC [id number] 20:58:00* Test Item Value Reference Range Interpretation Comments GLUCOSE (test code = 06D) 102 mg/dL 75-100 H SODIUM (test code = 01A) 140 mmol/L 136-145 POTASSIUM (test code = 01B) 3.8 mmol/L 3.6-5.1 CHLORIDE (test code = 04A) 109 mmol/L 98-107 H CO2 (test code = 02A) 23 mmol/L 22-32 ANION GAP (test code = ANG) 11.8 mmol/L BUN (test code = 05D) 8 mg/dL 7-18 CREATININE (test code = 03E) 0.7 mg/dL 0.4-1.1 BUN/CREA R (test code = BCR) 11 12-20 L CALCIUM (test code = 09D) 8.7 mg/dL 8.3-9.5 CBC (INCLUDES AUTOMATED DIFFERENTIAL)2016-07-03 20:54:00* Test Item Value Reference Range Interpretation Comments WBC (test code = WBC) 8.2 10\\S\\3/uL 4.5-11.0 RBC (test code = RBC) 4.15 10\\S\\6/uL 4.30-5.70 L HGB (test code = HBG) 12.4 g/dL 12.0-15.5 HCT (test code = HCT) 36.2 % 35.0-44.0 MCV (test code = MCV) 87.2 fL 81.0-99.0 MCH (test code = MCH) 29.9 pg 27.0-31.0 MCHC (test code = MCHC) 34.3 g/dL 32.0-36.0 RDW (test code = RDW) 12.7 % 11.5-14.5 PLT (test code = PLT) 301 10\\S\\3/uL 130-400 MPV (test code = MPV) 10.7 fL 9.4-12.4 NEUTROP # (test code = NE#) 5.3 10\\S\\3/uL 1.6-8.0 LYMPH # (test code = LY#) 2.3 10\\S\\3/uL 1.1-3.5 MONOCYTE # (test code = MO#) 0.6 10\\S\\3/uL 0.0-1.1 EOSINOPH # (test code = EO#) 0.1 10\\S\\3/uL 0.0-0.7 BASOPHIL # (test code = BA#) 0.0 10\\S\\3/uL 0.0-0.3 IG # (test code = IG#) 0.02 10\\S\\3/uL 0.00-0.06 NRBC # (test code = NRBC#) 0.00 10\\S\\3/uL 0.00-0.01 NEUTROPH % (test code = NE%) 63.9 % 35.0-73.0 LYMPH % (test code = LY%) 27.3 % 20.0-55.0 MONO % (test code = MO%) 6.9 % 2.5-10.0 EOSINOPH % (test code = EO%) 1.2 % 0.0-5.0 BASOPHIL % (test code = BA%) 0.5 % 0.0-2.0 IG % (test code = IG%) 0.2 % 0.0-0.8 NRBC% (test code = NRBC%) 0.0 % 0.0-0.2 MANDIFF (test code = MDIFF) NO NO RBC MORPH (test code = RBCMOR) NORMAL URINE [id number] 20:50:00* Test Item Value Reference Range Interpretation Comments PREG UR (test code = PGU) NEGATIVE NEGATIVE URINALYSIS WITH [id number] 20:47:00* Test Item Value Reference Range Interpretation Comments COLOR (test code = COLU) YELLOW YELLOW CLARITY (test code = CLA) HAZY CLEAR A GLUCOSE UR (test code = UA GLUCOSE) NEGATIVE NEGATIVE BILI UR (test code = BILE) NEGATIVE NEGATIVE KETONES UR (test code = MILLIE) NEGATIVE NEGATIVE SP GRAVITY (test code = SPGR) 1.024 1.005-1.030 PH UR (test code = PH) 6.5 4.5-8.0 PROTEIN UR (test code = PU) NEGATIVE NEGATIVE UROBIL UR (test code = UROQ) 1.0 EU/dL 0.2-1.0 NITRITE UR (test code = NITRITE) NEGATIVE NEGATIVE BLOOD UR (test code = UA BLOOD) NEGATIVE NEGATIVE LEUK ES UR (test code = LEUK) 1+ NEGATIVE A WBC UR (test code = UWBC) 6 /HPF 0-5 H RBC UR (test code = URBC) 1 /HPF 0-2 EPITH UR (test code = UEPC) MANY /LPF FEW A BACTERIA UR (test code = UBACT) MANY /HPF NONE A CAST UR (test code = CAST) /LPF NONE CRYSTAL UR (test code = CRYU) / LPF NONE MUCUS UR (test code = MUC) / HPF NONE AMORPH UR (test code = JAGJIT) / HPF NONE TRICH UR (test code = UTRICH) /HPF NONE YEAST UR (test code = UY) /HPF NONE SPERM UR (test code = USPERM) /HPF NONE URINE AND [id number] 01:40:005.0[facility] [id number] 01:40:00Negative *NA*(02/25/16 8:40 PM)[facility] [id number] 01:40:00Negative (02/25/16 8:40 PM)[facility] [id number] 01:40:00Yellow *NA*(02/25/16 8:40 PM)[facility] [id number] 01:40:00Slight *ABN*(02/25/16 8:40 PM)[facility] [id number] 01:40:001.027[facility] [id number] 01:40:00Small *ABN*(02/25/16 8:40 PM)[facility] [id number] 01:40:001 [facility] [id number] 01:40:006[facility] [id number] 01:40:002.0[facility] [id number] 01:40:00 Negative (02/25/16 8:40 PM)[facility] [id number] 01:40:00Negative (02/25/16 8:40 PM)[facility]LE[facility] [id number] 06:37:00Negative *NA*(06/09/15 12:37 AM)[facility] [id number] 06:37:00 Negative *NA*(06/09/15 12:37 AM)[facility] [id number] 06:37:00Urine *NA*(06/09/15 12:37 AM)[facility]ann[facility] [id number] 06:23:13235Ykvuslcy HermannCHEM [id number] 06:23:000.5[facility] [id number] 06:23:0026[facility] [id number] 06:23:0083 [facility] [id number] 06:23:000.66[facility] PANEL 2015-06-09 06:23:72899[place] [facility]annCHE[facility] [id number] 06:23:0087[facility] [id number] 06:23:0013[facility] [id number] 06:23:003.8[facility]annCHE[facility] [id number] 06:23:007.3[facility] [id number] 06:23:0038[facility]CHE[facility] [id number] 06:23:74740 [facility] [id number] 06:23:0026[facility]annCHE[facility] PANEL 2015-06-09 06:23:008.6[facility] [id number] 06:23:003.5[facility] QDAXP1714-33-07 06:23:003.5[facility]CHE[facility] [id number] 06:23:001.1[facility] [id number] 06:23:0011.5[facility]CHE[facility] [id number] 06:23:0020[facility] DjilwjjNGHZGMNINZREO1182-19-00 06:23:00 Negative *NA*(06/09/15 12:23 AM)[facility] TyelllbOWAMSQTGTV5155-69-47 06:23:000.5 [facility] RzjeqjdBAGRAXHZPE7148-52-37 06:23:000.1[facility]annHEMATOLOGY 2015-06-09 06:23:000.0[facility] ObppcmgPROGKMTLLT0170-27-33 06:23:0050.1[facility] FkmhwqlPDIFTETTRY8291-66-85 06:23:0040.2[facility] JjwpzygREGJKZWUVR9014-72-64 06:23:007.6[facility] XcmddywQUMGMDKDNT4323-11-83 06:23:001.6[facility] [place] LBLKUXYMYL1572-44-43 06:23:000.5[facility] EjosilyJULQYSOYNU3295-46-27 06:23:003.4 [facility] CwbmawzBWBNZZCTXT9379-44-83 06:23:002.7[facility]annHEMATOLOGY 2015-06-09 06:23:006.7[facility] BvlhnioQMUFFFSBZO8156-67-85 06:23:004.08[facility] IahqserRDKJMYFEOB2037-75-69 06:23:0036.7[facility] PpcxsotEZVSTXWXYK6806-42-68 06:23:0012.6[facility] RrfnyckWMHFHIJCZW9630-87-33 06:23:0089.9[facility] AHKMYTCHGM0569-63-06 06:23:0034.3[facility] VfyenjuGCVDBNHVSR3382-41-05 06:23:00* Test Item Value Reference Range Interpretation Comments MCH (test code = MCH) 30.8 pg 27.0-31.0 [facility] NnuwwiuAWVWSYXHIM8152-29-30 06:23:81134Ihirobrf HermannHEMATOLOGY 2015-06-09 06:23:0012.7[facility] HoyjjemCXSOZJMEPQ7716-04-09 06:23:009.0[facility] [id number] 06:23:00Negative (06/09/15 12:23 AM)[facility] [id number] 06:23:00Negative (06/09/15 12:23 AM)[facility] [id number] 06:23:00* Test Item Value Reference Range Interpretation Comments UA pH (test code = UA pH) 6.5 1 5.0-8.0 [facility] [id number] 06:23:00Negative (06/09/15 12:23 AM) [facility] MUXBH2215-08-21 06:23:00Negative *NA*(06/09/15 12:23 AM)[facility] [id number] 06:23:00Negative *NA*(06/09/15 12:23 AM)[facility] [id number] 06:23:00Small *ABN*(06/09/15 12:23 AM)[facility] KLSXT7077-38-59 06:23:001.0[facility] [id number] 06:23:00Negative (06/09/15 12:23 AM)[facility] [id number] 06:23:00Yellow *NA*(06/09/15 12:23 AM)[facility] [id number] 06:23:00Slight Cloudy (06/09/15 12:23 AM)[facility] [id number] 06:23:00* Test Item Value Reference Range Interpretation Comments UA Spec Grav (test code = UA Spec Grav) 1.025 1 [facility] NmrpzupYZLZGUWOEJ8337-27-27 05:34:00Negative (10/01/14 12:34 AM)[facility]annMOLECULAR LWMEEQUHIN8502-56-48 05:34:00Negative 1*NA*(10/01/14 12:34 AM) [facility] UBSFKYZZZT3536-36-17 05:34:00Endocervix *NA*(10/01/14 12:34 AM)[facility]LEC[facility] XWWWMDVEQE9823-22-40 05:34:00Positive 2, 3, 4*ABN*(10/01/14 12:34 AM)[facility] [id number] 05:34:00* Test Item Value Reference Range Interpretation Comments UA Spec Grav (test code = UA Spec Grav) 1.020 1 [facility] [id number] 05:34:00Cloudy *ABN*(10/01/14 12:34 AM) [facility] [id number] 05:34:00* Test Item Value Reference Range Interpretation Comments UA pH (test code = UA pH) 7.0 1 5.0-8.0 [facility] [id number] 05:34:00Negative (10/01/14 12:34 AM) [facility] [id number] 05:34:00Negative *NA*(10/01/14 12:34 AM)[facility] [id number] 05:34:00Negative (10/01/14 12:34 AM) [facility] [id number] 05:34:00Negative (10/01/14 12:34 AM) [facility] NPIKO9494-66-16 05:34:00Small *ABN*(10/01/14 12:34 AM) [facility] [id number] 05:34:00Yellow *NA*(10/01/14 12:34 AM) [facility] YZOGR1558-00-18 05:34:001.0[facility] [id number] 05:34:00Negative (10/01/14 12:34 AM)[facility] [id number] 05:34:00Negative *NA*(10/01/14 12:34 AM)[facility] [id number] 05:34:00Negative (10/01/14 12:34 AM)[facility]
--- NOTE | 2020-01-02 16:25 | Diagnostic Imaging Report ---
EXAM: ABDOMEN-1VIEW (KUB) DATE: 01/02/2020 3:50 PM INDICATION: Constipation COMPARISON: None FINDINGS: Bowel gas pattern appears non-specific. No pathologically dilated loops of bowel are identified. No intraperitoneal free air is appreciated on this supine view examination. Cholecystectomy clips noted within the right upper quadrant. Suspected IUD noted within the pelvis. No abnormal intra-abdominal calcification is appreciated. No acute osseous abnormality identified. IMPRESSION: No acute radiographic abnormality identified within the abdomen. Signed by: Dr. aSl Ng MD on 01/02/2020 4:21 PM
[2020-01-02] MEDS ORDERED: COLACE100 MG PO (16:52)
[2020-01-02 17:03] VITALS: BP 119/81
== END 2020-01-02 17:05 | disposition home or self-care (01) ==
LOC: ER 14:00
DX: K59.00 Constipation, unspecified (principal); R10.30 Lower abdominal pain, unspecified; E78.5 Hyperlipidemia, unspecified; F41.9 Anxiety disorder, unspecified; F32.9 Major depressive disorder, single episode, unspecified; G47.30 Sleep apnea, unspecified
CPT/HCPCS: 74018; 81025; 99284; J2001

== ENCOUNTER 2020-01-12 17:31 | Emergency (ER) | payer MEDICARE, OTHER ==
[~2020-01-12] VITALS: Ht 160 cm; Wt 89.8 kg
[~2020-01-12 17:31] MED LIST changes: +COLACE100 MG PO
--- NOTE | 2020-01-12 18:00 | Emergency Department Note ---
History of Present Illnes History of Present Illness Chief Complaint: Extremity Trauma/Pain History of Present Illness This is a 24 year old female left than right leg pain with swelling. Slight SOB since yesterday Historian: Patient Arrival Mode: Car Eye Care Professional Required: No Onset (how long ago): day(s) (1) Location: left calf Radiation: Reports extremity Severity: mild Onset quality: gradual Duration (how long): day(s) (1) Progression: unchanged Chronicity: new Context: Denies recent illness, Denies recent surgery, Denies recent immobilization, Denies recent travel, Denies trauma/injury, Denies new medications, Denies hx of DVT/PE, Denies non-compliance w/ medications, Denies other Relieving factors: none Exacerbating factors: none Associated symptoms: Reports denies other symptoms Treatments prior to arrival: none Past Medical/Family History Physician Review I have reviewed the patient's past medical and family history. Any updates have been documented here. Past Medical History Recent Fever: No Clinical Suspicion of Infectio: No New/Unexplained Change in Ment: No Past Medical History: UTI's, Anxiety, Depression, Hyperlipedemia Other Medical History: INSOMNIA SLEEP APNEA Past Surgical History: Cholecysctectomy, T&A Social History Smoking Cessation: Never Smoker Alcohol Use: None Any Illegal Drug Use: No Physically hurt or threatened: No Other Last Tetanus: UTD Review of Systems Review of Systems Constitutional: Reports no symptoms EENTM: Reports no symptoms Cardiovascular: Reports no symptoms Respiratory: Reports dyspnea Gastrointestinal: Reports no symptoms Genitourinary: Reports no symptoms Musculoskeletal: Reports muscle pain Integumentary: Reports no symptoms Neurological: Reports no symptoms Psychological: Reports no symptoms Endocrine: Reports no symptoms Hematological/Lymphatic: Reports no symptoms Physical Exam Related Data Allergies: Coded Allergies: No Known Allergies (Unverified , 02/11/19) Triage Vital Signs Vital Signs Date Time Temp Pulse Resp B/P (MAP) Pulse Ox O2 Delivery O2 Flow Rate FiO2 01/12/20 17:52 98.2 96 18 124/87 99 Room Air Vital signs reviewed: Yes Physical Exam CONSTITUTIONAL Constitutional: Present well-developed, Present well-nourished HENT HENT: Present normocephalic, Present atraumatic, Present oropharynx clear/moist, Present nose normal HENT L/R: Present left ext ear normal, Present right ext ear normal EYES Eyes: Reports PERRL, Reports conjunctivae normal NECK Neck: Present ROM normal PULMONARY Pulmonary: Present effort normal, Present breath sounds normal CARDIOVASCULAR Cardiovascular: Present regular rhythm, Present heart sounds normal, Present capillary refill normal, Present normal rate GASTROINTESTINAL Abdominal: Present soft, Present nontender, Present bowel sounds normal GENITOURINARY Genitourinary: Present exam deferred SKIN Skin: Present warm, Present dry MUSCULOSKELETAL Musculoskeletal: Present tenderness (Left leg taut), Present other ((+) homans signs b/l LE) NEUROLOGICAL Neurological: Present alert, Present oriented x 3, Present no gross motor or sensory deficits PSYCHOLOGICAL Psychological: Present mood/affect normal, Present judgement normal Results Laboratory Lab results reviewed: Yes Imaging Imaging results reviewed: Yes Imaging Comments Venous Duplex Study : NEGATIVE FOR DVT Assessment & Plan Medical Decision Making MDM Diff Dx : DVT, PE, hypocalcemia, hypokalemia Assessment & Plan Final Impression: (1) Acute leg pain Depart Disposition: HOME, SELF-residential Meds Active Scripts Docusate Sodium (COLACE) 100 Mg Cap, 100 MG PO DAILY, #30 CAP Prov:NELSON MENDEZ DO 01/02/20 Metoclopramide Hcl (REGLAN) 10 Mg Tablet, 10 MG PO Q8HR PRN for NAUSEA AND VOMITING, #12 Prov:NELSON MENDEZ DO 02/15/19 Nitrofurantoin Monohyd/M-Cryst (MACROBID 100 MG CAPSULE) 100 Mg Capsule, 100 MG PO BID for 10 Days, #20 Prov:NELSON MENDEZ DO 02/15/19 MASHA MOHR DO Jan 12, 2020 18:00
[2020-01-12] MEDS ORDERED: SODIUM CHLORIDE 0.9% 1000ML 1,000 ML IV STA (18:05)
--- NOTE | 2020-01-12 18:08 | NUR ---
SPOKE TO [facility] TO HAVE TECH CALLED OUT FOR VENOUS DOPPLER.
--- OUTSIDE RECORDS SUMMARY | 2020-01-12 18:09 | XMS REPORT | Clinical Summary ---
Author Author [facility] Organization [facility] Address Unknown Phone Unavailable Care Team Providers Care Lens Polisher Name Role Phone Asked, No Pcp PCP [...] 2011 CERVICAL CANCER SCREENING 2016 INFLUENZA VACCINE 02/19/2020 Results Not on fileafter 01/11/2019 Insurance Type Payer Benefit Subscriber ID Effective Phone Address Plan / Dates Group Medicaid MEDICAID MEDICAID xxxxxxxxx [id number] Advance Directives For more information, please contact: [phone] Patient Zigzag Topstitcher Explanation Type Date Recorded Advance Directives, 01/16/2017 1:47 AM Living Will and Medical Power of Payroll Professional
--- OUTSIDE RECORDS SUMMARY | 2020-01-12 18:09 | XMS REPORT | Clinical Summary ---
Author Author [facility] Address Unknown Phone Unavailable Care Team Providers Care Spa Consultant Name Role Phone PCP Unavailable Allergies No [...] Not on file Results Not on fileafter 01/11/2019 Insurance Payer Benefit Subscriber ID Type Phone Address Plan / Group MEDICAID - MED[place]ID [place] xxxxxxxxx Medica id CARE COMM STAR Contracted PLAN
--- OUTSIDE RECORDS SUMMARY | 2020-01-12 18:10 | XMS REPORT | Continuity of Care Document ---
Author Author [facility] [employer] High[employer]ECK[employer] [facility] [employer] Information Exchange Address Unknown Phone Unavailable Care Team Providers Care Clay Roaster Name Role Phone [facility] Unavailable Un available Problems Problem Status Onset Date Classification Date Reported Comments Source Nausea with vomiting, unspecified 11/27/2019 12/01/2019 [place] Cough 11/2612/01/2019 [place] Fever, unspecified 11/27/2019 12/01/2019 [place] Unspecified abdominal pain 11/27/2019 12/01/2019 [place] VOMITING Active 11/26/2019 [place] N/A Active 0 02/06/2019 [facility] G47.33 Active 01/01/2019 [facility] Discharge Diagnosis: Acute vaginitis 02/25/2016 02/28/2016 [place] Discharge Diagnosis: Acute cervicitis 02/25/2016 02/28/2016 [place] VAGINAL DISCHARGE Active 02/25/2016 [place] Discharge Diagnosis: Headache 06/09/2015 06/12/2015 [place] Discharge Diagnosis: Dizziness 06/09/2015 06/12/2015 [place] DIZZYNESS/NAUSEA Active 06/08/2015 [facility] Discharge Diagnosis: Acute UTI 10/01/2014 10/04/2014 [place] Discharge Diagnosis: Candidal vaginitis 10/01/2014 10/04/2014 [place] VAGINAL ISSUES Active 09/30/2014 [place] 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 Prob patricia 12/01/2019 [facility] [place] OBSTRUCTIVE SLEEP APNEA (ADULT) (PEDIATR Active [facility] Medications Medication Details Route Status Patient Instructions Ordering Provider Order Date Source Ondansetron 4 MG Disintegrating Tablet [Zofran] 4 mg = 1 tab, PO, TID, PRN Nausea and Vomiting, Dissolve tab under tongue, # 15 tab, 0 Refill(s) Active 11/27/2019 [place] benzonatate 100 MG Oral Capsule [Tessalon Perles] 100 mg = 1 cap, PO, Q8H, PRN cough, do not crush or chew, X 10 day, # 30 cap, 0 Refill(s) Active 11/27/2019 [place] Omnipaque 300 injectable solution 45 mL/min, Start date: 11/27/19 1:00:00 CDT, Duration: 1 doses or times Inactive 11/27/2019 [place] Saline Flush 0.9% Notes: (Same as: BD Posiflush) No Longer Active 11/27/2019 [place] Sodium Chloride 0.9% (Bolus) IV 1,000 mL, Infuse Over: 1 hr, Route: IV, ONCE, Priority: STAT, Dosing Weight 90.909 kg, Start date: 11/26/19 23:29:00 CDT, Stop date: 11/26/19 23:29:00 CDT Inactive 11/27/2019 [facility] Ondansetron 4 mg, Route: IVP, ONCE, Dosing Weight 90.909, kg, Priority: STAT, Start date: 11/26/19 23:29:00 CDT, Stop date: 11/26/19 23:29:00 CDT Inactive 11/27/2019 [facility] Tylenol 650 mg, Route: PO, Sebas g form: TAB, ONCE, Dosing Weight 90.909, kg, Priority: STAT, Start date: 11/26/19 23:29:00 CDT, Stop date: 11/26/19 23:29:00 CDT Inactive 11/27/2019 [facility] Oxycodone Hydrochloride 1 MG/ML Oral Solution Notes: (Same as: 'Roxicodone) Inactiv e 02/25/2019 [facility] Hydralazine Notes: (Same as: A presoline) Push over 5 minutes Inactive 02/25/2019 [facility] Labetalol Notes: (Same as: Nor modyne, Trandate) Push over 2 minutes Give bolus over 2-3 minutes. Inactive 02/25/2019 [facility] Ketorolac 4 days MEDICA TION WASTE Product Size: 30 mg Product Wasted: ___ mg Inactive 02/25/2019 [facility] Morphine Notes: (Same as:MORPh ine Sulfate) Inactive 02/25/2019 [facility] Fentanyl Notes: (Same as: Subl imaze) Preservative free. Inactive 02/25/2019 [facility] Flumazenil Notes: (Same as: Ro mazicon) Inactive 02/25/2019 [facility] Naloxone Notes: Same as Narcan Inactive 02/25/2019 [facility] Meperidine Notes: (Same as: [place]) "Use Precaution in Elderly, Seizure disorders, and Renal impairment" Inactive 02/25/2019 [facility] Ondansetron Notes: (Same as: Satya grullon) MEDICATION WASTE Product Size: 4 mg Product Wasted: ___ mg Inactive 02/25/2019 [facility] Dexamethasone Notes: Concentra tion: 4mg/ml Inactive 02/25/2019 [facility] Promethazine 6.25 mg, Route: I VPB, ONCE, Dosing Weight 90.455, kg, PRN Nausea & Vomiting, Start date: 02/25/19 10:52:00 CDT Inactive 02/25/2019 [facility] Insulin Lispro Notes: (Same as : Humalog) Roll in palms of hands gently; Do not shake vigorously. WASTE: F/P - Black; E - Municipal Trash Bin Stable for 28 days at room temperature. Expires in days from Date Inactive 02/25/2019 [facility] glycopyrrolate (ANES) Route: I V, Drug form: INJ, ONCE, Stop date: 02/25/19 10:40:00 CDT Inactive 02/25/2019 [facility] neostigmine (ANES) Route: IV, Drug form: INJ, ONCE, Stop date: 02/25/19 10:40:00 CDT Inactive 02/25/2019 [facility] lidocaine (ANES) Route: IV, Dr ug form: INJ, ONCE, Stop date: 02/25/19 10:23:00 CDT Inactive 02/25/2019 [facility] dexamethasone (ANES) Route: IV , Drug form: INJ, ONCE, Stop date: 02/25/19 10:23:00 CDT Inactive 02/25/2019 [facility] propofol (ANES) Route: IV, Sebas g form: INJ, ONCE, Stop date: 02/25/19 10:18:00 CDT Inactive 02/25/2019 [facility] rocuronium (ANES) Route: IV, D rug form: INJ, ONCE, Stop date: 02/25/19 10:18:00 CDT Inactive 02/25/2019 [facility] ondansetron (ANES) Route: IV, Drug form: INJ, ONCE, Stop date: 02/25/19 10:13:00 CDT Inactive 02/25/2019 [facility] midazolam (ANES) Route: IV, Dr ug form: SOLN, ONCE, Stop date: 02/25/19 10:08:00 CDT Inactive 02/25/2019 [facility] fentaNYL (ANES) Route: IV, Sebas g form: INJ, ONCE, Stop date: 02/25/19 10:08:00 CDT Inactive 02/25/2019 [facility] Lactated Ringers Injection IV (ANES) 1000 mL Route: IV, Total Volume: 1,000, Start date: 02/25/19 9:30:00 CDT, Stop date: 02/25/19 10:30:00 CDT Inactive 02/25/2019 [facility] trazodone 150 mg oral tablet 1 50 mg = 1 tab, PO, Bedtime Active 02/11/2019 [facility] simvastatin 20 mg oral tablet 20 mg = 1 tab, PO, Bedtime Active 02/11/2019 [facility] ARIPiprazole 5 mg, PO, Daily Active 02/11/2019 [facility] sertraline 100 mg oral tablet 100 mg = 1 tab, PO, Daily Active 02/11/2019 [facility] Azithromycin 1,000 mg, Route: PO, Drug form: TAB, ONCE, Dosing Weight 63.807, kg, Start date: 02/25/16 22:04:00 CDT, Stop date: 02/25/16 22:04:00 CDT Inactive 02/26/2016 [place] fluconazole 150 mg oral tablet 150 mg = 1 tab, PO, ONCE, # 1 tab, 0 Refill(s) Active 02/26/2016 [place] Metronidazole 500 MG Oral Tablet [Flagyl] 500 mg = 1 tab, PO, Q8H, X 7 day, # 21 tab, 0 Refill(s) Active 02/26/2016 [place] Azithromycin Notes: (Same As: Zithromax) Take 1 hour before or 2 hours after meal Inactive 02/26/2016 [place] Rocephin Notes: (Same As: Roce phin) Inactive 02/26/2016 [facility] [place] meclizine 25 mg oral tablet 25 mg = 1 tab, PO, TID, PRN for dizziness, X 7 day, # 21 tab, 0 Refill(s) Active 06/09/2015 [facility] Benadryl 12.5 mg, Route: IVP, ONCE, Dosing Weight 55.773, kg, Priority: STAT, Start date: 06/09/15 0:13:00, Stop date: 06/09/15 0:13:00 Inactive 06/09/2015 [facility] Reglan 10 mg, Route: IVP, Drug form: INJ, ONCE, Dosing Weight 55.773, kg, Priority: STAT, Start date: 06/09/15 0:12:00, Stop date: 06/09/15 0:12:00 Inactive 06/09/2015 [facility] Meclizine 25 mg, Route: PO, Dr ug form: TAB, ONCE, Dosing Weight 55.773, kg, Priority: STAT, Start date: 06/09/15 0:12:00, Stop date: 06/09/15 0:12:00 Inactive 06/09/2015 [facility] Sodium Chloride 0.154 MEQ/ML Injectable Solution 1,000 mL, 1,000 ml/hr, Infuse Over: 1 hr, Route: IV, ONCE, Priority: STAT, Dosing Weight 55.773 kg, Start date: 06/09/15 0:12:00, Duration: 1 doses or times, Stop date: 06/09/15 0:12:00 Inactive 06/09/2015 [facility] Miconazole Nitrate 200 MG Vaginal Suppos itory [Monistat] 200 mg = 1 supp, VAG, Bedtime, X 3 day, # 3 ea, 0 Refill(s), Pharmacy: [facility] [id number] Active 10/01/2014 [facility] Nitrofurantoin 100 MG Oral Capsule [Macrobid] 100 mg = 1 cap, PO, BID, X 7 day, # 14 cap, 0 Refill(s), Pharmacy: [facility] [id number] Active 10/01/2014 [facility] Allergies, Adverse Reactions, Alerts Substance Category Reaction Severity Reaction type Status Date Reported Comments Source No Known Medication Allergies Assertion Drug aller gy [facility] Immunizations No Data Provided for This Section Results Order Name Results Value Reference Range Date Interpretation Comments Source URINE AND STOOL UA Color Yellow *NA* (11/27/19 2:04 AM) Yellow 11/27/2019 [place] URINE AND STOOL UA Turbidity Clear (11/27/19 2:04 AM) Clear 11/27/2019 [place] URINE AND STOOL UA Spec Grav 1.015 <=1.030 11/27/2019 [place] URINE AND STOOL UA pH 5.0 5.0 - 8.0 11/27/2019 [place] URINE AND STOOL UA Protein Negative mg/dL Negative mg/dL 11/27/2019 [facility] URINE AND STOOL UA Glucose Negative mg/dL Negative mg/dL 11/27/2019 [facility] URINE AND STOOL UA Ketones Negative mg/dL Negative mg/dL 11/27/2019 [facility] URINE AND STOOL UA Bili Negative *NA* (11/27/19 2:04 AM) Negative 11/27/2019 [place] URINE AND STOOL UA Blood Negative (11/27/19 2:04 AM) Negative 11/27/2019 [place] URINE AND STOOL UA Urobilinogen 0.2 0.1 - 1.0 11/27/2019 [place] URINE AND STOOL UA Nitrite Negative (11/27/19 2:04 AM) Negative 11/27/2019 [place] URINE AND STOOL UA Leuk Est Negative (11/27/19 2:04 AM) Negative 11/27/2019 [place] URINE AND STOOL UA Sq Epi Moderate /LPF Few /LPF 11/27/2019 [place] URINE AND STOOL UA WBC 2 0 - 5 11/27/2019 [place] URINE AND STOOL UA RBC 21 0 - 2 11/27/2019 [facility] IMMUNOLOGY Coronavirus (COVID-19) NA A Not Detected *NA* (11/26/19 11:53 PM) Not Detected 11/27/2019 [place] CHEM PANEL Glucose Lvl 91 70 - 99 11/27/2019 [place] CHEM PANEL BUN 10 7 - 22 11/27/2019 [place] CHEM PANEL Creatinine Lvl 0.71 0.50 - 1.40 11/27/2019 [place] CHEM PANEL Sodium Lvl 140 135 - 145 11/27/2019 [place] CHEM PANEL Potassium Lvl 3.4 3.5 - 5.1 11/27/2019 [place] CHEM PANEL Chloride Lvl 107 95 - 109 11/27/2019 [place] CHEM PANEL CO2 23 24 - 32 11/27/2019 [place] CHEM PANEL Calcium Lvl 9.0 8.5 - 10.5 11/27/2019 [place] CHEM PANEL Total Protein 7.9 6.4 - 8.4 11/27/2019 [place] CHEM PANEL Albumin Lvl 3.9 3.5 - 5.0 11/27/2019 [place] CHEM PANEL ALT 130 0 - 65 11/27/2019 [place] CHEM PANEL AST 82 0 - 37 11/27/2019 [place] CHEM PANEL Alk Phos 101 39 - 136 11/27/2019 [place] CHEM PANEL Bili Total 0.8 0.2 - 1.3 11/27/2019 [place] CHEM PANEL AGAP 13.4 10.0 - 20.0 11/27/2019 [place] CHEM PANEL B/C Ratio 14 6 - 25 11/27/2019 [place] CHEM PANEL Globulin 4.0 2.7 - 4.2 11/27/2019 [place] CHEM PANEL A/G Ratio 1.0 0.7 - 1.6 11/27/2019 [place] CHEM PANEL eGFR 120 11/27/2019 Result Comment: [...] should be multiplied by the estimated BMI. [place] CHEM PANEL Lipase Lvl 179 73 - 393 11/27/2019 [place] ENDOCRINOLOGY S Preg Ne gative *NA* (11/26/19 11:31 PM) Negative 11/27/2019 [place] HEMATOLOGY WBC 10.1 3.7 - 10.4 11/27/2019 [place] HEMATOLOGY RBC 4.59 4.20 - 5.40 11/27/2019 [place] HEMATOLOGY Hgb 14.2 12.0 - 16.0 11/27/2019 [place] HEMATOLOGY Hct 41.4 36.0 - 48.0 11/27/2019 [place] HEMATOLOGY MCV 90.3 80.0 - 98.0 11/27/2019 [place] HEMATOLOGY MCH 31.0 27.0 - 31.0 11/27/2019 [place] HEMATOLOGY MCHC 34.4 32.0 - 36.0 11/27/2019 [place] HEMATOLOGY RDW 13.0 11.5 - 14.5 11/27/2019 [place] HEMATOLOGY Platelet 244 133 - 450 11/27/2019 [place] HEMATOLOGY MPV 8.9 7.4 - 10.4 11/27/2019 [place] HEMATOLOGY Segs 69.4 45.0 - 75.0 11/27/2019 [place] HEMATOLOGY Lymphocytes 23.1 20.0 - 40.0 11/27/2019 [place] HEMATOLOGY Monocytes 5.7 2.0 - 12.0 11/27/2019 [place] HEMATOLOGY Eosinophils 1.2 0.0 - 4.0 11/27/2019 [place] HEMATOLOGY Basophils 0.6 0.0 - 1.0 11/27/2019 [place] HEMATOLOGY Neutrophils # 7.0 1.5 - 8.1 11/27/2019 [place] HEMATOLOGY Lymphocytes # 2.3 1.0 - 5.5 11/27/2019 [place] HEMATOLOGY Monocytes # 0.6 0.0 - 0.8 11/27/2019 [place] HEMATOLOGY Eosinophils # 0.1 0.0 - 0.5 11/27/2019 [place] HEMATOLOGY Basophils # 0.1 0.0 - 0.2 11/27/2019 [place] URINE CHEM U Preg Negat tereas (02/25/19 8:33 AM) Negative 02/25/2019 [facility] CHEM PANEL Glucose Lvl 94 70 - 99 02/11/2019 [facility] CHEM PANEL BUN 8 7 - 22 02/11/2019 [facility] CHEM PANEL Creatinine Lvl 0.70 0.50 - 1.40 02/11/2019 [facility] CHEM PANEL Sodium Lvl 138 135 - 145 02/11/2019 [facility] CHEM PANEL Potassium Lvl 3.7 3.5 - 5.1 02/11/2019 [facility] CHEM PANEL Chloride Lvl 105 95 - 109 02/11/2019 [facility] CHEM PANEL CO2 24 24 - 32 02/11/2019 [facility] CHEM PANEL Calcium Lvl 9.0 8.5 - 10.5 02/11/2019 [facility] CHEM PANEL eGFR 123 02/11/2019 Result Comment: [...] should be multiplied by the estimated BMI. [facility] CHEM PANEL AGAP 12.7 10.0 - 20.0 02/11/2019 [facility] ENDOCRINOLOGY S Preg Ne gative *NA* (02/11/19 11:50 AM) Negative 02/11/2019 [facility] HEMATOLOGY WBC 7.3 3.7 - 10.4 02/11/2019 [facility] HEMATOLOGY RBC 4.50 4.20 - 5.40 02/11/2019 [facility] HEMATOLOGY Hgb 13.6 12.0 - 16.0 02/11/2019 [facility] HEMATOLOGY Hct 40.7 36.0 - 48.0 02/11/2019 [facility] HEMATOLOGY MCV 90.4 80.0 - 98.0 02/11/2019 [facility] HEMATOLOGY MCH 30.2 27.0 - 31.0 02/11/2019 [facility] MCHC 33.4 32.0 - 36.0 02/11/2019 [facility] HEMATOLOGY RDW 12.3 11.5 - 14.5 02/11/2019 [facility] Platelet 277 133 - 450 02/11/2019 [facility] MPV 8.7 7.4 - 10.4 02/11/2019 [facility] Segs 64.0 45.0 - 75.0 02/11/2019 [facility] HEMATOLOGY Lymphocytes 29.0 20.0 - 40.0 02/11/2019 [facility] HEMATOLOGY Monocytes 5.4 2.0 - 12.0 02/11/2019 [facility] HEMATOLOGY Eosinophils 1.6 0.0 - 4.0 02/11/2019 [facility] HEMATOLOGY Basophils 0.0 0.0 - 1.0 02/11/2019 [facility] HEMATOLOGY Neutrophils # 4.7 1.5 - 8.1 02/11/2019 [facility] HEMATOLOGY Lymphocytes # 2.1 1.0 - 5.5 02/11/2019 [facility] HEMATOLOGY Monocytes # 0.4 0.0 - 0.8 02/11/2019 [facility] HEMATOLOGY Eosinophils # 0.1 0.0 - 0.5 02/11/2019 [facility] Basophils # 0.0 0.0 - 0.2 02/11/2019 [facility] URINE AND STOOL UA Ketones Negative mg/dL Negative mg/dL 02/26/2016 [facility] URINE AND STOOL UA Glucose Negative mg/dL Negative mg/dL 02/26/2016 [facility] URINE AND STOOL UA pH 5.0 5.0 - 8.0 02/26/2016 [place] URINE AND STOOL UA Protein Negative mg/dL Negative mg/dL 02/26/2016 [facility] URINE AND STOOL UA Bili Negative *NA* (02/25/16 8:40 PM) Negative 02/26/2016 [place] URINE AND STOOL UA Blood Negative (02/25/16 8:40 PM) Negative 02/26/2016 [place] URINE AND STOOL UA Color Yellow *NA* (02/25/16 8:40 PM) Yellow 02/26/2016 [place] URINE AND STOOL UA Turbidity Slight *ABN* (02/25/16 8:40 PM) Clear 02/26/2016 [place] URINE AND STOOL UA Spec Grav 1.027 <=1.030 02/26/2016 [place] URINE AND STOOL UA Leuk Est Small *ABN* (02/25/16 8:40 PM) Negative 02/26/2016 [place] URINE AND STOOL UA Sq Epi Many /LPF Few /LPF 02/26/2016 [place] URINE AND STOOL UA Mucus Many /LPF None Seen /LPF 02/26/2016 [place] URINE AND STOOL UA RBC 1 0 - 2 02/26/2016 [place] URINE AND STOOL UA Bacteria Occasional /HPF None Seen /HPF 02/26/2016 [facility] URINE AND STOOL UA WBC 6 0 - 5 02/26/2016 [place] URINE AND STOOL UA Urobilinogen 2.0 0.1 - 1.0 02/26/2016 [place] URINE AND STOOL UA Nitrite Negative (02/25/16 8:40 PM) Negative 02/26/2016 [place] URINE CHEM U Preg Negat teresa (02/25/16 8:40 PM) Negative 02/26/2016 [place] MOLECULAR DIAGNOSTIC N gonorrhea by Amp Det (APTIMA) Negative *NA* (06/09/15 12:37 AM) Negative 06/09/2015 [place] MOLECULAR DIAGNOSTIC C trachomatis b y Amp Det (APTIMA) Negative *NA* (06/09/15 12:37 AM) Negative 06/09/2015 [place] MOLECULAR DIAGNOSTIC Source APTIMA Urine *NA* (06/09/15 12:37 AM) 06/09/2015 [place] CHEM PANEL eGFR 127 06/09/2015 Result Comment: [...] should be multiplied by the estimated BMI. [place] CHEM PANEL Bili Total 0.5 0.2 - 1.3 06/09/2015 [place] CHEM PANEL AST 26 0 - 37 06/09/2015 [place] CHEM PANEL Alk Phos 83 39 - 136 06/09/2015 [place] CHEM PANEL Creatinine Lvl 0.66 0.50 - 1.40 06/09/2015 [place] CHEM PANEL Sodium Lvl 141 135 - 145 06/09/2015 [place] CHEM PANEL Glucose Lvl 87 70 - 99 06/09/2015 [place] CHEM PANEL BUN 13 7 - 22 06/09/2015 [place] CHEM PANEL Albumin Lvl 3.8 3.5 - 5.0 06/09/2015 [place] CHEM PANEL Total Protein 7.3 6.4 - 8.4 06/09/2015 [place] CHEM PANEL ALT 38 0 - 65 06/09/2015 [place] CHEM PANEL Chloride Lvl 107 95 - 109 06/09/2015 [place] CHEM PANEL CO2 26 24 - 32 06/09/2015 [place] CHEM PANEL Calcium Lvl 8.6 8.5 - 10.5 06/09/2015 [place] CHEM PANEL Potassium Lvl 3.5 3.5 - 5.1 06/09/2015 [place] CHEM PANEL Globulin 3.5 2.0 - 4.0 06/09/2015 [place] CHEM PANEL A/G Ratio 1.1 0.7 - 1.6 06/09/2015 [place] CHEM PANEL AGAP 11.5 10.0 - 20.0 06/09/2015 [place] CHEM PANEL B/C Ratio 20 6 - 25 06/09/2015 [place] ENDOCRINOLOGY S Preg Ne gative *NA* (06/09/15 12:23 AM) Negative 06/09/2015 [place] HEMATOLOGY Monocytes # 0.5 0.0 - 0.8 06/09/2015 [place] HEMATOLOGY Eosinophils # 0.1 0.0 - 0.5 06/09/2015 [place] HEMATOLOGY Basophils # 0.0 0.0 - 0.2 06/09/2015 [place] HEMATOLOGY Segs 50.1 45.0 - 75.0 06/09/2015 [place] HEMATOLOGY Lymphocytes 40.2 20.0 - 40.0 06/09/2015 [place] HEMATOLOGY Monocytes 7.6 2.0 - 12.0 06/09/2015 [place] HEMATOLOGY Eosinophils 1.6 0.0 - 4.0 06/09/2015 [place] HEMATOLOGY Basophils 0.5 0.0 - 1.0 06/09/2015 [place] HEMATOLOGY Segs-Bands # 3.4 1.5 - 8.1 06/09/2015 [place] HEMATOLOGY Lymphocytes # 2.7 1.0 - 5.5 06/09/2015 [place] HEMATOLOGY WBC 6.7 3.7 - 10.4 06/09/2015 [place] HEMATOLOGY RBC 4.08 4.20 - 5.40 06/09/2015 [place] HEMATOLOGY Hct 36.7 36.0 - 48.0 06/09/2015 [place] HEMATOLOGY Hgb 12.6 12.0 - 16.0 06/09/2015 [place] HEMATOLOGY MCV 89.9 80.0 - 98.0 06/09/2015 [place] HEMATOLOGY MCHC 34.3 32.0 - 36.0 06/09/2015 [place] HEMATOLOGY MCH 30.8 27.0 - 31.0 06/09/2015 [place] HEMATOLOGY Platelet 251 133 - 450 06/09/2015 [place] HEMATOLOGY RDW 12.7 11.5 - 14.5 06/09/2015 [place] HEMATOLOGY MPV 9.0 7.4 - 10.4 06/09/2015 [place] URINE AND STOOL UA Mucus Few /LPF None Seen /LPF 06/09/2015 [place] URINE AND STOOL UA RBC 0-2 /HPF 0 - 2 06/09/2015 [place] URINE AND STOOL UA Bacteria Few /HPF None Seen /HPF 06/09/2015 [place] URINE AND STOOL UA Leuk Est Negative (06/09/15 12:23 AM) Negative 06/09/2015 [place] URINE AND STOOL UA Sq Epi Moderate /LPF Few /LPF 06/09/2015 [place] URINE AND STOOL UA WBC 3-5 /HPF None Seen /HPF 06/09/2015 [place] URINE AND STOOL UA Glucose Negative (06/09/15 12:23 AM) Negative 06/09/2015 [place] URINE AND STOOL UA pH 6.5 5.0 - 8.0 06/09/2015 [place] URINE AND STOOL UA Protein Negative (06/09/15 12:23 AM) Negative 06/09/2015 [place] URINE AND STOOL UA Ketones Negative *NA* (06/09/15 12:23 AM) Negative 06/09/2015 [place] URINE AND STOOL UA Bili Negative *NA* (06/09/15 12:23 AM) Negative 06/09/2015 [place] URINE AND STOOL UA Blood Small *ABN* (06/09/15 12:23 AM) Negative 06/09/2015 [facility] [place] URINE AND STOOL UA Urobilinogen 1.0 0.1 - 1.0 06/09/2015 [facility] URINE AND STOOL UA Nitrite Negative (06/09/15 12:23 AM) Negative 06/09/2015 [facility] URINE AND STOOL UA Color Yellow *NA* (06/09/15 12:23 AM) Yellow 06/09/2015 [facility] URINE AND STOOL UA Turbidity Slight Cloudy (06/09/15 12:23 AM) Clear 06/09/2015 [facility] URINE AND STOOL UA Spec Grav 1.025 <=1.030 06/09/2015 [facility] IMMUNOLOGY [facility] HIV 4th GEN Negat teresa (10/01/14 12:34 AM) Negative 10/01/2014 [facility] MOLECULAR DIAGNOSTIC N gonorrhea by Amp [...] verified by the [facility] within [facility]. The [facility] Laboratory is authorized under the Clinical Laboratory Improvement Amendments of 1988 (CLIA-88) to perform high complexity testing. [facility] MOLECULAR DIAGNOSTIC Source [facility]TIMA Endoc[employer]ix *NA* (10/01/14 12:34 AM) 10/01/2014 [facility] MOLECULAR DIAGNOSTIC C trachomatis b y Amp [...] verified by the [facility] within [facility]. The [facility] is authorized under [...] from symptomatic and asymptomatic individuals using the [employer] System.
This assay utilizes FDA cleared IVD reagents. Performance characteristics have been verified by the [facility] within [facility]. The [facility] Laboratory is authorized under the Clinical Laboratory Improvement Amendments of 1988 (CLIA-88) to perform high complexity testing. [place] URINE AND STOOL UA Spec Grav 1.020 <=1.030 10/01/2014 [place] URINE AND STOOL UA Turbidity Cloudy *ABN* (10/01/14 12:34 AM) Clear 10/01/2014 [place] URINE AND STOOL UA pH 7.0 5.0 - 8.0 10/01/2014 [place] URINE AND STOOL UA Protein Negative (10/01/14 12:34 AM) Negative 10/01/2014 [place] URINE AND STOOL UA Ketones Negative *NA* (10/01/14 12:34 AM) Negative 10/01/2014 [place] URINE AND STOOL UA Glucose Negative (10/01/14 12:34 AM) Negative 10/01/2014 [place] URINE AND STOOL UA Bacteria Few /HPF None Seen /HPF 10/01/2014 [place] URINE AND STOOL UA Nitrite Negative (10/01/14 12:34 AM) Negative 10/01/2014 [place] URINE AND STOOL UA WBC 11-20 /HPF None Seen /HPF 10/01/2014 [place] URINE AND STOOL UA Leuk Est Small *ABN* (10/01/14 12:34 AM) Negative 10/01/2014 [place] URINE AND STOOL UA Sq Epi Moderate /LPF Few /LPF 10/01/2014 [place] URINE AND STOOL UA RBC 0-2 /HPF 0 - 2 10/01/2014 [place] URINE AND STOOL UA Color Yellow *NA* (10/01/14 12:34 AM) Yellow 10/01/2014 [place] URINE AND STOOL UA Urobilinogen 1.0 0.1 - 1.0 10/01/2014 [facility] URINE AND STOOL UA Blood Negative (10/01/14 12:34 AM) Negative 10/01/2014 [facility] URINE AND STOOL UA Bili Negative *NA* (10/01/14 12:34 AM) Negative 10/01/2014 [facility] URINE CHEM U Preg Negat teresa (10/01/14 12:34 AM) Negative 10/01/2014 [facility] Pathology Reports No Data Provided for This [...] abnormalities. Impression: No acute cardiopulmonary disease 11/27/2019 [facility] ED Abdomen/Pelvis IV contrast only CT CLINICAL [...] nonemergent follow-up for repositioning/replacement is suggested. 11/27/2019 [place] Consultation Notes No Data Provided for This Section Discharge Summaries No Data Provided for This Section History and Physicals No Data Provided for This Section Vital Signs Vital Sign Value Date Comments Source Temperature Oral (F) 98 F 11/27/2019 [place] Respitory Rate 16 11/27/2019 [place] Systolic (mm Hg) 111 11/27/2019 [place] Diastolic (mm Hg) 71 11/27/2019 [place] Temperature Oral (F) 98.1 F 11/27/2019 [place] Respitory Rate 16 11/27/2019 [place] Systolic (mm Hg) 116 11/27/2019 [place] Diastolic (mm Hg) 68 11/27/2019 [place] Temperature Oral (F) 98.7 F 11/27/2019 [place] Respitory Rate 16 11/27/2019 [place] Systolic (mm Hg) 114 11/27/2019 [place] Diastolic (mm Hg) 69 11/27/2019 [place] Height 162.56 cm 11/27/2019 [place] BMI Calculated 34.4 11/27/2019 [place] Weight 90.909 11/27/2019 [place] Heart Rate 85 11/27/2019 [place] Respitory Rate 18 02/25/2019 [facility] Systolic (mm Hg) 125 02/25/2019 [facility] Diastolic (mm Hg) 71 02/25/2019 [facility] Respitory Rate 18 02/25/2019 [facility] Systolic (mm Hg) 107 02/25/2019 [facility] Diastolic (mm Hg) 60 02/25/2019 [facility] Respitory Rate 15 02/25/2019 [facility] Systolic (mm Hg) 105 02/25/2019 [facility] Diastolic (mm Hg) 68 02/25/2019 [facility] Temperature Oral (F) 97.6 F 02/11/2019 [facility] Heart Rate 84 02/11/2019 [facility] Height 160.02 cm 02/11/2019 [facility] Weight 90.455 02/11/2019 [facility] BMI Calculated 35.33 02/11/2019 [facility] Systolic (mm Hg) 116 02/26/2016 [place] Diastolic (mm Hg) 64 02/26/2016 [place] Respitory Rate 16 02/26/2016 [place] Heart Rate 71 02/26/2016 [place] Temperature Oral (F) 98 F 02/26/2016 [place] Respitory Rate 16 02/26/2016 [place] Heart Rate 73 02/26/2016 [place] Systolic (mm Hg) 116 02/26/2016 [place] Diastolic (mm Hg) 72 02/26/2016 [place] Temperature Oral (F) 98.6 F 02/26/2016 [place] Weight 63.807 02/26/2016 [place] Systolic (mm Hg) 100 06/09/2015 [place] Diastolic (mm Hg) 66 06/09/2015 [place] Heart Rate 75 06/09/2015 [place] Respitory Rate 19 06/09/2015 [place] Temperature Oral (F) 98.2 F 06/09/2015 [place] Weight 55.773 06/09/2015 [place] Heart Rate 70 06/09/2015 [place] Systolic (mm Hg) 128 06/09/2015 [place] Diastolic (mm Hg) 80 06/09/2015 [place] Respitory Rate 18 06/09/2015 [place] Temperature Oral (F) 97.8 F 06/09/2015 [place] Systolic (mm Hg) 110 10/01/2014 [place] Diastolic (mm Hg) 84 10/01/2014 [place] Heart Rate 79 10/01/2014 [place] Respitory Rate 18 10/01/2014 [place] Temperature Oral (F) 98.2 F 10/01/2014 [place] Weight 57.5 10/01/2014 [place] Respitory Rate 18 10/01/2014 [place] Heart Rate 87 10/01/2014 [place] Temperature Oral (F) 98.5 F 10/01/2014 [place] Systolic (mm Hg) 125 10/01/2014 [place] Diastolic (mm Hg) 80 10/01/2014 [place] Encounters Location Location Details Encounter Type Encounter Number Reason For Visit Attending Provider ADM Date DC Date Status Source [facility] [id number] Sabino Ruiz 10/01/2014 10/01/2014 [facility] [id number] Eric Weaver 06/09/2015 06/09/2015 [facility] Emergency [id number] Cricket Grubbs 02/26/2016 02/26/2016 [facility] Outpatient [id number] Kelle Orlando 01/13/2019 01/13/2019 [facility] [id number] Kelle Tampoloi 02/25/2019 02/25/2019 [facility] Emergency [id number] Familia Rooney III 11/27/1911/27/2019 [place] Procedures Procedure Code Date Perfomer Comments Source Cholecystectomy [id number] [facility] Assessment and Plan No Data Provided for This Section Plan of Care No Data Provided for This Section Social History Social History Date Source Social History TypeResponse Alcohol Never Sexual Sexually active: Yes. Smoking Status Never smoker; Exposure to Tobacco Smoke None; Cigarette Smoking Last 365 Days No; Reg Smoking Cessation Counseling Yes entered on: 02/11/19 02/11/2019 [facility] Social History TypeResponse Alcohol Never Sexual Sexually active: Yes. Smoking Status Never smoker; Exposure to Tobacco Smoke None; Cigarette Smoking Last 365 Days No; Reg Smoking Cessation Counseling Yes entered on: 11/26/19 02/11/2019 [facility] Social History TypeResponse Smoking Status Never smoker; Type: Cigarettes; Previous treatment: None; Ready to change: No; Concerns about tobacco use in household: No; Exposure to Tobacco Smoke None; Cigarette Smoking Last 365 Days No; Reg Smoking Cessation Counseling No entered on: 02/25/16 02/26/2016 [facility] Family History No Data Provided for This Section Advance Directives No Data Provided for This Section Functional Status No Data Provided for This Section
--- OUTSIDE RECORDS SUMMARY | 2020-01-12 18:11 | XMS REPORT | Continuity of Care Document ---
Author Author [facility] t Organization [facility] Address [address] [place] [address] Phone Unavailable Care Team Providers Care Griddle Attendant Name Role Phone NONSTAFF PCP Unavailable DR Sandra SALCIDO Attphys Unavailable Brandan MENDEZ Attphys Unavailable LinklaSydni molina III Attphys STANISLAV MOHR Attphys Unavailable DR DUNCAN FRANCO Attphys Unavailable Kelle Orlando Attphys Anival WALL Attphys Unavailable ALDEN, DR TIFFANI LAGOS Attphys Unavailable SINGER, DR SEE Attphys Unavailable BRANDYLEONA FRENCH Attphys Unavailable FERNANDA, DR DAVIS Attphys Unavailable GEREMIAS, DR ERIC Attphys Unavailable DR FAMILIA RINCON Attphys Unavailable AVA, DR ROSA Attphys Unavailable DR DAVE ROPER Attphys Unavailable SEBASTIAN, DR MCCRARY Attphys Unavailable Loretta HARRIS Attphys Unavailable CHINTAN, DR SORTO Attphys Unavailable Aden GRIMES Attphys Unavailable Hernandez GERMAN Attphys Unavailable Dwayne Grubbs Attphys Eric Weaver Attphys Sabino Ruiz Attphys DR Sandra SALCIDO Admphys Unavailable FRANCO, DR SONG Admphys Unavailable RUANO, DR TIFFANI LAGOS Admphys Unavailable SINGER, DR SEE Admphys Unavailable BRANDY, LEONA FLANAGAN Admphys Unavailable ROLLO, DR DAVIS Admphys Unavailable SCHEMIDT, DR ERIC Admphys Unavailable RINCON, DR CABRAL Admphys Unavailable ESCALANTE, DR ROSA Admphys Unavailable BA, DR ACOSTA Admphys Unavailable SEBASTIAN, DR MCCRARY Admphys Unavailable HARRIS, H VITALIY Admphys Unavailable CHINTAN, DR SORTO Admphys Unavailable SYDNEY, Aden LOPEZ Admphys Unavailable MAXI, Hernandez BERRIOS Admphys Unavailable Payers Payer Name Policy Type Policy Number Effective Date Expiration Date S [facility] [id number] 2019 00:00:00 [facility] [id number] 2019 00:00 :00 [facility] Problems Condition Name Condition Details Condition Category Status Onset Date Resolution Date Last Treatment Date Treating Clinician Comments Source VOMITING VOMI TING Active 11/26/2019 [place] [facility] Active 2019-11-26 00:00:00 2019-12-04 08:57:00 Pavan Vann N/A N/A Active 02/06/2019 [facility] Diagnosis Active 2019-02-06 00:00:00 2019-02-25 08:11:00 tabitha Vann G47.33 G47. 33 Active 01/01/2019 [facility] Diagnosis Active 2019-01-01 00:00:00 2019-01-14 18:30:00 [facility] V[facility]IN[facility] DISCHAR[facility] VAGI NAL DISCHARGE Active 02/25/2016 [place] Diagnosis Active 2016-02-25 00:00:00 2016-02-25 21:35:00 [facility] DIZZYNESS/NAUSEA DIZZ YNESS/NAUSEA Active 06/08/2015 [place] Diagnosis Active 2015-06-08 00:00:00 2015-06-09 06:57:00 [facility] VAGINAL ISSUES VAGI NAL ISSUES Active 09/30/2014 [place] Diagnosis Active 2014-09-30 00:00:00 2014-10-01 01:37:00 [facility] Problem Condition Active [facility] 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 (d isorder) 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 (disorder) Active Problem 12/01/2019 [facility] [place] Problem Active 2019-12-01 08:45:52 [facility] OBSTRUCTIVE SLEEP APNEA (ADULT) (PEDIATR OBSTRUCTIVE SLEEP APNEA (ADULT) (PEDIATR Active [facility] [place] Diagnosis Active 2019-01-14 18:30:00 [facility] Nausea with vomiting, unspecified Nausea with vomiting, unspecified 11/27/2019 12/01/2019 [place] Problem 2 17:00:00 2019-12-01 08:45:52 2019-12-01 08:45:52 [facility] Cough Coug h 11/27/2019 12/01/2019 [place] Problem 2019-11-27 17:00:00 2019-12-01 08:45:52 2019-12-01 08:45:52 [facility] Fever, unspecified Feve r, unspecified 11/27/2019 12/01/2019 [place] Problem 2019-11-27 17:00:00 2019-12-01 08:45:5 2 2019-12-01 08:45:52 [facility] Unspecified abdominal pain Uns pecified abdominal pain 11/27/2019 12/01/2019 [place] Problem 2019-11-27 17: 00:00 2019-12-01 08:45:52 2019-12-01 08:45:52 [facility] Discharge Diagnosis: Acute vaginitis Discharge Diagnosis: Acute vaginitis 02/25/2016 02/28/2016 [place] Problem 2016-02-25 05:00:00 2016-02-28 03:08:37 2016-02-28 03:08:37 [facility] Discharge Diagnosis: Acute cervicitis Discharge Diagnosis: Acute cervicitis 02/25/2016 02/28/2016 [place] Problem 2016-02-25 05:00:00 2016-02-28 03:08:37 2016-02-28 03:08:37 [facility] Discharge Diagnosis: Headache Discharge Diagnosis: Headache 06/09/2015 06/12/2015 [place] Problem 2015 06:00:00 2015-06-12 04:03:17 2015-06-12 04:03:17 [facility] Discharge Diagnosis: Dizziness Discharge Diagnosis: Dizziness 06/09/2015 06/12/2015 [place] Problem 201 10-20-19 06:00:00 2015-06-12 04:03:17 2015-06-12 04:03:17 [facility] Discharge Diagnosis: Acute UTI Discharge Diagnosis: Acute UTI 10/01/2014 10/04/2014 [facility] [place] Problem 201 09-22-13 05:00:00 2014-10-04 04:48:40 2014-10-04 04:48:40 [facility] Discharge Diagnosis: Candidal vaginitis Discharge Diagnosis: Candidal vaginitis 10/01/2014 10/04/2014 [facility] [place] Problem 2014-10-01 05:00:00 2014-10-04 04:48:40 2014-10-04 04:48:40 [facility] Allergies, Adverse Reactions, Alerts Allergy Name Allergy Type Status Severity Reaction(s) Onset Date Inacti ve Date Treating Clinician Comments Source No Known Allergies DA Active U 2019-01-17 00:00:00 [facility] No Known Medication Allergies No Known Medication Allergies Active [facility] Social History Social Habit Start Date Stop Date Quantity Comments Source History SDOH Alcohol Std Drinks [facility] History SDOH Alcohol Binge [facility] Sex Assigned At [facility] Social History 2019-02-11 16:41:31 2019-02-11 16:41:31 [facility] History SDOH Alcohol Frequency 2018-07-08 00:00:00 2018-07-08 00:00:0 0 1 [facility] Alcohol intake 2017-01-16 00:00:00 2017-01-16 00:00:00 Current non-drinker of alcohol (finding) Leonard Weston Smoking Status Start Date Stop Date Source Current every day smoker 2017-01-16 00:00:00 [facility] Social History [facility] Medications Ordered Medication Name Filled Medication Name Start Date Stop Da te Current Medication? Ordering Clinician Indication Dosage Frequency Signature (SIG) Comments Components Source Docusate Sodium (Colace) 100 Mg CAP Docusate Sodium (Colace) 100 Mg CAP 2020-01-02 16:52:00 Yes 100 Daily [facility] Ondansetron 4 MG Disintegrating Tablet [Zofran] 2019-11-27 07:51 :00 Yes 4 mg = 1 tab, PO, TID, PRN N ausea and Vomiting, Dissolve tab under tongue, # 15 tab, 0 Refill(s) Pavan Vann benzonatate 100 MG Oral Capsule [Samisamirslava Ritaadalid] 2019-11-27 07:51:00 Yes 100 mg = 1 cap, PO, Q8H, PRN cough, do not crush or chew, X 10 day, # 30 cap, 0 Refill(s) Pavan Vann Omnipaque 300 injectable solution 2019-11-27 06:00:00 No 45 mL/min, Start date: 11/27/19 1:00:00 CDT, Duration: 1 doses or times Pavan Vann Saline Flush 0.9% 2019-11-27 04:29:00 No Notes: (Same as: BD Posiflush) Pavan Vann Sodium Chloride 0.9% (Bolus) IV 2019-11-27 04:29:00 [...] 23:29:00 CDT, Stop date: 11/26/19 23:29:00 CDT Ia lesley Vann Oxycodone Hydrochloride 1 MG/ML Oral Solution 2019-02-25 15:53:0 0 No Notes: (Same as: 'Roxicodone) Ia lesley Vann Hydralazine 2019-02-25 15:52:00 No Notes: (Same as: Apresoline) Push over 5 minutes Pavan Vann Labetalol 2019-02-25 15:52:00 No Notes: (Same as: Normodyne, Trandate) Push over 2 minutes Give bolus over 2-3 minutes. [facility] Ketorolac 2019-02-25 15:52:00 Yes 4 days MEDICATION WASTE Product Size: 30 mg Product Wasted: ___ mg [facility] Morphine 2019-02-25 15:52:00 No Not es: (Same as:MORPhine Sulfate) [facility] Fentanyl 2019-02-25 15:52:00 No Notes: (Same as: Sublimaze) Preservative free. [facility] Flumazenil 2019-02-25 15:52:00 No Notes: (S niko as: Romazicon) [facility] Naloxone 2019-02-25 15:52:00 No Notes: Same as Narcan [facility] Meperidine 2019-02-25 15:52:00 No Notes: (Same as: Demerol) "Use Precaution in Elderly, Seizure disorders, and Renal impairment" [facility] Ondansetron 2019-02-25 15:52:00 No Notes: (Same as: Zofran) MEDICATION WASTE Product Size: 4 mg Product Wasted: ___ mg [facility] Dexamethasone 2019-02-25 15:52:00 No Notes: Concentration: 4mg/ml [facility] Promethazine 2019-02-25 15:52:00 No 6.25 mg, Route: IVPB, ONCE, Dosing Weight 90.455, kg, PRN Nausea & Vomiting, Start date: 02/25/19 10:52:00 [facility] Insulin Lispro 2019-02-25 15:52:00 No Notes: (Same as: Humalog) Roll in palms of hands gently; Do not shake vigorously. WASTE: F/P - Black; E - Municipal Trash Bin Stable for 28 days at room temperature. Expires in days from Date [facility] ellyn glycopyrrolate (ANES) 2019-02-25 15:40:00 No Route: IV, Drug form: INJ, ONCE, Stop date: 02/25/19 10:40:00 [facility] neostigm[facility] (ANES) 2019-02-25 15:40:00 No Route: IV, Drug form: INJ, ONCE, Stop date: 02/25/19 10:40:00 [facility] ([facility]ES) 2019-02-25 15:23:00 No Route: IV, Drug form: INJ, ONCE, Stop date: 02/25/19 10:23:00 [facility]T [facility] dexamethasone (ANES) 2019-02-25 15:23:00 No Route: IV, Drug form: INJ, ONCE, Stop date: 02/25/19 10:23:00 CDT [facility] propofol (ANES) 2019-02-25 15:18:00 No Route: IV, Drug form: INJ, ONCE, Stop date: 02/25/19 10:18:00 [facility] rocur[facility] (ANES) 2019-02-25 15:18:00 No Route: IV, Drug form: INJ, ONCE, Stop date: 02/25/19 10:18:00 [facility] ondans[facility] (KIARAS) 2019-02-25 15:13:00 No Route: IV, Drug form: INJ, ONCE, Stop date: 02/25/19 10:13:00 [facility]am (ANES) 2019-02-25 15:08:00 No Route: IV, Drug form: SOLN, ONCE, Stop date: 02/25/19 10:08:00 [facility] fentaNYL (ANES) 2019-02-25 15:08:00 No Route: IV, Drug form: INJ, ONCE, Stop date: 02/25/19 10:08:00 [facility] Lactated Ringers Injection IV (ANES) 1000 mL 2019-02-25 14:30:00 No Route: IV, Total Volume: 1,000, Start date: 02/25/19 9:30:00 CDT, Stop date: 02/25/19 10:30:[address] [facility] Metoclopramide Hcl (Reglan) 10 Mg TABLET Metoclopramid e Hcl (Reglan) 10 Mg TABLET 2019-02-15 03:17:00 Yes 10 Ever y 8 Hours as needed for Nausea And Vomiting [facility] Nitrofurantoin Monohyd/M-Cryst (Macrobid 100 Mg Capsul e) 100 Mg CAPSULE Nitrofurantoin Monohyd/M-Cryst (Macrobid 100 Mg Capsule) 100 Mg CAPSULE 2019-02-15 03:17:00 Yes 100 Twice A Day [facility] trazodone 150 mg oral tablet 2019-02-11 17:14:00 Yes 150 mg = 1 tab, PO, Bedtime [facility] simvastatin 20 mg oral tablet 2019-02-11 17:14:00 Yes 20 mg = 1 tab, PO, Bedtime [facility] ARIPiprazole 2019-02-11 17:12:00 Yes 5 mg, P O, Daily [facility] sertraline 100 mg oral tablet 2019-02-11 17:12:00 Yes 100 mg = 1 tab, PO, Daily [facility] ARIPiprazole (ABILIFY) 2 MG tablet 2018-07-08 13:32:22 Yes 2mg QD Take 2 mg by mouth daily. [facility] sertraline (ZOLOFT) 100 MG tablet 2018-07-08 13:32:22 Yes 100mg QD Take 100 mg by mouth daily. [facility] zolpidem (AMBIEN) 5 MG tablet 2018-07-08 13:32:21 Yes 5mg Take 5 mg by mouth every night as needed for Insomnia. [facility] hydrALAZINE (APRESOLINE) 25 MG tablet 2018-07-08 13:21:50 Yes 25mg [id number] Take 25 mg by mouth 3 (three) times daily. [facility] Azithromycin 2016-02-26 03:04:00 No 1,000 mg, Route: PO, Drug form: TAB, ONCE, Dosing Weight 63.807, kg, Start date: 02/25/16 22:04:00 CDT, Stop date: 02/25/16 22:04:00 CDT [facility] fluconazole 150 mg oral tablet 2016-02-26 02:52:00 Yes 150 mg = 1 tab, PO, ONCE, # 1 tab, 0 Refill(s) [facility] Metronidazole 500 MG Oral Tablet [Flagyl] 2016-02-26 02:26:00 Yes 500 mg = 1 tab, PO, Q8H, X 7 day, # 21 tab, 0 Refill(s) [facility] Azithromycin 2016-02-26 01:52:00 No Notes: (Same As: Zithromax) Take 1 hour before or 2 hours after meal [facility] Rocephin 2016-02-26 01:52:00 No Notes: (Mikey e As: Guevara) [facility] meclizine 25 mg oral tablet 2015-06-09 08:16:00 Yes 25 mg = 1 tab, PO, TID, PRN for dizziness, X 7 day, # 21 tab, 0 Refill(s) Pavan Vann Benadryl 2015-06-09 06:13:00 No 12.5 mg, Route: IVP, ONCE, Dosing Weight 55.773, kg, Priority: STAT, Start date: 06/09/15 0:13:00, Stop date: 06/09/15 0:13:00 [facility] Reglan 2015-06-09 06:12:00 No 10 mg, Route: IVP, Drug form: INJ, ONCE, Dosing Weight 55.773, kg, Priority: STAT, Start date: 06/09/15 0:12:00, Stop date: 06/09/15 0:12:00 [facility] Her knox Meclizine 2015-06-09 06:12:00 No 25 mg, Route: PO, Drug form: TAB, ONCE, Dosing Weight 55.773, kg, Priority: STAT, Start date: 06/09/15 0:12:00, Stop date: 06/09/15 0:12:00 [facility] Her kn[facility] Sodium Chloride 0.154 MEQ/ML Injectable Solution [...] day, # 3 ea, 0 Refill(s), Pharmacy: [facility] [id number] [facility] [place] Nitrofurantoin 100 MG Oral Capsule [Macrobid] 2014-10-01 06:14:0 0 Yes 100 mg = 1 cap, PO, BID, X 7 day, # 14 c ap, 0 Refill(s), Pharmacy: [facility] [id number] [facility] Vital Signs Vital Name Observation Time Observation Value Comments Source Weight 2020-01-02 14:10:00 198 [lb_av] [facility] BMI (Body Mass Index) 2020-01-02 14:10:00 35.1 kg/m2 [facility] Temperature Oral (F) 2019-11-27 07:50:00 98 F [facility] Respitory Rate 2019-11-27 07:50:00 [facility] [place] Systolic (mm Hg) 2019-11-27 07:50:00 [facility] [place] Diastolic (mm Hg) 2019-11-27 07:50:00 [facility] [place] Temperature Oral (F) 2019-11-27 06:40:00 98.1 F [facility] [place] Respitory Rate 2019-11-27 06:40:00 [facility] Systolic (mm Hg) 2019-11-27 06:40:00 [facility] [place] Diastolic (mm Hg) 2019-11-27 06:40:00 [facility] Temperature Oral (F) 2019-11-27 05:40:00 98.7 F [facility] [place] Respitory Rate 2019-11-27 05:40:00 [facility] Systolic (mm Hg) 2019-11-27 05:40:00 [facility] [place] Diastolic (mm Hg) 2019-11-27 05:40:00 [facility] [place] Height 2019-11-27 03:48:00 162.56 cm [facility] [place] BMI Calculated 2019-11-27 03:48:00 [facility] Weight 2019-11-27 03:48:00 [facility] Heart Rate 2019-11-27 03:48:00 [facility] Body Temperature 2019-08-29 01:07:00 98.8 [degF] [facility] Respitory Rate 2019-02-25 17:00:00 [facility] [place] Systolic (mm Hg) 2019-02-25 17:00:00 [facility] [place] Diastolic (mm Hg) 2019-02-25 17:00:00 [facility] Respitory Rate 2019-02-25 16:30:00 [facility] [place] Systolic (mm Hg) 2019-02-25 16:30:00 [facility] [place] Diastolic (mm Hg) 2019-02-25 16:30:00 [facility] [place] Respitory Rate 2019-02-25 16:15:00 [facility] [place] Systolic (mm Hg) 2019-02-25 16:15:00 Ahrrison [facility] [place] Diastolic (mm Hg) 2019-02-25 16:15:00 [facility] [place] Temperature Oral (F) 2019-02-11 18:35:00 97.6 F [facility] Heart Rate 2019-02-11 18:35:00 [facility] [place] Height 2019-02-11 16:46:00 160.02 cm [facility] Weight 2019-02-11 16:46:00 [facility] [place] BMI Calculated 2019-02-11 16:46:00 [facility] Systolic (mm Hg) 2016-02-26 02:38:00 [facility] [place] Diastolic (mm Hg) 2016-02-26 02:38:00 [facility] [place] Respitory Rate 2016-02-26 02:38:00 [facility] [place] Heart Rate 2016-02-26 02:38:00 [facility] Temperature Oral (F) 2016-02-26 02:38:00 98 F [facility] Respitory Rate 2016-02-26 01:09:00 [facility] [place] Heart Rate 2016-02-26 01:09:00 [facility] [place] Systolic (mm Hg) 2016-02-26 01:09:00 [facility] [place] Diastolic (mm Hg) 2016-02-26 01:09:00 [facility] [place] Temperature Oral (F) 2016-02-26 01:09:00 98.6 F [facility] [place] Weight 2016-02-26 01:09:00 [facility] [place] Systolic (mm Hg) 2015-06-09 08:38:00 [facility] [place] Diastolic (mm Hg) 2015-06-09 08:38:00 [facility] [place] Heart Rate 2015-06-09 08:38:00 [facility] [place] Respitory Rate 2015-06-09 08:38:00 [facility] [place] Temperature Oral (F) 2015-06-09 08:38:00 98.2 F [facility] Weight 2015-06-09 05:18:00 [facility] [place] Heart Rate 2015-06-09 05:18:00 [facility] [place] Systolic (mm Hg) 2015-06-09 05:18:00 [facility] [place] Diastolic (mm Hg) 2015-06-09 05:18:00 [facility] [place] Respitory Rate 2015-06-09 05:18:00 [facility] [place] Temperature Oral (F) 2015-06-09 05:18:00 97.8 F [facility] Systolic (mm Hg) 2014-10-01 06:08:00 [facility] [place] Diastolic (mm Hg) 2014-10-01 06:08:00 [facility] [place] Heart Rate 2014-10-01 06:08:00 [facility] [place] Respitory Rate 2014-10-01 06:08:00 [facility] [place] Temperature Oral (F) 2014-10-01 06:08:00 98.2 F [facility] [place] Weight 2014-10-01 04:51:00 [facility] [place] Respitory Rate 2014-10-01 04:51:00 [facility] [place] Heart Rate 2014-10-01 04:51:00 [facility] Temperature Oral (F) 2014-10-01 04:51:00 98.5 F [facility] Systolic (mm Hg) 2014-10-01 04:51:00 [facility] [place] Diastolic (mm Hg) 2014-10-01 04:51:00 [facility] [place] Procedures Procedure Date / Time Performed Performing Clinician [facility] e X-ray of chest, two views 2019-08-28 00:00:00 [facility] Cholecystectomy [facility] Plan of Care Planned Activity Planned Date Details Comments Source Future Scheduled Test 2020-02-19 00:00:00 INFLUENZA VACCINE [code = INFLUENZA VACCINE] Leonard Weston Future Scheduled Test 2016 00:00:00 Screening for marlen gnant neoplasm of cervix (procedure) [code = 108264632] Leonard wheatley Future Scheduled Test 2011 00:00:00 CHLAMYDIA SCREENIN G [code = CHLAMYDIA SCREENING] Leonard Weston [facility] Constipation - Adult [facility] Encounters Start Date/Time End Date/Time Encounter Type Admission Type Attendi [facility] Care Department Encounter ID Source 2018-06-20 09:00:00 Inpatient OG SHEA [facility] RAD [id number] [facility] 2020-01-02 14:00:00 2020-01-02 17:05:00 Departed Emergency Room 1 NELSON MENDEZ [facility] [id number] [facility] . [facility] 2019-11-26 22:40:41 2019-11-27 03:11:00 [facility] [id number] 2019-11-26 22:40:41 2019-11-27 03:11:00 Outpatient Familia Rooney [facility] [place] [id number] 2019-11-26 22:40:00 2019-11-26 22:40:00 Emergency E [facility] FB [id number] 2019-08-28 23:09:00 2019-08-29 01:16:00 Departed Emergency Room 1 STANISLAV MOHR [facility] [id number] [facility] 2019-07-06 18:01:00 2019-07-06 18:38:00 Departed Emergency Room [facility] [id number] [facility] 2019-06-08 10:12:00 2019-06-08 10:34:00 Emergency E FRANCODUNCAN [facility] GPECC [id number] [facility] 2019-02-25 08:11:00 2019-02-25 12:50:00 Outpatient Kelle Chen i [facility] [id number] 2019-02-25 08:11:00 2019-02-25 08:11:00 Outpatient [id number] 2019-02-15 00:47:00 2019-02-15 03:47:00 Departed Emergency Room [facility] [id number] [facility] 2019-02-11 21:27:00 2019-02-12 00:16:00 Departed Emergency Room 1 CLAUDIA WALL [facility] [id number] [facility] 2019-01-12 19:30:00 2019-01-12 23:59:00 Outpatient Kelle Chen i [facility] [id number] 2019-01-12 19:30:00 2019-01-12 19:30:00 Outpatient [facility] [id number] [facility] 2018-11-15 22:52:00 2018-11-16 01:52:00 Emergency E KIMBERLYN RUANO [facility] ECC [id number] [facility] 2018-11-08 15:01:00 2018-11-08 23:59:00 Outpatient OG SHEA [facility] RAD [id number] [facility] 2018-10-21 02:00:00 2018-10-21 02:30:00 Emergency E ESA SINGER [facility] ECC [id number] [facility] 2018-10-03 15:56:00 2018-10-03 17:22:00 Emergency E SHEIKH DUNCAN [facility] GPECC [id number] [facility] 2018-06-30 17:20:00 2018-06-30 17:45:00 Emergency E SHEILAPerla SUSAN [facility] GPECC [id number] [facility] 2018-06-04 08:08:00 2018-06-04 23:59:00 Outpatient OG SHEA [facility] RAD [id number] [facility] 2018-06-01 12:48:00 2018-06-01 13:30:00 Emergency E KOREY ARCHULETA Wilbur [facility] GPECC [id number] [facility] 2018-05-03 14:41:00 2018-05-04 04:33:00 Emergency E DUNCAN FRANCO [facility] GPECC [id number] [facility] 2018-02-16 10:00:00 2018-02-16 10:40:00 Emergency E WALT RINCON [facility] GPECC [id number] [facility] 2018-01-25 12:44:00 2018-01-25 13:35:00 Emergency E DUNCAN FRANCO [facility] GPECC [id number] [facility] 2017-12-14 11:36:00 2017-12-14 12:00:00 Emergency E DUNCAN FRANCO [facility] GPECC [id number] [facility] 2017-09-29 23:40:00 2017-09-30 04:51:00 Emergency E JM ESCALANTEAN O ECC [id number] [facility] 2017-08-19 20:24:00 2017-08-19 21:50:00 Emergency E DAVE ROPER [facility] GPECC [id number] [facility] 2017-07-05 19:18:00 2017-07-05 21:00:00 Emergency E DUNCAN FRANCO [facility] GPECC [id number] [facility] 2017-06-17 10:18:00 2017-06-17 11:18:00 Emergency E HERMANN CORTES [facility] ECC [id number] [facility] 2017-06-07 18:29:00 2017-06-07 20:06:00 Emergency E ESA SINGER [facility] ECC [id number] [facility] 2017-04-22 16:31:00 2017-04-23 12:00:00 Emergency E ANA HARRIS [facility] WWECC [id number] [facility] 2017-01-26 22:01:00 2017-01-28 10:45:00 Outpatient E COLLETTE WOODSON [facility] MED [id number] [facility] 2016-10-29 23:40:00 2016-10-30 19:02:00 Emergency E TATIANNA GRIMES [facility] ECC [id number] [facility] 2016-09-20 20:42:00 2016-09-20 22:26:00 Emergency E ESA SINGER C ECC [id number] [facility] 2016-04-18 22:40:00 2016-04-19 00:41:00 Emergency E AVA MOE Duncan [facility] [id number] [facility] 2016-02-25 20:04:00 2016-02-25 22:14:00 Outpatient Chloé Grubbs SL [facility]SL [id number] 2015-06-08 23:10:00 2015-06-09 02:41:00 Outpatient Eric Weaver M[facility] L [facility] [id number] 2014-09-30 23:49:00 2014-10-01 01:24:00 Outpatient Sabino Ruiz [facility] [id number] Results Test Description Test Time Test Comments Results Result Comments Source ABDOMEN-1VIEW ([facility]) 2020-01-02 16:18:00 [place] [address] Patient Name: BECKIE TEJADA MR #: [id number] : 1995 Age/Sex: 24/F Req #: [id number] Adm Physician: Ordered by: NELSON MENDEZ DO Report #: [id number] Location: ER Room/Bed: Procedure: [id number] DX/ABDOMEN-1VIEW ([facility]) Exam Date: 01/02/20 Exam Time: 1550 REPORT STATUS: Signed EXAM: ABDOMEN-1VIEW ([facility]) DATE: 01/02/2020 3:50 PM INDICATION: Constipation COMPARISON: None FINDINGS: Bowel gas pattern appears non-specific. No pathologically dilated loops of bowel are identified. No intraperitoneal free air is appreciated on this supine view examination. Cholecystectomy clips noted within the right upper quadrant. Suspected IUD noted within the pelvis. No abnormal intra- abdominal calcification is appreciated. No acute osseous abnormality identified. IMPRESSION: No acute radiographic abnormality identified within the abdomen. Signed by: Dr. Sal Soria MD on 01/02/2020 4:21 PM Dictated By: SAL SORIA MD 1621 Transcribed By: RACHELE on 01/02/20 1621 COPY TO: NELSON MENDEZ DO Urine human chorionic gonadotropin (hCG) detection 2019-12-20 4 14:53:00 Test Item Urine Test (test code = 2106-3) NEGATIVE NEGATIVE [facility] XCCXD9744-77-00 07:04:00Yellow *NA*(11/27/19 2:04 AM[facility] HVANK2912-48-12 07:04:00Clear (11/27/19 2:04 AM)[facility] SMUUX1270-94-43 07:04:00* Test Item Value Reference Range Interpretation Comments UA Spec Grav (test code = UA Spec Grav) 1.015 1 [facility] YNMOG4235-61-40 07:04:00* Test Item Value Reference Range Interpretation Comments UA pH (test code = UA pH) 5.0 1 5.0-8.0 [facility] ZGUIB9370-48-40 07:04:00Negative *NA*(11/27/19 2:04 AM) [facility] LZEJQ9523-96-08 07:04:00Negative (11/27/19 2:04 AM) [facility] UVYZE7745-11-87 07:04:000.2[facility] QFHIN7628-33-14 07:04:00Negative (11/27/19 2:04 AM)[facility] STOOL 2019-11-27 07:04:00Negative (11/27/19 2:04 AM)[facility] STOOL 2019-11-27 07:04:002[facility] KWFQM7528-32-08 07:04:0021[facility] YkhbkulJQRZDFBIAW5641-53-26 04:53:00Not Detected *NA*(11/26/19 11:53 PM)[facility]ann[facility] LLKXM4648-40-71 04:31:0091[facility]ann[facility] CBRWS5255-32-49 04:31:0010[facility]annCHE[facility] JJSVH7773-41-56 04:31:000.71[facility]annCHE[facility] LNDSP8637-08-19 04:31:46135Gdixomja HermannCHEM AUXEL5470-90-60 04:31:003.4 [facility] CKUYT5411-90-40 04:31:25413Tnwbogms HermannCHEM PANEL 2019-11-27 04:31:0023[facility]annCHE[facility] GCHZD0561-44-59 04:31:009.0[facility]annCHE[facility] DHKJT5287-45-76 04:31:007.9[facility] TYMFV8444-88-04 04:31:003.9[facility]annCHE[facility] WUDWQ1289-05-71 04:31:30700Rnikjeqq HermannCHEM AFTOP4022-18-76 04:31:0082[facility]annCHE[facility] FUESY6138-41-96 04:31:03670 [facility] XDQAJ4057-19-88 04:31:000.8[facility]annCHEM PANEL 2019-11-27 04:31:0013.4[facility] NIRVG9811-12-95 04:31:00* Test Item Value Reference Range Interpretation Comments B/C Ratio (test code = B/C Ratio) 14 1 6-25 [facility] NVSNB1390-24-22 04:31:004.0[facility]annCHE[facility] PANEL 2019-11-27 04:31:00* Test Item Value Reference Range Interpretation Comments A/G Ratio (test code = A/G Ratio) 1.0 1 0.7-1.6 [facility] NWDJG7311-30-32 04:31:60150Bmnwhwpu HermannCHEM PANEL 2019-11-27 04:31:17160Jbgpxpml ZezrglfNWGBCLVGBSCRV3014-17-94 04:31:00Negative *NA*(11/26/19 11:31 PM)[facility] TqgrmnhPWQZRKQCWE4655-75-58 04:31:0010.1[facility] UcrqnwcRYOEZKUHIM5502-35-41 04:31:004.59[facility] RojrorbDYLCTTHWGV5082-71-86 04:31:0014.2[facility] JgmnlkhHHGTSEYXMK4520-69-56 04:31:0041.4[facility] Edwar YKSHTJIJLR8902-99-55 04:31:0090.3[facility] WkdyondTMKNEVUHQB2425-73-11 04:31:00* Test Item Value Reference Range Interpretation Comments MCH (test code = MCH) 31.0 pg 27.0-31.0 [facility] RnrxchdSLOICXVXKV5385-20-64 04:31:0034.4[facility]annHEMATOLOGY 2019-11-27 04:31:0013.0[facility] XvdtrwtMCBAQWQYPU6402-18-53 04:31:15669Jnbfoohb VcrircpJJARBQJWOE5661-76-43 04:31:008.9[facility] SfvwrteUMLHRFTGNN9548-66-11 04:31:0069.4[facility] VntdcumRIXKGAMJRT9835-22-08 04:31:0023.1[facility] [place] DXDBCXWDNE7896-17-01 04:31:005.7[facility] GajhcmeORONTCIPRJ9564-65-76 04:31:001.2 [facility] LulmxnsHHHSBZCYIZ4512-86-04 04:31:000.6[facility]annHEMATOLOGY 2019-11-27 04:31:007.0[facility] JrpzqzwWENWMKOSES1392-24-73 04:31:002.3[facility] WbimhchVBQSIDFOMX4819-07-82 04:31:000.6[facility] BzockidTNXDTQARFH3171-67-99 04:31:000.1[facility] OwqykbtOOMTAQTROI8299-22-42 04:31:000.1[facility]annCHEST 2 JZOPX2772-01-99 00:54:00 [place] [address] Patient Name: BECKIE TEJADA MR #: [id number] : 1995 Age/Sex: 24/F Req #: [id number] Adm Physician: Ordered by: STANISLAV MOHR DO Report #: [id number] Location: ER Room/Bed: Procedure: [id number] DX/CHEST 2 VIEWS Exam Date: 08/28/19 Exam [...] acute thoracic abnormality. Signed by : Dr. rTipp Delgado MD on 08/29/2019 12:57 AM Dictated By: TRIPP DELGADO MD El ectronically Signed By: TRIPP DELGADO MD on 08/29/1956 Transcribed By: RACHELE on 08/29/1956 COPY TO: STANISLAV MOHR DO Influenza virus A and B antigen identification by cxzhybnrijleukjfey0227-67-40 23:15:00* Test Item Value Reference Range Interpretation Comments Influenza Virus Types A,B Antigen (test code = 08582-0) NEGATIVE NEGATIVE [facility] detection in cielhx1001-84-88 23:15:00* Test Item Value Reference Range Interpretation Comments Group A Streptococcus Screen (test code = 29563-2) NEGATIVE NEG ATIVE [facility] Clinic[facility]AL[facility]IS W/O MICROSCOPICGP 2019-06-08 10:31:00* Test Item Value Reference Range Interpretation [...] (test code = LEUK) Negative NEGATIVE URINE KGYL9525-16-79 13:33:00Negative (02/25/19 8:33 AM)[facility]2019-09-28 02:58:00* Test Item Value Reference Range Interpretation Comments Sodium Level (test code = 2951-2) 142 136-145 [facility] ClinicPotassium Gqawi2995-41-06 02:58:00* Test Item Value Reference Range Interpretation Comments Potassium Level (test code = 2823-3) 3.6 3.5-5.1 [facility] ClinicChloride Lzeem2502-13-16 02:58:00* Test Item Value Reference Range Interpretation Comments Chloride Level (test code = 2075-0) 105 98-107 [facility] ClinicCarbon Dioxide Faoyv5601-74-57 02:58:00* Test Item Value Reference Range Interpretation Comments Carbon Dioxide Level (test code = 2028-9) 26 - [facility] ClinicAnion Sic5509-73-21 02:58:00* Test Item Value Reference Range Interpretation Comments Anion Gap (test code = 28865-8) 14.6 8-16 [facility] ClinicBlood Urea Zybeqpdf8973-24-59 02:58:00* Test Item Value Reference Range Interpretation Comments Blood Urea Nitrogen (test code = 3094-0) 10 7-26 [facility] ClinicCreatinine2019-09-28 02:58:00* Test Item Value Reference Range Interpretation Comments Creatinine (test code = 2160-0) 0.87 0.57-1.11 [facility] ClinicBUN/Creatinine Tqslx9179-99-29 02:58:00* Test Item Value Reference Range Interpretation Comments BUN/Creatinine Ratio (test code = 3097-3) 11 6-25 [facility] ClinicEstimat Glomerular Filtration Rate 2019-02-15 02:58:00* Test Item Value Reference Range Interpretation Comments Estimat Glomerular Filtration Rate (test code = 868270331) > 60 >60 Ranges were taken from the National Kidney Disease Education Program and the [facility] literature.Reference ranges:60 or greater: Ptykah80-51 ( for 3 consecutive months): Chronic kidney disease 15 or less: Kidney failureFalls Community Hospital and ClinicGlucose Byurw1515-44-86 02:58:00* Test Item Value Reference Range Interpretation Comments Glucose Level (test code = AJN8794) 95 74-118 [facility] ClinicCalcium Qterv2973-27-55 02:58:00* Test Item Value Reference Range Interpretation Comments Calcium Level (test code = 82344-3) 9.9 8.4-10.2 [facility] ClinicTotal Ydegslxbt5304-49-61 02:58:00* Test Item Value Reference Range Interpretation Comments Total Bilirubin (test code = 1975-2) 0.8 0.2-1.2 [facility] ClinicAspartate Amino Transf (AST/SGOT) 2019-02-15 02:58:00* Test Item Value Reference Range Interpretation Comments Aspartate Amino Transf (AST/SGOT) (test code = Aspartate Amino Transf (AST/SGOT)) 62 5-34 H [facility] ClinicAlanine Aminotransferase (ALT/SGPT) 2019-02-15 02:58:00* Test Item Value Reference Range Interpretation Comments Alanine Aminotransferase (ALT/SGPT) (test code = 1742-6) 89 0-55 H [facility] ClinicTotal Fsouyxh0558-21-99 02:58:00* Test Item Value Reference Range Interpretation Comments Total Protein (test code = 2885-2) 7.9 6.5-8.1 [facility] ClinicAlbumin2019-09-28 02:58:00* Test Item Value Reference Range Interpretation Comments Albumin (test code = 1751-7) 4.2 3.5-5.0 [facility] ClinicGlobulin2019-09-28 02:58:00* Test Item Value Reference Range Interpretation Comments Globulin (test code = 83083-3) 3.7 2.3-3.5 H [facility] ClinicAlbumin/Globulin Xmvuz5663-85-09 02:58:00 * Test Item Value Reference Range Interpretation Comments Albumin/Globulin Ratio (test code = 1759-0) 1.1 0.8-2.0 [facility] ClinicAlkaline Rpmlopkdgby1407-86-95 02:58:00* Test Item Value Reference Range Interpretation Comments Alkaline Phosphatase (test code = 6768-6) 94 40-150 [facility] Hospitalodium Hjdht8377-06-44 02:58:00* Test Item Value Reference Range Interpretation Comments Sodium Level (test code = 2951-2) 142 136-145 [facility] ClinicPotassium Oxaab5914-42-20 02:58:00* Test Item Value Reference Range Interpretation Comments Potassium Level (test code = 2823-3) 3.6 3.5-5.1 [facility] ClinicChloride Reqis8311-48-16 02:58:00* Test Item Value Reference Range Interpretation Comments Chloride Level (test code = 2075-0) 105 98-107 [facility] ClinicCarbon Dioxide Uacis1954-90-40 02:58:00* Test Item Value Reference Range Interpretation Comments Carbon Dioxide Level (test code = 2028-9) 26 22-29 [facility] ClinicAnion Dbj3971-40-43 02:58:00* Test Item Value Reference Range Interpretation Comments Anion Gap (test code = 24792-7) 14.6 8-16 [facility] ClinicBlood Urea Eqmtadck9406-41-44 02:58:00* Test Item Value Reference Range Interpretation Comments Blood Urea Nitrogen (test code = 3094-0) 10 7-26 [facility] ClinicCreatinine2019-09-28 02:58:00* Test Item Value Reference Range Interpretation Comments Creatinine (test code = 2160-0) 0.87 0.57-1.11 [facility] ClinicBUN/Creatinine Djxxe0774-31-82 02:58:00* Test Item Value Reference Range Interpretation Comments BUN/Creatinine Ratio (test code = 3097-3) 11 6-25 [facility] ClinicEstimat Glomerular Filtration Rate 2019-02-15 02:58:00* Test Item Value Reference Range Interpretation Comments Estimat Glomerular Filtration Rate (test code = 987780494) > 60 >60 Ranges were taken from the National Kidney Disease Education Program and the [facility] literature.Reference ranges:60 or greater: Wbqmnu75-21 ( for 3 consecutive months): Chronic kidney disease 15 or less: Kidney failureFalls Community Hospital and ClinicGlucose Hxitx2908-04-11 02:58:00* Test Item Value Reference Range Interpretation Comments Glucose Level (test code = WBM7331) 95 74-118 [facility] ClinicCalcium Isulj7225-18-37 02:58:00* Test Item Value Reference Range Interpretation Comments Calcium Level (test code = 88686-0) 9.9 8.4-10.2 [facility] ClinicTotal Upwuaautl6119-37-64 02:58:00* Test Item Value Reference Range Interpretation Comments Total Bilirubin (test code = 1975-2) 0.8 0.2-1.2 [facility] ClinicAspartate Amino Transf (AST/SGOT) 2019-02-15 02:58:00* Test Item Value Reference Range Interpretation Comments Aspartate Amino Transf (AST/SGOT) (test code = Aspartate Amino Transf (AST/SGOT)) 62 5-34 H [facility] ClinicAlanine Aminotransferase (ALT/SGPT) 2019-02-15 02:58:00* Test Item Value Reference Range Interpretation Comments Alanine Aminotransferase (ALT/SGPT) (test code = 1742-6) 89 0-55 H [facility] ClinicTotal Tqomnbg8193-40-81 02:58:00* Test Item Value Reference Range Interpretation Comments Total Protein (test code = 2885-2) 7.9 6.5-8.1 [facility] ClinicAlbumin2019-09-28 02:58:00* Test Item Value Reference Range Interpretation Comments Albumin (test code = 1751-7) 4.2 3.5-5.0 [facility] ClinicGlobulin2019-09-28 02:58:00* Test Item Value Reference Range Interpretation Comments Globulin (test code = 86074-1) 3.7 2.3-3.5 H [facility] ClinicAlbumin/Globulin Pvurj9514-03-18 02:58:00 * Test Item Value Reference Range Interpretation Comments Albumin/Globulin Ratio (test code = 1759-0) 1.1 0.8-2.0 [facility] ClinicAlkaline Fwodnpvdnap7764-55-84 02:58:00* Test Item Value Reference Range Interpretation Comments Alkaline Phosphatase (test code = 6768-6) 94 40-150 [facility] ClinicWhite Blood Ftdgu1790-94-07 02:57:00* Test Item Value Reference Range Interpretation Comments White Blood Count (test code = 6690-2) 8.68 4.8-10.8 [facility] ClinicRed Blood Nlyup1449-76-49 02:57:00* Test Item Value Reference Range Interpretation Comments Red Blood Count (test code = 789-8) 4.57 3.6-5.1 [facility] ClinicHemoglobin2019-09-28 02:57:00* Test Item Value Reference Range Interpretation Comments Hemoglobin (test code = 93637-4) 13.9 12.0-16.0 [facility] ClinicHematocrit2019-09-28 02:57:00* Test Item Value Reference Range Interpretation Comments Hematocrit (test code = 4544-3) 40.7 34.2-44.1 [facility] ClinicMean Corpuscular Tkgbhe8936-17-15 02:57:00* Test Item Value Reference Range Interpretation Comments Mean Corpuscular Volume (test code = 787-2) 89.1 81-99 [facility] ClinicMean Corpuscular Wnhavpzasp7990-95-09 02:57:00* Test Item Value Reference Range Interpretation Comments Mean Corpuscular Hemoglobin (test code = 785-6) 30.4 28-32 [facility] ClinicMean Corpuscular Hemoglobin Concent 2019-02-15 02:57:00* Test Item Value Reference Range Interpretation Comments Mean Corpuscular Hemoglobin Concent (test code = 786-4) 34.2 31-35 [facility] ClinicRed Cell Distribution Prziq8624-51-75 02:57:00* Test Item Value Reference Range Interpretation Comments Red Cell Distribution Width (test code = 39692-8) 12.2 11.7 -14.4 [facility] ClinicPlatelet Jcapd0229-17-41 02:57:00* Test Item Value Reference Range Interpretation Comments Platelet Count (test code = 777-3) 292 140-360 [facility] ClinicNeutrophils (%) (Auto)2019-02-15 02:57:00 * Test Item Value Reference Range Interpretation Comments Neutrophils (%) (Auto) (test code = 25278-1) 62.9 38.7-80.0 [facility] ClinicLymphocytes (%) (Auto)2019-02-15 02:57:00 * Test Item Value Reference Range Interpretation Comments Lymphocytes (%) (Auto) (test code = 736-9) 29.8 18.0-39.1 [facility] ClinicMonocytes (%) (Auto)2019-02-15 02:57:00* Test Item Value Reference Range Interpretation Comments Monocytes (%) (Auto) (test code = 5905-5) 5.4 4.4-11.3 [facility] ClinicEosinophils (%) (Auto)2019-02-15 02:57:00 * Test Item Value Reference Range Interpretation Comments Eosinophils (%) (Auto) (test code = 713-8) 1.3 0.0-6.0 [facility] ClinicBasophils (%) (Auto)2019-02-15 02:57:00* Test Item Value Reference Range Interpretation Comments Basophils (%) (Auto) (test code = 706-2) 0.3 0.0-1.0 [facility] ClinicIM GRANULOCYTES %2019-02-15 02:57:00* Test Item Value Reference Range Interpretation Comments IM GRANULOCYTES % (test code = IM GRANULOCYTES %) 0.3 0.0- 1.0 [facility] ClinicNeutrophils # (Auto)2019-02-15 02:57:00* Test Item Value Reference Range Interpretation Comments Neutrophils # (Auto) (test code = 751-8) 5.5 2.1-6.9 [facility] ClinicLymphocytes # (Auto)2019-02-15 02:57:00* Test Item Value Reference Range Interpretation Comments Lymphocytes # (Auto) (test code = 55563-3) 2.6 1.0-3.2 [facility] ClinicMonocytes # (Auto)2019-02-15 02:57:00* Test Item Value Reference Range Interpretation Comments Monocytes # (Auto) (test code = 742-7) 0.5 0.2-0.8 [facility] ClinicEosinophils # (Auto)2019-02-15 02:57:00* Test Item Value Reference Range Interpretation Comments Eosinophils # (Auto) (test code = 711-2) 0.1 0.0-0.4 [facility] ClinicBasophils # (Auto)2019-02-15 02:57:00* Test Item Value Reference Range Interpretation Comments Basophils # (Auto) (test code = 704-7) 0.0 0.0-0.1 [facility] ClinicAbsolute Immature Granulocyte (auto 2019-02-15 02:57:00* Test Item Value Reference Range Interpretation Comments Absolute Immature Granulocyte (auto (sami t code = Absolute Immature Granulocyte (auto) 0.03 0-0.1 [facility] ClinicWhite Blood Xifzh7980-84-48 02:57:00* Test Item Value Reference Range Interpretation Comments White Blood Count (test code = 6690-2) 8.68 4.8-10.8 [facility] ClinicRed Blood Rwcuv9357-72-34 02:57:00* Test Item Value Reference Range Interpretation Comments Red Blood Count (test code = 789-8) 4.57 3.6-5.1 [facility] ClinicHemoglobin2019-09-28 02:57:00* Test Item Value Reference Range Interpretation Comments Hemoglobin (test code = 96768-0) 13.9 12.0-16.0 [facility] ClinicHematocrit2019-09-28 02:57:00* Test Item Value Reference Range Interpretation Comments Hematocrit (test code = 4544-3) 40.7 34.2-44.1 [facility] ClinicMean Corpuscular Ujkgko5128-40-84 02:57:00* Test Item Value Reference Range Interpretation Comments Mean Corpuscular Volume (test code = 787-2) 89.1 81-99 [facility] ClinicMean Corpuscular Xtaaujvnqr5364-77-30 02:57:00* Test Item Value Reference Range Interpretation Comments Mean Corpuscular Hemoglobin (test code = 785-6) 30.4 28-32 [facility] ClinicMean Corpuscular Hemoglobin Concent 2019-02-15 02:57:00* Test Item Value Reference Range Interpretation Comments Mean Corpuscular Hemoglobin Concent (test code = 786-4) 34.2 31-35 [facility] ClinicRed Cell Distribution Efvjk7304-69-07 02:57:00* Test Item Value Reference Range Interpretation Comments Red Cell Distribution Width (test code = 16280-2) 12.2 11.7 -14.4 [facility] ClinicPlatelet Cbyhk8431-02-55 02:57:00* Test Item Value Reference Range Interpretation Comments Platelet Count (test code = 777-3) 292 140-360 [facility] ClinicNeutrophils (%) (Auto)2019-02-15 02:57:00 * Test Item Value Reference Range Interpretation Comments Neutrophils (%) (Auto) (test code = 59336-4) 62.9 38.7-80.0 [facility] ClinicLymphocytes (%) (Auto)2019-02-15 02:57:00 * Test Item Value Reference Range Interpretation Comments Lymphocytes (%) (Auto) (test code = 736-9) 29.8 18.0-39.1 [facility] ClinicMonocytes (%) (Auto)2019-02-15 02:57:00* Test Item Value Reference Range Interpretation Comments Monocytes (%) (Auto) (test code = 5905-5) 5.4 4.4-11.3 [facility] ClinicEosinophils (%) (Auto)2019-02-15 02:57:00 * Test Item Value Reference Range Interpretation Comments Eosinophils (%) (Auto) (test code = 713-8) 1.3 0.0-6.0 [facility] ClinicBasophils (%) (Auto)2019-02-15 02:57:00* Test Item Value Reference Range Interpretation Comments Basophils (%) (Auto) (test code = 706-2) 0.3 0.0-1.0 [facility] ClinicIM GRANULOCYTES %2019-02-15 02:57:00* Test Item Value Reference Range Interpretation Comments IM GRANULOCYTES % (test code = IM GRANULOCYTES %) 0.3 0.0- 1.0 [facility] ClinicNeutrophils # (Auto)2019-02-15 02:57:00* Test Item Value Reference Range Interpretation Comments Neutrophils # (Auto) (test code = 751-8) 5.5 2.1-6.9 [facility] ClinicLymphocytes # (Auto)2019-02-15 02:57:00* Test Item Value Reference Range Interpretation Comments Lymphocytes # (Auto) (test code = 50801-4) 2.6 1.0-3.2 [facility] ClinicMonocytes # (Auto)2019-02-15 02:57:00* Test Item Value Reference Range Interpretation Comments Monocytes # (Auto) (test code = 742-7) 0.5 0.2-0.8 [facility] ClinicEosinophils # (Auto)2019-02-15 02:57:00* Test Item Value Reference Range Interpretation Comments Eosinophils # (Auto) (test code = 711-2) 0.1 0.0-0.4 [facility] ClinicBasophils # (Auto)2019-02-15 02:57:00* Test Item Value Reference Range Interpretation Comments Basophils # (Auto) (test code = 704-7) 0.0 0.0-0.1 [facility] ClinicAbsolute Immature Granulocyte (auto 2019-02-15 02:57:00* Test Item Value Reference Range Interpretation Comments Absolute Immature Granulocyte (auto (sami t code = Absolute Immature Granulocyte (auto) 0.03 0-0.1 [facility] ClinicUrine Rscl4978-35-77 02:56:00* Test Item Value Reference Range Interpretation Comments Urine Test (test code = 2106-3) NEGATIVE NEGATIVE [facility] ClinicUrine Xhqd4845-53-67 02:56:00* Test Item Value Reference Range Interpretation Comments Urine Test (test code = 2106-3) NEGATIVE NEGATIVE [facility] ClinicUrine KDN5329-06-30 02:55:00* Test Item Value Reference Range Interpretation Comments Urine WBC (test code = 5821-4) 11-20 0-5 H [facility] ClinicUrine NXX9793-05-33 02:55:00* Test Item Value Reference Range Interpretation Comments Urine RBC (test code = 92361-0) 0-5 0-5 [facility] Bwlkhaxy1813-38-56 02:55:00* Test Item Value Reference Range Interpretation Comments Urine Bacteria (test code = 76382-0) MANY NONE H [facility] ClinicUrine Epithelial Tykjc5605-04-70 02:55:00 * Test Item Value Reference Range Interpretation Comments Urine Epithelial Cells (test code = 53997-4) MANY NONE [facility] ClinicUrine FSR9277-82-88 02:55:00* Test Item Value Reference Range Interpretation Comments Urine WBC (test code = 5821-4) 11-20 0-5 H [facility] ClinicUrine HVL3290-51-48 02:55:00* Test Item Value Reference Range Interpretation Comments Urine RBC (test code = 52884-5) 0-5 0-5 [facility] ClinicU[facility] Cyqtvgjs8962-05-24 02:55:00* Test Item Value Reference Range Interpretation Comments Urine Bacteria (test code = 60021-3) MANY NONE H [facility] ClinicU[facility] Epithelial Xbred3472-08-49 02:55:00 * Test Item Value Reference Range Interpretation Comments Urine Epithelial Cells (test code = 69460-7) MANY NONE [facility] ClinicU[facility] Smzgr4013-34-07 02:54:00* Test Item Value Reference Range Interpretation Comments Urine Color (test code = 5778-6) YELLOW YELLOW [facility] ClinicUrine Xhofgjs9665-07-86 02:54:00* Test Item Value Reference Range Interpretation Comments Urine Clarity (test code = 39023-4) CLEAR CLEAR [facility] ClinicUrine Specific Vkmyhmq1182-57-49 02:54:00 * Test Item Value Reference Range Interpretation Comments Urine Specific [place] (test code = 5811-5) >=1.030 1.010-1.02 5 [facility] ClinicU[facility] hJ3458-64-48 02:54:00* Test Item Value Reference Range Interpretation Comments Urine pH (test code = 39465-0) 6 5-7 [facility] ClinicU[facility] Leukocyte Jmjkdeso4000-05-22 02:54:00* Test Item Value Reference Range Interpretation Comments Urine Leukocyte Esterase (test code = 81352-3) TRACE NEGATIV E [facility] Munwjmu5843-72-21 02:54:00* Test Item Value Reference Range Interpretation Comments Urine Nitrite (test code = 08958-8) NEGATIVE NEGATIVE [facility] Qgfuxsd6432-39-13 02:54:00* Test Item Value Reference Range Interpretation Comments Urine Protein (test code = 35175-6) TRACE NEGATIVE H [facility] Glucose (UA)2019-02-15 02:54:00* Test Item Value Reference Range Interpretation Comments Urine Glucose (UA) (test code = 78786-1) NEGATIVE NEGATIVE [facility] Picmpzk1824-33-79 02:54:00* Test Item Value Reference Range Interpretation Comments Urine Ketones (test code = 14675-8) NEGATIVE NEGATIVE [facility] Lwfhfdzblsxw5474-99-94 02:54:00* Test Item Value Reference Range Interpretation Comments Urine Urobilinogen (test code = 74923-3) 0.2 0.2-1 [facility] Ghqgobwrt4552-78-33 02:54:00* Test Item Value Reference Range Interpretation Comments Urine Bilirubin (test code = 1977-8) NEGATIVE NEGATIVE [facility] Sxxuz9167-18-18 02:54:00* Test Item Value Reference Range Interpretation Comments Urine Blood (test code = 89843-5) NEGATIVE NEGATIVE [facility] Usfgy2523-80-45 02:54:00* Test Item Value Reference Range Interpretation Comments Urine Color (test code = 5778-6) YELLOW YELLOW [facility] Uyxawjl7705-28-32 02:54:00* Test Item Value Reference Range Interpretation Comments Urine Clarity (test code = 78199-7) CLEAR CLEAR [facility] Specific Uisbfuv3648-89-53 02:54:00 * Test Item Value Reference Range Interpretation Comments Urine Specific Pella (test code = 5811-5) >=1.030 1.010-1.02 5 [facility] aG1285-76-73 02:54:00* Test Item Value Reference Range Interpretation Comments Urine pH (test code = 35831-1) 6 5-7 [facility] Leukocyte Dqsaxxcr9027-93-87 02:54:00* Test Item Value Reference Range Interpretation Comments Urine Leukocyte Esterase (test code = 83853-2) TRACE NEGATIV E H [facility] Rfnjhuj5442-84-03 02:54:00* Test Item Value Reference Range Interpretation Comments Urine Nitrite (test code = 46936-8) NEGATIVE NEGATIVE [facility] Kzjtnys3553-04-13 02:54:00* Test Item Value Reference Range Interpretation Comments Urine Protein (test code = 17430-4) TRACE NEGATIVE H [facility] Glucose (UA)2019-02-15 02:54:00* Test Item Value Reference Range Interpretation Comments Urine Glucose (UA) (test code = 03456-2) NEGATIVE NEGATIVE [facility] Dzruksc1163-86-06 02:54:00* Test Item Value Reference Range Interpretation Comments Urine Ketones (test code = 33496-4) NEGATIVE NEGATIVE [facility] Blasfvovclpy0121-02-66 02:54:00* Test Item Value Reference Range Interpretation Comments Urine Urobilinogen (test code = 86530-1) 0.2 0.2-1 [facility] Gfkcyagxm0445-62-04 02:54:00* Test Item Value Reference Range Interpretation Comments Urine Bilirubin (test code = 1977-8) NEGATIVE NEGATIVE [facility] Whgdz8441-98-44 02:54:00* Test Item Value Reference Range Interpretation Comments Urine Blood (test code = 01333-8) NEGATIVE NEGATIVE [facility] WOE6693-68-51 23:25:00* Test Item Value Reference Range Interpretation Comments Urine WBC (test code = 5821-4) 11-20 0-5 H [facility] AVF3828-81-66 23:25:00* Test Item Value Reference Range Interpretation Comments Urine RBC (test code = 38689-6) 6-10 0-5 H [facility] Puxwldyd2127-09-36 23:25:00* Test Item Value Reference Range Interpretation Comments Urine Bacteria (test code = 81450-5) MODERATE NONE [facility] Epithelial Ocgds5592-00-63 23:25:00 * Test Item Value Reference Range Interpretation Comments Urine Epithelial Cells (test code = 77269-1) MANY NONE [facility] Tjwxz1759-48-01 23:25:00* Test Item Value Reference Range Interpretation Comments Urine Mucus (test code = 8247-9) FEW RARE H [facility] Fromi4260-14-07 23:25:00* Test Item Value Reference Range Interpretation Comments Urine Mucus (test code = 8247-9) FEW RARE H [facility] Wxcci8623-52-89 23:25:00* Test Item Value Reference Range Interpretation Comments Urine Mucus (test code = 8247-9) FEW RARE H [facility] Gwkca7362-64-69 23:14:00* Test Item Value Reference Range Interpretation Comments Urine Color (test code = 5778-6) YELLOW YELLOW [facility] Soshgqy8748-78-14 23:14:00* Test Item Value Reference Range Interpretation Comments Urine Clarity (test code = 01878-2) SL CLOUDY CLEAR [facility] Specific Qstmgdl3915-89-76 23:14:00 * Test Item Value Reference Range Interpretation Comments Urine Specific Pella (test code = 5811-5) 1.010 1.010-1.02 5 [facility] uW0041-30-04 23:14:00* Test Item Value Reference Range Interpretation Comments Urine pH (test code = 60735-8) 6.5 5-7 [facility] Leukocyte Zynoelsq2512-83-74 23:14:00* Test Item Value Reference Range Interpretation Comments Urine Leukocyte Esterase (test code = 97769-8) NEGATIVE NEGATIV E [facility] Nuafhby5124-10-20 23:14:00* Test Item Value Reference Range Interpretation Comments Urine Nitrite (test code = 16382-0) NEGATIVE NEGATIVE [facility] Gwnbtup8147-39-20 23:14:00* Test Item Value Reference Range Interpretation Comments Urine Protein (test code = 70922-1) NEGATIVE NEGATIVE [facility] Glucose (UA)2019-02-11 23:14:00* Test Item Value Reference Range Interpretation Comments Urine Glucose (UA) (test code = 47131-2) NEGATIVE NEGATIVE [facility] Dnuevox0960-05-05 23:14:00* Test Item Value Reference Range Interpretation Comments Urine Ketones (test code = 52319-0) NEGATIVE NEGATIVE [facility] Rqdtnnjpaqhz9617-82-62 23:14:00* Test Item Value Reference Range Interpretation Comments Urine Urobilinogen (test code = 28632-8) 0.2 0.2-1 [facility] Oaaqiycmh8838-28-92 23:14:00* Test Item Value Reference Range Interpretation Comments Urine Bilirubin (test code = 1977-8) NEGATIVE NEGATIVE [facility] Ugncx2696-84-64 23:14:00* Test Item Value Reference Range Interpretation Comments Urine Blood (test code = 73177-5) TRACE NEGATIVE [facility] ClinicCT ABDOMEN/PELVIS F3075-20-75 23:07:00 [facility] [address], [place] [address] Patient Name: BECKIE TEJADA MR #: [id number] : 1995 Age/Sex: 23/F Req #: [id number] Adm Physician: Ordered by: CLAUDIA WALL MD Report #: [id number] Location: ER Room/Bed: Procedure: 0924-[address]/CT [...] shunting or focal fatty sparing. Nonurgent ri t upper quadrant ultrasound can be obtained for [...] Level (test code = 1798-8) 49 25-125 [facility] ClinicLipase2019-09-24 22:19:00* Test Item Value Reference Range Interpretation Comments Lipase (test code = 3040-3) 40 [facility] ClinicAmylase Zkqns3863-52-04 22:19:00* Test Item Value Reference Range Interpretation Comments Amylase Level (test code = 1798-8) 49 25-125 [facility] ClinicLipase2019-09-24 22:19:00* Test Item Value Reference Range Interpretation Comments Lipase (test code = 3040-3) 40 8-78 [facility] ClinicAmylase Hwcva2670-11-49 22:19:00* Test Item Value Reference Range Interpretation Comments Amylase Level (test code = 1798-8) 49 25-125 [facility] ClinicLipase2019-09-24 22:19:00* Test Item Value Reference Range Interpretation Comments Lipase (test code = 3040-3) 40 8-78 [facility] Hobby8511-89-24 22:18:00* Test Item Value Reference Range Interpretation Comments Sodium Level (test code = 2951-2) 138 136-145 [facility] ClinicPotassium Oufvx8131-69-99 22:18:00* Test Item Value Reference Range Interpretation Comments Potassium Level (test code = 2823-3) 3.4 3.5-5.1 L [facility] ClinicChloride Fiupl8031-52-06 22:18:00* Test Item Value Reference Range Interpretation Comments Chloride Level (test code = 2075-0) 104 98-107 [facility] ClinicCarbon Dioxide Tjyap3882-07-30 22:18:00* Test Item Value Reference Range Interpretation Comments Carbon Dioxide Level (test code = 2028-9) 24 -29 [facility] ClinicAnion Fcr3914-80-71 22:18:00* Test Item Value Reference Range Interpretation Comments Anion Gap (test code = 11161-3) 13.4 8-16 [facility] ClinicBlood Urea Ppvfnjep5742-64-60 22:18:00* Test Item Value Reference Range Interpretation Comments Blood Urea Nitrogen (test code = 3094-0) 9 7-26 [facility] ClinicCreatinine2019-09-24 22:18:00* Test Item Value Reference Range Interpretation Comments Creatinine (test code = 2160-0) 0.85 0.57-1.11 [facility] ClinicBUN/Creatinine Cwffg5579-00-72 22:18:00* Test Item Value Reference Range Interpretation Comments BUN/Creatinine Ratio (test code = 3097-3) 11 6-25 [facility] ClinicEstimat Glomerular Filtration Rate 2019-02-11 22:18:00* Test Item Value Reference Range Interpretation Comments Estimat Glomerular Filtration Rate (test code = 914293141) > 60 >60 Ranges were taken from the National Kidney Disease Education Program and the [facility] literature.Reference ranges:60 or greater: Cmezmi65-67 ( for 3 consecutive months): Chronic kidney disease 15 or less: Kidney failureFalls Community Hospital and ClinicGlucose Tyibv6450-13-61 22:18:00* Test Item Value Reference Range Interpretation Comments Glucose Level (test code = HHL1591) 108 74-118 [facility] ClinicCalcium Gregc2478-39-32 22:18:00* Test Item Value Reference Range Interpretation Comments Calcium Level (test code = 69629-7) 9.8 8.4-10.2 [facility] ClinicTotal Rryzhmyur3036-49-86 22:18:00* Test Item Value Reference Range Interpretation Comments Total Bilirubin (test code = 1975-2) 1.0 0.2-1.2 [facility] ClinicAspartate Amino Transf (AST/SGOT) 2019-02-11 22:18:00* Test Item Value Reference Range Interpretation Comments Aspartate Amino Transf (AST/SGOT) (test code = Aspartate Amino Transf (AST/SGOT)) 60 5-34 H [facility] ClinicAlanine Aminotransferase (ALT/SGPT) 2019-02-11 22:18:00* Test Item Value Reference Range Interpretation Comments Alanine Aminotransferase (ALT/SGPT) (test code = 1742-6) 92 0-55 H [facility] ClinicTotal Ewtonxy0789-07-26 22:18:00* Test Item Value Reference Range Interpretation Comments Total Protein (test code = 2885-2) 7.6 6.5-8.1 [facility] ClinicAlbumin2019-09-24 22:18:00* Test Item Value Reference Range Interpretation Comments Albumin (test code = 1751-7) 3.9 3.5-5.0 [facility] ClinicGlobulin2019-09-24 22:18:00* Test Item Value Reference Range Interpretation Comments Globulin (test code = 50245-1) 3.7 2.3-3.5 H [facility] ClinicAlbumin/Globulin Veorj6425-02-26 22:18:00 * Test Item Value Reference Range Interpretation Comments Albumin/Globulin Ratio (test code = 1759-0) 1.1 0.8-2.0 [facility] ClinicAlkaline Rwslcunecew0694-84-80 22:18:00* Test Item Value Reference Range Interpretation Comments Alkaline Phosphatase (test code = 6768-6) 95 40-150 [facility] ClinicHuman Chorionic Gonadotropin, Qual 2019-02-11 22:11:00* Test Item Value Reference Range Interpretation Comments Human Chorionic Gonadotropin, Qual (test code = 2118-8) NEGATIVE NEGATIVE [facility] Chorionic Gonadotropin, Qual 2019-02-11 22:11:00* Test Item Value Reference Range Interpretation Comments Human Chorionic Gonadotropin, Qual (test code = 2118-8) NEGATIVE NEGATIVE [facility] Chorionic Gonadotropin, Qual 2019-02-11 22:11:00* Test Item Value Reference Range Interpretation Comments Human Chorionic Gonadotropin, Qual (test code = 2118-8) NEGATIVE NEGATIVE [facility] ClinicWhite Blood Welte5908-54-92 21:53:00* Test Item Value Reference Range Interpretation Comments White Blood Count (test code = 6690-2) 8.83 4.8-10.8 [facility] ClinicRed Blood Fbfnm2744-26-19 21:53:00* Test Item Value Reference Range Interpretation Comments Red Blood Count (test code = 789-8) 4.30 3.6-5.1 [facility] ClinicHemoglobin2019-09-24 21:53:00* Test Item Value Reference Range Interpretation Comments Hemoglobin (test code = 45799-9) 13.2 12.0-16.0 [facility] ClinicHematocrit2019-09-24 21:53:00* Test Item Value Reference Range Interpretation Comments Hematocrit (test code = 4544-3) 37.7 34.2-44.1 [facility] ClinicMean Corpuscular Uavctj6709-09-10 21:53:00* Test Item Value Reference Range Interpretation Comments Mean Corpuscular Volume (test code = 787-2) 87.7 81-99 [facility] ClinicMean Corpuscular Gkjhkuypqd9144-61-24 21:53:00* Test Item Value Reference Range Interpretation Comments Mean Corpuscular Hemoglobin (test code = 785-6) 30.7 28-32 [facility] ClinicMean Corpuscular Hemoglobin Concent 2019-02-11 21:53:00* Test Item Value Reference Range Interpretation Comments Mean Corpuscular Hemoglobin Concent (test code = 786-4) 35.0 31-35 [facility] ClinicRed Cell Distribution Tktik1799-17-05 21:53:00* Test Item Value Reference Range Interpretation Comments Red Cell Distribution Width (test code = 01268-2) 12.2 11.7 -14.4 [facility] ClinicPlatelet Rufxo6935-55-92 21:53:00* Test Item Value Reference Range Interpretation Comments Platelet Count (test code = 777-3) 276 140-360 [facility] ClinicNeutrophils (%) (Auto)2019-02-11 21:53:00 * Test Item Value Reference Range Interpretation Comments Neutrophils (%) (Auto) (test code = 26140-3) 58.9 38.7-80.0 [facility] ClinicLymphocytes (%) (Auto)2019-02-11 21:53:00 * Test Item Value Reference Range Interpretation Comments Lymphocytes (%) (Auto) (test code = 736-9) 33.2 18.0-39.1 [facility] ClinicMonocytes (%) (Auto)2019-02-11 21:53:00* Test Item Value Reference Range Interpretation Comments Monocytes (%) (Auto) (test code = 5905-5) 5.9 4.4-11.3 [facility] ClinicEosinophils (%) (Auto)2019-02-11 21:53:00 * Test Item Value Reference Range Interpretation Comments Eosinophils (%) (Auto) (test code = 713-8) 1.2 0.0-6.0 [facility] ClinicBasophils (%) (Auto)2019-02-11 21:53:00* Test Item Value Reference Range Interpretation Comments Basophils (%) (Auto) (test code = 706-2) 0.5 0.0-1.0 [facility] ClinicIM GRANULOCYTES %2019-02-11 21:53:00* Test Item Value Reference Range Interpretation Comments IM GRANULOCYTES % (test code = IM GRANULOCYTES %) 0.3 0.0- 1.0 [facility] ClinicNeutrophils # (Auto)2019-02-11 21:53:00* Test Item Value Reference Range Interpretation Comments Neutrophils # (Auto) (test code = 751-8) 5.2 2.1-6.9 [facility] ClinicLymphocytes # (Auto)2019-02-11 21:53:00* Test Item Value Reference Range Interpretation Comments Lymphocytes # (Auto) (test code = 33002-0) 2.9 1.0-3.2 [facility] ClinicMonocytes # (Auto)2019-02-11 21:53:00* Test Item Value Reference Range Interpretation Comments Monocytes # (Auto) (test code = 742-7) 0.5 0.2-0.8 [facility] ClinicEosinophils # (Auto)2019-02-11 21:53:00* Test Item Value Reference Range Interpretation Comments Eosinophils # (Auto) (test code = 711-2) 0.1 0.0-0.4 [facility] ClinicBasophils # (Auto)2019-02-11 21:53:00* Test Item Value Reference Range Interpretation Comments Basophils # (Auto) (test code = 704-7) 0.0 0.0-0.1 [facility] ClinicAbsolute Immature Granulocyte (auto 2019-02-11 21:53:00* Test Item Value Reference Range Interpretation Comments Absolute Immature Granulocyte (auto (sami t code = Absolute Immature Granulocyte (auto) 0.03 0-0.1 [facility] ClinicCHEM JAPYP3567-93-06 16:50:0094[facility]annCHEM YCZBJ9470-13-60 16:50:008[facility]annCHEM WPQAF7675-37-97 16:50:000.70[facility]annCHEM CBWQC4102-59-24 16:50:97624Xzoqvlcm HermannCHEM BGIHG3065-92-85 16:50:003.7[facility] HermannCHEM VLRUF0918-21-42 16:50:62457 [facility]annCHEM HUDVN3080-17-71 16:50:0024Mem[facility] HermannCHEM PANEL 2019-02-11 16:50:009.0[facility] HermannCHEM DJBPX7651-42-56 16:50:33621Kqcxflwl HermannCHEM HHTBJ2072-72-94 16:50:0012.7[facility] SknvhizYRWIRCCLIJDCE2183-96-43 16:50:00Negative *NA*(02/11/19 11:50 AM)[facility] JamsvvtNAGOJTAGIP9624-49-89 16:50:007.3[facility] IhbhoioMSCYHKYKNX4053-37-89 16:50:004.50[facility] [place] LNESUAGSWI6149-78-39 16:50:0013.6[facility] OgrkrbeGWQMQHHHMI7861-28-02 16:50:00 40.7Memorial KeibdapKFDBEQESLF6252-28-34 16:50:0090.4[facility] HermannHEMATOLOGY 2019-02-11 16:50:00* Test Item Value Reference Range Interpretation Comments MCH (test code = MCH) 30.2 pg 27.0-31.0 Memorial YjbxvjvPGCXGDXGDM8818-71-76 16:50:0033.4[facility] HermannHEMATOLOGY 2019-02-11 16:50:0012.3[facility] JvlylgeCUTZKLGGGS3802-86-67 16:50:55440Qunwhclc QhgbhnhBPMPYVIBOR9807-27-87 16:50:008.7[facility] YqpkiscUNNHZPYIPS7302-75-72 16:50:0064.0[facility] SmfbjcfQRLQJANIAS2013-67-16 16:50:0029.0[facility] Edwar GODHFGXDBL8542-14-55 16:50:005.4[facility] KimmsihHAIAXQMIMT5155-17-22 16:50:001.6 [facility] JngozjtMVHZKCXRBY6399-35-31 16:50:000.0[facility] HermannHEMATOLOGY 2019-02-11 16:50:004.7[facility] JvzzmxeTRXLIQQQBU1067-77-69 16:50:002.1[facility]orial YmmuatgMSRXPJDHLN9846-62-36 16:50:000.4[facility] EmmdttyOAEUPZXOQA3967-21-43 16:50:000.1[facility]orial HcfkduhNYFTNOPYMB3152-61-03 16:50:000.0[facility] [place] STREPTOCOCCUS PCR PTYNVS8958-73-96 15:42:00* Test Item Value Reference Range Interpretation Comments STREPTOCOCCUS DYSGALACTIAE (test code = STREPGC) NEGATIVE FOR G/C N EGATIVE STREPA MOLECULAR (test code = STREPAMOL) NEGATIVE FOR GRP A NEGATIV E - CT NECK W/KGAUSQKL9355-70-59 01:59:00 Name: BECKIE TEJADA [facility] : 1995 Age/S: 23 / F [address] [facility] Unit #: [id number] Loc: [place] [address] Phys: Kvng Gold MD Acct: [id number] Dis Date: Status: REG ER PHONE #: [phone] Exam Date: 01/18/2019 0140 FAX #: [phone] Reason: difficulty breathing, throat pain EXAMS: CPT CODE: [id number] CT NECK W/CONTRAST 90945 Location: T 18 CT neck, 01/18/19 TECHNIQUE: [...] 1 Signed Report (CONTINUED) Name: BECKIE TEJADA [facility] : 1995 Age/S: 23 / F [address] [facility] Unit #: [id number] Loc: [place], [place] [address] Phys: Kvng Gold MD Acct: [id number] Dis Date: Status: REG ER PHONE #: [phone] Exam Date: 01/18/2019 0140 FAX #: [phone] Reason: difficulty breathing, throat pain EXAMS: CPT CODE: [id number] NECK W/CONTRAST 64006 <Continued> at 0159 Re ported and signed by: Ashly Bedolla M.D. CC: Kvng Gold MD Technologist: RT GUERA CTDI: DLP: Trnscb Date/Time: 01/18 (0159) [email or web address] Orig Print D/T: S: 01/18/2019 (020 3) PAGE 2 Signed Report B-TYPE NATRIURETIC KHQPTVB4605-40-05 01:04:00* Test Item Value Reference Range Interpretation Comments B-TYPE NATRIURETIC PEPTIDE (test code = BNP) 27.57 pgram/mL 0-100 N MONO DYXMHD4852-85-28 00:58:00* Test Item Value Reference Range Interpretation Comments MONO SCREEN (test code = MONO) POSITIVE NEGATIVE A BASIC METABOLIC JNFAK9414-17-99 00:36:00* Test Item Value Reference Range Interpretation [...] CA) 9.3 mg/dL 8.5-10.1 N HCG SERUM NRSY0758-34-20 00:36:00* Test Item Value Reference Range Interpretation Comments HCG SERUM QUAL (test code = HCGQL) NEGATIVE NEGATIVE This HCGQL test is NOT applicable for MALE patients.Check with nurse about probable order error.If Tumor Marker Test needed, nurse should order test "HCGTU"(Test #550.96363) YUFYHLQB-U5236-14-31 00:36:00* Test Item Value Reference Range Interpretation Comments TROPONIN-I (test code = TROPI) <0.015 ng/mL 0-0.045 N R-XMKSD8101-67MDWAX7897-22-14 00:35:00* Test Item Value Reference Range Interpretation Comments D-DIMER (test code = DDIMER) 84.00 ng/mLFEU 0-500 N Clinical Cut-off value for D-Dimer is 500 ng/mL FEU. Comment: The [employer] [...] skin infections -Liver cirrhosis - BASIC METABOLIC EZRPU2522-30-61 00:33:00* Test Item Value Reference Range Interpretation [...] code = CA) mg/dL 8.5-10.1 HCG SERUM SQJT2109-13-81 00:33:00* Test Item Value Reference Range Interpretation Comments HCG SERUM QUAL (test code = HCGQL) NEGATIVE NEGATIVE This HCGQL test is NOT applicable for MALE patients.Check with nurse about probable order error.If Tumor Marker Test needed, nurse should order test "HCGTU"(Test #550.33508) ATMHVCOW-Z3710-79-31 00:33:00* Test Item Value Reference Range Interpretation Comments TROPONIN-I (test code = TROPI) ng/mL 0-0.045 BASIC METABOLIC UVGQM5661-46-88 00:29:00* Test Item Value Reference Range Interpretation [...] code = CA) mg/dL 8.5-10.1 HCG SERUM JDQI0781-70-37 00:29:00* Test Item Value Reference Range Interpretation Comments HCG SERUM QUAL (test code = HCGQL) NEGATIVE SDHWOLNK-N4075-71-31 00:29:00* Test Item Value Reference Range Interpretation Comments TROPONIN-I (test code = TROPI) ng/mL 0-0.045 CBC W/O XPQL8814-63-85 00:18:00* Test Item Value Reference Range Interpretation [...] fL 6.7-11.0 N - XR CHEST 1 C7756-84-81 23:26:00 FAX: Kvng Gold MD [phone] [place]: B St: PRE Name: BECKIE ABDALLA [facility] : [birth year] Age/S: 23/F [address] [facility] Unit #: [id number] Loc: [place] [address] Phys: Kvng Gold MD Acct: [id number] Dis Date: Status: PRE ER PHONE #: [phone] Exam Date: 01/17/2019 2312 FAX #: [phone] Reason: Shortness of Breath EXAMS: CPT CODE: [id number] XR CHEST 1 V 24981 EXAM: - XR CHEST 1 V HISTORY: Shortness of breath. COMPARISON: None available time of interpretation. FINDINGS: Single AP view of the ryanne st is provided. Heart size and vascularity are within normal limits. The lungs are clear of focal consolidation. No effusion, pneumothorax, or acute osseous abnormality. IMPRESSION: No rad iographic evidence of acute cardiopulmonary process. at 3333 Repor mirlande and signed by: Bobby Barber MD CC: Kvng Gold MD Technologist: Sean Brennan RT(R) Trnscrd Date/Time/By: 01/17/2019 (8689) : By: Avtar .[email or web address] Orig Print D/T: S: 01/17/2019 (2526) PAGE [address] ABDOMEN AND PELVIS W/O OSEMTPIW3048-12-28 00:30:26CT abdomen and pelvis without contrastLocation Code: [id number] HISTORY: [id number]: Right flank painCOMPARISON: NoneTechnique: Helical CT of [...] sonography/gynecology consultationAdditional findings detailed ab oveCOMPREHENSIVE METABOLIC WWV2287-31-36 00:02:00* Test Item Value Reference Range Interpretation [...] code = 31A) 111 IU/L <=78 H LRFOZGZ8347-40-15 00:02:00* Test Item Value Reference Range Interpretation Comments AMYLASE (test code = 10A) 51 U/L 28-100 URINALYSIS WITH GSYDF3263-59-97 23:58:00* Test Item Value Reference Range Interpretation [...] (test code = USPERM) /HPF NONE LIPASE GBVMK5205-31-05 23:56:00* Test Item Value Reference Range Interpretation Comments LIPASE (test code = 60A) 210 IU/L 73-393 URINE IUOXBMTXZV8947-10-98 23:50:00* Test Item Value Reference Range Interpretation [...] RBCMOR) NORMAL XR SPINE LUMBAR AP & AFE9061-25-66 15:25:00Dictation location D4 Lumbar Spine 3 viewsHISTORY: Low back painCOMMENT: There are 5 nonrib-bearing lumbar vertebral bodies. There isnormal lumbar lordosis with preservation of normal vertebral body alignment,vertebral body height, and intervertebral disc space distance. Nospondylolysis, or spondylolisthesis is visualized. There is no evidence offracture or dislocation. IMPRESSION: Normal lumbar spine.CT STONE PROTOCOL STUDY*GP*2018-10-03 17:01:46Exam: Stone protocol CT abdomen and pelvis.Location: D4.History: [id number]: Right lower quadrant painTechnique: Unenhanced spiral slices [...] PGU) NEGATIVE NEGATIVE COMPREHENSIVE METABOLIC LITTLE *GP* dldffxo5641-03-01 16:48:00* Test Item Value Reference Range Interpretation [...] code = GMID%) 6.9 % 0.0-10.0 TISSUE [id number] 16:33:00Surgical Pathology Report Case: [id number] Authorizing Provider: Stanislav Zarate, Collected: 07/17/2018 1015 Ordering Location: [facility] PERI[facility] Received: 07/17/2018 1037 SERVICES Pathologist: Azeb Goodrich MD Specimen: Gallbladder, gallbladder GALLBLADDER, CHOLECYSTECTOMY: - MILD CHRONIC CHOLECYSTITIS WITH FOCAL INTESTINAL METAPLASIA - NO DYSPLASIA OR MALIGNANCY IS IDENTIFIED - CHOLELITHIASIS - ONE REACTIVE LYMPH NODEMG/pl Signing Pathologist Direct Phone Line: [phone] signed by Azeb Goodrich MD on 07/18/2018 at 4:33 [id number] Gallbladder The specimen is received in fixative and designated as "gallbladder" and consists of a pink-waggoner cholecystectomy specimen (7.0 x 3.5 x 3.0 cm). The gallbladder is filled with green viscous fluid and contains multiple yellow gallstones ranging in size from 0.5 to 0.7 cm in greatest dimension. The gallbladder mucosa is waggoner and velvety with no discrete lesions identified. Intelligence Clerk sections of the gallbladder mucosa and cystic duct are submitted into A1. MG/pl Performed [facility], Department of Pathology, [address] [place] [id number], [facility], Department of Pathology, [address] [place] [address], [facility] of [facility], [address] [place] [address], NAF W/PLT COUNT & AUTO [id number] 08:16:00* Test Item Value Reference Range Interpretation [...] = 2801) 1 % 0-0 H SCREEN, [id number] 07:57:00* Test Item Value Reference Range Interpretation Comments TEST URINE (BEAKER) (test code = 583) Negative U/S RLSCQGT8907-08-29 09:26:05EXAMINATION: U/S ABDOMEN.LOCATION: S17.HISTORY: Disease of liver, [...] within contracted gallbladder.Hepatic steatosis.COMPREHENSIVE METABOLIC LITTLE *GP* fhfutcw8803-47-86 13:18:00* Test Item Value Reference Range Interpretation [...] (test code = GMID%) 6.5 % 0.0-10.0 BMHQWKYIVFPCS1463-78-18 17:38:00* Test Item Value Reference Range Interpretation Comments ACETAMINPH (test code = 94M) <2.0 ug/mL 10.0-30.0 L ALCOHOL BLOOD (ETOH)2018-05-03 17:29:00* Test Item Value Reference Range Interpretation Comments ETOH (test code = HALC) ETHANOL The res ult is to be used only for medical purposes ALCOHOL (test code = 56A) <10 mg/dL <=10 [id number] 17:27:00* Test Item Value Reference Range Interpretation [...] GTPI) <0.05 ng/mL <=0.05 LIVER PROFILE GP lwyaqwa0385-53-67 16:14:00* Test Item Value Reference Range Interpretation [...] 7.8 g/dL 6.4-8.1 [employer] 8 Panel *GP* laiadqx4542-73-20 16:13:00* Test Item Value Reference Range Interpretation [...] W/O CONTRAST*GP*2018-01-25 13:11:09CT brain without contrast.Location code: [id number] HISTORY: R51: HEADACHE COMPARISON: 06/07/2017TECHNIQUE: Routine unenhanced [...] aerated. IMPRESSION: No acute intracranial abnormality.COMPREHENSIVE METABOLIC [id number] 02:01:00* Test Item Value Reference Range Interpretation [...] code = 31A) 118 IU/L <=78 H [id number] 02:00:00* Test Item Value Reference Range Interpretation Comments ACETAMINPH (test code = 94M) <2.0 ug/mL 10.0-30.0 L ALCOHOL BLOOD (ETOH)2017-09-30 01:53:00* Test Item Value Reference Range Interpretation Comments ETOH (test code = HALC) ETHANOL The res ult is to be used only for medical purposes ALCOHOL (test code = 56A) <10 mg/dL <=10 [id number] 01:51:00* Test Item Value Reference Range Interpretation Comments SALICYLATE (test code = 94B) <1.7 mg/dL 2.8-20.0 L URINALYSIS WITH [id number] 01:25:00* Test Item Value Reference Range Interpretation [...] code = USPERM) /HPF NONE DRUGS OF [id number] 01:18:00* Test Item Value Reference Range Interpretation [...] Barbiturates 200 ng/mL Opiates 2000 ng/mL URINE [id number] 01:11:00* Test Item Value Reference Range Interpretation [...] PGU) NEGATIVE NEGATIVE COMPREHENSIVE METABOLIC LITTLE *GP* nyxmnaa4249-88-48 23:04:00* Test Item Value Reference Range Interpretation [...] LEUK) Negative NEGATIVE COMPREHENSIVE METABOLIC LITTLE *GP* [id number] 20:48:00* Test Item Value Reference Range Interpretation [...] 837.45mGy-cm.Comparison is made with 01/26/17 CT examination.SITE: [id number]:No renal/ureteral stones are identified. No evidence of [...] bilaterally.2. Cholel ithiasis.3. Hepatic steatosis.DIRECT STREP GROUP [id number] 11:38:00* Test Item Value Reference Range Interpretation Comments Culture Observations (test code = COB1) NO BETA HEMOLY TIC STREPTOCOCCUS ISOLATED Direct Exam (test code = DE3) NEGATIVE FOR STREP A ANTIGEN XR CHEST 2 [id number] 19:34:48EXAM: Chest x-ray, 2 viewsLocation: R16 COMPARISON: Chest x-ray on 04/22/2017INDICATION: cough, feverDISCUSSION:No consolidation or pleural effusion is seen. The cardiomediastinal silhouetteis within normal limits. No acute bony abnormalities are identified.IMPRESSION: No evidence of acute abnormality. URINE [id number] 19:29:00* Test Item Value Reference Range Interpretation Comments PREG UR (test code = PGU) NEGATIVE NEGATIVE CT HEAD W/O [id number] 19:25:52EXAM: CT head without contrastLocation: [id number]: CT head without contrast on 04/18/2016INDICATION: Cough, [...] CTDI 46 mGy GLUCOMETER GLUCOSE- LAB USE [id number] 10:06:00* Test Item Value Reference Range Interpretation Comments GLUCOMETER (test code = GMG) 96 mg/dL 70-100 Meter ID: [id number]: [address] [place] SALICYLATES WW2017-04-22 17:44:00* Test Item Value Reference Range Interpretation Comments SALICYLATE (test code = 94B) <1.7 mg/dL 2.8-20.0 L ACETAMINOPHEN *WW*2017-04-22 17:37:00* Test Item Value Reference Range Interpretation Comments ACETAMINPH (test code = 94M) <2.0 ug/mL 10.0-30.0 L GLUCOMETER GLUCOSE- LAB USE [id number] 17:34:00* Test Item Value Reference Range Interpretation Comments GLUCOMETER (test code = GMG) 91 mg/dL 70-100 Meter ID: [id number]: 4605 TYRONE FOLEY SERUM MONOCLONAL *WW*2017-04-22 17:34:00* [...] ng/mL Opiates 2000 ng/mL URINALYSIS WITH MICRO 2017-04-22 17:22:00* Test Item Value Reference Range Interpretation [...] = USPERM) /HPF NONE CBC (INCLUDES AUTOMATED DIFFERENTIAL)*[id number] 17:19:00* Test Item Value Reference Range Interpretation [...] MORPH (test code = WRBCMOR) NORMAL LIVER [id number] 06:10:00* Test Item Value Reference Range Interpretation [...] IU/L <=78 H XR ABDOMEN 1 VIEW [id number] 16:18:43EXAM: ABDOMEN ONE VIEWINDICATION: IleusCOMPARISON: CT dated [...] (test code = RBCMOR) NORMAL BASIC METABOLIC [id number] 06:10:00* Test Item Value Reference Range Interpretation [...] 8.3-9.[address] ABDOMEN AND PELVIS WITH [id number] 20:43:51LOCATION CODE: A1.HISTORY: Midepigastric pain, nausea and [...] acute intra-abdominal or pelvic pathology. URINALYSIS WITH [id number] 19:32:00* Test Item Value Reference Range Interpretation Comments COLOR (test code = COLU) DK YELLOW YELLOW A CLARITY (test code = CLA) HAZY CLEAR A GLUCOSE UR (test code = UA GLUCOSE) NEGATIVE NEGATIVE BILI UR (test code = BILE) 1+ NEGATIVE A KETONES UR (test code = MILLIE) NEGATIVE [...] MORPH (test code = RBCMOR) NORMAL URINE [id number] 19:22:00* Test Item Value Reference Range Interpretation Comments PREG UR (test code = PGU) NEGATIVE NEGATIVE [id number] 19:17:00* Test Item Value Reference Range Interpretation Comments AMYLASE (test code = 10A) 61 U/L 28-100 COMPREHENSIVE METABOLIC [id number] 19:17:00* Test Item Value Reference Range Interpretation [...] = 31A) 316 IU/L <=78 H LIPASE [id number] 19:12:00* Test Item Value Reference Range Interpretation Comments LIPASE (test code = 60A) 201 IU/L 73-393 CT ABDOMEN AND PELVIS WITH OGBFQSCJ1238-23-29 04:31:53Examination: Abdomen and pelvic CT with contrast After hours service provided on 10/30/2016 4:27 AM.Location code: T1Uyekdbmmvx: Abdomen and pelvic CT 07/03/16Technique:Axial postcontrast contiguous [...] physiologic free fluid in the pelvis.COMPREHENSIVE METABOLIC [id number] 00:38:00* Test Item Value Reference Range Interpretation [...] code = 31A) 47 IU/L <=78 LIVER [id number] 00:38:00* Test Item Value Reference Range Interpretation [...] (test code = 31A) 47 IU/L <=78 OSEWREDHTCQOC2487-46-33 00:38:00* Test Item Value Reference Range Interpretation Comments ACETAMINPH (test code = 94M) <2.0 ug/mL 10.0-30.0 L ALCOHOL BLOOD (ETOH)2016-10-30 00:36:00* Test Item Value Reference Range Interpretation Comments ALCOHOL (test code = 56A) <10 mg/dL <=10 Ref Range Change (test code = REF RANGE) Please note the change in reference range [id number] 00:33:00* Test Item Value Reference Range Interpretation [...] UR (test code = LEUK) NEGATIVE NEGATIVE BXMGHWSFASQ9312-27-28 00:31:00* Test Item Value Reference Range Interpretation Comments SALICYLATE (test code = 94B) <1.7 mg/dL 2.8-20.0 L AMMONIA [id number] 00:29:00* Test Item Value Reference Range Interpretation Comments AMMONIA (test code = 54A) 40 umol/L 11-32 H DRUGS OF [id number] 00:29:00* Test Item Value Reference Range Interpretation [...] ng/mL Opiates 2000 ng/mL PRO TIME AND [id number] 00:27:00* Test Item Value Reference Range Interpretation [...] LMW Heparin. Order Code is ANTI-XA SERUM [id number] 00:20:00* Test Item Value Reference Range Interpretation [...] RBCMOR) NORMAL XR FINGER LEFT COMPLET 3 [id number] 21:44:15X-ray left first digit 3 views.INDICATION: Pain, [...] SUSCEPTIBILITY NOT INDICATED. RECOLLECTION RECOMMENDED AMYLASE AND [id number] 14:07:00* Test Item Value Reference Range Interpretation Comments AMYLASE (test code = 10A) 52 U/L 28-100 LIPASE (test code = 60A) 115 IU/L 73-393 ALCOHOL BLOOD (ETOH)2016-08-22 13:54:00* Test Item Value Reference Range Interpretation Comments ALCOHOL (test code = 56A) <10 mg/dL <=10 Ref Range Change (test code = REF RANGE) Please note the change in reference range COMPREHENSIVE METABOLIC [id number] 13:47:00* Test Item Value Reference Range Interpretation [...] (test code = 31A) 47 IU/L <=78 [id number] 13:43:00* Test Item Value Reference Range Interpretation Comments ACETAMINPH (test code = 94M) <2.0 ug/mL 10.0-30.0 L [id number] 13:37:00* Test Item Value Reference Range Interpretation Comments SALICYLATE (test code = 94B) <1.7 mg/dL 2.8-20.0 L SERUM ETJSKLTKVZ3236-16-93 13:26:00* Test Item Value Reference Range Interpretation Comments PREG SRM (test code = PGS) NEGATIVE NEGATIVE DRUGS OF [id number] 13:26:00* Test Item Value Reference Range Interpretation [...] 200 ng/mL Opiates 2000 ng/mL URINALYSIS WITH [id number] 13:25:00* Test Item Value Reference Range Interpretation [...] (test code = RBCMOR) NORMAL DIRECT CHLAMYDIA [id number] 08:34:00* Test Item Value Reference Range Interpretation Comments CHLAMYDIA TRACHOMATIS (test code = 94006867) NOT DETECTED NOT DETEC MIRLANDE NEISSERIA GONORRHOEAE (test code = 71177850) NOT DETECTED NOT DETEC MIRLANDE Endnote (test code = 28825183) This test was performed using the APTIMA COMBO2 Assay([employer]The analytical performance characteristics of thisassay, when used to test SurePath specimens havebeen determined by [employer].TEST PERFORMED AT:[facility] [id number] [place] [id number] EASTON M.D. WET [id number] 22:16:00* Test Item Value Reference Range Interpretation [...] TRICHOMONAS SEEN CT ABDOMEN AND PELVIS WITH [id number] 21:23:02LOCATION: I32NXNQJCS: 21-year-old female who presents with abdominal pain.COMMENT: [...] on this CT st udyis unremarkable.BASIC METABOLIC [id number] 20:58:00* Test Item Value Reference Range Interpretation [...] MORPH (test code = RBCMOR) NORMAL URINE [id number] 20:50:00* Test Item Value Reference Range Interpretation Comments PREG UR (test code = PGU) NEGATIVE NEGATIVE URINALYSIS WITH [id number] 20:47:00* Test Item Value Reference Range Interpretation [...] code = USPERM) /HPF NONE URINE AND [id number] [facility] IEEBJ6884-22-28 01:40:00Negative *NA*(02/25/16 8:40 PM)[facility] [id number] 01:40:00Negative (02/25/16 8:40 PM)[facility] SGEMT1044-00-18 01:40:00Yellow *NA*(02/25/16 8:40 PM)[facility] [id number] 01:40:00Slight *ABN*(02/25/16 8:40 PM)[facility] PGAHE9788-70-12 01:40:001.027[facility] JVLTF8584-61-23 01:40:00Small *ABN*(02/25/16 8:40 PM)[facility] WSYBT5808-02-99 01:40:001 [facility] MSQIH5070-85-38 01:40:006[facility] OYTEM5466-99-69 01:40:002.0[facility] [id number] 01:40:00 Negative (02/25/16 8:40 PM)[facility] UHIT1160-27-39 01:40:00Negative (02/25/16 8:40 PM)[facility]LE[facility] ETTHKLIYGP1680-74-73 06:37:00Negative *NA*(06/09/15 12:37 AM)[facility] RDVTYZILIE5642-46-76 06:37:00 Negative *NA*(06/09/15 12:37 AM)[facility] KZNRSNACHJ3509-32-98 06:37:00Urine *NA*(06/09/15 12:37 AM)[facility]annCHEM QHLCY4191-18-40 06:23:78343Wnktpcke HermannCHEM GQRYJ4972-85-62 06:23:000.5[facility]annCHEM JTITE5354-12-01 06:23:0026[facility]annCHE[facility] GDSBG5547-64-64 06:23:0083 [facility]annCHE[facility] UXVSM7491-54-52 06:23:000.66[facility]annCHEM PANEL 2015-06-09 06:23:57397Qwczjoyo HermannCHEM FAUUO3047-43-78 06:23:0087[facility]annCHE[facility] JPCZE0568-17-38 06:23:0013[facility]annCHE[facility] NBNGQ6191-96-03 06:23:003.8[facility]annCHE[facility] FIIDM8674-36-75 06:23:007.3[facility]annCHE[facility] YWCXI6722-34-12 06:23:0038[facility]annCHE[facility] BLZKV7899-74-36 06:23:51339 [facility]annCHE[facility] EGXKV0474-07-00 06:23:0026[facility]annCHEM PANEL 2015-06-09 06:23:008.6[facility]annCHE[facility] RKHCO7232-54-84 06:23:003.5[facility]annCHE[facility] FOXVN7447-75-81 06:23:003.5[facility]annCHE[facility] TWBCJ1940-39-62 06:23:001.1[facility]annCHE[facility] LAFND8000-46-24 06:23:0011.5[facility]annCHEM ONWUO7100-72-02 06:23:0020[facility] VxicdskRWVGZITFDZTAL3432-59-70 06:23:00 Negative *NA*(06/09/15 12:23 AM)[facility] CqaupopBCBQCXXRIA4487-71-51 06:23:000.5 [facility] ImlondiNRDNZWIASK5090-98-59 06:23:000.1[facility]annHEMATOLOGY 2015-06-09 06:23:000.0[facility] EdlvtghSWFXRMHMQU6918-14-83 06:23:0050.1[facility] WwdqbtqTLQWTXAIAQ3240-21-36 06:23:0040.2[facility] LnaiyjvCERCZTUIEU0699-79-00 06:23:007.6[facility] QkiniykWJAKOXMIVT1446-17-01 06:23:001.6[facility] [place] VBSRJICNRE3396-97-28 06:23:000.5[facility] GbclpxgCRGSBBDMMD2842-25-43 06:23:003.4 [facility] SrwglztNKAYAVMZID5902-77-89 06:23:002.7[facility]annHEMATOLOGY 2015-06-09 06:23:006.7[facility] VrwnkurNAVBWPRZRP6596-07-23 06:23:004.08[facility] UqxgwhyDIFLGXGGPX1204-48-18 06:23:0036.7[facility] WzxrnzoXVXWHJELSX3086-29-19 06:23:0012.6[facility] HgfuoxzWLFCLHWWFR5336-79-80 06:23:0089.9[facility] [place] VYRGUOKEZD5227-15-20 06:23:0034.3[facility] AklexqkSMVEONRIDX1194-65-81 06:23:00* Test Item Value Reference Range Interpretation Comments MCH (test code = MCH) 30.8 pg 27.0-31.0 [facility] PdmzpbcPTGROXORVM1682-65-61 06:23:31035Qbjekfqj HermannHEMATOLOGY 2015-06-09 06:23:0012.7[facility] JbduasqDGETJILPDR4054-03-76 06:23:009.0[facility] SCGGJ0669-59-61 06:23:00Negative (06/09/15 12:23 AM)[facility] HYRIR9876-02-58 06:23:00Negative (06/09/15 12:23 AM)[facility] QIQMU0468-49-89 06:23:00* Test Item Value Reference Range Interpretation Comments UA pH (test code = UA pH) 6.5 1 5.0-8.0 [facility] XOFNR0778-56-78 06:23:00Negative (06/09/15 12:23 AM) [facility] HQWSU0124-30-65 06:23:00Negative *NA*(06/09/15 12:23 AM)[facility] ZEMUI6699-11-16 06:23:00Negative *NA*(06/09/15 12:23 AM)[facility] WJRGN1408-25-48 06:23:00Small *ABN*(06/09/15 12:23 AM)[facility] QTGXZ0514-80-52 06:23:001.0[facility] QZOQO8503-21-68 06:23:00Negative (06/09/15 12:23 AM)[facility] OMCYN4275-88-02 06:23:00Yellow *NA*(06/09/15 12:23 AM)[facility] FZRAX2433-90-78 06:23:00Slight Cloudy (06/09/15 12:23 AM)[facility] YVZDE1351-95-97 06:23:00* Test Item Value Reference Range Interpretation Comments UA Spec Grav (test code = UA Spec Grav) 1.025 1 [facility] PsswzpeKGMAYQZRQM1320-86-46 05:34:00Negative (10/01/14 12:34 AM)[facility]ann[facility]LEC[facility] SRHZCKAWTD1550-56-63 05:34:00Negative 1*NA*(10/01/14 12:34 AM) [facility] UDMQNRLASW2498-49-06 05:34:00Endocervix *NA*(10/01/14 12:34 AM)[facility]ann[facility]LEC[facility] BFNOHCKKUW4443-27-65 05:34:00Positive 2, 3, 4*ABN*(10/01/14 12:34 AM)[facility] XXTBS9369-76-61 05:34:00* Test Item Value Reference Range Interpretation Comments UA Spec Grav (test code = UA Spec Grav) 1.020 1 [facility] XKTPD9359-89-19 05:34:00Cloudy *ABN*(10/01/14 12:34 AM) [facility] LCWWB1861-88-28 05:34:00* Test Item Value Reference Range Interpretation Comments UA pH (test code = UA pH) 7.0 1 5.0-8.0 [facility] PNZAO7671-78-69 05:34:00Negative (10/01/14 12:34 AM) [facility] EYPXQ2549-52-88 05:34:00Negative *NA*(10/01/14 12:34 AM)[facility] QRFTT6008-88-71 05:34:00Negative (10/01/14 12:34 AM) [facility] SOHFG0557-93-57 05:34:00Negative (10/01/14 12:34 AM) [facility] NRAJY2827-35-03 05:34:00Small *ABN*(10/01/14 12:34 AM) [facility] IPVEG3950-41-11 05:34:00Yellow *NA*(10/01/14 12:34 AM) [facility] MGZWI7404-62-91 05:34:001.0[facility] FCXJB5231-56-32 05:34:00Negative (10/01/14 12:34 AM)[facility] TGGOF3749-91-97 05:34:00Negative *NA*(10/01/14 12:34 AM)[facility] SAPI8535-17-72 05:34:00Negative (10/01/14 12:34 AM)[facility]
[2020-01-12 18:36] LABS: BASOPHILS # (AUTO) 0.1 (0.0-0.1); BASOPHILS % 0.5 % (0.0-1.0); EOSINOPHILS # (AUTO) 0.1 (0.0-0.4); EOSINOPHILS % 1.3 % (0.0-6.0); HEMATOCRIT 40.7 % (34.2-44.1); HEMOGLOBIN 13.8 g/dL (12.0-16.0); LYMPHOCYTES # (AUTO) 2.9 (1.0-3.2); LYMPHOCYTES % 27.5 % (18.0-39.1); MEAN CORPUSCULAR HEMOGLOBIN 29.8 pg (28-32); MEAN CORPUSCULAR HGB CONC 33.9 g/dL (31-35); MEAN CORPUSCULAR VOLUME 87.9 fL (81-99); MONOCYTES # (AUTO) 0.6 (0.2-0.8); NEUTROPHILS # (AUTO) 6.7 (2.1-6.9); NEUTROPHILS % 64.3 % (38.7-80.0); PLATELET COUNT 284 x10e3/uL (140-360); RED BLOOD COUNT 4.63 x10e6/uL (3.6-5.1); RED CELL DISTRIBUTION WIDTH 12.8 % (11.7-14.4)
[2020-01-12 18:57] LABS: ALANINE AMINOTRANSFERASE 134 IU/L (0-55); ALBUMIN 4.3 g/dL (3.5-5.0); ALBUMIN/GLOBULIN RATIO 1.1 (0.8-2.0); ALKALINE PHOSPHATASE 82 IU/L (40-150); ANION GAP 15.5 mmol/L (8-16); BLOOD UREA NITROGEN 8 mg/dL (7-26); BUN/CREATININE RATIO 10 (6-25); CALCIUM 9.4 mg/dL (8.4-10.2); CARBON DIOXIDE 19 mmol/L (22-29); CHLORIDE 108 mmol/L (98-107); CREATINE KINASE 146 IU/L (29-168); CREATININE, SERUM 0.78 mg/dL (0.57-1.11); EST GLOMERULAR FILTRATION RATE > 60 ML/MIN (60-); GLUCOSE 96 mg/dL (74-118); POTASSIUM 3.5 mmol/L (3.5-5.1); SODIUM 139 mmol/L (136-145)
[2020-01-12] MEDS ORDERED: KETOROLAC TROMETHAMINE 30 MG/ML VIAL IV STA (20:45)
[2020-01-12 21:00] VITALS: BP 122/78
[2020-01-12] MEDS ORDERED: KETOROLAC TROMETHAMINE 30 MG/ML VIAL ONE (21:01)
== END 2020-01-12 21:13 | disposition home or self-care (01) ==
LOC: ER 18:07
DX: M79.605 Pain in left leg (principal); R06.02 Shortness of breath; M79.89 Other specified soft tissue disorders; E78.5 Hyperlipidemia, unspecified; F41.9 Anxiety disorder, unspecified; F32.9 Major depressive disorder, single episode, unspecified; G47.00 Insomnia, unspecified; G47.30 Sleep apnea, unspecified
CPT/HCPCS: 36415; 80053; 81025; 82550; 82553; 84484; 85025; 93970; 99284; J1885

== ENCOUNTER → 2020-01-21 | Outpatient (CLI) | payer MEDICARE, OTHER ==
[~2020-01-21] MED LIST changes: +ABILIFY5 MG PO; +HYDROXYZINE HCL25 MG PO; +SERTRALINE HCL100 MG PO; +TRAZODONE HCL50 MG PO
--- NOTE | 2020-01-21 13:42 | Diagnostic Imaging Report ---
EXAM: US ABDOMEN COMPLETE DATE: 01/21/2020 1:06 PM INDICATION: ^[id number] ^[id number] ^ELEVATED LIVER ENZYMES COMPARISON: CT dated 02/11/2019 TECHNIQUE: Transverse and longitudinal willingham scale and color doppler sonographic images of the abdomen were obtained. FINDINGS: LIVER 18 cm in the right midclavicular line. Liver is diffusely echogenic with normal contour, no masses. SPLEEN 13 cm in maximum diameter, mildly enlarged. Normal echogenicity, no masses. GALLBLADDER Surgically absent BILE DUCTS No intra nor extra-hepatic biliary dilation. Common bile duct measures 0.4cm PANCREAS: Visualized portions are normal. RIGHT KIDNEY: 10.2 cm Echogenicity: Normal Collecting System: No hydronephrosis Stones: None Cyst/Mass: None LEFT KIDNEY: 10.7 cm Echogenicity: Normal Collecting System: No hydronephrosis Stones: None Cyst/Mass: None VESSELS: Aorta: Visualized portions are within normal size limits Inferior Vena Cava: Visualized portions are normal Main Portal Vein: 0.9 cm, normal size with hepatopetal flow. FREE FLUID: None IMPRESSION: 1. Hepatic steatosis. 2. Post surgical change from cholecystectomy. Negative for biliary dilatation. 3. Mild splenomegaly. Signed by: Fito Abarca MD on 01/21/2020 1:39 PM
== END ==
LOC: US 12:33
PROVIDERS: ATTEND Internal Medicine Gastroenterology
DX: R74.8 Abnormal levels of other serum enzymes (principal)
CPT/HCPCS: 76700

== ENCOUNTER → 2020-01-28 | Day surgery (SDC) | payer MEDICARE, OTHER ==
[~2020-01-28] MED LIST changes: +FENTANYL CITRATE/PF 100MCG/2 ML INJ ONE; +LIDOCAINE HCL 2% LOCAL INJ 5 ML SDV VIAL INJ ONE; +MIDAZOLAM HCL 2 MG/2 ML VIAL ONE; +PANTOPRAZOLE 40 MG 10ML VIAL ONE; +PROPOFOL IV EMULSION 10 MG/ML 20 ML VIAL ONE
[2020-01-28 10:45] VITALS: BP 121/87
--- NOTE | 2020-01-28 11:29 | Operative Report ---
DATE OF PROCEDURE: 01/28/2020 SURGEON: Gregor Greenberg MD PROCEDURE: EGD with biopsies and esophageal dilatation. INDICATIONS FOR EGD: Upper abdominal pain, bloating, nausea, dysphagia. MEDICATIONS: The patient was done under MAC, please see anesthesiologist's note. PROCEDURE IN DETAIL: With the patient in the left lateral decubitus position, the flexible fiberoptic Olympus gastroscope was introduced into the esophagus under direct visualization without any difficulty. Two minute nodules were biopsied from the cervical esophagus. There was some patchy erythema noted in distal esophagus. The esophagus was then dilated to size 50-Vincentian Sher. The scope was then advanced with ease into the stomach. Mucosa overlying the antrum and the body revealed some patchy erythema and low-grade to moderate edema, and biopsies were obtained and sent to stain for H. pylori. Pylorus was of normal contour and shape, was intubated with ease and the scope was advanced all the way to the second portion of the duodenum. Biopsies were obtained from the proximal second portion and the duodenal bulb to rule out sprue. The scope was then withdrawn back into the stomach and retroflexed, mucosa overlying the fundus and the cardia appeared to be within normal limits. The scope was then straightened out, it was subsequently withdrawn, and the patient tolerated the procedure well. IMPRESSION: 1. Cervical esophagus, minute nodules x2, biopsied. 2. Distal esophagitis, mild. 3. Esophagus dilated to size 50-Vincentian Sher. 4. Gastritis, biopsied, biopsies sent to stain for Helicobacter pylori. 5. Rule out sprue. PLAN: Follow up histology. Initiate Protonix 40 mg one p.o. q.a.m. before meals. Gregor Greenberg MD [facility] [place] /[id number] cc: Dr. Steven Cross
== END | disposition home or self-care (01) ==
LOC: OR 06:53
PROVIDERS: ATTEND Internal Medicine Gastroenterology
DX: K29.70 Gastritis, unspecified, without bleeding (principal); K22.8 Other specified diseases of esophagus; K20.9 Esophagitis, unspecified; K21.9 Gastro-esophageal reflux disease without esophagitis; K59.09 Other constipation; R74.8 Abnormal levels of other serum enzymes; F32.9 Major depressive disorder, single episode, unspecified; F41.9 Anxiety disorder, unspecified; Z68.35 Body mass index [BMI] 35.0-35.9, adult
CPT/HCPCS: 43239; 43450; 81025; C9113; J2001; J2250; J2704; J3010; U0002

== ENCOUNTER 2020-05-04 23:08 | Emergency (ER) | payer MEDICARE, OTHER ==
[~2020-05-04] VITALS: Ht 160 cm; Wt 89.8 kg
[~2020-05-04 23:08] MED LIST changes: -FENTANYL CITRATE/PF 100MCG/2 ML INJ ONE; -LIDOCAINE HCL 2% LOCAL INJ 5 ML SDV VIAL INJ ONE; -MIDAZOLAM HCL 2 MG/2 ML VIAL ONE; -PANTOPRAZOLE 40 MG 10ML VIAL ONE; -PROPOFOL IV EMULSION 10 MG/ML 20 ML VIAL ONE
[2020-05-04] MEDS ORDERED: FAMOTIDINE 20 MG TAB PO ONE (23:15)
[2020-05-04] MEDS ORDERED: PREDNISONE 20 MG TAB PO ONE (23:15)
[2020-05-04] MEDS ORDERED: DIPHENHYDRAMINE HCL 25 MG CAP PO ONE (23:15)
[2020-05-04] MEDS ORDERED: ONDANSETRON HCL 4 MG ORAL DISINTEGRATING TAB PO ONE (23:30)
[2020-05-05] MEDS ORDERED: PREDNISONE20 MG PO (00:59)
== END 2020-05-05 01:40 | disposition home or self-care (01) ==
LOC: ER 23:12
DX: T78.40XA Allergy, unspecified, initial encounter (principal); F41.9 Anxiety disorder, unspecified; E78.5 Hyperlipidemia, unspecified; G47.00 Insomnia, unspecified; G47.30 Sleep apnea, unspecified
CPT/HCPCS: 99282; J7512; Q0162

== ENCOUNTER 2020-05-07 01:54 | Emergency (ER) | payer MEDICARE, OTHER ==
[~2020-05-07] VITALS: Ht 160 cm; Wt 89.8 kg
[~2020-05-07 01:54] MED LIST changes: +PREDNISONE20 MG PO
[2020-05-07] MEDS ORDERED: FAMOTIDINE 20 MG TAB PO ONE (02:00)
[2020-05-07] MEDS ORDERED: DIPHENHYDRAMINE HCL 25 MG CAP PO ONE (02:00)
[2020-05-07] MEDS ORDERED: DEXAMETHASONE 4 MG TAB PO SCH (02:00)
[2020-05-07] MEDS ORDERED: CLINDAMYCIN HC150 MG PO (02:07)
[2020-05-07] MEDS ORDERED: FAMOTIDINE 20 MG TAB ONE (02:10)
[2020-05-07] MEDS ORDERED: DIPHENHYDRAMINE HCL 25 MG CAP ONE ×2 (02:10→02:14)
[2020-05-07] MEDS ORDERED: DEXAMETHASONE 4 MG TAB ONE (02:10)
[2020-05-07] MEDS ORDERED: VITAFOL ULTRA1 EACH (08:59)
[2020-05-07] MEDS ORDERED: LATUDA40 MG (08:59)
[2020-05-07] MEDS ORDERED: TYLENOL # 31 EA (08:59)
[2020-05-07] MEDS ORDERED: JUNEL FE 24 TA1 EACH (08:59)
[2020-05-07] MEDS ORDERED: AMOXICILLIN500 MG (08:59)
== END 2020-05-07 03:20 | disposition home or self-care (01) ==
LOC: ER 02:05
DX: T78.40XA Allergy, unspecified, initial encounter (principal); E78.5 Hyperlipidemia, unspecified; F41.9 Anxiety disorder, unspecified; G47.00 Insomnia, unspecified; G47.30 Sleep apnea, unspecified
CPT/HCPCS: 99283; J8540

== ENCOUNTER 2020-05-07 05:35 | Inpatient (IN) | payer MEDICARE, OTHER ==
[~2020-05-07] VITALS: Ht 160 cm; Wt 89.8 kg
[~2020-05-07 05:35] MED LIST changes: +CLINDAMYCIN HC150 MG PO
[2020-05-07] MEDS ORDERED: METHYLPREDNISOLONE SOD SUCC 125 MG/2ML VIAL IV STA (05:46)
[2020-05-07] MEDS ORDERED: SODIUM CHLORIDE 0.9% 1000ML 1,000 ML IV STA (05:46)
[2020-05-07] MEDS ORDERED: FAMOTIDINE 20 MG/2 ML VIAL IV STA (05:46)
[2020-05-07] MEDS ORDERED: KETOROLAC TROMETHAMINE 30 MG/ML VIAL IV STA (05:46)
[2020-05-07] MEDS ORDERED: CLINDAMYCIN PHOS 900MG/ 50ML 50 ML IV ONE (06:00)
[2020-05-07] MEDS ORDERED: TETANUS/DIPHTHERIA TOX ADULT 0.5 ML SYR IM ONE (06:00)
[2020-05-07] MEDS ORDERED: DIPHENHYDRAMINE HCL INJ 50 MG/ML VIAL IV ONE (06:00)
[2020-05-07 06:03] LABS: BASOPHILS % 0.3 % (0.0-1.0); EOSINOPHILS % 0.1 % (0.0-6.0); HEMATOCRIT 42.6 % (34.2-44.1); HEMOGLOBIN 14.5 g/dL (12.0-16.0); LYMPHOCYTES # (AUTO) 1.3 (1.0-3.2); LYMPHOCYTES % 9.9 % (18.0-39.1); MEAN CORPUSCULAR VOLUME 88.2 fL (81-99); MONOCYTES # (AUTO) 0.3 (0.2-0.8); MONOCYTES % 2.3 % (4.4-11.3); NEUTROPHILS # (AUTO) 11.6 (2.1-6.9); PLATELET COUNT 269 x10e3/uL (140-360); RED BLOOD COUNT 4.83 x10e6/uL (3.6-5.1); RED CELL DISTRIBUTION WIDTH 12.5 % (11.7-14.4)
[2020-05-07 06:12] LABS: INR 0.92; PROTHROMBIN TIME 12.8 seconds (11.9-14.5)
[2020-05-07 06:13] LABS: PARTIAL THROMBOPLASTIN TIME 30.3 seconds (23.8-35.5)
[2020-05-07 06:22] LABS: ALANINE AMINOTRANSFERASE 102 IU/L (0-55); ALBUMIN 4.4 g/dL (3.5-5.0); ALBUMIN/GLOBULIN RATIO 1.2 (0.8-2.0); ALKALINE PHOSPHATASE 92 IU/L (40-150); BLOOD UREA NITROGEN 9 mg/dL (7-26); BUN/CREATININE RATIO 12 (6-25); CALCIUM 9.4 mg/dL (8.4-10.2); CARBON DIOXIDE 18 mmol/L (22-29); CHLORIDE 107 mmol/L (98-107); CREATININE, SERUM 0.78 mg/dL (0.57-1.11); EST GLOMERULAR FILTRATION RATE > 60 ML/MIN (60-); GLUCOSE 133 mg/dL (74-118); SODIUM 135 mmol/L (136-145)
[2020-05-07] MEDS ORDERED: SODIUM CHLORIDE 0.9% 50ML 50 ML ONE (07:03)
[2020-05-07] MEDS ORDERED: IOPAMIDOL 370 MG/ML 200 ML INFUS..BTL INJ ONE (07:03)
[2020-05-07] MEDS ORDERED: TYLENOL # 31 EA (08:59)
[2020-05-07] MEDS ORDERED: VITAFOL ULTRA1 EACH (08:59)
[2020-05-07] MEDS ORDERED: LATUDA40 MG (08:59)
[2020-05-07] MEDS ORDERED: JUNEL FE 24 TA1 EACH (08:59)
[2020-05-07] MEDS ORDERED: AMOXICILLIN500 MG (08:59)
[2020-05-07] MEDS ORDERED: ONDANSETRON HCL INJ 2MG/ML 2ML 2 MG/ML VIAL IV PRN (09:00)
[2020-05-07] MEDS ORDERED: MORPHINE SULFATE INJ 4 MG/ML INJ 1ML IV PRN (09:00)
[2020-05-07] MEDS: SODIUM CHLORIDE 0.9% 1000ML 1,000 ML IV SCH ×3 (09:36→21:02)
[2020-05-07] MEDS: PIPER-TAZ 3.375 GM 50 ML IV SCH ×3 (09:36→21:02)
[2020-05-07] MEDS: VANCOMYCIN 1GM/NS 250 ML 250 ML IV SCH ×2 (10:01→23:07)
[2020-05-07 14:00] VITALS: BP 123/83
[2020-05-07] MEDS: DEXAMETHASONE SOD PHOS INJ 4 MG/ML VIAL IV SCH ×2 (14:39→21:02)
[2020-05-07] MEDS ORDERED: TEMAZEPAM 7.5 MG CAP PO PRN (15:15)
[2020-05-07] MEDS ORDERED: POLYETHYLENE GLYCOL 3350 17 GM PACK PO PRN (15:15)
[2020-05-07] MEDS ORDERED: HYDRALAZINE HCL 20 MG/ML VIAL IV PRN (15:15)
[2020-05-07] MEDS ORDERED: ACETAMINOPHEN 325 MG TAB PO PRN (15:15)
[2020-05-07 16:40] VITALS: BP 127/83
[2020-05-07] MEDS: DOCUSATE SODIUM 100 MG CAP PO SCH (17:51)
[2020-05-07] MEDS: FAMOTIDINE 20 MG/2 ML VIAL IV SCH (17:51)
[2020-05-07] MEDS: SERTRALINE HCL 100 MG TAB PO SCH (17:51)
[2020-05-07] MEDS: ACETAMINOPHEN/CODEINE 300MG - 30MG TAB PO PRN ×2 (17:52→23:36)
[2020-05-07 20:00] VITALS: BP 93/52
[2020-05-07 20:40] VITALS: BP 93/52
[2020-05-07] MEDS ORDERED: TEMAZEPAM 15 MG CAP PO PRN (21:00)
[2020-05-07 22:10] LABS: CLARITY,URINE SL CLOUDY (CLEAR); COLOR,URINE STRAW (YELLOW); KETONES,URINE NEGATIVE (NEGATIVE); LEUKOCYTE ESTERASE ,URINE NEGATIVE (NEGATIVE); NITRITE,URINE NEGATIVE (NEGATIVE); PROTEIN,URINE DIPSTICK NEGATIVE (NEGATIVE); URINE UROBILINOGEN 2 mg/dL (0.2 - 1)
[2020-05-07 22:22] LABS: BACTERIA,URINE MODERATE /HPF; EPITHELIAL CELLS,URINE FEW /LPF
[2020-05-08] VITALS (8 sets, daily range): BP systolic 100–129; BP diastolic 52–86
[2020-05-08] MEDS: PIPER-TAZ 3.375 GM 50 ML IV SCH ×4 (03:49→21:40)
[2020-05-08] MEDS: ACETAMINOPHEN/CODEINE 300MG - 30MG TAB PO PRN (04:16)
[2020-05-08] MEDS: DEXAMETHASONE SOD PHOS INJ 4 MG/ML VIAL IV SCH (05:49)
[2020-05-08 07:40] LABS: BASOPHILS % 0.1 % (0.0-1.0); HEMATOCRIT 37.3 % (34.2-44.1); HEMOGLOBIN 12.7 g/dL (12.0-16.0); LYMPHOCYTES # (AUTO) 1.3 (1.0-3.2); LYMPHOCYTES % 10.3 % (18.0-39.1); MEAN CORPUSCULAR HEMOGLOBIN 30.5 pg (28-32); MEAN CORPUSCULAR VOLUME 89.4 fL (81-99); MONOCYTES # (AUTO) 0.7 (0.2-0.8); NEUTROPHILS % 84.1 % (38.7-80.0); PLATELET COUNT 239 x10e3/uL (140-360); RED BLOOD COUNT 4.17 x10e6/uL (3.6-5.1); RED CELL DISTRIBUTION WIDTH 12.6 % (11.7-14.4)
[2020-05-08 08:05] LABS: ALANINE AMINOTRANSFERASE 61 IU/L (0-55); ALBUMIN 3.6 g/dL (3.5-5.0); ALBUMIN/GLOBULIN RATIO 1.1 (0.8-2.0); ALKALINE PHOSPHATASE 67 IU/L (40-150); ANION GAP 12.9 mmol/L (8-16); BLOOD UREA NITROGEN 10 mg/dL (7-26); BUN/CREATININE RATIO 16 (6-25); CALCIUM 8.5 mg/dL (8.4-10.2); CARBON DIOXIDE 18 mmol/L (22-29); CHLORIDE 113 mmol/L (98-107); CHOL/HDL RATIO 4.7 (3.0-3.6); CHOLESTEROL 154 MD/DL (0-199); CREATININE, SERUM 0.63 mg/dL (0.57-1.11); EST GLOMERULAR FILTRATION RATE > 60 ML/MIN (60-); GLUCOSE 129 mg/dL (74-118); HDL CHOLESTEROL 33 MG/DL (40-60); LDL CHOLESTEROL 91 MG/DL (60-130); PHOSPHORUS 1.9 MG/DL (2.3-4.7); POTASSIUM 3.9 mmol/L (3.5-5.1); SODIUM 140 mmol/L (136-145); TRIGLYCERIDES 152 MG/DL (0-149)
[2020-05-08 08:15] LABS: THYROID STIMULATING HORMONE 0.127 uIU/mL (0.350-4.940)
[2020-05-08] MEDS: SERTRALINE HCL 100 MG TAB PO SCH ×2 (08:39→17:56)
[2020-05-08] MEDS: DOCUSATE SODIUM 100 MG CAP PO SCH ×2 (08:39→17:56)
[2020-05-08] MEDS: ARIPIPRAZOLE 5 MG TABLET PO SCH (08:39)
[2020-05-08] MEDS: LURASIDONE 40 MG PO SCH (08:40)
[2020-05-08] MEDS: PRENATAL VITAMIN PO SCH (08:40)
[2020-05-08] MEDS ORDERED: PREN/MULTIVIT/MIN/FOL AC/IRON 1 TAB PO SCH (09:00)
[2020-05-08] MEDS: FAMOTIDINE 20 MG/2 ML VIAL IV SCH ×2 (09:00→17:56)
[2020-05-08] MEDS ORDERED: NON-FORMULARY MEDICATION (Aripiprazole (Abilify) 10 MG) PO SCH (09:00)
[2020-05-08] MEDS ORDERED: HYDROCODONE/APAP 7.5MG-325MG 1 EA TAB PO PRN (09:45)
[2020-05-08] MEDS ORDERED: MORPHINE SULFATE 2 MG/ML SYR 1ML IV PRN (10:00)
[2020-05-08] MEDS: VANCOMYCIN 1GM/NS 250 ML 250 ML IV SCH ×2 (10:00→22:40)
[2020-05-08] MEDS: KETOROLAC TROMETHAMINE 30 MG/ML VIAL IM PRN ×2 (11:18→19:49)
[2020-05-08] MEDS ORDERED: DIPHENHYDRAMINE HCL INJ 50 MG/ML VIAL IV PRN (17:00)
[2020-05-08] MEDS: DEXAMETHASONE SOD PHOS 10 MG/1 ML VIAL IV SCH (22:19)
[2020-05-09 00:12] VITALS: BP 113/71
[2020-05-09] MEDS: PIPER-TAZ 3.375 GM 50 ML IV SCH ×2 (03:39→09:28)
[2020-05-09 04:41] VITALS: BP 125/86
[2020-05-09] MEDS: DEXAMETHASONE SOD PHOS 10 MG/1 ML VIAL IV SCH (05:42)
[2020-05-09 06:10] LABS: BASOPHILS % 0.1 % (0.0-1.0); HEMATOCRIT 36.6 % (34.2-44.1); HEMOGLOBIN 12.2 g/dL (12.0-16.0); LYMPHOCYTES # (AUTO) 1.6 (1.0-3.2); LYMPHOCYTES % 15.4 % (18.0-39.1); MEAN CORPUSCULAR HEMOGLOBIN 30.8 pg (28-32); MEAN CORPUSCULAR HGB CONC 33.3 g/dL (31-35); MONOCYTES # (AUTO) 0.3 (0.2-0.8); MONOCYTES % 3.3 % (4.4-11.3); NEUTROPHILS # (AUTO) 8.2 (2.1-6.9); PLATELET COUNT 226 x10e3/uL (140-360); RED BLOOD COUNT 3.96 x10e6/uL (3.6-5.1); RED CELL DISTRIBUTION WIDTH 12.8 % (11.7-14.4)
[2020-05-09 06:27] LABS: ALANINE AMINOTRANSFERASE 50 IU/L (0-55); ALBUMIN 3.5 g/dL (3.5-5.0); ALBUMIN/GLOBULIN RATIO 1.1 (0.8-2.0); ALKALINE PHOSPHATASE 68 IU/L (40-150); ANION GAP 12.2 mmol/L (8-16); BLOOD UREA NITROGEN 13 mg/dL (7-26); BUN/CREATININE RATIO 19 (6-25); CALCIUM 8.4 mg/dL (8.4-10.2); CARBON DIOXIDE 21 mmol/L (22-29); CHLORIDE 111 mmol/L (98-107); CREATININE, SERUM 0.69 mg/dL (0.57-1.11); EST GLOMERULAR FILTRATION RATE > 60 ML/MIN (60-); GLUCOSE 125 mg/dL (74-118); POTASSIUM 4.2 mmol/L (3.5-5.1); SODIUM 140 mmol/L (136-145)
[2020-05-09 06:37] LABS: MEAN CORPUSCULAR VOLUME 92.4 fL (81-99)
[2020-05-09 08:00] VITALS: BP 130/88
[2020-05-09] MEDS: ARIPIPRAZOLE 5 MG TABLET PO SCH (09:00)
[2020-05-09] MEDS: PRENATAL VITAMIN PO SCH (09:00)
[2020-05-09] MEDS: LURASIDONE 40 MG PO SCH (09:00)
[2020-05-09 09:02] VITALS: BP 125/86
[2020-05-09] MEDS: DOCUSATE SODIUM 100 MG CAP PO SCH (09:28)
[2020-05-09] MEDS: FAMOTIDINE 20 MG/2 ML VIAL IV SCH (09:28)
[2020-05-09] MEDS: SERTRALINE HCL 100 MG TAB PO SCH (09:29)
[2020-05-09] MEDS: KETOROLAC TROMETHAMINE 30 MG/ML VIAL IM PRN (09:35)
[2020-05-09] MEDS ORDERED: TYLENOL # 31 EA PO (09:56)
[2020-05-09] MEDS: VANCOMYCIN 1GM/NS 250 ML 250 ML IV SCH (10:00)
[2020-05-09 12:00] VITALS: BP 129/82
== END 2020-05-09 17:02 | disposition home or self-care (01) | DRG 158 ==
LOC: ER 05:47 → ERHOLD 09:00 → MED/SURG2 13:45 → UNDODISIN 05-09 13:15
PROVIDERS: ADMIT Internal Medicine; ATTEND Internal Medicine
DX: K04.6 Periapical abscess with sinus (principal); N39.0 Urinary tract infection, site not specified; L03.211 Cellulitis of face; R11.2 Nausea with vomiting, unspecified; K29.70 Gastritis, unspecified, without bleeding; K20.90 Esophagitis, unspecified without bleeding; E66.9 Obesity, unspecified; Z68.35 Body mass index [BMI] 35.0-35.9, adult; E78.5 Hyperlipidemia, unspecified; F41.9 Anxiety disorder, unspecified; F32.9 Major depressive disorder, single episode, unspecified; G47.00 Insomnia, unspecified; G47.30 Sleep apnea, unspecified; F60.3 Borderline personality disorder; Z20.828 Contact with and (suspected) exposure to other viral communicable diseases
CPT/HCPCS: 36415; 70487; 71045; 80053; 80061; 80202; 81001; 83036; 83605; 83735; 84100; 84443; 84702; 85025; 85610; 85730; 87040; 87086; 90471; 90714; 99284; J1100; J1200; J1885; J2270; J2543; J2930; J3370; J7030; Q9967; U0002

== ENCOUNTER 2020-05-10 09:14 | Emergency (ER) | payer OTHER ==
[~2020-05-10] VITALS: Ht 160 cm; Wt 89.8 kg
[~2020-05-10 09:14] MED LIST changes: +AMOXICILLIN500 MG; +JUNEL FE 24 TA1 EACH; +LATUDA40 MG; +TYLENOL # 31 EA; +TYLENOL # 31 EA PO; +VITAFOL ULTRA1 EACH
== END 2020-05-10 09:42 | disposition home or self-care (01) ==
LOC: ER 09:23
DX: L03.211 Cellulitis of face (principal); F41.9 Anxiety disorder, unspecified; E78.5 Hyperlipidemia, unspecified; G47.00 Insomnia, unspecified; G47.30 Sleep apnea, unspecified
CPT/HCPCS: 99282

== ENCOUNTER 2020-09-22 01:14 | Emergency (ER) | payer OTHER ==
[~2020-09-22] VITALS: Ht 160 cm; Wt 89.8 kg
== END 2020-09-22 01:48 | disposition home or self-care (01) ==
LOC: ER 01:34
DX: B34.9 Viral infection, unspecified (principal); F41.9 Anxiety disorder, unspecified; E78.5 Hyperlipidemia, unspecified; G47.00 Insomnia, unspecified; G47.30 Sleep apnea, unspecified; Z20.822 Contact with and (suspected) exposure to COVID-19
CPT/HCPCS: 99282; U0002

== ENCOUNTER 2021-09-11 18:07 | Emergency (ER) | payer MEDICARE, OTHER ==
[~2021-09-11] VITALS: Ht 160 cm; Wt 81.2 kg
== END 2021-09-11 19:30 | disposition home or self-care (01) ==
LOC: ER 18:36
DX: M25.572 Pain in left ankle and joints of left foot (principal); E78.5 Hyperlipidemia, unspecified; F41.9 Anxiety disorder, unspecified; G47.00 Insomnia, unspecified; G47.30 Sleep apnea, unspecified; Z98.84 Bariatric surgery status
CPT/HCPCS: 93971; 99283

== ENCOUNTER 2021-10-16 20:48 | Emergency (ER) | payer MEDICARE, OTHER ==
[~2021-10-16] VITALS: Ht 160 cm; Wt 73.5 kg
[2021-10-16] MEDS ORDERED: ONDANSETRON HCL INJ 2MG/ML 2ML 2 MG/ML VIAL IV STA (20:58)
[2021-10-16] MEDS ORDERED: SODIUM CHLORIDE 0.9% 1000ML 1,000 ML IV ONE (21:00)
[2021-10-16] MEDS ORDERED: Morphine 4mg Syringe 4 MG/ML INJ IV ONE (21:00)
[2021-10-16 21:11] LABS: BASOPHILS % 0.2 % (0.0-1.0); EOSINOPHILS # (AUTO) 0.5 (0.0-0.4); EOSINOPHILS % 4.8 % (0.0-6.0); HEMATOCRIT 40.1 % (34.2-44.1); HEMOGLOBIN 13.3 g/dL (12.0-16.0); LYMPHOCYTES # (AUTO) 3.4 (1.0-3.2); LYMPHOCYTES % 35.5 % (18.0-39.1); MEAN CORPUSCULAR HEMOGLOBIN 29.8 pg (28-32); MEAN CORPUSCULAR HGB CONC 33.2 g/dL (31-35); MEAN CORPUSCULAR VOLUME 89.9 fL (81-99); MONOCYTES # (AUTO) 0.7 (0.2-0.8); MONOCYTES % 7.2 % (4.4-11.3); NEUTROPHILS % 52.1 % (38.7-80.0); PLATELET COUNT 244 x10e3/uL (140-360); RED BLOOD COUNT 4.46 x10e6/uL (3.6-5.1)
[2021-10-16 21:13] LABS: CLARITY,URINE SL CLOUDY (CLEAR); COLOR,URINE STRAW (YELLOW); KETONES,URINE NEGATIVE (NEGATIVE); LEUKOCYTE ESTERASE ,URINE SMALL (NEGATIVE); NITRITE,URINE NEGATIVE (NEGATIVE); PROTEIN,URINE DIPSTICK TRACE (NEGATIVE); URINE UROBILINOGEN 0.2 mg/dL (0.2 - 1)
[2021-10-16 21:20] LABS: AMORPHOUS SEDIMENT,URINE MODERATE (FEW); BACTERIA,URINE MODERATE /HPF; EPITHELIAL CELLS,URINE MODERATE /LPF
[2021-10-16 21:30] LABS: ALBUMIN/GLOBULIN RATIO 1.1 (0.8-2.0); ANION GAP 13.2 mmol/L (8-16); CALCIUM 8.9 mg/dL (8.4-10.2); CREATININE, SERUM 0.92 mg/dL (0.57-1.11); POTASSIUM 3.2 mmol/L (3.5-5.1)
[2021-10-16] MEDS ORDERED: IOPAMIDOL 370 MG/ML 100 ML INFUS..BTL INJ ONE (21:51)
[2021-10-16 22:57] VITALS: BP 104/71
== END 2021-10-16 22:56 | disposition home or self-care (01) ==
LOC: ER 20:54
DX: R10.31 Right lower quadrant pain (principal); N39.0 Urinary tract infection, site not specified; E78.5 Hyperlipidemia, unspecified; F41.9 Anxiety disorder, unspecified; G47.00 Insomnia, unspecified; G47.30 Sleep apnea, unspecified; Z98.84 Bariatric surgery status
CPT/HCPCS: 36415; 74177; 80053; 81001; 81025; 83690; 85025; 99284; J2270; J2405; J7030; Q9967

== ENCOUNTER 2021-12-22 15:01 | Emergency (ER) | payer MEDICARE, OTHER ==
[~2021-12-22] VITALS: Ht 160 cm; Wt 73.5 kg
== END 2021-12-22 15:33 | disposition home or self-care (01) ==
LOC: ER 15:16
DX: K08.89 Other specified disorders of teeth and supporting structures (principal)
CPT/HCPCS: 99282

== ENCOUNTER 2022-02-03 00:59 | Emergency (ER) | payer MEDICARE, OTHER ==
[~2022-02-03] VITALS: Ht 160 cm; Wt 73.5 kg
== END 2022-02-03 04:50 | disposition home or self-care (01) ==
LOC: ER 01:04
DX: M94.0 Chondrocostal junction syndrome [Tietze] (principal); E78.5 Hyperlipidemia, unspecified; G47.00 Insomnia, unspecified; G47.30 Sleep apnea, unspecified; F41.9 Anxiety disorder, unspecified; F32.A Depression, unspecified
CPT/HCPCS: 71046; 93005; 99282